=== PATIENT | male | born 1950 | race Caucasian/White ===

== ENCOUNTER 2017-09-12 10:52 | Day surgery (SDC) | payer MEDICARE, OTHER, SELFPAY ==
[2017-09-12 11:10] VITALS: BP 130/78; PULSE 71; RESP 16; TEMP 36.5; O2SAT 100; BMI 27.4
--- NOTE | 2017-09-12 12:23 | OP.PCM_ITS ---
Report of Operation Date of Procedure: 09/12/17 Pre-Operative Diagnosis: history of colon polyps, colonoscopy 2014 Post-Operative Diagnosis: same Surgery/Procedure Performed:: colonoscopy Description of Surgical Findings:: no polyps noted Type of Anesthesia:: MAC Anesthesiologist: Dat Rey Specimen's removed: none Estimated Blood Loss (mL): none Fluids Replaced: 400 cc RL Description of Procedure: After informed consent was given, the patient was brought to the endoscopy suite and placed in the supine position. Appropriate time out protocol was followed. Appropriate cardiac, blood pressure, and pulse oximetry monitoring was placed. After stable vital signs were noted, the patient was given intravenous conscious sedation by the anesthesia provider. The patient was then placed in the left lateral decubitis position. The colonoscope was lubricated and carefully inserted into the patient?s anus. It was then advanced into the rectum, then into the sigmoid colon, then into the left descending colon, past the splenic flexure, into the transverse colon, past the hepatic flexure, then down into the right descending colon and into the cecum. The cecum was identified by: transillumination, confluence of the tenae coli, identification of the ileocecal valve and appendiceal orifice, and external pressure with indentation. At this point, the colonoscope was slowly retracted back and the entire colonic mucosa was examined. There was no evidence of extrinsic compression and no inflammatory changes were noted. The colon cleansing preparation was adequate. No intraluminal obstructing lesions, no strictures, and no ulcers were noted. No polyps were noted throughout the colon with careful examination from pullout. Retroflex view in the rectum revealed no lesions in the rectal vault except for minimal hemorrhoidal changes. The colonoscope was removed intact. Patient tolerated procedure well. RECOMMENDATIONS: surveillance colonoscopy in 5 years for history of colon polyps - Complications none noted
[2017-09-12 12:24] VITALS: BP 130/78; BP 85/57; PULSE 64; RESP 16; TEMP 36.3; O2SAT 96
[2017-09-12 12:30] VITALS: BP 105/51; BP 130/78; PULSE 72; RESP 16; O2SAT 95
[2017-09-12 12:35] VITALS: BP 130/78; BP 99/56; PULSE 67; RESP 16; O2SAT 96
[2017-09-12 12:38] VITALS: BP 110/68; BP 130/78; PULSE 64; RESP 16; TEMP 36.1; O2SAT 98
[2017-09-12 13:02] VITALS: BP 130/78
== END 2017-09-12 13:04 | disposition home or self-care (01) ==
LOC: EN 10:53 → AC 10:55
PROVIDERS: Family Provider Family Medicine; PCP Family Medicine; Visit Provider Surgery
PROC: 0DJD8ZZ Inspection of Lower Intestinal Tract, Via Natural or Artificial Opening Endoscopic (ICD-10-PCS; CPT 45378; principal; 2017-09-12 11:55)
DX: Z12.11 Encounter for screening for malignant neoplasm of colon (principal); Z86.010 Personal history of colon polyps; E78.5 Hyperlipidemia, unspecified; Z95.0 Presence of cardiac pacemaker; J45.909 Unspecified asthma, uncomplicated
CPT/HCPCS: G0121; J7120

== ENCOUNTER → 2018-09-16 12:08 | Outpatient (CLI) | payer MEDICARE, OTHER, SELFPAY ==
[2018-03-28 11:17] VITALS: BMI 28.7
--- NOTE | 2018-09-16 12:10 | ECHOCS_ITS ---
Reason For Study: ARRHYTHMIA Procedure This was a 2D Doppler, Color Flow transthoracic echocardiogram. The study was technically difficult. Contrast injection was performed. Exam performed in department. Left Ventricle Normal LV size. Left ventricular systolic function is normal. The estimated ejection fraction is 60 %. Stage 1 diastolic dysfunction. No regional wall motion abnormalities noted. Right Ventricle Normal RV size. Normal systolic function. Atria Normal left atrium. Normal right atrium. Mitral Valve Normal mitral valve. Tricuspid Valve Normal tricuspid valve. Mild tricuspid valve insufficiency. Aortic Valve The aortic valve is not well visualized. Pulmonic Valve The pulmonic valve is not well visualized. Great Vessels Normal aortic root. The pulmonary artery is normal size. Normal inferior vena cava. Pericardium/Pleural No pericardial effusion. Medication 22 gauge I.V. with prn adaptor inserted into left arm. Diluted definity 4ml given slow IV push to enhance endocardial definition. MMode/2D Measurements & Calculations LVIDd: 4.7 cm IVSd: 0.94 cm Ao root diam: 3.8 cm LVIDs: 3.1 cm LVPWd: 1.1 cm RVDd: 2.6 cm FS: 33.4 % LAV(MOD-bp): 41.7 ml LVAd ap4: 33.0 cm2 SV(MOD-sp4): 70.8 ml LAV(MOD-bp) Indexed: 20.0 ml/m2 EDV(MOD-sp4): 111.3 ml LAV(MOD-sp2): 40.2 ml EDV(sp4-el): 118.0 ml LAV(MOD-sp4): 39.0 ml LVAs ap4: 17.7 cm2 ESV(MOD-sp4): 40.6 ml ESV(sp4-el): 41.9 ml EF(MOD-sp4): 63.6 % EF(sp4-el): 64.5 % SV(sp4-el): 76.0 ml LA A4 area: 16.0 cm2 LA dimension(2D): 3.6 cm RA A4 area: 14.1 cm2 Time Measurements MV dec time: 0.22 sec Doppler Measurements & Calculations MV E max johnathan: 38.6 cm/sec Lat Peak E' Johnathan: 6.0 cm/sec Med Peak E' Johnathan: 4.7 cm/sec MV A max johnathan: 70.3 cm/sec E/E' lat: 6.4 E/E' med: 8.1 MV E/A: 0.55 Ao V2 max: 119.6 cm/sec LV V1 max: 82.7 cm/sec PA V2 max: 113.5 cm/sec Ao max P.7 mmHg LV V1 max P.7 mmHg PI end-d johnathan: 95.5 cm/sec TR max johnathan: 188.8 cm/sec TR max P.3 mmHg Interpretation Summary Normal LV size. Left ventricular systolic function is normal. The estimated ejection fraction is 60 %. Stage 1 diastolic dysfunction. Mild tricuspid valve insufficiency. Contrast injection was performed. Ordering Physician: Vimal Gomez Referring Physician: MERLIN CARABALLO Performed By: Kimberly Ureña, MILA, RVT
== END ==
PROVIDERS: Family Provider Family Medicine; PCP Family Medicine; Referring Provider Internal Medicine Cardiovascular Disease; Visit Provider Internal Medicine Cardiovascular Disease
DX: I07.1 Rheumatic tricuspid insufficiency (principal)
CPT/HCPCS: 93306; Q9957; A4216; C8929

== ENCOUNTER → 2020-06-04 20:01 | Outpatient (CLI) | payer MEDICARE, OTHER, SELFPAY ==
[2020-04-15 13:20] VITALS: BMI 27.8
== END ==
PROVIDERS: PCP Family Medicine; Visit Provider Nurse Practitioner Family
DX: G47.10 Hypersomnia, unspecified (principal); R06.83 Snoring
CPT/HCPCS: 95810

== ENCOUNTER → 2020-06-17 13:19 | Outpatient (CLI) | payer MEDICARE, OTHER, SELFPAY ==
[2020-04-15 13:20] VITALS: BMI 27.8
--- NOTE | 2020-06-17 13:30 | RAD_ITS ---
STUDY: X-RAY CHEST REASON FOR EXAM: Male, 70 years old. PPM GENERATOR CHANGE TECHNIQUE: Frontal and lateral views COMPARISON: None. FINDINGS: The left-sided pacemaker. The lungs are clear and expanded. There is no demonstrated pleural abnormality. Normal size heart. Normal mediastinum and amilcar. Normal visualized pulmonary arteries. Normal visualized aortic arch and descending thoracic aorta. Mild degenerative changes and scoliosis of the thoracic spine. Normal visualized ribs, clavicles, and shoulders. There is no demonstrated abnormality of the visualized soft tissue structures of the upper abdomen. RAD/Chest PA and Lateral IMPRESSION: Normal x-ray examination of the chest. Electronically Signed: Jairon Prather DO at 19:56 EST Tel [phone], Service support ,
[2020-06-17 13:53] LABS: Bacteria 0 SEEN /hpf (None Seen); Mucous, Urine 0 SEEN /hpf (<or=2+); Red Blood Cells-Urine 0 SEEN /hpf (0-5); Squamous Epithelial Cells - UA 0 SEEN /hpf (0-5); White Blood Cells 0 SEEN /hpf (0-5)
[2020-06-17 15:35] LABS: Hematocrit 46.8 % (40-54); Hemoglobin 15.2 g/dL (13.0-16.5); Mean Corp Hgb Conc 32.5 g/dL (32-36); Mean Corpuscular Hgb 30.3 pg (27.0-32.0); Mean Corpuscular Volume 93.4 fL (80-94); Platelet Count 229 K/mm3 (150-450); RBC Distribution Width CV 11.9 % (11.6-14.6); Red Blood Count 5.01 M/mm3 (4.6-6.2); White Blood Count 7.8 K/mm3 (4.4-11.0)
[2020-06-17 15:40] LABS: Color, Urine Yellow (Yellow); Glucose, Dipstick Normal (Normal); Ketone-Dipstick Negative (Negative); Leukocyte Esterase-Dipstick Negative /ul (Negative); Nitrite-Dipstick Negative (Negative); Occult Blood-Urine Negative /ul (Negative); Protein-Dipstick Negative (Negative); Urine Bilirubin Dipstick Negative (Negative); Urine Clarity Clear (Clear); Urine Urobilinogen Normal (Normal)
[2020-06-17 15:51] LABS: Prothrombin Time (Protime)PT. 12.2 SECONDS (11.7-14.9)
[2020-06-17 16:13] LABS: Anion Gap 5 (5-15); BUN 23 mg/dL (7-18); BUN/Creat Ratio 32.8 RATIO (10-20); Calcium,Total 8.9 mg/dL (8.5-10.1); Chloride 106 mmol/L (98-107); EST Glomerular Filtration Rate 118 mL/min (>60); Est Glom Filt Rate - Afr Amer 143 mL/min (>60); Glucose 82 mg/dL (74-106); Potassium 4.3 mmol/L (3.5-5.1); Sodium Level 139 mmol/L (136-145)
== END ==
PROVIDERS: PCP Family Medicine; Referring Provider Internal Medicine Cardiovascular Disease; Visit Provider Internal Medicine Cardiovascular Disease
DX: I48.0 Paroxysmal atrial fibrillation (principal); Z95.0 Presence of cardiac pacemaker; I49.5 Sick sinus syndrome
CPT/HCPCS: 36415; 71046; 80048; 81001; 85027; 85610

== ENCOUNTER → 2020-06-22 20:20 | Outpatient (CLI) | payer MEDICARE, OTHER, SELFPAY ==
[2020-06-18 13:02] VITALS: BMI 28.0
== END ==
PROVIDERS: PCP Family Medicine; Visit Provider Nurse Practitioner Acute Care
DX: G47.30 Sleep apnea, unspecified (principal)
CPT/HCPCS: 95811

== ENCOUNTER 2020-06-28 11:06 | Day surgery (SDC) | payer MEDICARE, OTHER, SELFPAY ==
[2020-04-15 13:20] VITALS: BMI 27.8
[2020-06-18 13:02] VITALS: BMI 28.0
[2020-06-25 08:29] VITALS: BMI 27.8
--- NOTE | 2020-06-28 07:10 | HP_ITS ---
HPI HPI History of Present Illness Details: DELFINO ROSALES, is a 70 M who presents to the office today for a follow-up evaluation. As you know he is a gentleman with a history of sick sinus syndrome status post pacemaker placement and hyperlipidemia who returns for routine follow-up visit. He denies chest, arm, jaw, or neck discomfort. His exercise tolerance is stable. He denies symptoms of CHF, palpitations, lightheadedness, dizziness, near syncope, or syncopal episodes. He denies edema or claudication issues. He denies orthopnea, PND, fever, chills, cough, blood in urine, epistaxis, blood in stool, myalgia, or unexplainable fatigue. He denies headaches or vision changes. He states taking it at home his blood pressure is 120s-130s, typically in the afternoon. Intake Vital Signs 04/15/20 BP 160/92 H 04/15/20 Blood Pressure Location Lt brachial 04/15/20 Position Sitting 04/15/20 Comment Manual 04/15/20 Height 5 ft 11 in 04/15/20 Weight: 200 lb 04/15/20 BMI 27.8 04/15/20 BP 163/97 H 04/15/20 Blood Pressure Location Rt brachial 04/15/20 Position Sitting 04/15/20 Respiration 18 04/15/20 Pulse 75 04/15/20 Pulse Source Monitor 04/15/20 Pulse Oximetry (%) 99 Intake Visit Reasons: 1 Y FU, pacer 1pm Store Promoter Required: No Accompanied by: None Is patient in pain?: No Allergies aspirin Allergy (Verified 04/08/19 13:01) asthma attack Medications albuterol sulfate 90 mcg/actuation aerosol inhaler 1 inh INHALATION ONCE 04/15/20 [History Confirmed 04/15/20] losartan 25 mg tablet 25 mg PO DAILY 04/15/20 [History Confirmed 04/15/20] [facility] Medical History Paroxysmal atrial fibrillation (Chronic) Sick sinus syndrome (Chronic) HLD (hyperlipidemia) (Chronic) Spinal muscle atrophy (Chronic) Surgical History History of permanent cardiac pacemaker placement (Chronic 05/2008) Family History Mother Diabetes Social History (Updated 04/15/20 @ 14:42 by Gerson Mcdonough NP, KETTLE COOK-C) Smoking Status: Never smoker alcohol intake: never ROS Const Const: Negative for fatigue, weakness, body ache, fever(s) or chills ENT ENT: Negative for dizziness Cardio Chest Pain: No Palpitations: No Edema: None Muscle aches with walking: None Resp Respiratory: Negative for SOB with activity, SOB at rest, SOB orthopnea\SOB lying down or paroxysmal nocturnal dyspnea GI GI: Negative nausea, vomiting blood/hematemesis, bright, red blood in stools or black,tarry stools : Negative for hematuria or frequent nighttime urination/ nocturia Musc Musc: Negative for muscle aches/ myalgia Skin Skin: Negative non-healing lesions or rash Neuro Neuro: Negative for dizziness, lightheadedness, near syncope, syncope, orthostatic symptoms or weakness Endo Endo: Negative for fatigue Allergy Allergy/Immunology: Negative for rash Cardiology Exam Const Appearance: cooperative, healthy appearing, comfortable and no acute distress Nutritional Appearance: well nourished and overweight Orientation: alert, awake and oriented x3 Head Head: normal to inspection Ears: hearing grossly normal bilaterally Nose: external nose normal Face and Sinus: face symmetric Mouth: oral mucosae normal Eyes General: appearance normal, both eyes and all related structures Eyelids: eyelids normal EOM: EOM intact bilaterally Neck Neck: normal visual inspection and no JVD Carotids: normal carotid upstroke Chest Chest inspection: normal inspection of the chest, symmetric chest movement and normal respiratory effort; negative cough Auscultation: Bilateral: Clear to Auscultation Cardio Rate: regular rate Rhythm: regular rhythm Heart sounds: S1 normal and S2 normal; negative rub, gallop or murmur GI GI: normal to inspection Neuro General: alert, awake, oriented x3 and CN's II-XI intact bilaterally Skin Skin: no rashes or lesions noted Extremities Pulses: Normal: Right Posterior Tibial Pulse, Left Posterior Tibial Pulse, Right Radial Pulse, Left Radial Pulse Lower Extremity Edema: Trace: Bilateral (Ankles) Psych Psychological: normal affect Assessment & Plan 1. Sick sinus syndrome I49.5 Plan He is status post permanent pacemaker for this. His blood pressure is elevated today in office. Is unclear if this is whitecoat hypertension or if it is truly elevated. He was asked to continue monitor his blood pressure at home and when he comes for next pacemaker check in approximately 3 months that we will do a blood pressure check/H&P with blood pressure cuff correlation. 2. History of permanent cardiac pacemaker placement Z95.0 1996, 2008 Plan Pacemaker evaluation prior to office visit showed AP percent 32%, ORNAMENTAL IRON ERECTOR percent 11%, battery longevity 0.5 years, no mode switch episode, and no VHR episodes. Patient's pacemaker/ICD appears to be functioning appropriately. We will continue to monitor this with routine/scheduled follow-ups. 3. Paroxysmal atrial fibrillation I48.0 Plan This appears stable. His most recent pacemaker evaluation prior to office visit showed no mode switch episodes and no VHR episodes. He will continue current medical therapy and we will continue to monitor. He is currently not on oral anticoagulation. This would be reconsidered based on rhythm. Plan Detail Additional Comments Thank you for allowing us to participate in the patients plan of care, if you have any questions please do not hesitate to call. This note was generated using a voice recognition system and there may be incorrect words, spelling or punctuation that were not noted when reviewing the office note prior to saving. Follow Up BP check 07/22 (KETTLE COOK) 6 Months (TILE AND MARBLE SETTER) Coding Level of Care Code Off vis,est,level 3 Diagnoses Sick sinus syndrome I49.5 History of permanent cardiac pacemaker placement Z95.0 Paroxysmal atrial fibrillation I48.0 Coding Level of Care Code Off vis,est,level 3 Diagnoses Sick sinus syndrome I49.5 History of permanent cardiac pacemaker placement Z95.0 Paroxysmal atrial fibrillation I48.0 Supplemental Info Supplemental Information Echocardiogram from 09/16/2018: Interpretation Summary Normal LV size. Left ventricular systolic function is normal. The estimated ejection fraction is 60 %. Stage 1 diastolic dysfunction. Mild tricuspid valve insufficiency. Contrast injection was performed. Stress test from 07/15/2014: CONCLUSION: 1. Normal pharmacologic myocardial perfusion stress test. 2. Preserved ejection fraction. Labs LDL Cholesterol 149 mg/dL (0-130) H 06/17/15 HDL Cholesterol 40 mg/dL (40-) 06/17/15 Triglycerides 86 mg/dL (-199) 06/17/15 VLDL Cholesterol 17 mg/dL (5-40) 06/17/15 Diagnostics Echocardiogram 09/16/18 Stress Test Nuclear Medicine 07/15/14 Pacemaker Check 04/15/20 Assessment & Plan 1. Sick sinus syndrome I49.5 Plan - Gerson Mcdonough KETTLE COOK, KETTLE COOK-C He is status post permanent pacemaker for this. His blood pressure is elevated today in office. Is unclear if this is whitecoat hypertension or if it is truly elevated. He was asked to continue monitor his blood pressure at home and when he comes for next pacemaker check in approximately 3 months that we will do a blood pressure check/H&P with blood pressure cuff correlation. 2. History of permanent cardiac pacemaker placement Z95.0 1996, 2008 Plan - Gerson Mcdonough NP, KETTLE COOK-C Pacemaker evaluation prior to office visit showed AP percent 32%, ORNAMENTAL IRON ERECTOR percent 11%, battery longevity 0.5 years, no mode switch episode, and no VHR episodes. Patient's pacemaker/ICD appears to be functioning appropriately. We will continue to monitor this with routine/scheduled follow-ups. 3. Paroxysmal atrial fibrillation I48.0 Plan - Gerson Mcdonough NP, KETTLE COOK-C This appears stable. His most recent pacemaker evaluation prior to office visit showed no mode switch episodes and no VHR episodes. He will continue current medical therapy and we will continue to monitor. He is currently not on oral anticoagulation. This would be reconsidered based on rhythm. 4. Hypersomnia G47.10 Plan - Gerson Mcdonough NP, KETTLE COOK-C STOP-BANG Assessment: 1. Do you snore? Yes 2. Are you frequently tired during the day? Yes 3. Have you been observed gasping or choking while asleep? No 4. Do you have high blood pressure? No 5. BMI - greater than 35kg/m2? No 6. Age - over 50 years old? Yes 7. Neck Circumference - greater than 37 cm for females or 40 cm for males? Unknown 8. Gender - male? Yes Total STOP-BANG score = 4 which indicates high risk for obstructive sleep apnea (yes to 3 or more questions = high risk of sleep apnea). Patient does acknowledge multiple symptoms concerning for obstructive sleep apnea. These symptoms include hypersomnolence as well as snoring. He was asked to undergo a polysomnogram due to such symptoms in conjunction to higher blood pressure readings at home and paroxysmal atrial fibrillation history. Plan Detail Other Medications Discontinued: losartan Discontinued Reason: Discontinued by PCP/other physicians 25 mg PO DAILY Additional Comments - Gerson Mcdonough NP, KETTLE COOK-C Thank you for allowing us to participate in the patients plan of care, if you have any questions please do not hesitate to call. This note was generated using a voice recognition system and there may be incorrect words, spelling or punctuation that were not noted when reviewing the office note prior to saving. Follow Up BP check 07/22 (KETTLE COOK) 6 Months (TILE AND MARBLE SETTER)
--- NOTE | 2020-06-28 14:17 | CL.IE_ITS ---
Patient: DELFINO ROSALES Study Date: 06/28/2020 Performing: Vimal Gomez MD : 1950 Age: 70 Gender: male PROCEDURES PERFORMED [id number] REMOVAL+REPLACEMENT PACER-DUAL LEAD INDICATIONS Sinoatrial node dysfunction/Sick sinus syndrome End-of-life replacement indicator PROCEDURE DETAILS The patient was brought to the Catheterization Lab in the postabsorptive nonsedated state. Infor med consent was obtained prior to the procedure. Local anesthetic was given subcutaneously to the le ft upper chest area with Lidocaine 2%. Incision was made to the left upper chest. Access was achieved and a guidewire was advanced into the left subclavian vein. PPM atrial lead testing performed. PPM v entricular lead testing performed. PPM ventricular lead testing performed. PPM generator was attached to the lead(s) and inserted into the pocket. Device pocket was irrigated with antibiotic. The PPM ge nerator was sutured in place with 2-0 Silk. Subcutaneous closure was completed with 4-0 Vicryl. Skin closure was completed with 3-0 Vicryl. Steri-strips applied to Lt chest area. The patient tolerated the procedure well. Estimated Blood Loss: < 10 mls IMPLANTED / EX-PLANTED DEVICES IMPLANTED DEVICE(S): PPM Generator - Intake Worker: [employer], Model # [id number] , Serial # [id number] DEVICE PARAMETERS DEVICE PARAMETERS: lower rate - 60 Mode - ddi rate response off upper rate - 160 CONCLUSIONS / RECOMMENDATIONS Device Conclusions: Successful implantation of a dual chamber pacemaker battery change and replacemen t Device Conclusions: Successful implantation of a dual chamber pacemaker battery change and replacemen t Device Recommendations: Follow up with Primary Care Physician PROCEDURE MEDICATIONS Versed 1 mg IV Fentanyl 50 mcg IV Versed 1 mg IV Oxygen: 2 L/min via nasal cannula Ancef 2 Gm IV @ 06/28/2020 13:28:11 Signed By Vimal Gomez MD On 06/28/2020 14:17:19 Vimal Gomez MD
== END 2020-06-28 15:23 | disposition home or self-care (01) ==
LOC: CLSP 11:08
PROVIDERS: PCP Family Medicine; Referring Provider Internal Medicine Cardiovascular Disease; Visit Provider Internal Medicine Cardiovascular Disease
DX: I49.5 Sick sinus syndrome (principal); E78.5 Hyperlipidemia, unspecified; I48.0 Paroxysmal atrial fibrillation; G12.9 Spinal muscular atrophy, unspecified; Z95.0 Presence of cardiac pacemaker; G47.10 Hypersomnia, unspecified
CPT/HCPCS: 33228; 99152; 99153; J7040; J7050

== ENCOUNTER → 2021-02-08 10:49 | Outpatient (CLI) | payer MEDICARE, OTHER, SELFPAY ==
[2021-02-08 11:20] LABS: Bacteria 0 SEEN /hpf (None Seen); Mucous, Urine 0 SEEN /hpf (<or=2+); Red Blood Cells-Urine 0 SEEN /hpf (0-5); Squamous Epithelial Cells - UA 0 SEEN /hpf (0-5); White Blood Cells 0 SEEN /hpf (0-5)
[2021-02-08 11:34] LABS: Color, Urine Yellow (Yellow); Glucose, Dipstick Normal (Normal); Ketone-Dipstick Negative (Negative); Leukocyte Esterase-Dipstick Negative /ul (Negative); Nitrite-Dipstick Negative (Negative); Occult Blood-Urine 50 /ul (Negative); Protein-Dipstick 30 mg/dl (Negative); Urine Bilirubin Dipstick Negative (Negative); Urine Clarity Clear (Clear); Urine Urobilinogen Normal (Normal); Urine pH 6.5 (5.0 - 8.0)
== END ==
PROVIDERS: PCP Family Medicine; Visit Provider Nurse Practitioner Adult Health
DX: R31.29 Other microscopic hematuria (principal)
CPT/HCPCS: 81001

== ENCOUNTER 2021-02-08 19:09 | Emergency (ER) | payer MEDICARE, OTHER, SELFPAY ==
[2021-02-08 19:12] VITALS: BP 152/92; PULSE 89; RESP 18; TEMP 37; O2SAT 93; BMI 27.8
--- NOTE | 2021-02-08 19:21 | EKG12_ITS ---
Test Reason : DYSRHYTHMIA Blood Pressure : / mmHG Vent. Rate : 092 BPM Atrial Rate : 092 BPM P-R Int : 124 ms QRS Dur : 146 ms QT Int : 460 ms P-R-T Axes : 025 -52 031 degrees QTc Int : 568 ms Normal sinus rhythm Left axis deviation Right bundle branch block Abnormal ECG Confirmed by LANCE STEVENS, RAFAELA ([id number]), marketing editor JENNIFER ALVAREZ ([id number]) on 02/10/2021 8:45:53 AM Referred By: MARLYN Confirmed By:RAFAELA LUCAS MD
--- NOTE | 2021-02-08 19:21 | RAD_ITS ---
EXAM: XR CHEST, 1 VIEW CLINICAL INDICATION: cough TECHNIQUE: Frontal view of the chest. This report was created using [employer] report generation technology. COMPARISON: 06/17/2020 FINDINGS: LUNGS AND PLEURAL SPACES: Unremarkable. No consolidation or edema. No pneumothorax. No effusion. HEART: Unremarkable. Cardiac silhouette not enlarged. MEDIASTINUM: Central airways and mediastinal contour are unremarkable. BONES/JOINTS: Degenerative findings in the thoracic spine. SOFT TISSUES: Unremarkable. TUBES, LINES AND DEVICES: There is a left sided pacemaker battery pack. UPPER ABDOMEN: There is an elevated right hemidiaphragm. RAD/Chest 1 View (Portable) IMPRESSION: No acute findings in the chest. Electronically Signed: Joel Killian MD at 19:57 EDT , Service support ,
--- NOTE | 2021-02-08 19:22 | EX.ED.DYSGE1 ---
HPI History of Present Illness Chief Complaint: Syncope Informant: patient, spouse/S.O. and EMS Onset/Context/Timing Onset: Today (JPTA) Context: Sudden Onset (while sitting on cough watching TV) Timing: Continuous Current Severity: Gone Maximum Severity: Severe Worsened by: n/a Relieved by: n/a, woke up after sev minutes Associated Symptoms Associated Symptoms: cold symptoms recently Associated Symptoms ED: cough Narrative Narrative: Patient presents after syncopal episode that is unexplained, he was sitting watching TV when it happened. States he remembers feeling lightheaded and then suddenly woke up with paramedics around. Denies any other prodromal symptoms except his states that he look like he was having some trouble breathing although the patient does not recall that. He states I was out in the rain and then got a summer cold which he has had for the past week. Cough, fevers, chills, myalgias, runny nose, congestion. He has been vaccinated against Covid, has been in contact with no one that he knows of with Covid, and has not had a Covid test in the past week despite the symptoms. He is not on an anticoagulant for any reason, he is allergic to aspirin. He has a pacemaker that was placed after a syncopal episode back in 1997, he states he does not know the details of what was diagnosed, but he was told that he flatlined for some period of time. He continues to follow with cardiology, he does not think he has any other heart problems although paroxysmal atrial fibrillation is in his records. According to further records, he has a history of sick sinus syndrome and has had no episodes of paroxysmal atrial fibrillation according to his last visit. [facility] Medical History HLD (hyperlipidemia) Hypersomnia Pacemaker Paroxysmal atrial fibrillation Sick sinus syndrome Snoring Spinal muscle atrophy Home Medications albuterol sulfate 90 mcg/actuation aerosol inhaler 1 inh INHALATION ONCE 04/15/20 [History Last Taken Unknown] hydrochlorothiazide 25 mg tablet 25 mg PO QAM #30 tab 01/11/21 [Rx Last Taken Unknown] dexamethasone 6 mg PO DAILY #6 tab 02/08/21 [Rx Last Taken Unknown] tamsulosin 0.4 mg PO DAILY 02/08/21 [History Last Taken Unknown] terbinafine HCl 250 mg PO DAILY 02/08/21 [History Last Taken Unknown] Allergy/AdvReac Type Severity Reaction Status Date / Time aspirin Allergy asthma Verified 02/08/21 19:11 attack amlodipine AdvReac Severe muscle Verified 02/08/21 19:11 weakness lisinopril AdvReac Severe muscle Verified 02/08/21 19:11 weakness losartan AdvReac Severe muscle Verified 02/08/21 19:11 weakness metoprolol AdvReac Severe muscle Verified 02/08/21 19:11 weakness Family History Mother Diabetes Surgical History History of permanent cardiac pacemaker placement (06/28/20) Social History Smoking Status: Never smoker alcohol intake: never ROS ROS ED Constitutional Constitutional ED: Reports body ache(s), chills, fatigue, fever(s) and malaise; Denies headache(s) Eyes Eyes: Denies change in vision or diplopia ENT ENT ED: Denies rhinorrhea or sore throat Cardiovascular Cardiovascular: Denies chest pain or palpitations Respiratory/Chest Respiratory/Chest: Reports cough; Denies dyspnea or dyspnea on exertion Gastrointestinal Gastrointestinal: Denies abdominal pain, diarrhea, nausea or vomiting Genitourinary Genitourinary ED: Denies dysuria or hematuria Musculoskeletal Musculoskeletal: Denies back pain or neck pain Integumentary Denies abscess or rash Neurologic Neurologic: Denies headache(s), paresthesias or weakness Psychiatric Psychiatric: Denies anxiety or suicidal thoughts EXAM Physical Exam Const Vital Signs: 02/08/21 19:12 02/08/21 19:15 02/08/21 21:35 Temperature 98.6 F Temperature Source Temporal Pulse Rate 89 77 Respiratory Rate 18 16 Respiratory Effort Normal Non-Labored Respiratory Pattern Normal Blood Pressure 152/92 H 129/69 H Blood Pressure Mean 112 89 Pulse Ox 93 96 Oxygen Delivery Method Room Air Room Air 02/08/21 22:18 Temperature Temperature Source Pulse Rate Respiratory Rate Respiratory Effort Respiratory Pattern Blood Pressure Blood Pressure Mean Pulse Ox 87 Oxygen Delivery Method Room Air Positive well nourished and well developed Constitutional Narrative: well-appearing, no distress. conversive in full sentences. General Appearance ED: well developed and NAD HEENT Reports moist mucous membranes normocephalic and atraumatic Eyes PERRL and EOMs intact bilaterally Neck full ROM and supple Resp normal respiratory effort and clear to auscultation bilaterally Cardio regular rate, regular rhythm and no murmurs Rate: Negative for tachycardic GI non-tender and non-distended Auscultation: normoactive bowel sounds Palpation: soft Back/Spine no CVA tenderness General Back: other FROM Extremity normal to inspection and no calf tenderness General Extremety ED: Negative for edema, pulses abnormal or tenderness General Extremity: Negative for edema or pulses abnormal Neuro oriented x3, CN's II-XII intact bilaterally and no sensory deficits noted Sensorium / Orientation: awake and alert Motor Exam: strength 5/5 throughout Skin no rashes or lesions noted and no wounds MDM MDM MDM Narrative Medical decision making narrative: Patient's rapid Covid test returned positive, suggesting active COVID-19 which I think is compatible with his symptoms. His D-dimer is abnormal, and his chest x-ray was normal. He is sent for CT angiography of the chest to evaluate for pulmonary embolus. It is negative, but does show some mild Covid pneumonitis bilaterally. Patient maintained good oxygen saturations, however he did drop down to 87 very briefly with a good waveform, and another time dropped down to 88 very briefly with a good waveform. We ambulated him, and we were not able to get him to go lower than 89%. I think it is reasonable to send him home on a 2 L nasal cannula to augment his oxygenation, he has no other reason to need admission to the hospital at this time. His cardiac work-up is negative. He has a [employer] pacemaker that was replaced earlier this year, and I am not able to evaluate that brand device in the emergency department. At this time given all that I know, I suspect this could have been related to his Covid pneumonia, hypoxemia, or something unrelated but I do not think this is a high risk syncope, I think he is stable enough to be discharged home and follow-up closely with cardiology where possibly they can evaluate his pacemaker in the office. At this time I will send him home with Decadron after giving him an initial dose here, and oxygen per agreement with the local supply company. I advised to get a home pulse oximeter to keep an eye on his oxygen levels if possible. At night he wears CPAP and I think he can take the oxygen off and choose a CPAP over the oxygen at night since this will be mildly augmented with the CPAP only. Lab Data Attestation: I reviewed the patient's lab results. Labs: Laboratory Results - last 24 hr 02/08/21 02/08/21 02/08/21 18:58 18:58 19:37 WBC 4.5 RBC 5.43 Hgb 16.4 Hct 48.6 MCV 89.5 MCH 30.2 MCHC 33.7 RDW Std Deviation 37.0 RDW Coeff of Carolann 11.5 L Plt Count 182 MPV 10.0 Immature Gran % (Auto) 1.100 H Neut % (Auto) 65.5 Lymph % (Auto) 20.9 [place] % (Auto) 11.4 H Eos % (Auto) 0.4 Baso % (Auto) 0.7 Absolute Neuts (auto) 2.9 Absolute Lymphs (auto) 0.93 Nucleated RBC % 0 D-Dimer Quant (PE/DVT) 1.33 H* Sodium 133 L Potassium 3.0 L Chloride 95 L Carbon Dioxide 27.0 Anion Gap 11 BUN 19 H Creatinine 1.00 Estim Creat Clear Calc 74.25 Est GFR (MDRD) Af Amer 95 Est GFR (MDRD) Non-Af 79 BUN/Creatinine Ratio 19.1 Glucose 160 H Calcium 8.6 Troponin I High Sens 15 Radiography Diagnostic Testing: Radiology Impression Chest X-Ray 02/08/21 19:21 IMPRESSION: No acute findings in the chest. Electronically Signed: Joel Killian MD at 19:57 EDT , Service support , Chest CTA 02/08/21 20:20 IMPRESSION: 1. There are gallstones. 2. No demonstrated pulmonary embolism or arterial dissection. 3. Minimal patchy bilateral ground glass infiltrates suggesting pneumonia. Electronically Signed: Joel Killian MD at 21:15 EDT , Service support , EKG Initial EKG: Attestation: I personally reviewed and interpreted this EKG as follows: Interpretation: Sinus Rhythm, No Acute Injury Pattern, RBBB and LAFB Prior: No Prior Discharge Plan Triage Chief Complaint: Syncope ED Provider: Loco Naranjo Dx/Rx/DC Orders Clinical Impression: Syncope, Pneumonia due to COVID-19 virus, Hypoxemia Instructions: Coronavirus Disease 2019 (COVID-19): Caring for Yourself or Others, COVID-19: Lying in a Prone Position (Proning), Using Oxygen at Home Prescriptions: New dexamethasone 6 MG tablet 6 mg PO DAILY Qty: 6 RF: 0 No Action albuterol sulfate 90 mcg/actuation HFA aerosol inhaler 1 inh INHALATION ONCE RF: 0 terbinafine HCl 250 mg tablet 250 mg PO DAILY RF: 0 tamsulosin 0.4 mg capsule 0.4 mg PO DAILY RF: 0 hydrochlorothiazide 25 mg tablet 25 mg PO QAM Qty: 30 RF: 11 Primary Care Provider: Tomasz Sinha Referrals: Vimal Gomez MD [STAFF PHYSICIAN] - (call for appt to be seen as soon as able) Tomasz Sinha MD [Primary Care Provider] - As Needed Activity Restrictions/Additional Instructions: Try to get a home portable pulse oximeter and closely watch your oxygen levels periodically. If you stay below 90% for more than a minute or so, and/or you are feeling like your breathing is getting worse, return to the emergency department for further evaluation. Before coming to the emergency department, you may turn your oxygen up a little, but if you are needing more than 4 L to keep your levels above 89%, return to the ER. Disposition Disposition: Home, Self Care
[2021-02-08 19:31] LABS: Absolute Lymphocyte Count 0.93 X10^3/uL (0.83-4.51); Absolute Neutrophil Count 2.9 X10^3/uL (2.0-7.7); Basophil# 0.03 X10^3/uL; Basophil% 0.7 % (0-1); Eosinophil# 0.02 X10^3/uL; Eosinophils% 0.4 % (0-5); Hematocrit 48.6 % (40-54); Hemoglobin 16.4 g/dL (13.0-16.5); Lymphocyte # 0.93 X10^3/ul (0.83-4.51); Lymphocyte % 20.9 % (19-41); Mean Corp Hgb Conc 33.7 g/dL (32-36); Mean Corpuscular Hgb 30.2 pg (27.0-32.0); Mean Corpuscular Volume 89.5 fL (80-94); Monocyte# 0.51 X10^3/uL; Monocyte% 11.4 % (0-10); NRBC Flagged by Analyzer 0 % (0-5); Neutrophil # 2.92 X10^3/uL (2.7-7.7); Neutrophil % 65.5 % (47-70); Platelet Count 182 K/mm3 (150-450); RBC Distribution Width CV 11.5 % (11.6-14.6); Red Blood Count 5.43 M/mm3 (4.6-6.2); White Blood Count 4.5 K/mm3 (4.4-11.0)
[2021-02-08] MEDS: 0.9% Normal Saline 1,000 ML 250 ML IV (19:38)
[2021-02-08 19:57] LABS: Anion Gap 11 (5-15); BUN 19 mg/dL (7-18); BUN/Creat Ratio 19.1 RATIO (10-20); Calcium,Total 8.6 mg/dL (8.5-10.1); Chloride 95 mmol/L (98-107); EST Glomerular Filtration Rate 79 mL/min (>60); Est Glom Filt Rate - Afr Amer 95 mL/min (>60); Estimated Creatinine Clearance 74.25 ml/min; Glucose 160 mg/dL (74-106); Sodium Level 133 mmol/L (136-145); Troponin-I HS 15 pg/mL (3.0-78.0)
[2021-02-08 20:14] LABS: D-Dimer Quantitative (DVT/PE) 1.33 FEU/ug/m (0.27-0.49)
--- NOTE | 2021-02-08 20:20 | CT_ITS ---
EXAM: CT ANGIOGRAPHY CHEST WITHOUT AND WITH INTRAVENOUS CONTRAST CLINICAL INDICATION: syncope, covid, elevated d-dimer TECHNIQUE: Helically acquired angiography images were obtained of the chest without and with intravenous contrast. This CT exam was performed using one or more of the following dose reduction techniques: automated exposure control, adjustment of the mA and/or kV according to patient size, and/or use of iterative reconstruction technique. This report was created using [employer] report generation technology. MIP reconstructed images were created and reviewed. CONTRAST: IV 100mL [id number]-370 COMPARISON: None. FINDINGS: PULMONARY ARTERIES: Unremarkable. Normal in caliber. No evidence of pulmonary embolism. AORTA: Unremarkable. Normal in caliber. No evidence of dissection. GREAT VESSELS OF AORTIC ARCH: Unremarkable. Normal in caliber. No evidence of dissection. LUNGS AND PLEURAL SPACES: Minimal patchy bilateral ground glass infiltrates suggesting pneumonia. No mass. No pleural effusion or thickening. HEART: There are coronary arterial calcifications. No pericardial effusion. No signs of right heart strain, ratio of right ventricle to left ventricle measures less than 1. MEDIASTINUM: Unremarkable. No mediastinal or hilar adenopathy. Esophagus is unremarkable. No hiatal hernia. THYROID: Unremarkable. No thyroid lesions. BONES/JOINTS: Unremarkable. No suspicious lytic or blastic abnormality. GALLBLADDER AND BILE DUCTS: There are gallstones. TUBES, LINES AND DEVICES: There is a left sided pacemaker battery pack. CT/CTA Chest W/WO Contrast IMPRESSION: 1. There are gallstones. 2. No demonstrated pulmonary embolism or arterial dissection. 3. Minimal patchy bilateral ground glass infiltrates suggesting pneumonia. Electronically Signed: Joel Killian MD at 21:15 EDT , Service support ,
[2021-02-08] MEDS: 0.9% Normal Saline 1,000 ML 999 ML IV (20:36)
[2021-02-08 21:35] VITALS: BP 129/69; PULSE 77; RESP 16; O2SAT 96
[2021-02-08 22:18] VITALS: O2SAT 87
[2021-02-08 22:19] VITALS: O2SAT 94
--- NOTE | 2021-02-08 22:44 | CM.ED ---
Addendum entered by Abigail Mendoza 02/08/21 22:51: ERNIE received consult from RN that patient needs home oxygen. ERNIE called [facility] [place] [facility] and made referral. SW faxed referral to [facility] [place]. ERNIE received call from vadim Slade. He will follow up with patient regarding home oxygen. ERNIE sent email to follow up on home oxygen. No further SW needs Plan: Home with oxygen Abigail AVALOS Original Note: ERNIE Note
[2021-02-08] MEDS: dexAMETHasone 10 MG/ML Vial 6 MG IV (22:56)
[2021-02-08 23:30] VITALS: BP 141/80; PULSE 68; RESP 20; O2SAT 96
--- NOTE | 2021-02-08 23:45 | ED.RN ---
pt and were given instruction on how to use oxygen tank and conveyed understanding prior to D/C
--- NOTE | 2021-02-09 17:15 | CASEMGMT ---
[facility] ED COVID Home O2 Follow-up: This [facility] contacted pt via phone for home O2 follow-up. Pt states he feels better today, denies any SOB. Pt states he is doing everything that the dr had told him to do including taking his medications, resting, and wearing his O2. Reports his PO to be 95% at rest and 96% with activity. States the O2 is at 2l/min. Pt states he has contacted Dr. Sinha and Dr. Gomez's office and was told to keep on doing what he was instructed and let them know if he has any problems. Pt states he is remaining isolated at home with his . Pt asked about length of time to wear the O2. Instructed pt to contact his physicians for guidance on removing and stressed the importance of ensuring his PO remains in the 90's if he attempts to wean himself off of the O2. Pt denies any futher questions or concerns at this time. Chaka Tai RN CM
--- NOTE | 2021-02-11 11:41 | CASEMGMT ---
[facility] ED COVID Home O2 Follow-up: This RN KANDI contacted pt via phone for follow-up. Pt states he is plugging along. Reports his PO to remain in the 90's, primarily 95-96% and that he continues to wear the O2 at 2l/min continuously. Pt reports his temperature to be up and down but controlled with Tylenol. States he has become weak and is using a walker when ambulating. Reports his appetite to be decreased but he is continuing to eat and drink and is using protein supplement drinks between meals. Pt denies any further questions or concerns at this time. Chaka Tai RN CM
--- NOTE | 2021-02-14 10:15 | CASEMGMT ---
[facility] ED COVID Home O2 Follow-up: This RN CM contacted pt via phone regarding home O2 follow-up. Pt states he is not necessarily feeling better. Pt states his main complaint is feeling weak, but also continues to have a fever which is resolved w/Tylenol. States he contacted his PCP Dr. Sinha's nurse this AM regarding his c/o of continued weakness and they are scheduling him for virtual visit for in a couple of days to determine continued plan of care. Pt reports his PO to remain 90-95% on 2l/min O2. Pt states his PO remains in the 90's with activity also. Pt states he is drinking and eating well. Pt reports to be continuing to change his positioning from prone to side to upright to side to prone. Pt denies any further questions or concerns at this time and expressed appreciation for the follow-up calls. Chaka Tai RN CM
== END 2021-02-08 23:30 | disposition home or self-care (01) ==
PROVIDERS: Emergency Provider Emergency Medicine; PCP Family Medicine
DX: U07.1 COVID-19 (principal); J12.82 Pneumonia due to coronavirus disease 2019; R55 Syncope and collapse; R09.02 Hypoxemia; E78.5 Hyperlipidemia, unspecified; G47.10 Hypersomnia, unspecified; I48.0 Paroxysmal atrial fibrillation; I45.10 Unspecified right bundle-branch block; K80.20 Calculus of gallbladder without cholecystitis without obstruction; Z79.52 Long term (current) use of systemic steroids
CPT/HCPCS: 71045; 71275; 80048; 81001; 84484; 85025; 85379; 87426; 93005; 96361; 96374; 99285; J7030; Q9967; A4216

== ENCOUNTER 2021-05-19 14:25 | Outpatient (CLI) | payer MEDICARE, OTHER, SELFPAY ==
[2021-05-19 16:09] LABS: Anion Gap 9 (5-15); BUN 16 mg/dL (7-18); BUN/Creat Ratio 23.1 RATIO (10-20); Calcium,Total 9.4 mg/dL (8.5-10.1); Chloride 98 mmol/L (98-107); Creatinine, Serum 0.69 mg/dL (0.70-1.30); EST Glomerular Filtration Rate 120 mL/min (>60); Est Glom Filt Rate - Afr Amer 145 mL/min (>60); Glucose 89 mg/dL (74-106); Potassium 3.5 mmol/L (3.5-5.1); Sodium Level 138 mmol/L (136-145)
== END 2021-05-19 23:59 | disposition short-term general hospital (02) ==
PROVIDERS: PCP Family Medicine; Visit Provider Nurse Practitioner Family
DX: Z79.899 Other long term (current) drug therapy (principal)
CPT/HCPCS: 36415; 80048

== ENCOUNTER 2022-04-11 13:44 | Emergency (ER) | payer MEDICARE, OTHER, SELFPAY ==
[2022-04-11 13:45] VITALS: BP 173/90; PULSE 73; RESP 16; TEMP 36.6; O2SAT 96; BMI 27.1
--- NOTE | 2022-04-11 14:16 | RAD_ITS ---
STUDY: X-RAY CHEST REASON FOR EXAM: Male, 72 years old. Weakness TECHNIQUE: Single AP portable view of the chest. COMPARISON: Comparison is made with prior study dated 02/08/2021. FINDINGS: EKG electrodes are seen. There is elevation of the right hemidiaphragm. There is no demonstrated pleural abnormality. Normal size heart. A left-sided dual-chamber pacemaker is seen. Normal mediastinum and amilcar. Normal visualized pulmonary arteries. Normal visualized aortic arch and descending thoracic aorta. Normal visualized thoracic spine. Normal visualized ribs, clavicles, and shoulders. There is no demonstrated abnormality of the visualized soft tissue structures of the upper abdomen. RAD/Chest 1 View (Portable) IMPRESSION: No acute abnormality is present. Electronically Signed: Goyo Andre MD at 15:03 [facility] ,
--- NOTE | 2022-04-11 14:17 | EX.ED.DYSGE1 ---
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 Patient notes that he did his normal workout yesterday and in the evening he could hardly walk because his legs were so weak. He also had chills and what sounds like rigors last night but no reported fever. Patient notes over the past week he has had increased urinary frequency. He has BPH and had a cystoscopy [address] Becerril. He was told that he needs a TURP. Patient has a mild diffuse headache. Denies any vision changes. Denies any nausea, vomiting or change in his bowels. States last time he felt like this was when he had COVID. Denies any history of UTIs. No other complaints at this time. [facility] Medical History HLD (hyperlipidemia) Hypersomnia Pacemaker Paroxysmal atrial fibrillation Sick sinus syndrome Snoring Spinal muscle atrophy Home Medications albuterol sulfate 90 mcg/actuation aerosol inhaler 1 inh inhalation ONCE 04/15/20 [History Last Taken Unknown] clonidine HCl 0.1 mg tablet 0.2 mg PO BID 10/27/21 [History Last Taken Unknown] cephalexin 500 mg capsule 500 mg PO BID #14 caps 04/11/22 [Rx Last Taken Unknown] cholecalciferol (vitamin D3) 25 mcg (1,000 unit) capsule (Vitamin D3) 25 mcg PO DAILY 04/11/22 [History Last Taken Unknown] doxazosin 8 mg tablet (Cardura) 4 mg PO DAILY 04/11/22 [History Last Taken Unknown] spironolactone 100 mg tablet 100 mg PO DAILY 04/11/22 [History Last Taken Unknown] Allergy/AdvReac Type Severity Reaction Status Date / Time aspirin Allergy asthma Verified 04/11/22 13:48 attack amlodipine AdvReac Severe muscle Verified 04/11/22 13:48 weakness lisinopril AdvReac Severe muscle Verified 04/11/22 13:48 weakness losartan AdvReac Severe muscle Verified 04/11/22 13:48 weakness metoprolol AdvReac Severe muscle Verified 04/11/22 13:48 weakness Family History Mother Diabetes Surgical History History of permanent cardiac pacemaker placement (06/28/20) Social History Smoking Status: Never smoker alcohol intake: never ROS ROS ED Constitutional Constitutional ED: Reports chills; Denies fever(s) Eyes Eyes: Denies blurry vision or change in vision ENT ENT ED: Reports other Details: sniffles ; Denies rhinorrhea or sore throat Cardiovascular Cardiovascular: Denies chest pain or palpitations Respiratory/Chest Respiratory/Chest: Reports cough; Denies dyspnea Gastrointestinal Gastrointestinal: Denies abdominal pain, constipation, diarrhea, nausea or vomiting Genitourinary Genitourinary ED: Reports urinary frequency; Denies dysuria or hematuria Musculoskeletal Musculoskeletal: Denies arthralgias or myalgias Integumentary Denies rash Neurologic Neurologic: Reports headache(s) and weakness; Denies paresthesias Psychiatric Psychiatric: Denies anxiety or depression Hematologic/Lymphatic Hematologic/Lymphatic: Denies easy bleeding or easy bruising EXAM Physical Exam Const Vital Signs: 04/11/22 13:45 04/11/22 13:56 04/11/22 15:32 Temperature 97.8 F Temperature Source Temporal Pulse Rate 73 76 Respiratory Rate 16 16 Respiratory Effort Normal Respiratory Pattern Normal Blood Pressure 173/90 H 158/77 H Blood Pressure Mean 117 104 Pulse Ox 96 75 Oxygen Delivery Method Room Air Room Air 04/11/22 16:31 Temperature Temperature Source Pulse Rate 77 Respiratory Rate 18 Respiratory Effort Respiratory Pattern Blood Pressure 146/78 H Blood Pressure Mean 100 Pulse Ox 95 Oxygen Delivery Method Room Air Positive well nourished and well developed General Appearance ED: well developed and NAD HEENT Reports TM's clear and moist mucous membranes HEENT Narrative: Left tympanic membrane occluded with cerumen impaction Tympanic Membrane ED: Yes TM's clear right Neck supple Neck Narrative: No meningeal signs Chest Wall inspection of chest normal Resp normal respiratory effort and clear to auscultation bilaterally Cardio regular rate, regular rhythm and no murmurs GI normal to inspection, nondistended, normoactive bowel sounds and non-tender Extremity Extremity Narrative: 2+ pedal edema of the left lower extremity which is greater than the right. This is chronic per patient. 2+ bilateral DP pulses Neuro oriented x3, CN's II-XII intact bilaterally and no sensory deficits noted Neuro Narrative: 3 out of 5 strength of the right lower extremity with raising his leg off the bed. 2/5 strength of left lower extremities raising leg off the bed. 5/5 strength bilaterally of plantar and dorsiflexion of the feet. Psych mental status grossly normal Skin no rashes or lesions noted and no wounds MDM MDM MDM Narrative Medical decision making narrative: Patient is evaluated for generalized weakness as well as urinary frequency. Patient's vital signs are sniffing only for mild hypertension which he does have a history of. Appears nontoxic. He does have weakness of his legs however this is chronic associated with his spinal muscle atrophy. No acute neurologic symptoms. Infectious work-up is obtained. Patient is not had any falls and does not have any new or focal neurologic deficits I do not think head imaging is indicated. He is not on any anticoagulation. Patient does have a mild leukocytosis of 14.8. Lab work otherwise largely unremarkable. Urinalysis shows 10-25 white blood cells with 25-50 red blood cells and rare bacteria. There is no epithelial cells. Given his recent instrumentation and leukocytosis will cover for urinary tract infection with Keflex. Culture sent. Patient does have urinary retention. Post void bladder scan shows 500 cc of urine. Liu catheter is placed. Spoke with Dr. Becerril, patient's urologist, who states that patient is scheduled for TURP on 04/21. Encouraged the patient to keep this appointment and is agreeable with treatment plan at this time. Patient would like to try going home. He is offered admission but feels that he is strong enough/stable to go home. Given his stable vital signs and baseline ambulation I think this is reasonable. Patient is encouraged to return the emergency room should he have any worsening symptoms or further concerns. Is given first dose of Keflex in the emergency room. Is given counseling/education on Liu catheter care. Lab Data Labs: Laboratory Results - last 24 hr 04/11/22 04/11/22 04/11/22 14:00 14:00 15:25 WBC 12.8 H RBC 5.08 Hgb 15.7 Hct 46.3 MCV 91.1 MCH 30.9 MCHC 33.9 RDW Std Deviation 41.7 RDW Coeff of Carolann 12.5 Plt Count 192 MPV 9.7 Immature Gran % (Auto) 0.800 Neut % (Auto) 81.8 H Lymph % (Auto) 5.9 L Braxton % (Auto) 10.6 H Eos % (Auto) 0.5 Baso % (Auto) 0.4 Absolute Neuts (auto) 10.4 H Absolute Lymphs (auto) 0.75 L Nucleated RBC % 0 Sodium 134 L Potassium 4.0 Chloride 101 Carbon Dioxide 27.0 Anion Gap 6 BUN 19 H Creatinine 0.88 Estim Creat Clear Calc 82.00 Est GFR (MDRD) Af Amer 110 Est GFR (MDRD) Non-Af 91 BUN/Creatinine Ratio 21.7 H Glucose 111 H Calcium 9.2 Total Bilirubin 0.80 AST 40 H ALT 53 Alkaline Phosphatase 62 Total Protein 7.9 Albumin 3.5 Globulin 4.4 H Albumin/Globulin Ratio 0.8 L Urine Color Yellow Urine Clarity Clear Urine pH 7.0 Ur Specific [place] 1.010 Urine Protein 30 H Urine Glucose (UA) Normal Urine Ketones 5 H Urine Occult Blood 250 H Urine Nitrite Negative Urine Bilirubin Negative Urine Urobilinogen Normal Ur Leukocyte Esterase 100 H Urine RBC 25-50 SEEN Urine WBC 10-25 SEEN Ur Squamous Epith Cells 0 SEEN Urine Bacteria RARE Urine Mucus 0 SEEN Radiography Diagnostic Testing: Clinical Impression(s) from Imaging Studies Chest X-Ray 04/11/22 14:16 IMPRESSION: No acute abnormality is present. Electronically Signed: Goyo Andre MD at 15:03 EST , Discharge Plan Triage Chief Complaint: Weakness ED Provider: Olinda Harrison Dx/Rx/DC Orders Clinical Impression: Acute UTI, Acute on chronic urinary retention, Generalized muscle weakness Instructions: ED Urinary Retention, Male, ED Bladder Infection, Male (Adult) Prescriptions: New cephalexin 500 mg capsule 500 mg PO BID Qty: 14 0RF No Action albuterol sulfate 90 mcg/actuation HFA aerosol inhaler 1 inh INHALATION ONCE spironolactone 100 mg tablet 100 mg PO DAILY Label Comments: TAKE 1 TABLET BY MOUTH ONCE DAILY cholecalciferol (vitamin D3) [Vitamin D3] 25 mcg (1,000 unit) Capsule 25 mcg PO DAILY doxazosin [Cardura] 8 mg tablet 4 mg PO DAILY Rx Instructions: 8 mg PO; take 4 mg (1/2 tablet) in am and 8 mg at bedtime clonidine HCl 0.1 mg tablet 0.2 mg PO BID Primary Care Provider: Tomasz Sinha Referrals: Tomasz Sinha MD [Primary Care Provider] - Kareem Becerril MD [Med Staff - Active Staff] - Disposition Disposition: Home, Self Care
[2022-04-11 14:31] LABS: Absolute Lymphocyte Count 0.75 X10^3/uL (0.83-4.51); Absolute Neutrophil Count 10.4 X10^3/uL (2.0-7.7); Basophil# 0.05 X10^3/uL; Basophil% 0.4 % (0-1); Eosinophil# 0.06 X10^3/uL; Eosinophils% 0.5 % (0-5); Hematocrit 46.3 % (40-54); Hemoglobin 15.7 g/dL (13.0-16.5); Lymphocyte # 0.75 X10^3/ul (0.83-4.51); Lymphocyte % 5.9 % (19-41); Mean Corp Hgb Conc 33.9 g/dL (32-36); Mean Corpuscular Hgb 30.9 pg (27.0-32.0); Mean Corpuscular Volume 91.1 fL (80-94); Mean Platelet Vol. 9.7 fl (6.2-12.0); Monocyte# 1.35 X10^3/uL; Monocyte% 10.6 % (0-10); NRBC Flagged by Analyzer 0 % (0-5); Neutrophil # 10.44 X10^3/uL (2.7-7.7); Neutrophil % 81.8 % (47-70); Platelet Count 192 K/mm3 (150-450); RBC Distribution Width CV 12.5 % (11.6-14.6); RBC Distribution Width SD 41.7 fl (35.1-43.9); Red Blood Count 5.08 M/mm3 (4.6-6.2); White Blood Count 12.8 K/mm3 (4.4-11.0)
[2022-04-11] MEDS: 0.9% Normal Saline 1,000 ML 150 ML IV (14:32)
[2022-04-11 14:49] LABS: ALB/GLOB Ratio 0.8 RATIO (0.9-2.4); AST(SGOT) 40 U/L (15-37); Alanine Aminotransfer ALT/SGPT 53 U/L (16-61); Albumin, Serum 3.5 g/dL (3.2-5.0); Alkaline Phosphatase 62 U/L (45-117); Anion Gap 6 (5-15); BUN 19 mg/dL (7-18); BUN/Creat Ratio 21.7 RATIO (10-20); Calcium,Total 9.2 mg/dL (8.5-10.1); Chloride 101 mmol/L (98-107); Creatinine, Serum 0.88 mg/dL (0.70-1.30); EST Glomerular Filtration Rate 91 mL/min (>60); Est Glom Filt Rate - Afr Amer 110 mL/min (>60); Globulin 4.4 g/dL (2.2-4.2); Glucose 111 mg/dL (74-106); Protein, Total 7.9 g/dL (6.4-8.2); Sodium Level 134 mmol/L (136-145)
[2022-04-11 15:32] VITALS: BP 158/77; PULSE 76; RESP 16; O2SAT 75
[2022-04-11 15:41] LABS: Mucous, Urine 0 SEEN /hpf (<or=2+); Squamous Epithelial Cells - UA 0 SEEN /hpf (0-5)
[2022-04-11 16:04] LABS: Color, Urine Yellow (Yellow); Glucose, Dipstick Normal (Normal); Ketone-Dipstick 5 mg/dl (Negative); Leukocyte Esterase-Dipstick 100 /ul (Negative); Nitrite-Dipstick Negative (Negative); Occult Blood-Urine 250 /ul (Negative); Protein-Dipstick 30 mg/dl (Negative); Urine Bilirubin Dipstick Negative (Negative); Urine Clarity Clear (Clear); Urine Urobilinogen Normal (Normal)
[2022-04-11 16:19] LABS: Red Blood Cells-Urine 25-50 SEEN /hpf (0-5)
[2022-04-11 16:20] LABS: Bacteria RARE /hpf (None Seen); White Blood Cells 10-25 SEEN /hpf (0-5)
[2022-04-11 16:31] VITALS: BP 146/78; PULSE 77; RESP 18; O2SAT 95
[2022-04-11] MEDS: Cephalexin 250 MG Capsule 500 MG PO (17:33)
== END 2022-04-11 18:31 | disposition home or self-care (01) ==
PROVIDERS: Emergency Provider Emergency Medicine; PCP Family Medicine; Visit Provider Emergency Medicine
DX: N39.0 Urinary tract infection, site not specified (principal); R33.9 Retention of urine, unspecified; M62.81 Muscle weakness (generalized); G47.30 Sleep apnea, unspecified; Z95.0 Presence of cardiac pacemaker
CPT/HCPCS: 51702; 71045; 80053; 81001; 85025; 87077; 87086; 87088; 87186; 87428; 93005; 96360; 96361; 99285; J7030; A4216

== ENCOUNTER 2022-05-03 08:26 | Observation (INO) | payer MEDICARE, OTHER, SELFPAY ==
[2022-05-03] VITALS (16 sets, daily range): BP systolic 104–181; BP diastolic 60–88; PULSE 55–76; RESP 15–18; TEMP 36.1–36.6; O2SAT 95–100; BMI 28.0
[2022-05-03] MEDS: Lactated Ringers 1,000 ML 15 ML IV (07:02)
[2022-05-03] MEDS: Cefazolin 2 GM in 0.9% Normal Saline 100 ML IV (08:19)
--- NOTE | 2022-05-03 08:25 | PROS_PTH ---
PATIENT: DELFINO ROSALES LOC: MS3 U#:[id number] AGE/SX: 72/M ROOM: [facility] [place]03/[address]: Dr. Kareem Becerril MD : 1950 BED: 1 DIS: 05/04/2022 SPEC #: [id number] RECD: 05/03/22 10:18 STATUS: WENDY COSTELLO #: [id number] CAITY: 05/03/22 08:[address]: Kareem Becerril DEPT: SURGICAL PATHOLOGY RECD BY: Luisa Walker ENTERED: 05/03/22 11:05 SP TYPE: TURP OTHR DR: Dr. Tomasz Sinha MD Tissues: Prostate, NOS Procedures: Special Stain Group I Surgery Specimen Level IV AFB Stain (control) GMS Stain (control) HEADER OPERATION: Cysto, TUR prostate, Olymp[employer] PRE-OP DIAGNOSIS: BPH with obstruction TISSUE SUBMITTED: Prostate tissue MICROSCOPIC DIAGNOSIS Prostate tissue, transurethral resection: Benign prostatic hyperplasia, glandular and stromal type. Chronic inflammation and focal area of granulomatous inflammation. See comment. SJ:lesia 05/04/2022 COMMENT Special stains for acid fast bacilli and fungi are negative for organisms; matched controls are appropriate. MICROSCOPIC DESCRIPTION Slides are reviewed. GROSS DESCRIPTION Received is one container labeled with the patient's name and designated prostate tissue. The specimen consists of multiple irregular fragments of pink-boudreaux, rubbery, soft tissue that in aggregate weigh 27.1 gm and measure in aggregate 6.5 x 6.5 x 2.5 cm. Asphalt Heater Tender portions are submitted in ten cassettes. / AM:lesia 05/03/2022 TC:5 CPT: 55062, 14360 x2
--- NOTE | 2022-05-03 08:31 | HP.PCM_ITS ---
HPI - General HPI Narrative DELFINO ROSALES, is a 72 M who presents for transurethral resection of prostate [facility] Medical History (Updated 04/19/22 @ 00:04 by Sissy Richardson) Asthma Cardiology follow-up encounter CPAP (continuous positive airway pressure) dependence High cholesterol History of echocardiogram History of edema History of stress test HLD (hyperlipidemia) Hypersomnia Non-smoker Pacemaker Paroxysmal atrial fibrillation Prostate disease Sick sinus syndrome Sleep apnea Snoring Spinal muscle atrophy Wears glasses Home Medications albuterol sulfate 90 mcg/actuation aerosol inhaler 1 inh inhalation ONCE 04/15/20 [History Last Taken Unknown] clonidine HCl 0.1 mg tablet 0.2 mg PO BID 10/27/21 [History Last Taken 05/03/22] cephalexin 500 mg capsule 500 mg PO BID #14 caps 04/11/22 [Rx Last Taken Unknown] cholecalciferol (vitamin D3) 25 mcg (1,000 unit) capsule (Vitamin D3) 25 mcg PO DAILY 04/11/22 [History Last Taken Unknown] doxazosin 8 mg tablet (Cardura) 4 mg PO DAILY 04/11/22 [History Last Taken Unknown] spironolactone 100 mg tablet 100 mg PO DAILY 04/11/22 [History Last Taken Unknown] ciprofloxacin HCl 500 mg tablet (Cipro) 500 mg PO BID #14 tabs 04/21/22 [Rx Last Taken Unknown] cephalexin 500 mg capsule 500 mg PO TID #15 caps 05/03/22 [Rx Last Taken Unknown] Allergy/AdvReac Type Severity Reaction Status Date / Time aspirin Allergy asthma Verified 05/03/22 07:00 attack amlodipine AdvReac Severe muscle Verified 05/03/22 07:00 weakness lisinopril AdvReac Severe muscle Verified 05/03/22 07:00 weakness losartan AdvReac Severe muscle Verified 05/03/22 07:00 weakness metoprolol AdvReac Severe muscle Verified 05/03/22 07:00 weakness Family History Mother Diabetes Surgical History (Updated 04/14/22 @ 14:51 by Karen Francis) History of permanent cardiac pacemaker placement (06/28/20) History of surgery on arm Social History Smoking Status: Never smoker alcohol intake: never Vital Signs Vital Signs Vital Signs: 05/03/22 07:04 05/03/22 07:04 Temperature 97.4 F L Temperature Source Temporal Pulse Rate 64 Respiratory Rate 18 Respiratory Pattern Normal Blood Pressure 158/77 H Blood Pressure Mean 104 Blood Pressure Source Monitor Blood Pressure Position Semi-Fowlers Blood Pressure Location Left Arm Pulse Ox 100 Oxygen Delivery Method Room Air Weight Weight: 91.172 kg Body Mass Index (BMI) 28.0
--- NOTE | 2022-05-03 08:31 | PCM.DC ---
Discharge Instructions Diet Discharge Diet: No restrictions, Light diet - advance as tolerated and Soft diet Activity Lifting Restrictions: No heavy lifting for 6 weeks Follow Up Care Please Follow Up With: Kareem Becerril MD When: Call for appointment Test Results: Test results from this visit will be discussed in further detail at your follow-up appointment, if applicable. Discharge Plan Admission Primary Reason for Your Visit: TUR Attending Provider: Kareem Becerril Primary Care Provider: Tomasz Sinha Instructions Patient Instructions: [facility] Home Recovery Discharge Orders/Prescriptions Prescriptions: New ciprofloxacin HCl [Cipro] 500 mg tablet 500 mg PO BID Qty: 14 0RF cephalexin 500 mg capsule 500 mg PO TID Qty: 15 0RF Continued albuterol sulfate 90 mcg/actuation HFA aerosol inhaler 1 inh INHALATION ONCE spironolactone 100 mg tablet 100 mg PO DAILY Label Comments: TAKE 1 TABLET BY MOUTH ONCE DAILY cholecalciferol (vitamin D3) [Vitamin D3] 25 mcg (1,000 unit) Capsule 25 mcg PO DAILY doxazosin [Cardura] 8 mg tablet 4 mg PO DAILY Rx Instructions: 8 mg PO; take 4 mg (1/2 tablet) in am and 8 mg at bedtime cephalexin 500 mg capsule 500 mg PO BID Qty: 14 0RF clonidine HCl 0.1 mg tablet 0.2 mg PO BID Referrals / Follow Up: Tomasz Sinha MD [Primary Care Provider] - Kareem Becerril MD [Med Staff - Active Staff] - Disposition Disposition (needs filled in before D/C Order can be placed): Home, Self Care
--- NOTE | 2022-05-03 08:32 | PCM.OPRPT ---
Report of Operation Date of Procedure: 05/03/22 Pre-Operative Diagnosis: BPH with obstruction Post-Operative Diagnosis: The same Surgery/Procedure Performed:: Transurethral section prostate Description of Surgical Findings:: In the preoperative setting I discussed with the patient how the surgery would be done with expect afterwards. We discussed how a prostate resection is done and we discussed the risk of the surgery including, bleeding, infection, retrograde ejaculation, changes with ejaculation or intercourse,. We discussed the possibility that the resection of the prostate may not alleviate his urinary symptoms. We discussed the small risk of developing scar tissue along the urethral channel and strictures. We also discussed the chance of the prostate could grow back and he may need further surgery or treatment in the future for prostate problems. Patient was taken back to the operating room, timeout procedure was performed, he was identified and marked and placed on the operating room table. He underwent general anesthesia. He was placed in dorsolithotomy position. Penis and testicles were prepped and draped in usual sterile fashion. Went into the bladder using the visual obturator with a resectoscope. Once inside the bladder identified the right and left ureteral orifice. I then identified the prostate and the anatomy of the prostate. I marked out the area of the sphincter and the verumontanum was identified. I then proceeded with the prostate resection first resected the median lobe. And then resected the right lobe of the prostate. Then to resect the left lobe of the prostate. I then resected the apical tissue of the prostate. This was a complete resection of all obstructive tissue to improve voiding and relieve obstruction. I then made sure that there was no injury to the sphincter or the verumontanum was still intact. At the end of the resection all the chips were Ellik out of the bladder. I then identified the left and right ureteral orifice and these were confirmed to be in good position and effluxing and not injured. The resectoscope was removed, a 22 [place] catheter was placed into the bladder on continuous irrigation. And the urine was fairly light pink color and draining normally. He was taken back to the PACU in good condition. Surgeon: Kareem Becerril Type of Anesthesia: General Drains: 22fr [address] way Admit VTE Documentation VTE Present on Admission: No VTE Mechan Device Prophylaxis: SCD's VTE Pharm Prophylaxis ordered?: No
--- NOTE | 2022-05-03 10:56 | SUR.PHASEI ---
FROM THE TIME PATIENT GOT TO PACU TILL 1035 THIS NURSE WAS ATTEMPTING TO GET A BP. PATIENT WAS VISIBLY SHAKING SO I GAVE HIM DEMEROL 12.5 MG. HE CONTINUED TO SHAKE AND C/O ANXIETY AND WAS STARTING TO CRY. NAVID VAUGHN GOT AN ORDER FOR ATIVAN FOR ME PATIENT WOULD NOT LET GO OF MY HAND AND KEPT SAYING DONT LEAVE ME. A TOTAL OF 2MG OF ATIVAN GIVEN IN 5 MINUTE INTERVALS UNTIL I GOT HIM TO QUIT SHAKING AND TELL ME HE WASN'T FEELING ANXIOUS. HE DOES NOT HAVE ANY PAIN . FIRST ACTUAL BP WAS OBTAINED AT 1035 OF 185/77 WHICH IS STILL IN HIS 20 PERCENT.
[2022-05-03] MEDS: Ciprofloxacin 400 MG/200 ML BAG 200 MG IV (16:06)
[2022-05-03] MEDS: 0.9% Normal Saline 1,000 ML 125 ML IV (16:06)
[2022-05-03] MEDS: Cephalexin 500 MG Capsule PO (19:58)
[2022-05-03] MEDS: cloNIDine HCl 0.2 MG Tablet PO (19:58)
[2022-05-03] MEDS: Docusate Sodium 100 MG Capsule 200 MG PO (19:58)
[2022-05-03] MEDS: Doxazosin 4 MG Tablet 8 MG PO (20:01)
[2022-05-04] MEDS: 0.9% Normal Saline 1,000 ML 125 ML IV (00:52)
[2022-05-04 02:20] VITALS: O2SAT 73
[2022-05-04 02:23] VITALS: O2SAT 97
[2022-05-04 02:27] VITALS: BP 119/65; PULSE 61; RESP 18; TEMP 36.5; O2SAT 97
[2022-05-04] MEDS: Ciprofloxacin 400 MG/200 ML BAG 200 MG IV (02:37)
[2022-05-04 07:44] VITALS: O2SAT 98
[2022-05-04] MEDS: Cephalexin 500 MG Capsule PO (09:22)
[2022-05-04] MEDS: Docusate Sodium 100 MG Capsule 200 MG PO (09:23)
[2022-05-04] MEDS: cloNIDine HCl 0.2 MG Tablet PO (09:23)
[2022-05-04] MEDS: Spironolactone 50 MG Tablet 100 MG PO (09:24)
[2022-05-04 09:26] VITALS: BP 126/75; PULSE 79; RESP 18; TEMP 36.7; O2SAT 94
--- NOTE | 2022-05-04 14:22 | CASEMGMT ---
JOHANA CM in to discuss POOLE form with patient. RN CM explained POOLE form, patient voiced understanding. Pt signed form and filed in chart. Pt provided with a copy of signed POOLE form. Patient had no further questions or concerns at this time.
--- NOTE | 2022-05-04 15:36 | PCM.PN.BLA ---
Progress Note urien clear d/c turk home after is able to void.
== END 2022-05-04 16:30 | disposition home or self-care (01) ==
LOC: ACINP 09:05 → MS3 22:00
PROVIDERS: Admitting Provider Urology; PCP Family Medicine; Referring Provider Urology; Visit Provider Urology
PROC: (CPT 52601; principal; 2022-05-03 08:15)
DX: N40.1 Benign prostatic hyperplasia with lower urinary tract symptoms (principal); I48.0 Paroxysmal atrial fibrillation; E78.00 Pure hypercholesterolemia, unspecified; N13.8 Other obstructive and reflux uropathy; G47.30 Sleep apnea, unspecified; Z95.810 Presence of automatic (implantable) cardiac defibrillator; J45.20 Mild intermittent asthma, uncomplicated; I10 Essential (primary) hypertension; Z79.899 Other long term (current) drug therapy; R35.0 Frequency of micturition
CPT/HCPCS: 52601; 00914; 88305; 88312; 96361; 96365; 96366; 99218; 99251; 99252; J7030; J7120; G0378; G0463; J0744

== ENCOUNTER → 2022-09-18 | Outpatient (CLI) | payer MEDICARE, OTHER, SELFPAY ==
[2022-09-18 15:44] LABS: PSA,Total- Diagnostic 1.35 ng/mL (0.0-4.0)
== END | disposition home or self-care (01) ==
LOC: LAB 14:10
PROVIDERS: PCP Family Medicine; Referring Provider Registered Nurse; Visit Provider Registered Nurse
DX: R97.20 Elevated prostate specific antigen [PSA] (principal)
CPT/HCPCS: 36415; 84153

== ENCOUNTER → 2023-09-20 | Outpatient (CLI) | payer MEDICARE, OTHER, SELFPAY ==
[2023-09-20 16:03] LABS: PSA,Total - Annual Screen 1.24 ng/mL (0.00-4.00)
== END | disposition home or self-care (01) ==
LOC: LAB 14:14
PROVIDERS: PCP Family Medicine; Referring Provider Nurse Practitioner; Visit Provider Nurse Practitioner
DX: Z12.5 Encounter for screening for malignant neoplasm of prostate (principal)
CPT/HCPCS: 36415; 84153; G0103

== ENCOUNTER → 2024-09-23 | Outpatient (CLI) | payer MEDICARE, OTHER, SELFPAY ==
[2024-09-23 15:50] LABS: PSA,Total - Annual Screen 1.11 ng/mL (0.02-4.00)
== END | disposition home or self-care (01) ==
LOC: LAB 14:40
PROVIDERS: PCP Family Medicine; Referring Provider Nurse Practitioner; Visit Provider Nurse Practitioner
DX: Z12.5 Encounter for screening for malignant neoplasm of prostate (principal)
CPT/HCPCS: 36415; 84153; G0103

== ENCOUNTER 2025-04-01 16:04 | Inpatient (IN) | payer MEDICARE, OTHER, SELFPAY ==
[2025-04-01] VITALS (8 sets, daily range): BP systolic 119–185; BP diastolic 60–78; PULSE 55–77; RESP 14–24; TEMP 35.8–36.2; O2SAT 96–100; BMI 28.1
--- NOTE | 2025-04-01 16:15 | ED.VIS.CHEST ---
HPI History of Present Illness Chief Complaint: Chest Other Narrative Narrative: Patient is a 75-year-old male presenting to the emergency department for reported pacemaker lead malfunction at his cardiology visit today. Patient has a past medical history of hyperlipidemia, paroxysmal A-fib, sick sinus syndrome and cardiac pacemaker placement in 2020. 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 Per the pacemaker report there is a RV lead malfunction. He initially had his pacemaker placed in 2008 at [facility]. There is concern about transportation issues which is why he was sent here before transfer to [facility] for cardiology evaluation. He denies any chest pain, shortness of breath, leg numbness, dizziness, nausea or lower extremity edema worse than baseline. [facility] Medical History Pacemaker lead malfunction Wears glasses Prostate disease High cholesterol Non-smoker CPAP (continuous positive airway pressure) dependence Sleep apnea Asthma History of edema History of echocardiogram History of stress test Cardiology follow-up encounter Pacemaker Snoring Hypersomnia Spinal muscle atrophy Paroxysmal atrial fibrillation HLD (hyperlipidemia) Sick sinus syndrome Home Medications ?Medication ?Instructions ?Recorded ?Last Taken ?Type albuterol sulfate 90 mcg/actuation 1 inh inhalation ONCE 04/15/20 Unknown History aerosol inhaler spironolactone 100 mg tablet 100 mg PO DAILY 04/11/22 Unknown History nvnquovpkqxs-eayijvlo-mezgkt tablet 1 tab PO DAILY 12/07/22 Unknown History clonidine HCl 0.3 mg tablet 0.3 mg PO BID 04/01/25 Unknown History doxazosin 2 mg tablet 2 mg PO DAILY 04/01/25 Unknown History doxazosin 4 mg tablet 4 mg PO DAILY 04/01/25 Unknown History Allergy/AdvReac Type Severity Reaction Status Date / Time aspirin Allergy asthma Verified 04/01/25 16:06 attack amlodipine AdvReac Severe muscle Verified 04/01/25 16:06 weakness lisinopril AdvReac Severe muscle Verified 04/01/25 16:06 weakness losartan AdvReac Severe muscle Verified 04/01/25 16:06 weakness metoprolol AdvReac Severe muscle Verified 04/01/25 16:06 weakness Family History Mother Diabetes Surgical History H/O transurethral resection of prostate History of surgery on arm History of permanent cardiac pacemaker placement (06/28/20) Social History Smoking Status: Never smoker alcohol intake: never substance use type: does not use caffeine: Yes Type: carbonated beverages and tea ROS ROS ED ROS Narrative see HPI EXAM Physical Exam Narrative Exam Narrative: Vital signs: Reviewed General: Alert and orientedx3. No acute distress HEENT: Head is normocephalic and atraumatic, sinuses nontender, pupils equal round and reactive. Nares are patent. Oropharynx and throat exams normal. Neck: Supple without lymphadenopathy nontender Cardiovascular: Regular rate and rhythm, no murmurs. No rubs or gallops. Normal S1 and S2 Respiratory: Clear to auscultation bilaterally. No wheezes, rales, rhonchi Abdominal: Soft and nontender. Normal bowel sounds. No guarding or rebound. Nonsurgical abdomen Extremities: Bilateral symmetric pitting lower extremity edema. No erythema or warmth. No tenderness. No bruising. Normal range of motion. Normal sensation. Skin: No rash or redness. Neurological: Cranial nerves II through XII are grossly intact. Normal strength and sensation. Normal cerebellar function The rest of the physical exam is unremarkable Const Vital Signs: 04/01/25 16:07 04/01/25 17:21 04/01/25 18:00 Temperature 96.5 F L Temperature Source Temporal Pulse Rate 66 58 L 60 Respiratory Rate 24 H 18 Blood Pressure 185/73 H 155/78 H Blood Pressure Mean 110 103 Pulse Ox 100 97 Oxygen Delivery Method Room Air Room Air 04/01/25 18:45 04/01/25 20:00 04/01/25 21:00 Temperature Temperature Source Pulse Rate 62 62 60 Respiratory Rate 18 20 H Blood Pressure 167/74 H 126/60 H 119/68 Blood Pressure Mean 105 82 85 Pulse Ox 97 96 96 Oxygen Delivery Method Room Air Room Air Room Air 04/01/25 22:35 Temperature Temperature Source Pulse Rate 77 Respiratory Rate 14 Blood Pressure 133/65 H Blood Pressure Mean 87 Pulse Ox 96 Oxygen Delivery Method Room Air MDM MDM MDM Narrative Medical decision making narrative: Patient is a 75-year-old male presenting to the emergency department for a pacemaker lead malfunction. Patient was seen and examined. Vitals are stable. Patient resting in bed comfortably no acute distress. Patient is asymptomatic. His pacemaker report shows evidence of RV lead failure. Reportedly our cardiology group does not replace broken leads. Cardiology nursing staff did speak with the EP physician from [facility] who is aware of the patient. I did speak with the transfer center and they reported that there would probably not be a bed available tonight. Will obtain basic blood work of cbc, bmp, ekg and cxr for pre op planning. Again he is stable and asymptomatic with no complaints. CBC with no leukocytosis and hemoglobin is 16.7. BMP with BUN very mildly elevated at 20 otherwise no significant abnormalities. PTT and PT within normal limits. Chest x-ray reviewed by myself and shows no acute findings. Radiology read in agreement. EKG shows AV dual paced rhythm with prolonged conduction. [facility] reported that they would likely not have a bed tonight. I spoke with Dr. Gomez, on-call cardiology to notify him of the possible admission here and he reported that there was no reason to consult cardiology while he is admitted here. Attempted admission to hospitalist at [address] Gaxiola accepted the patient for monitoring until he has a bed at [facility]. Clinical impression: pacemaker lead malfunction History & Record Review Discussion w/independent historian: Patient Additional record(s) reviewed:: Prior outpatient record Lab Data Attestation: I reviewed the patient's lab results. Labs: Laboratory Results - last 24 hr 04/01/25 16:20 WBC 8.9 RBC 5.25 Hgb 16.7 H Hct 47.9 MCV 91.2 MCH 31.8 MCHC 34.9 RDW Std Deviation 39.5 RDW Coeff of Carolann 11.9 Plt Count 220 MPV 10.6 Immature Gran % (Auto) 0.900 Neut % (Auto) 63.3 Lymph % (Auto) 22.1 [place] % (Auto) 9.4 Eos % (Auto) 3.5 Baso % (Auto) 0.8 Absolute Neuts (auto) 5.7 Absolute Lymphs (auto) 1.98 Nucleated RBC % 0 PT 13.8 INR 1.0 APTT 29.7 Sodium 134 Potassium 4.5 Chloride 99 Carbon Dioxide 22.7 Anion Gap 13 BUN 20 H Creatinine 0.58 L Est GFR (MDRD) Non-Af 102 BUN/Creatinine Ratio 33.4 H Glucose 98 Calcium 9.6 Radiography Diagnostic Testing: Clinical Impression(s) from Imaging Studies Chest X-Ray 04/01/25 16:50 IMPRESSION: NO ACUTE FINDINGS. Reading Location: [address] Discharge Plan Triage Chief Complaint: Chest Other ED Provider: Dianna Pang Dx/Rx/DC Orders Prescriptions: No Action albuterol sulfate 90 mcg/actuation HFA aerosol inhaler 1 inh INHALATION ONCE epibhqhuetsl-upykwpvv-yolgfq Tablet 1 tab PO DAILY spironolactone 100 mg tablet 100 mg PO DAILY Patient Comments: TAKE 1 TABLET BY MOUTH ONCE DAILY clonidine HCl 0.3 mg tablet 0.3 mg PO BID doxazosin 4 mg tablet 4 mg PO DAILY doxazosin 2 mg tablet 2 mg PO DAILY Primary Care Provider: Tomasz Sinha Referrals: Tomasz Sinha MD [Primary Care Provider, Family Practice] Print Language: Lebanese
--- NOTE | 2025-04-01 16:50 | RAD_ITS ---
PROCEDURE: CHEST PA AND LATERAL 04/01/2025 REASON FOR EXAM: PACEMAKER LEAD FRACTURE? TECHNIQUE: Procedure Code: RADCXR Modality: DX Procedure: CHEST PA AND LATERAL COMPARISON: 04/11/2022. FINDINGS: Left chest pacemaker. The leads appear intact. The heart is enlarged. The lungs are clear. No pneumothorax. No acute osseous abnormalities. RAD/Chest PA and Lateral IMPRESSION: NO ACUTE FINDINGS. Reading Location: [id number]
[2025-04-01 16:59] LABS: Anion Gap 13 (5-15); BUN 20 mg/dL (4-19); BUN/Creat Ratio 33.4 RATIO (10-20); Calcium,Total 9.6 mg/dL (7.6-11.0); Carbon Dioxide 22.7 mmol/L (21.0-32.0); Chloride 99 mmol/L (98-108); Glucose 98 mg/dL (70-99); Potassium 4.5 mmol/L (3.3-5.1)
--- NOTE | 2025-04-01 17:15 | CM.ED ---
Social work Reason for referral: insurance questions Referral source: Estela, [facility] Registration SW was informed that patient and patient's had some questions about insurance coverage, EMS transports, etc. due to patient being transferred to [facility]. SW entered patient's room, introducing self and role at [facility]. Patient was observed laying in bed with patient's , Hortencia, standing bedside and holding patient's hand. SW stated reason for SW visit and patient stated being grateful for SW answering their questions. SW explained that patient's Medicare Part B covers ambulance rides that are due to medical necessity. SW further explained that patient's copay would be sent to insurance to decide on coverage, so [facility] could not guarantee payment. Patient expressed understanding and further asked how patient would get home from [place]. SW encouraged patient to ask to speak with a SW at [facility] to determine what possibilities exist for getting patient back to [place]. Patient's tearfully expressed feeling apprehensive about going alone to [place]. Patient stated patient's was having issues with cataracts that prevented patient's from joining patient. Patient stated having nobody who could drive patient's down. Patient's stated having one individual (a brother in law) who could in an emergent situation, but this brother in law was needing to take care of sick family members here and patient's did not want to ask in this situation. Patient asked for a medical update and SW informed motion picture equipment machinist Pepper of request. Nasreen Jefferson, MANAGER AREA, REGULATORY CONSULTANT
[2025-04-01 17:36] LABS: Hematocrit 47.9 % (40-54); Hemoglobin 16.7 g/dL (13.0-16.5); Immature Granulocytes Count 0.080 X10^3/uL (0.0-0.0); Mean Corp Hgb Conc 34.9 g/dL (32-36); Mean Corpuscular Volume 91.2 fL (80-94); Mean Platelet Vol. 10.6 fl (6.2-12.0); NRBC Flagged by Analyzer 0 % (0-5); Platelet Count 220 K/mm3 (150-450); RBC Distribution Width CV 11.9 % (11.6-14.6); RBC Distribution Width SD 39.5 fl (35.1-43.9); Red Blood Count 5.25 M/mm3 (4.6-6.2); White Blood Count 8.9 K/mm3 (4.4-11.0)
[2025-04-01 20:43] LABS: Prothrombin Time (Protime)PT. 13.8 SECONDS (11.7-14.9)
[2025-04-01 20:44] LABS: Partial Thromboplast Time 29.7 Seconds (24.1-36.2)
--- NOTE | 2025-04-01 21:19 | PCA ---
Called [facility] to get an update on pt's transfer, spoke to transfer center nurse Geraldine. She stated pt is wait-listed at this time. There's not an official accepting physician yet as there are no spots open, and when one becomes available we would receive all of the accepting information at once. A physician did review his case and approve it as appropriate for transfer however. They are still full at this time so it is unknown when bed may become available.
--- NOTE | 2025-04-01 22:16 | PCA ---
Sole Stitcher Hand notified ED physician of current status regarding transfer to [facility] and inquired if physician would like this front office secretary to attempt transfer to any other facility, physician advised not at this time.
--- NOTE | 2025-04-01 22:49 | HP.PCM.HOS_ITS ---
HPI - General General Date of Admission: 04/01/25 Date of Service: 04/01/25 Chief Complaint: Fractured RV pacemaker lead HPI Narrative DELFINO ROSALES, is a 75 M who presented to the emergency department [facility] on 04/01/2025 at the request of the lead infrastructure architect office today for reported pacemaker lead malfunction. Patient has a history of sick sinus syndrome with proximals atrial fibrillation and cardiac pacemaker placed in 2020. He was at his lead infrastructure architect office today and was sent for evaluation. The pacemaker was interrogated and there is apparent RV lead malfunction. He is unable to have the lead exchanged here but there are transportation issues and he was directed to our emergency department for transfer. Patient is asymptomatic. Vital signs on presentation showed temperature of 96.5, heart rate 66 and paced, respiratory 24, initial blood pressure was 185/73 with a repeat of 155/78, pulse ox was 100% on room air. CBC was unremarkable other than elevated hemoglobin 16.7. Coags are normal. Chemistry panel is unremarkable. Chest x-ray has no acute findings. Patient was transferred to the [facility] and accepted however bed is not available at this time. [facility] Medical History Pacemaker lead malfunction Wears glasses Prostate disease High cholesterol Non-smoker CPAP (continuous positive airway pressure) dependence Sleep apnea Asthma History of edema History of echocardiogram History of stress test Cardiology follow-up encounter Pacemaker Snoring Hypersomnia Spinal muscle atrophy Paroxysmal atrial fibrillation HLD (hyperlipidemia) Sick sinus syndrome Home Medications ?Medication ?Instructions ?Recorded ?Last Taken ?Type albuterol sulfate 90 mcg/actuation 1 inh inhalation ON CE 04/15/20 Unknown History aerosol inhaler spironolactone 100 mg tablet 100 mg PO DAILY 04/11/22 Unknown History jmslpuiisnts-djaheveh-thamhe tablet 1 tab PO DAILY Unknown History clonidine HCl 0.3 mg tablet 0.3 mg PO BID 04/01/25 Unk nown History doxazosin 2 mg tablet 2 mg PO DAILY 04/01/25 Unkno wn History doxazosin 4 mg tablet 4 mg PO DAILY 04/01/25 Unkno wn History Allergy/AdvReac Type Severity Reaction Status Date / Time aspirin Allergy asthma Verified 04/01/25 16:06 attack amlodipine AdvReac Severe muscle Verified 04/01/25 16:06 weakness lisinopril AdvReac Severe muscle Verified 04/01/25 16:06 weakness losartan AdvReac Severe muscle Verified 04/01/25 16:06 weakness metoprolol AdvReac Severe muscle Verified 04/01/25 16:06 weakness Family History Mother Diabetes Surgical History H/O transurethral resection of prostate History of surgery on arm History of permanent cardiac pacemaker placement (06/28/20) Social History Smoking Status: Never smoker alcohol intake: never substance use type: does not use caffeine: Yes Type: carbonated beverages and tea ROS Constitutional Constitutional: Denies anorexia, change in weight, chills, fatigue, fever(s), malaise, night sweats, weakness or other Eyes Eyes: Denies blurry vision, change in eye color, change in vision, discharge from eye(s), double vision, erythema, eye pain, loss of vision or other ENT HEENT: Denies abnormal hearing, dysphagia, ear pain, epistaxis, headache(s), hearing loss, nasal congestion, nasal discharge, post nasal drip, sinus pressure, sore throat or other Cardiovascular Cardiovascular: Denies chest pain, claudication, dyspnea on exertion, edema, lightheadedness, orthopnea, palpitations, paroxysmal nocturnal dyspnea, rapid heart rate, syncope or other Respiratory/Chest Respiratory/Chest: Denies cough, dyspnea, excessive phlegm production, hemoptysis, productive cough, shortness of breath at rest, shortness of breath with exertion, wheezing or other Gastrointestinal Gastrointestinal: Denies abdominal pain, coffee ground emesis, constipation, diarrhea, dyspepsia, hematemesis, hematochezia, loose stools, melena, nausea, vomiting or other Genitourinary Genitourinary: Denies burning urination, difficulty urinating, dysuria, hematuria, nocturia, urinary frequency, urinary hesitancy, urinary incontinence, urinary urgency or other Musculoskeletal Musculoskeletal: Denies arthralgias, back pain, joint pain, joint stiffness, joint swelling, myalgias, neck pain or other Neurologic Neurologic: Denies abnormal gait, abnormal speech, confusion, disequilibrium, dizziness, focal weakness, headache(s), numbness, paresthesias, seizure-like activity, seizures, syncope, tingling, tremor(s) or other Psychiatric Psychiatric: Denies anxiety, depression, homicidal ideation, suicidal ideation or other Endocrine Endocrinology: Denies change in body appearance, cold intolerance, excessive sweating, heat intolerance, polydipsia, polyuria or other Hematologic/Lymphatic Hematologic/Lymphatic: Denies anemia, easy bleeding, easy bruising, lymphadenopathy or other Allergic/Immunologic Allergic/Immunologic: Denies rhinitis, hives, eczemia, asthma or other Vital Signs Vital Signs Vital Signs: 04/01/25 16:07 04/01/25 17:21 04/01/25 18:00 Temperature 96.5 F L Temperature Source Temporal Pulse Rate 66 58 L 60 Respiratory Rate 24 H 18 Blood Pressure 185/73 H 155/78 H Blood Pressure Mean 110 103 Pulse Ox 100 97 Oxygen Delivery Method Room Air Room Air 04/01/25 18:45 04/01/25 20:00 04/01/25 21:00 Temperature Temperature Source Pulse Rate 62 62 60 Respiratory Rate 18 20 H Blood Pressure 167/74 H 126/60 H 119/68 Blood Pressure Mean 105 82 85 Pulse Ox 97 96 96 Oxygen Delivery Method Room Air Room Air Room Air 04/01/25 22:35 Temperature Temperature Source Pulse Rate 77 Respiratory Rate 14 Blood Pressure 133/65 H Blood Pressure Mean 87 Pulse Ox 96 Oxygen Delivery Method Room Air Weight Weight: 91.535 kg Body Mass Index (BMI) 28.1 Physical Exam Const alert, oriented x3, no apparent distress and well nourished Constitutional Narrative: Older, white male, lying in bed, appears comfortable, at bedside, nontoxic General Appearance: cooperative HEENT normocephalic and head/scalp atraumatic HEENT Narrative: Mallampati 3, no thrush Resp normal respiratory effort, no retractions, no use of accessory muscles and clear to auscultation bilaterally Auscultation: Negative for rales, rhonchi or wheezes Cardio regular rate, regular rhythm, S1 normal heart sound, S2 normal heart sound, no murmurs, no rub, no gallops and no clicks Cardio Narrative: Rhythm is paced GI normal to inspection, nondistended, normoactive bowel sounds, soft to palpation and non-tender Extremity Extremity Narrative: Chronic bilateral lower extremity edema left greater than right, pedal pulses 1+ bilateral lower extremity, no cyanosis or clubbing noted Neuro Neuro Narrative: Pain-patient with history of spinal muscle atrophy and baseline weakness is present Speech: speech normal Psych affect normal Psych Narrative: Very pleasant, interacts appropriately Results Lab / Micro Data 04/01/25 16:20 04/01/25 16:20 Labs: Laboratory Results - last 24 hr 04/01/25 16:20: WBC 8.9, RBC 5.25, Hgb 16.7 H, Hct 47.9, MCV 91.2, MCH 31.8, MCHC 34.9, RDW Std Deviation 39.5, RDW Coeff of Carolann 11.9, Plt Count 220, MPV 10.6, Immature Gran % (Auto) 0.900, Neut % (Auto) 63.3, Lymph % (Auto) 22.1, [place] % (Auto) 9.4, Eos % (Auto) 3.5, Baso % (Auto) 0.8, Absolute Neuts (auto) 5.7, Absolute Lymphs (auto) 1.98, Nucleated RBC % 0, PT 13.8, INR 1.0, APTT 29.7, Sodium 134, Potassium 4.5, Chloride 99, Carbon Dioxide 22.7, Anion Gap 13, BUN 20 H, Creatinine 0.58 L, Est GFR (MDRD) Non-Af 102, BUN/Creatinine Ratio 33.4 H, Glucose 98, Calcium 9.6 Imaging Radiology Impression Chest X-Ray 04/01/25 16:50 IMPRESSION: NO ACUTE FINDINGS. Reading Location: [id number] Assessment & Plan Assessment/Plan (1) Pacemaker lead malfunction: PLAN: Plan RV pacemaker lead malfunction - Patient has been accepted at [facility] but currently awaiting bed - Cardiology was notified and they indicate no consultation needed here by them but transfer QASIM - Patient is asymptomatic - Monitor on telemetry History of sick sinus syndrome/paroxysmal atrial fibrillation - Has pacemaker placement for this - Currently paced - Interrogation showed RV lead malfunction - Continue home medications - Patient has had no recurrent atrial fibrillation noted since September 2023 on interrogation BPH with obstruction - Continue home doxazosin - Previous TURP in 2021 Essential hypertension - Continue home clonidine - Continue home doxazosin - Continue home Aldactone TEMO - CPAP - Family to bring in home unit and initiate tomorrow - Use as needed supplemental oxygen this evening for any hypoxia Spinal muscle atrophy - Continue ongoing outpatient follow-up DVT prophylaxis - Subcu enoxaparin CODE STATUS - Full code Mr. Rosales was evaluated in the Emergency Department at [facility] on 04/01/2025. At the time of evaluation, transfer to a tertiary hospital was felt to be in the patient's best interest due to RV lead malfunction for pacemaker with need for extraction and replacement. Attempts were made by the Emergency Department and/or the Hospitalist team to get Mr. Rosales to the appropriate level of care. Although the pt is accepted for transfer to the [facility], there are no staffed beds currently available. Given the need for ongoing medical care, Mr. Rosales will be admitted to [facility] on 04/01/2025, and care will be provided here until the [facility] has an available staffed bed. Pt and/or family are aware of the transfer, the reasoning behind the need for transfer, and that until a staffed bed becomes available, we will provide evidence-based care to the best of our abilities, with the limitations of care here being fully addressed. Charges/Coding Visit Charges Inpatient E&M: 55711 Init Hosp L1
--- OUTSIDE RECORDS SUMMARY | 2025-04-01 23:14 | XMS RPT_ITS | CCD ---
Author Organization [facility] Care Team Providers Care Chisel Trimmer Name Role Phone Alfonso Armas Unavailable Unavailable Alfonso Armas Unavailable Unavailable Rubens, JOHANA, Lissette Marinelli Unavailable Unavailable Tomasz Fabian MD Primary Care Provider Tomasz Fabian MD Primary Care Provider Tomasz Fabian MD Primary Care Provider Tomasz Fabian MD Primary Care Provider [phone] Dr. Tomasz Fabian Primary Care Provider Dr. Vimal Whitaker Attending Provider Dr. Vimal Whitaker Referring Provider [phone] Tomasz Fabian MD Primary Care Provider Tomasz Fabian MD Primary Care Provider TOMASZ FABIAN Primary Care Unavailable RALEIGH APPIAH JR Referring Unavailable RALEIGH APPIAH JR Attending Unavailable Ha MADRIGAL.Dar MEAD Unavailable Mary Anne Naik PA-C Unavailable Dr. Tomasz Fabian MD Primary Care Provider Dr. Vimal Whitaker MD Attending Provider [phone] Vimal Whitaker MD Referring Provider Mckayla Terry Attending Provider Mckayla Terry Referring Provider Ha MADRIGAL.Dar MEAD Unavailable Mary Anne Naik PA-C Unavailable Dr. Tomasz Fabian MD Primary Care Provider Dr. Vimal Whitaker MD Attending Provider Patricia, Abernathy Attending Unavailable Rui, Tomasz Primary Care Unavailable Patricia, Vimal Referring Unavailable Richmond, Mckayla Referring Unavailable Rui, Tomasz Primary Care Unavailable Richmond, Mckayla Attending Unavailable Patricia, Abernathy Attending Unavailable Rui, Tomasz Primary Care Unavailable Patricia, Vimal Referring Unavailable Patricia, Abernathy Attending Unavailable Rui, Tomasz Primary Care Unavailable Patricia, Abernathy Referring Unavailable Rui, Tomasz Primary Care Unavailable Patricia, Vimal Attending Unavailable [facility] HAMLET, Gerson Pemberton Attending Unavailable Rui, Tomasz Primary Care Unavailable Rui, Tomasz Referring Unavailable Rui, Tomasz Primary Care Unavailable Patricia, Abernathy Attending Unavailable Rui, Tomasz Primary Care Unavailable Patricia, Vimal Attending Unavailable Patricia, Abernathy Referring Unavailable RUI, TOMASZ A Referring Unavailable RUI, TOMASZ A Primary Care Unavailable TOMASZ FABIAN A Attending Unavailable RUI, TOMASZ A Primary Care Unavailable RUI, TOMASZ A Primary Care Unavailable SELF Referring Unavailable WILMER TAPIA Attending Unavailable TOMASZ FABIAN A Attending Unavailable LOVELY FABIANREY A Primary Care Unavailable RUI, TOMASZ A Primary Care Unavailable LOVELY FABIANREY A Referring Unavailable Allergies Allergy Classification Reported Allergen(s) Allergy Type Date of Onset Reaction(s) Facility (13 sources) aspirin; Translations: [aspirin] Drug Allergy 11-04-19 11 asthma attack, Breathing difficulties [facility] Work Phone: (3 sources) Environmental allergy drug allergy 11-04-19 11 [facility] Work Phone: (20 sources) amLODIPine; Translations: [AMLODIPINE] Drug Allergy 05-06-20 20 Other: See Comments [facility] Work Phone: (20 sources) ezetimibe; Translations: [EZETIMIBE] Drug Allergy 07-25-19 07 Other: See Comments [facility] Work Phone: (20 sources) Ibuprofen; Translations: [IBUPROFEN] Drug Allergy 07-25-19 07 Unknown [facility] Work Phone: (20 sources) Lisinopril; Translations: [LISINOPRIL] Drug Allergy 03-01-20 20 Cough [facility] Work Phone: (20 sources) Losartan; Translations: [LOSARTAN] Drug Allergy 05-02-20 21 Myalgia [facility] Work Phone: (10 sources) Salicylic Acid; Translations: [SALICYLATES] Drug Allergy 03-31-20 05 Unknown [facility] Work Phone: (20 sources) Salicylate product Propensity to adverse reactions to drug 03-31-20 05 Unknown [facility] Work Phone: (6 sources) Metoprolol Drug Allergy 04-11-20 22 muscle weakness [facility] (1 source) amLODIPine Drug Allergy 02-12-20 24 [facility] (1 source) Lisinopril Drug Allergy 02-12-20 24 [facility] (1 source) Losartan Drug Allergy 02-12-20 24 [facility] (1 source) Metoprolol Drug Allergy 02-12-20 [facility] Medications Current Medications Medication Drug Class(es) Dates Sig (Normalized) Sig (Original) [id number] 200 actuat albuterol 0.09 mg/actuat metered dose inhaler (20 sources) beta2-Adrenergic Agonist Start: 04-15-2020 Albuterol Sulfate 90 mcg/actuation HFA aerosol inhaler Active 1 NMA INHALATION ONCE April 15, 2020 1:00am Start: 04-15-2020 Albuterol Sulf ate Active 1 INH INHALATION ONCE April 15, 2020 12:00am Start: 09-05-2017 End: 03-28-2018 Albuterol Sulfate 1 INHALER inhaler Discontinued 1 - 2 NMA INHALATION EVERY 4 HOURS NEEDED as needed for Sob &/Or Wheezing September 05, 2017 12:00am March 28, 2018 12:19pm Start: 09-05-2017 End: 03-28-2018 take 1 puff(s) by inhalation every four hours as needed Albuterol Sulfate Discontinued 1 - 2 PUFF INHALATION EVERY 4 HOURS NEEDED September 04, 2017 11:00pm March 28, 2018 11:19am Start: 03-29-2012 PROAIR HFA 108 (90 Base) MCG/ACT AERS as needed ALBUTEROL SULFATE [id number] Vimal Whitaker MD Start: 01-27-2011 End: 03-24-2014 ALBUTEROL SULFATE NEBU 90 Mc g/inh as needed ALBUTEROL SULFATE NEBU [id number] Hailee Goodman albuterol HFA (P ROVENTIL HFA, VENTOLIN HFA) 90 mcg/actuation inhaler Indications: Special screening for malignant neoplasms, colon , Atrial fibrillation (HCC) , Sinoatrial node dysfunction (HCC) Inhale 2 Puffs as instructed as needed. Active Comment on above: Inhale 2 Puffs as in structed as needed. cloNIDine hydrochloride 0.3 mg oral tablet (20 sources) Central alpha-2 Adrenergic Agonist Start: take 1 tablet by mouth twice daily cloNIDine HCl (CATAPRES) 0.3 mg tablet Indications: Hypertension, essential Take 1 tablet by mouth two times a day. 180 tablet 1 12/11/2024 Active Start: 11-29-2021 End: 12-11-2024 take 1 tablet by mouth twice daily cloNIDine HCl (CATAPRES) 0.2 mg tablet Indications: Hypertension, essential Take 1 tablet by mouth two times a day. 180 tablet 1 12/08/2024 12/11/2024 Discontinued Start: 10-27-2021 End: 11-29-2021 take 1 tablet by mouth twice daily cloNIDine HCl (CATAPRES) 0.1 mg tablet Take 1 tablet by mouth twice daily. 60 tablet 5 10/27/2021 11/29/2021 Discontinued Start: 10-27-2021 take 2 tablets by mo [facility] twice daily Clonidine Hcl 0.1 mg tablet Active 0.2 mg PO TWICE A DAY October 27, 2021 12:00am Start: 10-27-2021 take 0.2 mg by mouth twice daily Clonidine Hcl Active 0.2 MG PO TWICE A DAY October 26, 2021 11:00pm Comment on above: Take 1 tablet by edgar th twice daily. Take 1 tablet by edgar th two times a day. CPAP (20 sources) Start: 07-12-2020 CPAP Indications: Obstructive sleep apnea (adult) (pediatric) Please change AutoPAP setting range to 10-18 cmH2O. Please provide download in 30 days. 1 Device 07/12/2020 Active Comment on above: Please change AutoPA P setting range to 10-18 cmH2O. Please provide download in 30 days. doxazosin 4 mg oral tablet (20 sources) alpha-Adrenergic Tsering Start: 03-31-2024 End: 03-23-2025 take 1 tablet by mouth once daily doxazosin (CARDURA) 2 mg tablet Take 1 tablet by mouth once daily. Along with 4 mg dose for a total of 6 mg a day 90 tablet 1 09/24/2024 03/23/2025 Active Start: 04-17-2023 End: 03-29-2024 take 1 tablet by mouth once daily doxazosin (CARDURA) 2 mg tablet Take 1 tablet by mouth once daily. Along with 4 mg dose for a total of 6 mg a day 90 tablet 1 10/01/2023 03/29/2024 Discontinued Start: 09-29-2022 End: 12-08-2024 take 1 tablet by mouth once daily doxazosin (CARDURA) 4 mg tablet Indications: Hypertension, essential Take 1 tablet by mouth once daily. 90 tablet 1 12/08/2024 Active Start: 03-15-2022 take 1 tablet by edgar th once daily doxazosin (CARDURA) 4 mg tablet Take 1 tablet by mouth once daily. 30 tablet 5 03/15/2022 Active Start: 06-10-2021 End: 02-12-2024 take 4 mg by mouth in the morning, then take 1 tablet by mouth at bedtime Doxazosin (Cardura) 8 mg tablet Discontinued 8 mg PO .COMPLEX 45 June 20, 2021 5:20pm April 11, 2022 3:02pm 8 mg PO; take 4 mg (1/2 tablet) in am and 8 mg at bedtime Start: 05-26-2021 End: 06-20-2021 take 1 tablet by mouth at bedtime Doxazosin (Cardura) 8 mg tablet Discontinued 8 mg PO AT BEDTIME 30 May 26, 2021 1:00am June 10, 2021 5:57pm this is a dose increase Start: 03-29-2021 End: 10-31-2022 take 2 tablets by mouth at bedtime Doxazosin (Cardura) 2 mg tablet Discontinued 4 mg PO AT BEDTIME May 20, 2021 4:22pm May 26, 2021 2:59pm Comment on above: Take 1 tablet by edgar once daily. Take 1 tablet by edgar th once daily. Along with 4 mg dose for a total of 6 mg a day multivit-min/FA/lycop en/lutein (CENTRUM SILVER MEN ORAL) (20 sources) take 1 capsule by mouth once daily multivit-min/FA/lycop en/lutein (CENTRUM SILVER MEN ORAL) Take 1 capsule by mouth once daily. Active take 1 capsule by mo [facility] once daily multivit-min/FA/lycopen/lutein (CENTRUM SILVER MEN ORAL) Take 1 capsule by mouth once daily. 0 Active Comment on above: Take 1 capsule by mo [facility] once daily. Multivitamin-Minerals- Lutein tablet (4 sources) Start: 12-08-19 23 Multivitamin-Minerals- Lutein tablet Active 1 {tbl} PO DAILY December 07, 2022 12:00am spironolactone 100 mg oral tablet (20 sources) Aldosterone Antagonist Start: 02-15-20 End: 12-09-19 25 take 1 tablet by mouth once daily Spironolactone 100 mg tablet Active 100 mg PO DAILY April 11, 2022 1:00am Start: 01-18-2022 End: 02-14-2022 take 1 tablet by mouth once daily spironolactone (ALDACTONE) 50 mg tablet Take 1 tablet by mouth once daily. 30 tablet 5 01/18/2022 02/14/2022 Discontinued Comment on above: Take 1 tablet by edgar once daily. Completed/Discontinued Medications Medication Drug Class(es) Dates Sig (Normalized) Sig (Original) cephalexin 500 mg oral capsule (11 sources) Cephalosporin Antibacterial Start: 05-03-2022 End: 06-08-2022 take 1 capsule by mouth three times daily Cephalexin 500 mg capsule Discontinued 500 mg PO THREE TIMES A DAY 15 0 May 03, 2022 1:00am June 08, 2022 3:32pm Start: 04-11-2022 End: 06-08-2022 take 1 capsule by mouth twice daily Cephalexin 500 mg capsule Discontinued 500 mg PO TWICE A DAY 14 0 April 11, 2022 1:00am June 08, 2022 3:32pm chlorthalidone 50 mg oral tablet (8 sources) Thiazide-like Diuretic Start: 01-13-2022 End: 01-18-2022 take 1 tablet by mouth once daily chlorthalidone (HYGROTON) 50 mg tablet Take 1 tablet by mouth once daily. 30 tablet 5 01/13/2022 01/18/2022 Discontinued (Adverse Reaction) Start: 12-16-2021 End: 01-13-2022 take 1 tablet by mouth once daily chlorthalidone (HYGROTON) 25 mg tablet Take 1 tablet by mouth once daily. 30 tablet 5 12/16/2021 01/13/2022 Discontinued Comment on above: Take 1 tablet by edgar th once daily. cholecalciferol 0.025 mg oral capsule (6 sources) Vitamin D Start: 04-11-20 End: 12-08-19 take 1 capsule by mouth once daily Cholecalciferol (Vitamin D3) (Vitamin D3) 25 mcg (1,000 unit) Capsule Discontinued 25 ug PO DAILY April 11, 2022 1:00am December 07, 2022 2:00pm cholecalciferol, vitamin D3, (VITAMIN D3 ORAL) (20 sources) End: 11-01-19 cholecalciferol, vitamin D3, (VITAMIN D3 ORAL) Take by mouth. 0 10/31/2022 Discontinued cholecalciferol, vitamin D3, (VITAMIN D3 ORAL) Take by mouth. 0 Active Comment on above: Take by mouth. ciprofloxacin 500 mg oral tablet (5 sources) Quinolone Antimicrobial Start : 04-21 End: 06-08 take 1 tablet by mouth twice daily Ciprofloxacin Hcl (Cipro) 500 mg tablet Discontinued 500 mg PO TWICE A DAY 14 0 April 21, 2022 1:00am June 08, 2022 3:33pm clopidogrel 75 mg oral tablet (6 sources) P2Y12 Platelet Inhibitor Start : 05-13 End: 03-23 take 1 tablet by mouth once daily PLAVIX 75 MG TABS One tablet by mouth daily CLOPIDOGREL BISULFATE [id number] Vimal Whitaker MD CPAP/BIPAP/OTHER (1 source) Start : 10-27 End: 10-27 CPAP/BIPAP/OTHER Indications: TEMO on CPAP , Hypertension, essential Type .CPAPSettings into a note to see current settings/supplies/DME information. 1 each 10/27/2024 10/27/2024 Discontinued dexamethasone 6 mg oral tablet (6 sources) Corticosteroid Start : 02-08 End: 05-19 take 1 tablet by mouth once daily Dexamethasone 6 MG tablet Discontinued 6 mg PO DAILY 6 0 February 08, 2021 12:00am May 19, 2021 2:46pm fexofenadine hydrochloride 180 mg oral tablet (6 sources) Histamine-1 Receptor Antagonist Start : 11-03 End: 03-23 take 1 tablet by mouth once daily as needed CARY 180 MG TABS One tablet by mouth daily as needed FEXOFENADINE HCL [id number] Hailee Goodman hydroCHLOROthiazide 25 mg oral tablet (20 sources) Thiazide Diuretic Start : 01-11 End: 12-16 take 1 tablet by mouth once daily in the morning Hydrochlorothiazide 25 mg tablet Discontinued 25 mg PO EVERY MORNING January 11, 2021 12:00am January 11, 2021 3:57pm Comment on above: TAKE 1 TABLET BY EDGAR ONCE DAILY IN THE MORNING losartan potassium 25 mg oral tablet (6 sources) Angiotensin 2 Receptor Tsering Start : 04-15 End: 05-10 take 1 tablet by mouth once daily Losartan 25 mg tablet Discontinued 25 mg PO DAILY April 15, 2020 1:00am May 10, 2020 12:50pm MEDICAL SUPPLY (20 sources) Start : 07-13 End: 11-08 MEDICAL SUPPLY Indications: Spinal muscle atrophy (HCC) , Debility Lift chair, #1 device Dx: G12 and R53.81 1 Each 0 07/13/2021 11/08/2022 Discontinued Start: 07-13-2021 End: 11-08-2022 MEDICAL SUPPLY Transport cindy ir, #1 device Dx: G12 and R53.81 1 Each 0 07/13/2021 11/08/2022 Discontinued Start: 07-13-2021 End: 11-08-2022 MEDICAL SUPPLY Indications: Bilateral leg edema Extremity: Pair, Compression: 15-20 mmHg, Style: Closed Toe, Length: Knee-high, #2 pair with 1 refill, Dx: R60.0 2 Each 1 07/13/2021 11/08/2022 Discontinued Start: 07-13-2021 MEDICAL SUPPLY Indications: Spinal muscle atrophy (HCC) , Debility Lift chair, #1 device Dx: G12 and R53.81 1 Each 0 07/13/2021 Active Start: 07-13-2021 MEDICAL SUPPLY Transport chair, #1 device Dx: G12 and R53.81 1 Each 0 07/13/2021 Active Start: 07-13-2021 MEDICAL SUPPLY Indications: Bilateral leg edema Extremity: Pair, Compression: 15-20 mmHg, Style: Closed Toe, Length: Knee-high, #2 pair with 1 refill, Dx: R60.0 2 Each 1 07/13/2021 Active Start: 03-09-2021 End: 10-27-2021 MEDICAL SUPPLY Please discon tinue patient's home O2. Testing shows he is no longer hypoxic and therefore no longer requires it. 1 Each 0 03/09/2021 10/27/2021 Discontinued Start: 03-09-2021 MEDICAL SUPPLY Please discontinue patient's home O2. Testing shows he is no longer hypoxic and therefore no longer requires it. 1 Each 0 03/09/2021 Active Comment on above: Please discontinue p atient's home O2. Testing shows he is no longer hypoxic and therefore no longer requires it. Lift chair, #1 devic e Dx: G12 and R53.81 Transport chair, #1 device Dx: G12 and R53.81 Extremity: Pair, Com pression: 15-20 mmHg, Style: Closed Toe, Length: Knee-high, #2 pair with 1 refill, Dx: R60.0 metoprolol tartrate 25 mg oral tablet (20 sources) beta-Adrenergic Tseirng Start: 05-10-2020 End: 01-11-2021 Metoprolol Tartrate 25 mg tablet Discontinued 12.5 mg PO TWICE A DAY October 27, 2020 8:35am January 11, 2021 3:52pm disreguard if RX already filled on 10/25/20 Start: 05-10-2020 End: 01-11-2021 take 12.5 mg by mouth twice daily Metoprolol Tartrate Discontinued 12.5 MG PO TWICE A DAY October 27, 2020 7:35am January 11, 2021 2:52pm Start: 05-10-2020 End: 05-10-2020 take 1 tablet by mouth twice daily Metoprolol Tartrate 25 mg tablet Discontinued 25 mg PO TWICE A DAY May 10, 2020 1:00am May 10, 2020 4:44pm ordered by Dr. Hutson for HTN montelukast 10 mg oral tablet (6 sources) Leukotriene Receptor Antagonist Start: 01-27-2011 End: 03-24-2014 SINGULAIR 10 MG TABS As needed MONTELUKAST SODIUM [id number] Hailee Goodman PIRBUTEROL ACETATE (3 sources) beta2-Adrenergic Agonist Start: 11-03-2010 MAXAIR AUTOHALER 200 MCG/INH AERB Take as directed PIRBUTEROL ACETATE [id number] Hailee Goodman polyethylene glycol 3350 578378 mg / potassium chloride 2970 mg / sodium bicarbonate 6740 mg / sodium chloride 5860 mg / sodium sulfate 51123 mg powder for oral solution (1 source) Osmotic Laxative Start: 09-20-2022 End: 09-20-2022 peg 3350-Electrolytes (GOLYTELY) 236-22.74-6.74 -5.86 gram suspension Indications: History of colonic polyps Take 4,000 mL by mouth one time only for 1 dose. Refer to printed prep instructions from your provider. 4000 mL 0 09/20/2022 09/20/2022 Comment on above: Take 4,000 mL by edgar one time only for 1 dose. Refer to printed prep instructions from your provider. potassium chloride 20 meq extended release oral tablet (18 sources) Start: 01-01-2022 End: 01-18-2022 take 2 tablets by mouth twice daily potassium chloride 20 mEq TbER Take 2 tablets by mouth twice daily. 360 tablet 3 01/01/2022 01/18/2022 Discontinued (Clinical Decision) Start: 12-16-2021 End: 01-01-2022 take 1 tablet by mouth twice daily potassium chloride 20 mEq TbER Take 1 tablet by mouth twice daily. 180 tablet 3 12/16/2021 01/01/2022 Discontinued Start: 10-28-2021 End: 12-16-2021 take 1 tablet by mouth once daily potassium chloride 20 mEq TbER Take 1 tablet by mouth once daily. 90 tablet 3 10/28/2021 12/16/2021 Discontinued Comment on above: Take 1 tablet by edgar th once daily. Take 1 tablet by edgar th twice daily. Take 2 tablets by mo [facility] twice daily. tamsulosin hydrochloride 0.4 mg oral capsule (6 sources) alpha-Adrenergic Tsering Start: 1 End: 2 take 1 capsule by mouth once daily Tamsulosin 0.4 mg capsule Discontinued 0.4 mg PO DAILY February 08, 2021 12:00am May 19, 2021 2:47pm terbinafine 250 mg oral tablet (6 sources) Allylamine Antifungal Start: 1 End: 2 take 1 tablet by mouth once daily Terbinafine Hcl 250 mg tablet Discontinued 250 mg PO DAILY February 08, 2021 12:00am May 19, 2021 2:47pm Problems Active Problems Problem Classification Problem Date Documented Date Episodic/Chronic Asthma (20 sources) Allergic asthma; Translations: [Unspecified asthma, uncomplicated] Onset: 07-24-2006 02-16-2021 Chronic Cardiac dysrhythmias (20 sources) Paroxysmal atrial fibrillation; Translations: [Atrial fibrillation] Onset: 07-24-2006 03-23-2016 Chronic Conduction disorders (20 sources) Cardiac pacemaker in situ; Translations: [Presence of cardiac pacemaker] Onset: 11-03-2010 11-03-2010 Chronic Comment on above: 1996,Gen changed 200 Disorders of lipid metabolism (20 sources) Hyperlipidemia; Translations: [Mixed hyperlipidemia] Onset: 07-24-2006 11-03-2010 Chronic Essential hypertension (20 sources) Essential hypertension; Translations: [Essential (primary) hypertension] Onset: 05-02-2021 05-02-2021 Chronic Genitourinary symptoms and ill-defined conditions (6 sources) Dmykl-gw-ophakue retention of urine; Translations: [Retention of urine, unspecified] 04-19-2022 Episodic Hyperplasia of prostate (20 sources) Benign prostatic hyperplasia; Translations: [Benign prostatic hyperplasia with lower urinary tract symptoms] Onset: 07-20-2015 02-16-2021 Chronic Nonmalignant breast conditions (6 sources) Breast tenderness; Translations: [Mastodynia] Episodic Other aftercare (6 sources) Drug therapy finding; Translations: [Other fpc (current) drug therapy] 05-19-2021 Episodic Other and unspecified benign neoplasm (1 source) Tubular adenoma ; Translations: [Benign neoplasm, unspecified site] Episodic Other connective tissue disease (6 sources) Muscle weakness; Translations: [Muscle weakness (generalized)] 04-19-2022 Episodic Other ear and sense organ disorders (1 source) Excessive cerumen in ear canal ; Translations: [Impacted cerumen, left ear] Episodic Other ear and sense organ disorders (1 source) Impacted cerumen in left ear; Translations: [Impacted cerumen, left ear] Episodic Other hereditary and degenerative nervous system conditions (20 sources) Spinal muscular atrophy; Translations: [Spinal muscular atrophy, unspecified] Onset: 07-16-2014 02-16-2021 Chronic Other hereditary and degenerative nervous system conditions (1 source) Spinal muscular atrophy, unspecified; Translations: [Spinal muscle atrophy (HCC)] Onset: 02-16-2021 Chronic Other inflammatory condition of skin (20 sources) Psoriasis; Translations: [Psoriasis, unspecified] Onset: 08-03-2016 02-16-2021 Chronic Other lower respiratory disease (6 sources) Hypoxemia; Translations: [Hypoxemia] 02-16-2021 Episodic Other lower respiratory disease (6 sources) Snoring; Translations: [Snoring] 05-19-2020 Episodic Residual codes; unclassified (20 sources) Obstructive sleep apnea syndrome; Translations: [Obstructive sleep apnea (adult) (pediatric)] Onset: 11-01-2020 02-16-2021 Chronic Residual codes; unclassified (20 sources) Hypoxia; Translations: [Idiopathic sleep related nonobstructive alveolar hypoventilation] Onset: 02-28-2021 02-28-2021 Chronic Residual codes; unclassified (6 sources) Hypersomnia; Translations: [Hypersomnia, unspecified] 05-20-2020 Chronic Residual codes; unclassified (2 sources) Obstructive sleep apnea (adult) (pediatric); Translations: [TEMO (obstructive sleep apnea)] Onset: 10-02-2022 Chronic Residual codes; unclassified (1 source) Idiopathic sleep related nonobstructive alveolar hypoventilation; Translations: [Nocturnal hypoxia] Onset: 10-26-2021 Chronic Syncope (6 sources) Syncope; Translations: [Syncope and collapse] 02-16-2021 Episodic Urinary tract infections (6 sources) Acute urinary tract infection; Translations: [Urinary tract infection, site not specified] 04-19-2022 Episodic Viral infection (20 sources) Disease caused by 2019-nCoV; Translations: [COVID-19] Onset: 02-09-2021 02-09-2021 Episodic Past or Other Problems Problem Classification Problem Date Documented Da te Episodic/Chronic Administrative/social admission (20 sources) Advance directive discussed with patient; Translations: [Other specified counseling] Onset: 10-26-2021 Episodic Biliary tract disease (20 sources) Gallstone; Translations: [Calculus of gallbladder without cholecystitis without obstruction] Onset: 10-26-2021 Episodic Fluid and electrolyte disorders (7 sources) Hypokalemia; Translations: [Hypokalemia] Onset: 12-10-2024 Episodic Heart valve disorders (3 sources) Heart sounds abnormal; Translations: [Other cardiac sounds] Onset: 11-03-2010 11-03-2010 Episodic Immunizations and screening for infectious disease (20 sources) Patient encounter status; Translations: [Encounter for immunization] Onset: 04-28-2022 Episodic Malaise and fatigue (20 sources) Asthenia; Translations: [Other malaise] Onset: 03-09-2021 03-09-2021 Episodic Other aftercare (1 source) Other long term acute care registered nurse (current) drug therapy; Translations: [Medication management] Onset: 04-28-2022 Episodic Other and unspecified benign neoplasm (20 sources) Adenomatous polyp of colon ; Translations: [Benign neoplasm of colon, unspecified] Onset: 08-03-2016 02-16-2021 Episodic Other and unspecified benign neoplasm (20 sources) Adenomatous polyp of rectum; Translations: [Benign neoplasm of rectum] Onset: 08-03-2016 02-16-2021 Episodic Other and unspecified benign neoplasm (20 sources) History of polyp of colon; Translations: [Personal history of colonic polyps] Onset: 10-23-2022 Episodic Other gastrointestinal disorders (20 sources) Oropharyngeal dysphagia; Translations: [Dysphagia, oropharyngeal phase] Onset: 08-20-2018 02-16-2021 Episodic Other infections; including parasitic (20 sources) Personal history of other infectious and parasitic diseases; Translations: [History of COVID-19] Onset: 02-09-2021 10-26-2021 Episodic Other screening for suspected conditions (not mental disorders or infectious disease) (20 sources) Raised prostate specific antigen; Translations: [Elevated prostate specific antigen [PSA]] Onset: 12-02-2019 02-16-2021 Episodic Other skin disorders (20 sources) Vitiligo; Translations: [Vitiligo] Onset: 07-24-2006 02-16-2021 Episodic Residual codes; unclassified (20 sources) Active living will ; Translations: [Other specified health status] Onset: 10-26-2021 Episodic Screening and history of mental health and substance abuse codes (2 sources) Encounter for screening examination for other mental health and behavioral disorders; Translations: [Encounter for screening for depression] Onset: 12-08-2024 Episodic Unclassified (6 sources) Body mass index (BMI) 29.0-29.9, adult; Translations: [Body mass index (BMI) 28.0-28.9, adult] Onset: 03-21-2013 03-24-2014 Episodic Results Test Name Value Interpretation Reference Range Facility [facility]17[facility] DELFINO ROSALES ([id number]) 1950 M NFR Date Time Provider Department 03/17/25 [facility] FBAIAN [facility] During your visit today, we recorded the following information about you: Abigail Reardon LPN 03/17/2025 1:45 PM Signed Patient calling asking for a rx for a light weight wheel chair with wheels so he can roll himself around, with foot rests. Patient wants to warehouse picker the rx when it is ready. Pending order, needs diagnosis. Please advise Tomasz Fabian MD 03/17/2025 8:12 PM Signed Patient has spinal muscle atrophy that affects his upper extremity strength. He is able to self propel a light weight wheel chair but also has assistance from his . Tomasz Fabian MD 03/19/2025 2:25 PM Signed Let patient know script ready for warehouse picker. Sierra Luo MA 03/19/2025 3:08 PM Signed Patient sent [employer] message. Will close this encounter and watch for pt to view message being read. Sierra Luo MA Allergies As of Date: 03/17/2025 Noted Allergy Reaction ADVIL (IBUPROFEN) 07/24/2006 16 - Unknown AMLODIPINE 05/06/2020 14 - Other: See Comments Comments: Lower extremity swelling ASA (SALICYLATES) 03/31/2005 16 - Unknown LISINOPRIL 03/01/2020 3 - Cough LOSARTAN 05/02/2021 17 - Myalgia ZETIA (EZETIMIBE) 07/24/2006 14 - Other: See Comments Comments: weakness Date Reviewed: 01/05/2025 Reviewed by: Tomasz Fabian MD - Fully Assessed Reason for Visit: Orders [681] Primary Visit Diagnosis:Weakness of both upper extremities [R29.898] Other Visit Diagnosis:Spinal muscle atrophy (HCC) [G12.9] Order(s):LIGHTWEIGHT WHEELCHAIR [[id number]] Order #: [id number] Prescriptions as of 03/19/2025 - cloNIDine HCl (CATAPRES) 0.3 mg tablet Take 1 tablet by mouth two times a day. - spironolactone (ALDACTONE) 100 mg tablet Take 1 tablet by mouth once daily. - doxazosin (CARDURA) 4 mg tablet Take 1 tablet by mouth once daily. - doxazosin (CARDURA) 2 mg tablet Take 1 tablet by mouth once daily. Along with 4 mg dose for a total of 6 mg a day - multivit-min/FA/lyco pen/lutein (CENTRUM SILVER MEN ORAL) Take 1 capsule by mouth once daily. - CPAP Please change AutoPAP setting range to 10-18 cmH2O. Please provide download in 30 days. - albuterol HFA (PROVENTIL HFA, VENTOLIN HFA) 90 mcg/actuation inhaler Inhale 2 Puffs as instructed as needed. 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] 08/03/2016 Tubular adenoma of rectum [D12.8] 08/03/2016 Oropharyngeal dysphagia [R13.12] 08/20/2018 Elevated PSA [R97.20] 12/02/2019 Medicare annual wellness visit, subsequent [Z00*11/01/2020 TEMO (obstructive sleep apnea) [G47.33] 11/01/2020 Pacemaker [Z95.0] 11/01/2020 Paroxysmal atrial fibrillation (HCC) [I48.0] 11/01/2020 History of COVID-19 [Z86.16] 02/09/2021 Nocturnal hypoxia [G47.34] 02/28/2021 Debility [R53.81] 03/09/2021 Hypertension, essential [I10] 05/02/[address] [Z78.9] 10/26/2021 Advance directive discussed with patient [Z71.8*10/26/2021 Gall bladder stones [K80.20] 10/26/2021 Medication management [Z79.899] 04/28/2022 Screening for colon cancer [Z12.11] 06/30/2022 History of colonic polyps [Z86.0100] 10/23/2022 Skin cancer screening [Z12.83] 12/08/2024 Weakness of both upper extremities [R29.898] 03/17/2025 Encounter Status:Closed by SIERRA LUO on 03/19/25 [facility] 01-05-2025 CNOV Office Visit (FAMPWS) DELFINO ROSALES ([id number]) 1950 M NFR Date Time Provider Department 01/05/25 2:20 PM TOMASZ FABIAN During your visit today, we recorded the following information about you: Pulse Respiration Blood pressure Weight 60/minute 16/minute 131/64 93 kg Tomasz Fabian MD 01/05/2025 3:01 PM Signed Chief Complaint Patient presents with: F/U 1 month: BP HPI Delfino Rosales is a 74 year old male who presents here today for a 1 month follow up. Patient here today for a BP follow up. At previous visit, pt was advised to check bp's from home and bring log in with home readings as well as BP cuff. Patient sent a [employer] message on 12/10/24 with at home BP readings, at that time his Clonidine was increased to 0.3 mg twice daily. Pt brought home BP cuff today. BP readings at home have varied through out the day with readings ranging from 120-150's/60's. Generally readings are in the 130/60's, feel medication increase has helped. Pt's home BP cuff readin/89, Pulse 61 Delfino Rosales is a 74-year-old male presenting for follow-up on blood pressure management. Delfino reports that his blood pressure readings have improved since his last message to the clinician on 11/13, when his readings were consistently in the 140s-150s/70s throughout the day. Currently, his blood pressure readings are more in the 130s/60s-70s, although he notes that they can be higher in the afternoon. He believes that his blood pressure readings are influenced by his dietary intake. He is currently taking 0.3 mg of an catapress BID as prescribed and has not required a refill yet. He denies experiencing any side effects from the medication, including lightheadedness, dizziness, presyncope, chest pain, palpitations, or leg edema. He inquires whether his morning coffee consumption could affect his blood pressure. Past medical history, appointments, medications, allergies reviewed. Previous Medical History PAST MEDICAL HISTORY Diagnosis Date Advance directive discussed with patient 10/26/2021 Discussed 10/2021 Asthma (HCC) Benign non-nodular prostatic hyperplasia with lower urinary tract symptoms 07/20/2015 Elevated PSA 12/02/2019 Dr. Becerril- Feels that the elevation is from BPH and will treat and monitor his level. Considering surgery/bx later Extrinsic asthma (HCC) 07/24/2006 Dr. Borges History of COVID-19 02/09/2021 02/09/2021 Hyperlipidemia, mixed 07/24/2006 Hypertension, essential 05/02/[address] 10/26/2021 DPA: Hortencia () Medicare annual wellness visit, subsequent 11/01/2020 Medical B eligibility date 03/14/16 Date of last exam 11/01/20 Nocturnal hypoxia 02/28/2021 Night pulse Ox test dropped below 89% and as low as 80%. TEMO (obstructive sleep apnea) 11/01/2020 Dr. Appiah. On CPAP Pacemaker 11/01/2020 Dr. whitaker Paroxysmal atrial fibrillation (HCC) 11/01/2020 Pacemaker Pneumonia due to COVID-19 virus 03/09/2021 Psoriasis 08/03/2016 since at least 2008 SINOATRIAL NODE DYSFUNCT 1996 pacemaker Skin cancer screening 12/08/2024 Sees [facility] Spinal muscle atrophy (HCC) 1998 Tubular adenoma of rectum 08/03/20162014--polypectomy 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, 2014--polypectomy Vitiligo 1970 Previous Surgical History PAST SURGICAL HISTORY Procedure Laterality Date COLONOSCOPY 10/23/2022 COLONOSCOPY FLX DX W/COLLJ SPEC WHEN PFRMD 01/05/2004 Per mod repeat in -2013 COLONOSCOPY FLX DX W/COLLJ SPEC WHEN PFRMD 09/03/2014 Colonoscopy COLONOSCOPY FLX DX W/COLLJ SPEC WHEN PFRMD 09/12/2017 Fabiola--Repeat 5 years (09/2022) PACEMAKER 06/28/2020 redone PACEMAKER (PM) 1996 redone - 2008 TRANSURETHRAL ELEC-SURG PROSTATECTOM 05/04/2022 Family History FAMILY HISTORY Problem Relation Age of Onset Diabetes Mother from diabetes Patient Allergies ALLERGIES Allergen Reactions Advil [Ibuprofen] Unknown Amlodipine Other: See Comments Lower extremity swelling Asa [Salicylates] Unknown Lisinopril Cough Losartan Myalgia Zetia [Ezetimibe] Other: See Comments weakness Current Medications Current Outpatient Medications on File Prior to Visit Medication Sig cloNIDine HCl (CATAPRES) 0.3 mg tablet Take 1 tablet by mouth two times a day. spironolactone (ALDACTONE) 100 mg tablet Take 1 tablet by mouth once daily. doxazosin (CARDURA) 4 mg tablet Take 1 tablet by mouth once daily. doxazosin (CARDURA) 2 mg tablet Take 1 tablet by mouth once daily. Along with 4 mg dose for a total of 6 mg a day multivit-min/FA/lyco pen/lutein (CENTRUM SILVER MEN ORAL) Take 1 capsule by mouth once daily. CPAP Please change AutoPAP setting range to 10-18 cmH2O. Please provide download in 30 days. albuterol HFA (PROVENTIL HFA, VENTOLIN HFA) 90 mcg/actuation inhaler Inhale 2 Puffs as (more content not included)... Normal [facility] Sodium SerPl-sCncon 12-11-19 25 Sodium [Moles/Vol] 134 mmol/L Low 136-144 [facility] Comment on above: Order Comment: Speci men Type: BLOOD SPECIMEN Ordering Facility: [facility] Address: [address] [place] [address] Performed By: #### 2 951-2 #### [facility] CLIA [id number] [address] [place] [address] [place] CBC W Auto Differential pane l (Bld)on 12-08-2024 Basophils (Bld) [#/Vol] 0.07 10*3/uL [facility] Basophils/100 WBC (Bld) 0.8 % [facility] Differential cell count method Nom (Bld) Auto [facility] Eosinophils (Bld) [#/Vol] 0.3 10*3/uL [facility] Eosinophils/100 WBC (Bld) 3.5 % [facility] Erythrocyte distribution width (RBC) [Ratio] 12.1 % 11.5 - 15.0 % [facility] Hematocrit (Bld) [Volume fraction] 46 % 39.0 - 51.0 % [facility] Hemoglobin (Bld) [Mass/Vol] 15.9 g/dL 13.0 - 17.0 g/dL [facility] Immature granulocytes (Bld) [#/Vol] 0.08 10*3/uL [facility] Immature granulocytes/100 WBC (Bld) 0.9 % [facility] Lymphocytes (Bld) [#/Vol] 1.75 10*3/uL [facility] Lymphocytes/100 WBC (Bld) 20.5 % [facility] MCH (RBC) [Entitic mass] 31.6 pg 26.0 - 34.0 pg [facility] MCHC (RBC) [Mass/Vol] 34.6 g/dL 30.5 - 36.0 g/dL [facility] MCV (RBC) [Entitic vol] 91.5 fL 80.0 - 100.0 fL [facility] Monocytes (Bld) [#/Vol] 0.81 10*3/uL [facility] Monocytes/100 WBC (Bld) 9.5 % [facility] Neutrophils (Bld) [#/Vol] 5.51 10*3/uL [facility] Neutrophils/100 WBC (Bld) 64.8 % [facility] Nucleated RBC (Bld) [#/Vol] NINF [facility] Nucleated RBC/100 WBC (Bld) [Ratio] 0 % /100 WBC [facility] Platelet mean volume (Bld) [Entitic vol] 10.8 fL 9.0 - 12.7 fL [facility] Platelets (Bld) [#/Vol] 212 10*3/uL [facility] RBC (Bld) [#/Vol] 5.03 10*6/uL 4.20 - 6.0 0 m/uL [facility] WBC (Bld) [#/Vol] 8.52 10*3/uL [facility] Basophils (Bld) [#/Vol] 0.07 10*3/uL Normal <0.11 [facility] Comment on above: Order Comment: Speci men Type: BLOOD SPECIMEN Ordering Facility: [facility] Address: [address] [place] [address] Performed By: #### 2 4323-8, LIPNF #### [facility] CLIA [id number] [address] [place] [address] [facility] Basophils/100 WBC (Bld) 0.8 % Normal [facility] Comment on above: Order Comment: Speci men Type: BLOOD SPECIMEN Ordering Facility: [facility] Address: [address] [place] [address] Performed By: #### 2 4323-8, LIPNF #### [facility] CLIA [id number] [address] [place] [address] [place] Differential cell count method Nom (Bld) Auto Normal [facility] Comment on above: Order Comment: Speci men Type: BLOOD SPECIMEN Ordering Facility: [facility] Address: [address] [place] [address] Performed By: #### 2 4323-8, LIPNF #### [facility] CLIA [id number] [address] [place] [address] [place] Eosinophils (Bld) [#/Vol] 0.30 10*3/uL Normal <0.46 [facility] Comment on above: Order Comment: Speci men Type: BLOOD SPECIMEN Ordering Facility: [facility] Address: [address] [place] [address] Performed By: #### 2 4323-8, LIPNF #### [facility] CLIA [id number] [address] [place] [address] [place] Eosinophils/100 WBC (Bld) 3.5 % Normal [facility] Comment on above: Order Comment: Speci men Type: BLOOD SPECIMEN Ordering Facility: [facility] Address: [address] [place] [address] Performed By: #### 2 4323-8, LIPNF #### [facility] CLIA [id number] [address] [place] [address] [place] Erythrocyte distribution width (RBC) [Ratio] 12.1 % Normal 11.5-15.0 [facility] Comment on above: Order Comment: Speci men Type: BLOOD SPECIMEN Ordering Facility: [facility] Address: [address] [place] [address] Performed By: #### 2 4323-8, LIPNF #### [facility] CLIA [id number] [address] [place] [address] [place] Hematocrit (Bld) [Volume fraction] 46.0 % Normal 39.0-51.0 [facility] Comment on above: Order Comment: Speci men Type: BLOOD SPECIMEN Ordering Facility: [facility] Address: [address] [place] [address] Performed By: #### 2 4323-8, LIPNF #### [facility] CLIA [id number] [address] [place] [address] [place] Hemoglobin (Bld) [Mass/Vol] 15.9 g/dL Normal 13.0-17.0 [facility] Comment on above: Order Comment: Speci men Type: BLOOD SPECIMEN Ordering Facility: [facility] Address: [address] [place] [address] Performed By: #### 2 4323-8, LIPNF #### [facility] CLIA [id number] [address] [place] [address] [place] Immature granulocytes (Bld) [#/Vol] 0.08 10*3/uL Normal <0.10 [facility] Comment on above: Order Comment: Speci men Type: BLOOD SPECIMEN Ordering Facility: [facility] Address: [address] [place] [address] Performed By: #### 2 4323-8, LIPNF #### [facility] CLIA [id number] [address] [place] [address] [place] Immature granulocytes/100 WBC (Bld) 0.9 % Normal [facility] Comment on above: Order Comment: Speci men Type: BLOOD SPECIMEN Ordering Facility: [facility] Address: [address] [place] [address] Performed By: #### 2 4323-8, LIPNF #### [facility] CLIA [id number] [address] [place] [address] [place] Lymphocytes (Bld) [#/Vol] 1.75 10*3/uL Normal 1.00-4.00 [facility] Comment on above: Order Comment: Speci men Type: BLOOD SPECIMEN Ordering Facility: [facility] Address: [address] [place] [address] Performed By: #### 2 4323-8, LIPNF #### [facility] CLIA [id number] [address] [place] [address] [place] Lymphocytes/100 WBC (Bld) 20.5 % Normal [facility] Comment on above: Order Comment: Speci men Type: BLOOD SPECIMEN Ordering Facility: [facility] Address: [address] [place] [address] Performed By: #### 2 4323-8, LIPNF #### [facility] CLIA [id number] [address] [place] [address] [place] MCH (RBC) [Entitic mass] 31.6 pg Normal 26.0-34.0 [facility] Comment on above: Order Comment: Speci men Type: BLOOD SPECIMEN Ordering Facility: [facility] Address: [address] [place] [address] Performed By: #### 2 4323-8, LIPNF #### [facility] CLIA [id number] [address] [place] [address] [place] MCHC (RBC) [Mass/Vol] 34.6 g/dL Normal 30.5-36.0 [facility] Comment on above: Order Comment: Speci men Type: BLOOD SPECIMEN Ordering Facility: [facility] Address: [address] [place] [address] Performed By: #### 2 4323-8, LIPNF #### [facility] CLIA [id number] [address] [place] [address] [place] MCV (RBC) [Entitic vol] 91.5 fL Normal 80.0-100.0 [facility] Comment on above: Order Comment: Speci men Type: BLOOD SPECIMEN Ordering Facility: [facility] Address: [address] [place] [address] Performed By: #### 2 4323-8, LIPNF #### [facility] CLIA [id number] [address] [place] [address] [place] Monocytes (Bld) [#/Vol] 0.81 10*3/uL Normal <0.87 [facility] Comment on above: Order Comment: Speci men Type: BLOOD SPECIMEN Ordering Facility: [facility] Address: [address] [place] [address] Performed By: #### 2 4323-8, LIPNF #### [facility] CLIA [id number] [address] [place] [address] [place] Monocytes/100 WBC (Bld) 9.5 % Normal [facility] Comment on above: Order Comment: Speci men Type: BLOOD SPECIMEN Ordering Facility: [facility] Address: [address] [place] [address] Performed By: #### 2 4323-8, LIPNF #### [facility] CLIA [id number] [address] [place] [address] [place] Neutrophils (Bld) [#/Vol] 5.51 10*3/uL Normal 1.45-7.50 [facility] Comment on above: Order Comment: Speci men Type: BLOOD SPECIMEN Ordering Facility: [facility] Address: [address] [place] [address] Performed By: #### 2 4323-8, LIPNF #### [facility] CLIA [id number] [address] [place] [address] [place] Neutrophils/100 WBC (Bld) 64.8 % Normal [facility] Comment on above: Order Comment: Speci men Type: BLOOD SPECIMEN Ordering Facility: [facility] Address: [address] [place] [address] Performed By: #### 2 4323-8, LIPNF #### [facility] CLIA [id number] [address] [place] [address] [place] Nucleated RBC (Bld) [#/Vol] 10*3/uL Normal <0.01 [facility] Comment on above: Order Comment: Speci men Type: BLOOD SPECIMEN Ordering Facility: [facility] Address: [address] [place] [address] Performed By: #### 2 4323-8, LIPNF #### [facility] CLIA [id number] [address] [place] [address] [place] Nucleated RBC/100 WBC (Bld) [Ratio] 0.0 /100 WBC Normal [facility] Comment on above: Order Comment: Speci men Type: BLOOD SPECIMEN Ordering Facility: [facility] Address: [address] [place] [address] Performed By: #### 2 4323-8, LIPNF #### [facility] CLIA [id number] [address] [place] [address] [place] Platelet mean volume (Bld) [Entitic vol] 10.8 fL Normal 9.0-12.7 [facility] Comment on above: Order Comment: Speci men Type: BLOOD SPECIMEN Ordering Facility: [facility] Address: [address] [place] [address] Performed By: #### 2 4323-8, LIPNF #### [facility] CLIA [id number] [address] [place] [address] [place] Platelets (Bld) [#/Vol] 212 10*3/uL Normal 150-400 [facility] Comment on above: Order Comment: Speci men Type: BLOOD SPECIMEN Ordering Facility: [facility] Address: [address] [place] [address] Performed By: #### 2 4323-8, LIPNF #### [facility] CLIA [id number] [address] [place] [address] [place] RBC (Bld) [#/Vol] 5.03 10*6/uL Normal 4.20-6.00 [facility] Comment on above: Order Comment: Speci men Type: BLOOD SPECIMEN Ordering Facility: [facility] Address: [address] [place] [address] Performed By: #### 2 4323-8, LIPNF #### [facility] CLIA [id number] [address] [place] [address] [place] WBC (Bld) [#/Vol] 8.52 10*3/uL Normal 3.70-11.00 [facility] Comment on above: Order Comment: Speci men Type: BLOOD SPECIMEN Ordering Facility: [facility] Address: [address] [place] [address] Performed By: #### 2 4323-8, LIPNF #### [facility] CLIA [id number] [address] [place] [address] [place] CNOVon 12-08-2024 CNOV Office Visit (FAMPWS) DELFINO ROSALES ([id number]) 1950 M NFR Date Time Provider Department 12/08/24 2:00 PM TOMASZ FABIANTARAN During your visit today, we recorded the following information about you: Pulse Respiration Blood pressure 68/minute 18/minute 135/68 Tomasz Fabian MD 12/08/2024 11:36 PM Signed Delfino Rosales is a 74 year old male here for a Medicare wellness visit. Medicare Health Risk Assessment General Health Very good Exercise: Minutes/Day 50 min Exercise: Days/Week 6 days Alcohol: Daily Use Never Alcohol: Drinks/Day Patient does not drink Alcohol: 6 or more drinks Never Feel off balance Yes Concerns: Teeth/Dentures No Concerns: Sexual function No Troubled by feelings None of the above Frequency: Eating healthy diet Nearly every day ADLs requiring help None of the above Safety precautions in home/vehicle Yes Smoke, vape, chews tobacco No Difficulty hearing No Difficulty seeing No Current Providers Specialists: I have reviewed specialist-related care of the patient in the medical record. Medical/Family history review Reviewed and updated problem list, medical/surgical/fam desire/social history, medications, and allergies. Opioid use review Opioid Medications (last 90 days) No data to display Anxiety/Depression screening PHQ-2 Score: 0 (Lower risk for depression) MICA-7 Score: 0. Recommendation: no further intervention at this time Cognitive screening Mini Cog Score: 5 Cognitive screening reviewed and No further action needed (score 3-5). Mini-Cog Patient asked to remember the following three words: Banana, [place] and Chair Visuospatial/Executi ve Functioning: Clock drawin/2 (Normal clock with all number in correct sequence and position, hands are correct = 2 points, inability or refusal to draw a clock = 0) Three word recall: 3/3 Total score: 5/5 (Total score = word recall score + clock draw score) Functional Observation Was the patient's Timed Up AND Go test unsteady or >= 12 seconds? Yes, couple falls in the past year due to trips. Used walker into exam today. Advance Care Planning Surrogate decision maker and/or advance care plan documented Measurements BP 135/68 Pulse 68 Resp 18 Vision Screening: Follows with optometry/ophthalmol ogy Assessment/Plan Medicare annual wellness visit, subsequent (Z00.00) - Counseled on healthy diet and regular exercise - Fall avoidance information provided - Personalized prevention plan provided See below Chief Complaint Patient presents with: Medicare Wellness Exam HPI Delfino Rosales is a 74 year old male who presents here today for Chronic Medical Conditions. and Medicare Annual Visit. Patient with hx of HLP, a. Fib, elevated blood pressures, TEMO, BPH, psoriasis, and those as below. Patient has been doing well no new issues or concerns. Delfino reports feeling well overall and continues to see multiple specialists, including Dr. Escalona, Dr. Whitaker, Dr. Appiah, Dr. Kaplan, and Dr. Tomas. He also sees Dr. Freitas at [facility] for dermatological care and Dr. Gregg for colonoscopy. He denies any surgeries in the past year. He denies recent fevers, frequent cephalalgia, sudden changes in hearing or vision, or issues with his nose or throat. He has not noticed any lumps or swelling in his neck. He denies wheezing, dyspnea, hemoptysis, or excessive sputum production. He also denies chest pain or palpitations. He reports chronic stable ankle edema, worse on the left, which he attributes to spinal muscular atrophy. He performs a legs up stretch to reduce the edema, but it returns upon standing. He denies frequent nausea, emesis, diarrhea, or heartburn. He has not seen blood in his stool or urine and denies dysuria or increased urinary frequency. He reports no new or different aches and pains, skin lesions, rashes, or sores. He denies easy bruising or bleeding, changes in heat or cold tolerance, increased thirst, syncope, seizures, or tremors. Delfino uses a walker for ambulation and reports a recent episode where he felt he might pass out due to heat and exertion. He monitors his blood pressure at home, with the last reading taken 2 weeks ago, showing systolic readings around 135 mmHg and diastolic readings in the 60s. He notes that his blood pressure can vary depending on his activities and diet but is usually around 130 mmHg. He believes his current medication, exercise, and high water intake help keep his blood pressure under control. He uses a CPAP machine for sleep apnea. Past medical history, appointments, medications, allergies reviewed. Previous Medical History PAST MEDICAL HISTORY Diagnosis Date Advance directive discussed with patient 10/26/2021 Discussed 10/2021 Asthma (HCC) Benign non-nodular prostatic hyperplasia with lower urinary tract sympt (more content not included)... Normal [facility] Comprehensive metabolic 2000 panelon 12-08-2024 Albumin [Mass/Vol] 4.2 g/dL 3.9 - 4.9 g/dL [facility] ALP [Catalytic activity/Vol] 61 U/L 38 - 113 U/L [facility] ALT [Catalytic activity/Vol] 39 U/L 10 - 54 U/L [facility] Anion gap [Moles/Vol] 14 mmol/L 8 - 15 mmol/L [facility] AST [Catalytic activity/Vol] 36 U/L 14 - 40 U/L [facility] Bilirubin [Mass/Vol] 0.3 mg/dL 0.2 - 1 .3 mg/dL [facility] Calcium [Mass/Vol] 9.5 mg/dL 8.5 - 10. 2 mg/dL [facility] Chloride [Moles/Vol] 99 mmol/L 98 - 10 7 mmol/L [facility] CO2 [Moles/Vol] 20 mmol/L Low 22 - 30 mmol/L [facility] Creatinine [Mass/Vol] 0.57 mg/dL Low 0.73 - 1.22 mg/dL [facility] GFR/1.73 sq M.predicted among non-blacks MDRD (S/P/Bld) [Vol rate/Area] 104 mL/min/{1.73_m2} - PINF [facility] Comment on above: Estimated Glomerular Filtration Rate (eGFR) is calculated using the 2020 CKD-EPI creatinine equation. This equation utilizes serum creatinine, sex, and age as parameters. The creatinine assay has traceable calibration to isotope dilution-mass spectrometry. Refer to KDIGO guidelines for clinical interpretation. In patients with unstable renal function, e.g. those with acute kidney injury, the eGFR may not accurately reflect actual GFR. Glucose [Mass/Vol] 82 mg/dL 74 - 99 mg/dL [facility] Comment on above: The [place] Diabete s Association (ADA) provides guidance for cutoff values for fasting glucose and random glucose. The ADA defines fasting as no caloric intake for at least 8 hours. Fasting plasma glucose results between 100 to 125 mg/dL indicate increased risk for diabetes (prediabetes). Fasting plasma glucose results greater than or equal to 126 mg/dL meet the criteria for diagnosis of diabetes. In the absence of unequivocal hyperglycemia, results should be confirmed by repeat testing. In a patient with classic symptoms of hyperglycemia or hyperglycemic crisis, random plasma glucose results greater than or equal to 200 mg/dL meet the criteria for diagnosis of diabetes. Reference: Standards of Medical Care in Diabetes 2016, [place] Diabetes Association. Diabetes Care. 2016.39(Suppl 1). Potassium [Moles/Vol] 4.4 mmol/L 3.7 - 5.1 mmol/L [facility] Protein [Mass/Vol] 7.5 g/dL 6.3 - 8.0 g/dL [facility] Sodium [Moles/Vol] 133 mmol/L Low 136 - 144 mmol/L [facility] Urea nitrogen [Mass/Vol] 18 mg/dL 9 - 24 mg/dL [facility] Albumin [Mass/Vol] 4.2 g/dL Normal 3.9-4.9 [facility] Comment on above: Order Comment: Speci men Type: BLOOD SPECIMEN Ordering Facility: [facility] Address: [address] [id number] Performed By: #### 2 4323-8, LIPNF #### [facility] CLIA [id number] [address] [place] [address] [place] ALP [Catalytic activity/Vol] 61 U/L Normal 38-113 [facility] Comment on above: Order Comment: Speci men Type: BLOOD SPECIMEN Ordering Facility: [facility] Address: [address] [place] [address] Performed By: #### 2 4323-8, LIPNF #### [facility] CLIA [id number] [address] [place] [address] [place] ALT [Catalytic activity/Vol] 39 U/L Normal 10-54 [facility] Comment on above: Order Comment: Speci men Type: BLOOD SPECIMEN Ordering Facility: [facility] Address: [address] [place] [address] Performed By: #### 2 4323-8, LIPNF #### [facility] CLIA [id number] [address] [place] [address] [place] Anion gap [Moles/Vol] 14 mmol/L Normal 8-15 [facility] Comment on above: Order Comment: Speci men Type: BLOOD SPECIMEN Ordering Facility: [facility] Address: [address] [place] [address] Performed By: #### 2 4323-8, LIPNF #### [facility] CLIA [id number] [address] [id number] [place] AST [Catalytic activity/Vol] 36 U/L Normal 14-40 [facility] Comment on above: Order Comment: Speci men Type: BLOOD SPECIMEN Ordering Facility: [facility] Address: [address] [id number] Performed By: #### 2 4323-8, LIPNF #### [facility] CLIA [id number] [address] [place] [address] [place] Bilirubin [Mass/Vol] 0.3 mg/dL Normal 0.2-1.3 [facility] Comment on above: Order Comment: Speci men Type: BLOOD SPECIMEN Ordering Facility: [facility] Address: [address] [place] [address] Performed By: #### 2 4323-8, LIPNF #### [facility] CLIA [id number] [address] [place] [address] [place] Calcium [Mass/Vol] 9.5 mg/dL Normal 8.5-10.2 [facility] Comment on above: Order Comment: Speci men Type: BLOOD SPECIMEN Ordering Facility: [facility] Address: [address] [place] [address] Performed By: #### 2 4323-8, LIPNF #### [facility] CLIA [id number] [address] [place] [address] [place] Chloride [Moles/Vol] 99 mmol/L Normal 98-107 [facility] Comment on above: Order Comment: Speci men Type: BLOOD SPECIMEN Ordering Facility: [facility] Address: [address] [place] [address] Performed By: #### 2 4323-8, LIPNF #### [facility] CLIA [id number] [address] [place] [address] [place] CO2 [Moles/Vol] 20 mmol/L Low 22-30 [facility] Comment on above: Order Comment: Speci men Type: BLOOD SPECIMEN Ordering Facility: [facility] Address: [address] [place] [address] Performed By: #### 2 4323-8, LIPNF #### [facility] CLIA [id number] [address] [place] [address] [place] Creatinine [Mass/Vol] 0.57 mg/dL Low 0.73-1.22 [facility] Comment on above: Order Comment: Speci men Type: BLOOD SPECIMEN Ordering Facility: [facility] Address: [address] [place] [address] Performed By: #### 2 4323-8, LIPNF #### [facility] CLIA [id number] [address] [place] [address] [place] eGFRcr SerPlBld CKD-EPI 2020 104 mL/min/1.73m??? Normal >=60 [facility] Comment on above: Order Comment: Tila boyle Type: BLOOD SPECIMEN Ordering Facility: [facility] Address: [address] [place] [address] Result Comment: Bibi mated Glomerular Filtration Rate (eGFR) is calculated using the 2020 CKD-EPI creatinine equation. This equation utilizes serum creatinine, sex, and age as parameters. The creatinine assay has traceable calibration to isotope dilution-mass spectrometry. Refer to KDIGO guidelines for clinical interpretation. In patients with unstable renal function, e.g. those with acute kidney injury, the eGFR may not accurately reflect actual GFR. Performed By: #### 2 4323-8, LIPNF #### [facility] CLIA [id number] [address] [place] [address] [place] Glucose [Mass/Vol] 82 mg/dL Normal 74-99 [facility] Comment on above: Order Comment: Tila boyle Type: BLOOD SPECIMEN Ordering Facility: [facility] Address: [address] [place] [address] Result Comment: The [place] Diabetes Association (ADA) provides guidance for cutoff values for fasting glucose and random glucose. The ADA defines fasting as no caloric intake for at least 8 hours. Fasting plasma glucose results between 100 to 125 mg/dL indicate increased risk for diabetes (prediabetes). Fasting plasma glucose results greater than or equal to 126 mg/dL meet the criteria for diagnosis of diabetes. In the absence of unequivocal hyperglycemia, results should be confirmed by repeat testing. In a patient with classic symptoms of hyperglycemia or hyperglycemic crisis, random plasma glucose results greater than or equal to 200 mg/dL meet the criteria for diagnosis of diabetes. Reference: Standards of Medical Care in Diabetes 2016, [place] Diabetes Association. Diabetes Care. 2016.39(Suppl 1). Performed By: #### 2 4323-8, LIPNF #### [facility] CLIA [id number] [address] [place] [address] [place] Potassium [Moles/Vol] 4.4 mmol/L Normal 3.7-5.1 [facility] Comment on above: Order Comment: Speci men Type: BLOOD SPECIMEN Ordering Facility: [facility] Address: [address] [place] [address] Performed By: #### 2 4323-8, LIPNF #### [facility] CLIA [id number] [address] [place] [address] [place] Protein [Mass/Vol] 7.5 g/dL Normal 6.3-8.0 [facility] Comment on above: Order Comment: Speci men Type: BLOOD SPECIMEN Ordering Facility: [facility] Address: [address] [place] [address] Performed By: #### 2 4323-8, LIPNF #### [facility] CLIA [id number] [address] [place] [address] [place] Sodium [Moles/Vol] 133 mmol/L Low 136-144 [facility] Comment on above: Order Comment: Speci men Type: BLOOD SPECIMEN Ordering Facility: [facility] Address: [address] [place] [address] Performed By: #### 2 4323-8, LIPNF #### [facility] CLIA [id number] [address] [place], [place] [id number] [place] Urea nitrogen [Mass/Vol] 18 mg/dL Normal 9-24 [facility] Comment on above: Order Comment: Speci men Type: BLOOD SPECIMEN Ordering Facility: [facility] Address: [address] [place], [place] [id number] Performed By: #### 2 4323-8, LIPNF #### [facility] CLIA [id number] [address] [place], [place] [id number] [place] LIPID PANEL, NONFASTINGon Cholesterol [Mass/Vol] 185 mg/dL NINF - 200 mg/dL [facility] Comment on above: <200 mg/dL, Desirabl e 200-239 mg/dL, Borderline high >239 mg/dL, High HDL Cholesterol, Nonfasting 37 mg/dL Low 39 - PINF mg/dL [facility] Comment on above: 40-59 mg/dL, Accepta ble >59 mg/dL, High: Negative risk factor for coronary heart disease <40 mg/dL, Low: Positive risk factor for coronary heart disease LDL Cholesterol Calculated, Nonfasting 122 mg/dL High NINF - 100 mg/dL [facility] Comment on above: <100 mg/dL, Optimal 100-129 mg/dL, Near optimal/above optimal 130-159 mg/dL, Borderline high 160-189 mg/dL, High >189 mg/dL, Very high Secondary prevention optimal LDL Cholesterol levels are recommended to be <70 mg/dL LDL cholesterol is calculated using the Goodman-NIH equation. LDL/HDL Ratio, Nonfasting 3.3 mg/dL High NINF - 2.54 mg/dL [facility] Comment on above: Reference: 1. National Cholesterol Education Program ATP III Guideline At-A-Glance Quick Desk Reference: National Heart, Lung, and Blood [place]. National Institutes of Health. 2001: NIH Publication No. 01-3305. 2. An International Atherosclerosis Society position paper: global recommendations for the management of dyslipidemia: executive summary, Atherosclerosis. 2014: 232(2):410-413. Non HDL Cholesterol, Nonfasting 148 mg/dL High NINF - 130 mg/dL [facility] Comment on above: <130 mg/dL, Optimal 130-159 mg/dL, Near optimal/above optimal 160-189 mg/dL, Borderline high 190-219 mg/dL, High >219 mg/dL, Very high Secondary prevention optimal non HDL Cholesterol levels are recommended to be <100 mg/dL Total Chol/HDL Ratio, Nonfasting 5 mg/dL NINF - 5.10 mg/dL [facility] Triglycerides, Nonfasting 147 mg/dL NINF - 150 mg/dL [facility] Comment on above: <150 mg/dL, Normal 150-199 mg/dL, Borderline high 200-499 mg/dL, High >499 mg/dL, Very high VLDL Cholesterol, Nonfasting 25 mg/dL NINF - 30 mg/dL [facility] Cholesterol [Mass/Vol] 185 mg/dL Normal <200 [facility] Comment on above: Order Comment: Tila boyle Type: BLOOD SPECIMEN Ordering Facility: [facility] Address: [address] [place] [address] Result Comment: <200 mg/dL, Desirable 200-239 mg/dL, Borderline high >239 mg/dL, High Performed By: #### 2 4323-8, LIPNF #### [facility] CLIA [id number] [address] [place] [address] [place] HDL CHOLESTEROL, NF 37 mg/dL Low >39 [facility] Comment on above: Order Comment: Tila boyle Type: BLOOD SPECIMEN Ordering Facility: [facility] Address: [address] [place] [address] Result Comment: 40-5 9 mg/dL, Acceptable >59 mg/dL, High: Negative risk factor for coronary heart disease <40 mg/dL, Low: Positive risk factor for coronary heart disease Performed By: #### 2 4323-8, LIPNF #### [facility] CLIA [id number] [address] [place] [address] [place] LDL CHOLESTEROL CALCULATED, NF 122 mg/dL High <100 [facility] Comment on above: Order Comment: Tila montana Type: BLOOD SPECIMEN Ordering Facility: [facility] Address: [address] [place] [address] Result Comment: <100 mg/dL, Optimal 100-129 mg/dL, Near optimal/above optimal 130-159 mg/dL, Borderline high 160-189 mg/dL, High >189 mg/dL, Very high Secondary prevention optimal LDL Cholesterol levels are recommended to be <70 mg/dL LDL cholesterol is calculated using the Goodman-NIH equation. Performed By: #### 2 4323-8, LIPNF #### [facility] CLIA [id number] [address] [place] [address] [place] LDL/HDL RATIO, NF 3.30 mg/dL High <2.54 [facility] Comment on above: Order Comment: Speci men Type: BLOOD SPECIMEN Ordering Facility: [facility] Address: [address] [place] [address] Result Comment: Luis arreguin: 1. National Cholesterol Education Program ATP III Guideline At-A-Glance Quick Desk Reference: National Heart, Lung, and Blood [place]. National Institutes of Health. 2001: NIH Publication No. 01-3305. 2. An International Atherosclerosis Society position paper: global recommendations for the management of dyslipidemia: executive summary, Atherosclerosis. 2014: 232(2):410-413. Performed By: #### 2 4323-8, LIPNF #### [facility] CLIA [id number] [address] [place] [address] [place] NON HDL CHOL, NF 148 mg/dL High <130 [facility] Comment on above: Order Comment: Tila boyle Type: BLOOD SPECIMEN Ordering Facility: [facility] Address: [address] [place] [address] Result Comment: <130 mg/dL, Optimal 130-159 mg/dL, Near optimal/above optimal 160-189 mg/dL, Borderline high 190-219 mg/dL, High >219 mg/dL, Very high Secondary prevention optimal non HDL Cholesterol levels are recommended to be <100 mg/dL Performed By: #### 2 4323-8, LIPNF #### [facility] CLIA [id number] [address] [place] [address] [place] T CHOL/HDL RATIO NF 5.00 mg/dL Normal <5.10 [facility] Comment on above: Order Comment: Yarelisi men Type: BLOOD SPECIMEN Ordering Facility: [facility] Address: [address] [place] [address] Performed By: #### 2 4323-8, LIPNF #### [facility] CLIA [id number] [address] [place] [address] [place] TRIGLYCERIDES, NF 147 mg/dL Normal <150 [facility] Comment on above: Order Comment: Speci men Type: BLOOD SPECIMEN Ordering Facility: [facility] Address: [address] [place] [address] Result Comment: <150 mg/dL, Normal 150-199 mg/dL, Borderline high 200-499 mg/dL, High >499 mg/dL, Very high Performed By: #### 2 4323-8, LIPNF #### [facility] CLIA [id number] [address] [place] [address] [place] VLDL CHOLESTEROL, NF 25 mg/dL Normal <30 [facility] Comment on above: Order Comment: Speci men Type: BLOOD SPECIMEN Ordering Facility: [facility] Address: [address] [place] [address] Performed By: #### 2 4323-8, LIPNF #### [facility] CLIA [id number] [address] [place] [address] [place] No Panel Informationon 12-08 Interpretation and review of laboratory results Abnormal [facility] Urinalysis complete panel (U )on 12-08-2024 Bacteria LM.HPF (Urine sed) [#/Area] Negative Negative /HPF [facility] Bilirubin Ql (U) Negative Negative [facility] Clarity (Unsp spec) Clear Clear [facility] Color (U) Yellow Yellow [facility] Epithelial cells LM.HPF (Urine sed) [#/Area] None Seen /HPF [facility] Glucose Test strip (U) [Mass/Vol] Negative Negative [facility] Hemoglobin Ql (U) Negative Negative [facility] Hyaline casts (Urine sed) [#/Area] 0 /[LPF] 0 /LPF [facility] Interpretation and review of laboratory results Abnormal [facility] Ketones Ql (U) Negative Negative [facility] Leukocyte esterase Test strip Ql (U) Trace Abnormal Negative [facility] Nitrite Ql (U) Negative Negative [facility] pH (U) 6.5 [pH] 5.0 - 8.0 [facility] Protein (U) [Mass/Vol] Negative Negative [facility] RBC LM.HPF (Urine sed) [#/Area] 0-2 /HPF 0-2 /HPF [facility] Specific gravity (U) [Rel density] 1.009 1.005 - 1.030 [facility] Urobilinogen Ql (U) 0.2 EU/dL 0.2-1.0 EU/dL [facility] WBC LM.HPF (Urine sed) [#/Area] 0-5 /HPF 0-5 /HPF [facility] This test was developed and its performance characteristics determined by [facility] [place] ([facility]). It has not been cleared or approved by the FDA. [facility] is regulated under CLIA as qualified to perform high-complexity testing. This test is used for clinical purposes. It should not be regarded as investigational or for research. [facility] Bacteria LM.HPF (Urine sed) [#/Area] Negative Normal Negative [facility] Comment on above: Order Comment: Speci men Type: BLOOD SPECIMEN Ordering Facility: [facility] Address: [address] [place] [address] Performed By: #### 2 4323-8, LIPNF #### [facility] CLIA [id number] [address] [place] [address] [place] Bilirubin Ql (U) Negative Normal Negative [facility] Comment on above: Order Comment: Speci men Type: BLOOD SPECIMEN Ordering Facility: [facility] Address: [address] [place] [address] Performed By: #### 2 4323-8, LIPNF #### [facility] CLIA [id number] [address] [place] [address] [place] Clarity (Unsp spec) Clear Normal Clear [facility] Comment on above: Order Comment: Speci men Type: BLOOD SPECIMEN Ordering Facility: [facility] Address: [address] [place] [address] Performed By: #### 2 4323-8, LIPNF #### [facility] CLIA [id number] [address] [place] [address] [place] Color (U) Yellow Normal Yellow [facility] Comment on above: Order Comment: Speci men Type: BLOOD SPECIMEN Ordering Facility: [facility] Address: [address] [place] [address] Performed By: #### 2 4323-8, LIPNF #### [facility] CLIA [id number] [address] [place] [address] [place] [facility] Epithelial cells LM.HPF (Urine sed) [#/Area] None Seen Normal [facility] Comment on above: Order Comment: Speci men Type: BLOOD SPECIMEN Ordering Facility: [facility] Address: [address] [place] [address] Performed By: #### 2 4323-8, LIPNF #### [facility] CLIA [id number] [address] [place] [address] [place] Glucose Test strip (U) [Mass/Vol] Negative Normal Negative [facility] Comment on above: Order Comment: Speci men Type: BLOOD SPECIMEN Ordering Facility: [facility] Address: [address] [place] [address] Performed By: #### 2 4323-8, LIPNF #### [facility] CLIA [id number] [address] [place] [address] [place] Hemoglobin Ql (U) Negative Normal Negative [facility] Comment on above: Order Comment: Speci men Type: BLOOD SPECIMEN Ordering Facility: [facility] Address: [address] [place] [address] Performed By: #### 2 4323-8, LIPNF #### [facility] CLIA [id number] [address] [place] [address] [place] Hyaline casts (Urine sed) [#/Area] 0 /[LPF] Normal 0 /LPF [facility] Comment on above: Order Comment: Speci men Type: BLOOD SPECIMEN Ordering Facility: [facility] Address: [address] [place] [address] Performed By: #### 2 4323-8, LIPNF #### [facility] CLIA [id number] [address] [place] [address] [place] Ketones Ql (U) Negative Normal Negative [facility] Comment on above: Order Comment: Speci men Type: BLOOD SPECIMEN Ordering Facility: [facility] Address: [address] [place] [address] Performed By: #### 2 4323-8, LIPNF #### [facility] CLIA [id number] [address] [place] [address] [place] Leukocyte esterase Test strip Ql (U) Trace Abnormal Negative [facility] Comment on above: Order Comment: Speci men Type: BLOOD SPECIMEN Ordering Facility: [facility] Address: [address] [place] [address] Performed By: #### 2 4323-8, LIPNF #### [facility] CLIA [id number] [address] [place] [address] [place] Nitrite Ql (U) Negative Normal Negative [facility] Comment on above: Order Comment: Speci men Type: BLOOD SPECIMEN Ordering Facility: [facility] Address: [address] [place] [address] Performed By: #### 2 4323-8, LIPNF #### [facility] CLIA [id number] [address] [place] [address] [place] pH (U) 6.5 [pH] Normal 5.0-8.0 [facility] Comment on above: Order Comment: Speci men Type: BLOOD SPECIMEN Ordering Facility: [facility] Address: [address] [place] [address] Performed By: #### 2 4323-8, LIPNF #### [facility] CLIA [id number] [address] [place] [address] [place] Protein (U) [Mass/Vol] Negative Normal Negative [facility] Comment on above: Order Comment: Speci men Type: BLOOD SPECIMEN Ordering Facility: [facility] Address: [address] [place] [address] Performed By: #### 2 4323-8, LIPNF #### [facility] CLIA [id number] [address] [place] [address] [place] RBC LM.HPF (Urine sed) [#/Area] 0-2 /HPF Normal 0-2 /HPF [facility] Comment on above: Order Comment: Speci men Type: BLOOD SPECIMEN Ordering Facility: [facility] Address: [address] [place] [address] Performed By: #### 2 4323-8, LIPNF #### [facility] CLIA [id number] [address] [place] [address] [place] Specific gravity (U) [Rel density] 1.009 Normal 1.005-1.030 [facility] Comment on above: Order Comment: Speci men Type: BLOOD SPECIMEN Ordering Facility: [facility] Address: [address] [place] [address] Performed By: #### 2 4323-8, LIPNF #### [facility] CLIA [id number] [address] [place] [address] [place] Urobilinogen Ql (U) 0.2 EU/dL Normal 0.2-1.0 EU/dL [facility] Comment on above: Order Comment: Speci men Type: BLOOD SPECIMEN Ordering Facility: [facility] Address: [address] [place] [address] Performed By: #### 2 4323-8, LIPNF #### [facility] CLIA [id number] [address] [place] [address] [place] WBC LM.HPF (Urine sed) [#/Area] 0-5 /HPF Normal 0-5 /HPF [facility] Comment on above: Order Comment: Speci men Type: BLOOD SPECIMEN Ordering Facility: [facility] Address: [address] [place] [address] Performed By: #### 2 4323-8, LIPNF #### [facility] CLIA [id number] [address] [facility] [place] [address] [place] PSA (OUTSIDE)on 09-23-2024 [facility] PSA,Total - Annual Screenon 09-23-2024 PSA,TOT SCREEN 1.11 ng/mL Normal 0.02-4.00 [facility] Comment on above: Result Comment: This test was performed using the [employer] tPSA method. Measured values of a patient??sample can vary depending on the testing procedure used. PSA values determined on patient samples by different testing procedures cannot be used interchangeably. If there is a change in PSA assays while monitoring therapy, sequential testing should be performed to confirm baseline values. Performed By: #### L [id number] #### [facility] [address] [facility] [address] [place], [address] Cardiology Visit Reporton Cardiology Visit Report [facility] [address] [place] [address] OFFICE VISIT Date of Service: 02/12/24 MR#: [id number] Acct: [id number] Name: DELFINO ROSALES Rep #: [id number] : 1950 Provider: HEBER palmer Age/Sex: 73/M Location: [facility] Status: Signed HPI HPI History of Present Illness Details: DELFINO ROSALES, is a 73 M who presents to the office today for a follow-up evaluation. As you know he is a gentleman with a history of sick sinus syndrome status post pacemaker placement and hyperlipidemia who returns for routine follow-up visit. He denies chest, arm, jaw, or neck discomfort. He denies palpitations. He continues with bilateral lower extremity edema that is not worsening. He denies claudication. He denies shortness of breath with activity, shortness of breath at rest, orthopnea, or PND. He denies chronic cough. He denies significant, sudden weight gain. He denies lightheadedness, dizziness, near-syncope, or syncope. He denies blood in urine, blood in stool, or epistaxis. He denies fever with chills. He denies myalgia. He denies fatigue. His exercise level has remained stable. Intake Vital Signs 12/07/22 13:55 02/12/24 14:53 Height 5 ft 11 in 5 ft 11 in Weight: 207 lb BMI 28.8 BP 181/91 H Blood Pressure Location Lt brachial Position Sitting Respiration 18 Pulse 59 L Pulse Source Monitor Pulse Oximetry (%) 98 Oxygen Delivery Method room air Intake Visit Reasons: 1 y fu (MOVED FROM [facility]) LISSETTE @ 2:30 Special Needs Child Caregiver Required: No Accompanied by: Self Is patient in pain?: No Allergies aspirin Allergy (Verified 02/12/24 14:53) asthma attack amlodipine Adverse Reaction (Severe, Verified 02/12/24 14:53) muscle weakness lisinopril Adverse Reaction (Severe, Verified 02/12/24 14:53) muscle weakness losartan Adverse Reaction (Severe, Verified 02/12/24 14:53) muscle weakness metoprolol Adverse Reaction (Severe, Verified 02/12/24 14:53) muscle weakness Medications ???Medication ???Instructions ???Recorded ???Confirmed ???Type albuterol sulfate 90 mcg/actuation 1 inh inhalation ONCE 04/15/20 02/12/24 History aerosol inhaler clonidine HCl 0.1 mg tablet 0.2 mg PO BID 10/27/21 02/12/24 History spironolactone 100 mg tablet 100 mg PO DAILY 04/11/22 02/12/24 History multivitamin-mineral s-lutein tablet 1 tab PO DAILY 12/07/22 02/12/24 History doxazosin 8 mg tablet (Cardura) 6 mg PO DAILY 02/12/24 02/12/24 History Have you fallen in the past year?: No PFSH Medical History Wears glasses Prostate disease High cholesterol Non-smoker CPAP (continuous positive airway pressure) dependence Sleep apnea Asthma History of edema History of echocardiogram History of stress test Cardiology follow-up encounter Pacemaker Snoring Hypersomnia Spinal muscle atrophy Paroxysmal atrial fibrillation HLD (hyperlipidemia) Sick sinus syndrome Surgical History H/O transurethral resection of prostate History of surgery on arm History of permanent cardiac pacemaker placement (06/28/20) Family History Mother Diabetes Social History Smoking Status: Never smoker alcohol intake: never substance use type: does not use caffeine: Yes Type: carbonated beverages and tea ROS Const Const: Positive for weakness; Negative for fatigue ENT ENT: Negative for dizziness or balance problems Cardio Chest Pain: No Palpitations: No Edema: Left (attributes to spinal muscle atrophy) Muscle aches with walking: None Resp Respiratory: Negative for SOB with activity, SOB at rest or SOB orthopnea SOB lying down GI GI: Negative nausea, vomiting or heartburn : Negative for hematuria or frequent nighttime urination/ nocturia Musc Musc: Negative for muscle weakness or balance problems Skin Skin: Negative non-healing lesions or rash Neuro Neuro: Positive for weakness; Negative for dizziness, lightheadedness, near syncope or syncope Endo Endo: Negative for fatigue Allergy Allergy/Immunology: Negative for rash Cardiology Exam Const Appearance: cooperative, healthy appearing, comfortable and no acute distress Nutritional Appearance: well nourished and overweight Orientation: alert, awake and oriented x3 Head Head: normal to inspection Ears: hearing grossly normal bilaterally Nose: external nose normal Face and Sinus: face symmetric Mouth: moist mucous membranes Eyes General: appearance normal, both eyes and all related structures Eyelids: eyelids normal EOM: EOM intact bilaterally Neck Neck: normal visual inspection and no JVD Rodriguez (more content not included)... Normal [facility] Pacemaker Checkon 02-12-2024 Pacemaker Check [facility] [address] [place] [address] [address] [place] [address] Pacemaker Check Date of Service: 02/12/241702 MR#: [id number] Acct: [id number] Name: DELFINO ROSALES Rep #: [id number] : 1950 From: Carloa Art Age/Sex: 73/M [place] [facility] Status[place] Signed Billing Codes PM Device Codes: 72477 PM Dev Prog Eval, Dual Assessment and Plan Assessment and Plan (1) History of permanent cardiac pacemaker placement: Status: Chronic Comment: 1996,Gen changed (2) Sick sinus syndrome: Status: Chronic (3) Paroxysmal atrial fibrillation: Status: Chronic 10/01/24 1704 Date Carola Gardner Signature: Date (if applicable) CC: Normal [facility] CBC W Auto Differential pane l (Bld)on 12-03-2023 Basophils (Bld) [#/Vol] 0.07 10*3/uL [facility] Basophils/100 WBC (Bld) 0.9 % [facility] Differential cell count method Nom (Bld) Auto [facility] Eosinophils (Bld) [#/Vol] 0.20 10*3/uL [facility] Eosinophils/100 WBC (Bld) 2.5 % [facility] Erythrocyte distribution width (RBC) [Ratio] 12.4 % 11.5 - 15.0 % [facility] Hematocrit (Bld) [Volume fraction] 46.6 % 39.0 - 51.0 % [facility] Hemoglobin (Bld) [Mass/Vol] 15.9 g/dL 13.0 - 17.0 g/dL [facility] Immature granulocytes (Bld) [#/Vol] 0.08 10*3/uL [facility] Immature granulocytes/100 WBC (Bld) 1.0 % [facility] Lymphocytes (Bld) [#/Vol] 1.17 10*3/uL [facility] Lymphocytes/100 WBC (Bld) 14.8 % [facility] MCH (RBC) [Entitic mass] 31.4 pg 26.0 - 34.0 pg [facility] MCHC (RBC) [Mass/Vol] 34.1 g/dL 30.5 - 36.0 g/dL [facility] MCV (RBC) [Entitic vol] 92.1 fL 80.0 - 100.0 fL [facility] Monocytes (Bld) [#/Vol] 0.61 10*3/uL [facility] Monocytes/100 WBC (Bld) 7.7 % [facility] Neutrophils (Bld) [#/Vol] 5.76 10*3/uL [facility] Neutrophils/100 WBC (Bld) 73.1 % [facility] Nucleated RBC (Bld) [#/Vol] NINF [facility] Nucleated RBC/100 WBC (Bld) [Ratio] 0.0 % /100 WBC [facility] Platelet mean volume (Bld) [Entitic vol] 10.5 fL 9.0 - 12.7 fL [facility] Platelets (Bld) [#/Vol] 202 10*3/uL [facility] RBC (Bld) [#/Vol] 5.06 10*6/uL 4.20 - 6.0 0 m/uL [facility] WBC (Bld) [#/Vol] 7.89 10*3/uL [facility] Urinalysis complete panel (U )on 12-03-2023 Bacteria LM.HPF (Urine sed) [#/Area] Negative Negative /HPF [facility] Bilirubin Ql (U) Negative Negative [facility] Clarity (Unsp spec) Clear Clear [facility] Color (U) Yellow Yellow [facility] Epithelial cells LM.HPF (Urine sed) [#/Area] None Seen /HPF [facility] Glucose Test strip (U) [Mass/Vol] Negative Negative [facility] Hemoglobin Ql (U) Trace Abnormal Negative [facility] Hyaline casts (Urine sed) [#/Area] 0 /[LPF] 0 /LPF [facility] Interpretation and review of laboratory results Abnormal [facility] Ketones Ql (U) Negative Negative [facility] Leukocyte esterase Test strip Ql (U) 3+ Abnormal Negative [facility] Nitrite Ql (U) Negative Negative [facility] pH (U) 6.0 [pH] NINF - 8.5 [facility] Protein (U) [Mass/Vol] Negative Negative [facility] RBC LM.HPF (Urine sed) [#/Area] 0-2 /HPF 0-2 /HPF [facility] Specific gravity (U) [Rel density] 1.008 1.005 - 1.030 [facility] Urobilinogen Ql (U) 0.2 EU/dL 0.2-1.0 EU/dL [facility] WBC LM.HPF (Urine sed) [#/Area] /[HPF] Abnormal 0-5 /HPF [facility] This test was developed and its performance characteristics determined by [facility] [place] ([facility]). It has not been cleared or approved by the FDA. [facility] is regulated under CLIA as qualified to perform high-complexity testing. This test is used for clinical purposes. It should not be regarded as investigational or for research. [facility] Denise 10-10-2023 CNPN Telephone (NESLBA) DELFINO ROSALES ([id number]) 1950 M NFR Date Time Provider Department 10/10/23 RALEIGH APPIAH JR During your visit today, we recorded the following information about you: Joan Matson LPN 10/10/2023 10:13 AM Signed Spoke with Xander and requested 90 day pap download. Waiting for report to be faxed Joan Matson LPN Allergies As of Date: 10/10/2023 Noted Allergy Reaction ADVIL (IBUPROFEN) 07/24/2006 16 - Unknown AMLODIPINE 05/06/2020 14 - Other: See Comments Comments: Lower extremity swelling ASA (SALICYLATES) 03/31/2005 16 - Unknown LISINOPRIL 03/01/2020 3 - Cough LOSARTAN 05/02/2021 17 - Myalgia ZETIA (EZETIMIBE) 07/24/2006 14 - Other: See Comments Comments: weakness Date Reviewed: 05/10/2023 Reviewed by: Pam Conley MA - Fully Assessed Reason for Visit: cpap compliance [Other] Prescriptions as of 10/10/2023 - doxazosin (CARDURA) 2 mg tablet Take 1 tablet by mouth once daily. Along with 4 mg dose for a total of 6 mg a day - doxazosin (CARDURA) 4 mg tablet Take 1 tablet by mouth once daily. - cloNIDine HCl (CATAPRES) 0.2 mg tablet Take 1 tablet by mouth two times a day. - spironolactone (ALDACTONE) 100 mg tablet Take 1 tablet by mouth once daily. - multivit-min/FA/lyco pen/lutein (CENTRUM SILVER MEN ORAL) Take 1 capsule by mouth once daily. - CPAP Please change AutoPAP setting range to 10-18 cmH2O. Please provide download in 30 days. - albuterol HFA (PROVENTIL HFA, VENTOLIN HFA) 90 mcg/actuation inhaler Inhale 2 Puffs as instructed as needed. 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] 08/03/2016 Tubular adenoma of rectum [D12.8] 08/03/2016 Oropharyngeal dysphagia [R13.12] 08/20/2018 Elevated PSA [R97.20] 12/02/2019 Medicare annual wellness visit, subsequent [Z00*11/01/2020 TEMO (obstructive sleep apnea) [G47.33] 11/01/2020 Pacemaker [Z95.0] 11/01/2020 Paroxysmal atrial fibrillation (HCC) [I48.0] 11/01/2020 History of COVID-19 [Z86.16] 02/09/2021 Nocturnal hypoxia [G47.34] 02/28/2021 Debility [R53.81] 03/09/2021 Hypertension, essential [I10] 05/02/[address] [Z78.9] 10/26/2021 Advance directive discussed with patient [Z71.8*10/26/2021 Gall bladder stones [K80.20] 10/26/2021 Medication management [Z79.899] 04/28/2022 Screening for colon cancer [Z12.11] 06/30/2022 History of colonic polyps [Z86.010] 10/23/2022 Encounter Status:Closed by JOAN MATSON on 10/10/23 Normal [facility] SURGICAL PATHOLOGYon 023 Case Report Surgical Pathology Report Case: [id number] Authorizing Provider: Keli Gregg MD Collected: 10/23/2022 11:46 AM Ordering Location: Ambulatory Surgery Received: 10/23/2022 01:11 PM Pathologist: Patrice Gonzales MD Specimen: CECUM POLYP [facility] FINAL DIAGNOSIS A. Colon, cecum, polyp, biopsy: - Tubular adenoma. [facility] Gross Description A. CECUM POLYP Received in formalin is a boudreaux polypoid segment of tissue measuring 0.5 x 0.4 x 0.4 cm. No stalk is present. The line of resection is noted. The specimen is bisected. Also received in the same container are multiple pieces of boudreaux, soft tissue aggregating to 0.8 x 0.2 x 0.2 cm. Totally submitted in one cassette. October 24, 2022 8:32 AM Gross examination performed at [facility], [facility] Performing Lab Diagnostic interpretation performed at [facility], [address] [place] [address] CLIA# [id number] Security Inspector: Kurtis Carcamo M.D. [facility] COLONOSCOPY SCREENINGon 10-12 [facility] Absolute lymphocyte counton 04-11-2022 Lymphocytes Auto (Unsp spec) [#/Vol] 0.75 10*3/uL 0.83-4.51 [facility] Work Phone: Basophil percentageon 2021 Basophil percentage 10-25 SEEN /hpf 0-5 [facility] Work Phone: Basophils/100 WBC (Bld) 0.4 % 0-1 [facility] Work Phone: Bilirubin [Mass/Vol] 0.80 mg/dL 0.20-1.00 [facility] Work Phone: Comment on above: For patients on eltr ombopag therapy, use of Dimension [place] TBIL is not recommended. Chloride [Moles/Vol] 101 mmol/L 98-107 [facility] Work Phone: Eosinophils/100 WBC (Bld) 0.5 % 0-5 [facility] Work Phone: Glucose [Mass/Vol] 111 mg/dL 74-106 [facility] Work Phone: Comment on above: Fasting Glucose resu lt from 100 to 125 mg/dL suggests IMPAIRED HOMEOSTASIS per A.D.A. criteria. Neutrophils (Bld) [#/Vol] 10.4 10*3/uL 2.0-7.7 [facility] Work Phone: Neutrophils/100 WBC (Bld) 81.8 % 47-70 [facility] Work Phone: Potassium [Moles/Vol] 4.0 mmol/L 3.5-5.1 [facility] Work Phone: Protein [Mass/Vol] 7.9 g/dL 6.4-8.2 [facility] Work Phone: Sodium [Moles/Vol] 134 mmol/L 136-145 [facility] Work Phone: WBC (Bld) [#/Vol] 12.8 10*3/uL 4.4-11.0 [facility] Work Phone: Bilirubin Test strip Ql (U)o n 04-11-2022 Bilirubin Ql (U) Negative Negative [facility] Work Phone: Blood erythrocytes count (nu mber/volume)on 04-11-2022 RBC (Bld) [#/Vol] 5.08 10*6/uL 4.6-6.2 [facility] Work Phone: Blood hemoglobin measurement (mass/volume)on 04-11-2022 Hemoglobin (Bld) [Mass/Vol] 15.7 g/dL 13.0-16.5 [facility] Work Phone: Blood lymphocytes/100 leukoc yteson 04-11-2022 Lymphocytes/100 WBC (Bld) 5.9 % 19-41 [facility] Work Phone: Blood monocytes/100 leukocyt eson 04-11-2022 Monocytes/100 WBC (Bld) 10.6 % 0-10 [facility] Work Phone: Blood platelet mean volumeon 04-11-2022 Platelet mean volume (Bld) [Entitic vol] 9.7 fL 6.2-12.0 [facility] Work Phone: Determination of erythrocyte mean corpuscular volume (MCV)on 04-11-2022 MCV (RBC) [Entitic vol] 91.1 fL 80-94 [facility] Work Phone: Hematocrit Auto (Bld) [Volum e fraction]on 04-11-2022 Hematocrit (Bld) [Volume fraction] 46.3 % 40-54 [facility] Work Phone: Ketones Test strip Ql (U)on 04-11-2022 Ketones Ql (U) 5 mg/dl Negative [facility] Work Phone: Laboratory - Chemistry and C hemistry - challengeon 04-11-2022 ALP [Catalytic activity/Vol] 62 U/L 45-117 [facility] Work Phone: ALT [Catalytic activity/Vol] 53 U/L 16-61 [facility] Work Phone: CO2 [Moles/Vol] 27.0 mmol/L 21.0-32.0 [facility] Work Phone: Globulin (S) [Mass/Vol] 4.4 g/dL 2.2-4.2 [facility] Work Phone: Urea nitrogen/Creatinine [Mass ratio] 21.7 mg/mg 10-20 [facility] Work Phone: Laboratory - Hematology and Cell countson 04-11-2022 Erythrocyte distribution width (RBC) [Entitic vol] 41.7 fL 35.1-43.9 [facility] Work Phone: Erythrocyte distribution width (RBC) [Ratio] 12.5 % 11.6-14.6 [facility] Work Phone: Immature granulocytes/100 WBC (Bld) 0.800 % 0.0-0.9 [facility] Work Phone: Comment on above: IG% - Immature Granu locytes (promyelocytes, myelocytes and metamyelocytes) > 1% indicates that a LEFT SHIFT is Present. MCH (RBC) [Entitic mass] 30.9 pg 27.0-32.0 [facility] Work Phone: Nucleated RBC/100 WBC (Bld) [Ratio] 0 % 0-5 [facility] Work Phone: MCHC Auto (RBC) [Mass/Vol]on 04-11-2022 MCHC (RBC) [Mass/Vol] 33.9 g/dL 32-36 [facility] Work Phone: Mucus LM Ql (Urine sed)on Mucus Ql (Urine sed) 0 SEEN /hpf [facility] Work Phone: Nitrite Test strip Ql (U)on 04-11-2022 Nitrite Ql (U) Negative Negative [facility] Work Phone: No Panel Informationon 04-11 Estimated Creatinine Clearance Calc 82.00 ml/min [facility] Work Phone: Estimated GFR (MDRD) Amer 110 mL/min >60 [facility] Work Phone: Comment on above: GFR Calc Estimated GFR (MDRD) Non-Af Amer 91 mL/min >60 [facility] Work Phone: Comment on above: Non- GFR Calc Platelets bldon 04-11-2022 Platelets (Bld) [#/Vol] 192 10*3/uL 150-450 [facility] Work Phone: Protein Test strip Ql (U)on 04-11-2022 Protein Ql (U) 30 mg/dl Negative [facility] Work Phone: Serum or plasma albumin parish urement (mass/volume)on 04-11-2022 Albumin [Mass/Vol] 3.5 g/dL 3.2-5.0 [facility] Work Phone: Serum or plasma albumin/glob ulin mass ratioon 04-11-2022 Albumin/Globulin [Mass ratio] 0.8 {ratio} 0.9-2.4 [facility] Work Phone: Serum or plasma calcium parish urement (mass/volume)on 04-11-2022 Calcium [Mass/Vol] 9.2 mg/dL 8.5-10.1 [facility] Work Phone: Serum or plasma creatinine m easurement (mass/volume)on 04-11-2022 Creatinine [Mass/Vol] 0.88 mg/dL 0.70-1.30 [facility] Work Phone: Comment on above: The validity of the calculated GFR & GFRAA in patients over 70 years has not been determined. Clinical correlation is essential. Serum or plasma urea nitroge n measurement (mass/volume)on 04-11-2022 Urea nitrogen [Mass/Vol] 19 mg/dL 7-18 [facility] Work Phone: Squamous epithelial cells de tection in urine sediment by light microscopyon 04-11-2022 Epithelial cells.squamous LM Ql (Urine sed) 0 SEEN /hpf 0-5 [facility] Work Phone: Thin prep Papanicolaou smear with manual screeningon 04-11-2022 Thin prep Papanicolaou smear with manual screening 40 U/L 15-37 [facility] Work Phone: Thin prep Papanicolaou smear with manual screening 6 5-15 [facility] Work Phone: Urine blood detectionon 03-15 RBC Ql (U) 250 /ul Negative [facility] Work Phone: RBC Ql (U) 25-50 SEEN /hpf 0-5 [facility] Work Phone: Urine clarityon 04-11-2022 Clarity (U) Clear Clear [facility] Work Phone: Urine color determinationon 04-11-2022 Color (U) Yellow Yellow [facility] Work Phone: Urine glucose detectionon Glucose Ql (U) Normal mg/dl Normal [facility] Work Phone: Urine leukocyte esterase det ection by dipstickon 04-11-2022 Leukocyte esterase Test strip Ql (U) 100 /ul Negative [facility] Work Phone: Urine pHon 04-11-2022 pH (U) 7.0 [pH] 5.0 - 8.0 [facility] Work Phone: Urine sediment bacteria coun t by microscopy (number/high power field)on 04-11-2022 Bacteria LM.HPF (Urine sed) [#/Area] RARE /hpf None Seen [facility] Work Phone: Urine specific gravity measu rementon 04-11-2022 Specific gravity (U) [Rel density] 1.010 1.002-1.030 [facility] Work Phone: Urobilinogen Auto test strip Ql (U)on 04-11-2022 Urobilinogen Ql (U) Normal mg/dl Normal [facility] Work Phone: EDITA DIAGNOSTIC BILATon 11-30 [facility] US BREAST LTD RTon 2 [facility] POTASSIUM BLDon 10-27-2021 Potassium [Moles/Vol] 3.2 mmol/L Low 3.7 - 5.1 mmol/L [facility] Office Visiton 03-27-2017 Documentation of current medications (procedure) Done Invalid Interpretation Code [facility] Work Phone: Fall risk assessment No Invalid Interpretation Code [facility] [address] Work Phone: Office Visiton 03-23-2016 Documentation of current medications (procedure) Done Invalid Interpretation Code [facility] Work Phone: Tobacco use [facility] Never smoker Invalid Interpretation Code [facility] Work Phone: [phone] Clinical Lists Updateon 10-2 Left ventricular Ejection fraction 55 % Invalid Interpretation Code [facility] Work Phone: [phone] Clinical Lists Updateon 02-0 Alanine aminotransferase (ALT) 53 U/L Invalid Interpretation Code [facility] Work Phone: [phone] Alkaline phosphatase (ALP) 61 U/L Invalid Interpretation Code [facility] Work Phone: [phone] Aspartate aminotransferase (AST) 45 U/L High [facility] Work Phone: [phone] Bilirubin (total) 0.60 mg/dL Invalid Interpretation Code [facility] Work Phone: [phone] Chloride 107 mmol/L Invalid Interpretation Code [facility] Work Phone: [phone] Cholesterol 206 mg/dL High [facility] Work Phone: [phone] CO2 28.0 mmol/L Invalid Interpretation Code [facility] Work Phone: [phone] Creatinine 0.64 mg/dL Invalid Interpretation Code [facility] Work Phone: [phone] HDL Cholesterol 40 mg/dL Invalid Interpretation Code [facility] Work Phone: [phone] Hematocrit (HCT) 47.3 % Invalid Interpretation Code [facility] Work Phone: [phone] Hemoglobin mass conc (Bld) 16.0 g/dL Invalid Interpretation Code [facility] Work Phone: [phone] LDL Cholesterol 149 mg/dL High [facility] Work Phone: [phone] Platelets 217 10*3/mm3 Invalid Interpretation Code [facility] Work Phone: [phone] Potassium molar conc 4.4 mmol/L Invalid Interpretation Code [facility] Work Phone: [phone] Sodium 141 mmol/L Invalid Interpretation Code [facility] Work Phone: [phone] Triglyceride 86 mg/dL Invalid Interpretation Code [facility] Work Phone: [phone] Urea nitrogen 15 mg/dL Invalid Interpretation Code [facility] Work Phone: [phone] very low density lipoproteins 17 mg/dL Invalid Interpretation Code [facility] [address] Work Phone: [phone] WBC (Leukocytes) 5.4 10*3/uL Invalid Interpretation Code [facility] Work Phone: [phone] Office Visit: [facility] 07-31-19 15 Tobacco smoking status NHIS Never Invalid Interpretation Code [facility] Work Phone: [phone] Office Visit: [facility] 07-07-19 15 cardiac risk group B Invalid Interpretation Code [email or web address] Work Phone: [phone] General cardiovascular disease 10Y risk [#] Clayton.D'Agostдмитрий Not enough information Invalid Interpretation Code [email or web address] Work Phone: [phone] Replaced Document: Romaine Cron 07-07-2014 EKG QRS axis 13 deg Invalid Interpretation Code [facility] [address] Work Phone: [phone] Interpretation Sinus Rhythm WITHIN NORMAL LIMITS Invalid Interpretation Code [facility] [address] Work Phone: [phone] P [place] 63 deg Invalid Interpretation Code [facility] [address] Work Phone: [phone] CA Interval 176 ms Invalid Interpretation Code [facility] [address] Work Phone: [phone] Pulse (Heart Rate) 63 /min Invalid Interpretation Code [facility] [address] Work Phone: [phone] QRS Duration 113 ms Invalid Interpretation Code [facility] [address] Work Phone: [phone] QT Interval new path ms Invalid Interpretation Code [facility] [address] Work Phone: [phone] QTc Jensen 405 ms Invalid Interpretation Code [facility] [address] Work Phone: [phone] T [place] 56 deg Invalid Interpretation Code [facility] [address] Work Phone: [phone] Culture, urine Bacteria identified Cx Nom (U) Burkholderia gladioli [facility] Work Phone: Influenza virus A and B and SARS-CoV-2 (COVID-19) Ag panel - Upper respiratory specim SARS-CoV-2 (COVID-19) RNA JORDAN+probe Ql (Resp) [facility] Work Phone: Vital Signs Date Time Vital Sign Value Performing Clinician Facility 01-05-2025 14:52-0400 Diastolic blood pressure 64 mm[Hg] Tomasz Fabian MD Work Phone: [facility] 01-05-2025 14:52-0400 Systolic blood pressure 131 mm[Hg] Tomasz Fabian MD Work Phone: [facility] 01-05-2025 14:13-0400 Body mass index (BMI) [Ratio] 28.59 kg/m2 Tomasz Fabian MD Work Phone: [facility] 01-05-2025 14:13-0400 Body weight 92.99 kg Tomasz Fabian MD Work Phone: [facility] Comment on above: Home weight reported 01-05-2025 14:13-0400 Heart rate 60 /min Tomasz Fabian MD Work Phone: [facility] 01-05-2025 14:13-0400 Respiratory rate 16 /min Tomasz Fabian MD Work Phone: [facility] 12-08-2024 14:10-0400 Diastolic blood pressure 68 mm[Hg] Tomasz Fabian MD Work Phone: [facility] 12-08-2024 14:10-0400 Systolic blood pressure 135 mm[Hg] Tomasz Fabian MD Work Phone: [facility] 12-08-2024 13:36-0400 Heart rate 68 /min Tomasz Fabian MD Work Phone: [facility] 12-08-2024 13:36-0400 Respiratory rate 18 /min Tomasz Fabian MD Work Phone: [facility] 12-03-2023 14:07-0400 Diastolic blood pressure 91 mm[Hg] Dar Moreland APRN.MAINTENANCE PORTER Work Phone: [facility] 12-03-2023 14:07-0400 Systolic blood pressure 181 mm[Hg] Dar Moreland APRN.MAINTENANCE PORTER Work Phone: [facility] 12-03-2023 13:32-0400 Body mass index (BMI) [Ratio] 29.57 kg/m2 Dar Moreland APRN.MAINTENANCE PORTER Work Phone: [facility] 12-03-2023 13:32-0400 Body weight 96.16 kg Dar Moreland CERTIFIED WELDER.MAINTENANCE PORTER Work Phone: [facility] 12-03-2023 13:32-0400 Heart rate 71 /min Dar Moreland APRN.MAINTENANCE PORTER Work Phone: [facility] 12-03-2023 13:32-0400 Respiratory rate 14 /min Dar Moreland APRN.MAINTENANCE PORTER Work Phone: [facility] 11-08-2022 15:39-0400 Diastolic blood pressure 71 mm[Hg] Tomasz Fabian MD Work Phone: [facility] 11-08-2022 15:39-0400 Systolic blood pressure 132 mm[Hg] Tomasz Fabian MD Work Phone: [facility] 11-08-2022 15:04-0400 Body height 180.3 cm Tomasz Fabian MD Work Phone: [facility] 11-08-2022 15:04-0400 Body weight 92.99 kg Tomasz Fabian MD Work Phone: [facility] 11-08-2022 15:04-0400 Heart rate 68 /min Tomasz Fabian MD Work Phone: [facility] 11-08-2022 15:04-0400 Respiratory rate 16 /min Tomasz Fabian MD Work Phone: [facility] 10-31-2022 10:50-0400 Body temperature 97 [degF] Joan Jadon PA-C Work Phone: [facility] 10-31-2022 10:50-0400 Diastolic blood pressure 88 mm[Hg] Joan Whitetail PA-C Work Phone: [facility] 10-31-2022 10:50-0400 Heart rate 60 /min Joan Whitetail PA-C Work Phone: [facility] 10-31-2022 10:50-0400 SaO2% (BldA) [Mass fraction] 100 % Joan Jadon PA-C Work Phone: [facility] 10-31-2022 10:50-0400 Systolic blood pressure 140 mm[Hg] Joan Diop PA-C Work Phone: [facility] 10-23-2022 12:29-0400 Diastolic blood pressure 89 mm[Hg] Keli Gregg MD Work Phone: [facility] 10-23-2022 12:29-0400 Heart rate 61 /min Keli Gregg MD Work Phone: [facility] 10-23-2022 12:29-0400 Respiratory rate 16 /min Keli Gregg MD Work Phone: [facility] 10-23-2022 12:29-0400 SaO2% (BldA) [Mass fraction] 94 % Keli Gregg MD Work Phone: [facility] 10-23-2022 12:29-0400 Systolic blood pressure 152 mm[Hg] Keli Gregg MD Work Phone: [facility] 10-23-2022 10:52-0400 Body temperature 96.91 [degF] Keli Gregg MD Work Phone: [facility] 10-23-2022 10:52-0400 Body weight 93.7 kg Keli Gregg MD Work Phone: [facility] 09-20-2022 14:39-0400 Body height 180.3 cm Keli Gregg MD Work Phone: [facility] 09-20-2022 14:39-0400 Body temperature 97.59 [degF] Keli Gregg MD Work Phone: [facility] 09-20-2022 14:39-0400 Body weight 93.71 kg Keli Gregg MD Work Phone: [facility] 09-20-2022 14:39-0400 Diastolic blood pressure 84 mm[Hg] Keli Gregg MD Work Phone: [facility] 09-20-2022 14:39-0400 Heart rate 71 /min Keli Gregg MD Work Phone: [facility] 09-20-2022 14:39-0400 SaO2% (BldA) [Mass fraction] 96 % Keli Gregg MD Work Phone: [facility] 09-20-2022 14:39-0400 Systolic blood pressure 132 mm[Hg] Keli Gregg MD Work Phone: [facility] 06-12-2022 14:49-0500 Diastolic blood pressure 81 mm[Hg] Mi Nurse Work Phone: [facility] 06-12-2022 14:49-0500 Heart rate 67 /min Mi Nurse Work Phone: [facility] 06-12-2022 14:49-0500 Systolic blood pressure 166 mm[Hg] Mi Nurse Work Phone: [facility] 05-19-2022 13:29-0500 Diastolic blood pressure 79 mm[Hg] Mi Nurse Work Phone: [facility] 05-19-2022 13:29-0500 Heart rate 63 /min Mi Nurse Work Phone: [facility] 05-19-2022 13:29-0500 Systolic blood pressure 158 mm[Hg] Mi Nurse Work Phone: [facility] 05-04-2022 09:26-0500 Body temperature 98 [degF] Dr. Tomasz Fabian Work Phone: [facility] Work Phone: 05-04-2022 09:26-0500 Diastolic blood pressure 75 mm[Hg] Dr. Tomasz Fabian Work Phone: [facility] Work Phone: 05-04-2022 09:26-0500 Heart rate 79 /min Dr. Tomasz Fabian Work Phone: [facility] Work Phone: 05-04-2022 09:26-0500 Respiratory rate 18 /min Dr. Tomasz Fabian Work Phone: [facility] Work Phone: 05-04-2022 09:26-0500 SaO2% (BldA) [Mass fraction] 94 % Dr. Tomasz Fabian Work Phone: [facility] Work Phone: 05-04-2022 09:26-0500 Systolic blood pressure 126 mm[Hg] Dr. Tomasz Fabian Work Phone: [facility] Work Phone: 05-04-2022 07:44-0500 Inhaled oxygen flow rate 2 L/min Dr. Tomasz Fabian Work Phone: [facility] Work Phone: 05-03-2022 15:46-0500 Body height 180.[address] Tomasz Fabian Work Phone: [facility] Work Phone: 05-03-2022 15:46-0500 Body mass index (BMI) [Ratio] 28 kg/m2 Dr. Tomasz Fabian Work Phone: [facility] Work Phone: 05-03-2022 15:46-0500 Body weight 91.[address] Tomasz Fabian Work Phone: [facility] Work Phone: 04-28-2022 13:49-0500 Diastolic blood pressure 67 mm[Hg] Tomasz Fabian MD Work Phone: [facility] 04-28-2022 13:49-0500 Systolic blood pressure 127 mm[Hg] Tomasz Fabian MD Work Phone: [facility] 04-28-2022 13:27-0500 Body weight 86.18 kg Tomasz Fabian MD Work Phone: [facility] 04-28-2022 13:27-0500 Heart rate 62 /min Tomasz Fabian MD Work Phone: [facility] 04-28-2022 13:27-0500 Respiratory rate 16 /min Tomasz Fabian MD Work Phone: [facility] 04-11-2022 16:31-0500 Diastolic blood pressure 78 mm[Hg] Dr. Tomasz Fabian Work Phone: [facility] Work Phone: 04-11-2022 16:31-0500 Heart rate 77 /min Dr. Tomasz Fabian Work Phone: [facility] Work Phone: 04-11-2022 16:31-0500 Respiratory rate 18 /min Dr. Tomasz Fabian Work Phone: [facility] Work Phone: 04-11-2022 16:31-0500 SaO2% (BldA) [Mass fraction] 95 % Dr. Tomasz Fabian Work Phone: [facility] Work Phone: 04-11-2022 16:31-0500 Systolic blood pressure 146 mm[Hg] Dr. Tomasz Fabian Work Phone: [facility] Work Phone: 04-11-2022 13:45-0500 Body height 180.[address] Tomasz Fabian Work Phone: [facility] Work Phone: 04-11-2022 13:45-0500 Body mass index (BMI) [Ratio] 27.1 kg/m2 Dr. Tomasz Fbaian Work Phone: [facility] Work Phone: 04-11-2022 13:45-0500 Body temperature 97.8 [degF] Dr. Tomasz Fabian Work Phone: [facility] Work Phone: 04-11-2022 13:45-0500 Body weight 88.[address] Tomasz Fabian Work Phone: [facility] Work Phone: 01-13-2022 14:18-0400 Diastolic blood pressure 87 mm[Hg] Wa Nurse Work Phone: [facility] 01-13-2022 14:18-0400 Heart rate 61 /min Mi Nurse Work Phone: [facility] 01-13-2022 14:18-0400 Systolic blood pressure 171 mm[Hg] Mi Nurse Work Phone: [facility] 12-15-2021 14:03-0400 Diastolic blood pressure 89 mm[Hg] Mi Nurse Work Phone: [facility] 12-15-2021 14:03-0400 Heart rate 60 /min Mi Nurse Work Phone: [facility] 12-15-2021 14:03-0400 Systolic blood pressure 168 mm[Hg] Mi Nurse Work Phone: [facility] 11-29-2021 15:23-0400 Diastolic blood pressure 93 mm[Hg] Mi Nurse Work Phone: [facility] 11-29-2021 15:23-0400 Heart rate 60 /min Mi Nurse Work Phone: [facility] 11-29-2021 15:23-0400 Systolic blood pressure 187 mm[Hg] Mi Nurse Work Phone: [facility] 10-26-2021 14:17-0400 Diastolic blood pressure 92 mm[Hg] Tomazs Fabian MD Work Phone: [facility] 10-26-2021 14:17-0400 Systolic blood pressure 156 mm[Hg] Tomasz Fabian MD Work Phone: [facility] 10-26-2021 13:21-0400 Heart rate 74 /min Tomasz Fabian MD Work Phone: [facility] 10-26-2021 13:21-0400 Respiratory rate 14 /min Tomasz Fabian MD Work Phone: [facility] 03-27-2017 12:59-0500 BMI (Body Mass Index) 29.22 kg/m2 [facility] Work Phone: 03-27-2017 12:59-0500 BP Diastolic 70 mm[Hg] [facility] Work Phone: 03-27-2017 12:59-0500 BP Systolic 122 mm[Hg] [facility] Work Phone: 03-27-2017 12:59-0500 Height 177.8 cm [facility] Work Phone: 03-27-2017 12:59-0500 Pulse (Heart Rate) 70 /min [facility] Work Phone: 03-27-2017 12:59-0500 Respiratory Rate 20 /min [facility] Work Phone: 03-27-2017 12:59-0500 Weight 92.4 kg [address] Work Phone: 03-23-2016 12:56-0500 BMI (Body Mass Index) 28.55 kg/m2 [facility] Work Phone: 03-23-2016 12:56-0500 BP Diastolic 78 mm[Hg] [facility] Work Phone: 03-23-2016 12:56-0500 BP Systolic 142 mm[Hg] [facility] Work Phone: 03-23-2016 12:56-0500 BSA (Body Surface Area) 2.08 m2 [facility] Work Phone: 03-23-2016 12:56-0500 Height 177.8 cm [facility] Work Phone: 03-23-2016 12:56-0500 Pulse (Heart Rate) 66 /min [facility] Work Phone: 03-23-2016 12:56-0500 Respiratory Rate 20 /min [facility] Work Phone: 03-23-2016 12:56-0500 Weight 90.27 kg [facility] Work Phone: Encounters Encounter Date Encounter Type Care Provider Facility Start: 01-05-2025 End: 01-05-2025 Patient encounter procedure Tomasz Fabian MD Work Phone: [facility] Comment on above: Hypertension, essent ial (Primary Dx); Spinal muscle atrophy (HCC) Start: 01-05-2025 End: 01-05-2025 ambulatory TOMASZ FABIAN Facility:[facility] Start: 01-02-2025 End: 01-02-[address] Tomasz [facility]ian MD Work Phone: -[facility] Start: 01-02-2025 End: 01-02-[address] Vimal Whitaker MD -[facility] Work Phone: Start: 12-12-2024 End: 12-12-2024 Chart abstracting [facility] Comment on above: Abstract (Allergy/Im munology OV ) Start: 12-11-2024 End: 12-12-2024 Follow-up encounter Tomasz Fabian MD Work Phone: [facility] Comment on above: Results Start: 12-10-2024 End: 12-12-2024 ambulatory [facility] Comment on above: Blood Pressure (Andr aman Rosales / ) Start: 12-09-2024 End: 12-09-2024 Follow-up encounter Tomasz Fabian MD Work Phone: [facility] Comment on above: Results, Lab Start: 12-08-2024 End: 12-08-2024 ambulatory TOMASZ FABIAN Facility:[facility] Start: 12-08-2024 End: 12-08-2024 Patient encounter procedure Tomasz Fabian MD Work Phone: [facility] [place] Comment on above: Medicare annual well ness visit, subsequent (Primary Dx); Hyperlipidemia, mixed; Hypertension, essential; Mild intermittent extrinsic asthma without complication (HCC); Paroxysmal atrial fibrillation (HCC); Sinoatrial node dysfunction (HCC); TEMO (obstructive sleep apnea); Nocturnal hypoxia; Elevated PSA; Gall bladder stones; Advance directive discussed with patient; Skin cancer screening; Medication management; Encounter for screening examination for other mental health and behavioral disorders; Screening for depression Start: 12-08-2024 End: 12-08-2024 ambulatory TOMASZ FABIAN Facility:[facility] Start: 10-27-2024 End: 10-27-2024 Telemedicine consultation with patient Wilmer Tapia ROHAN.MAINTENANCE PORTER Work Phone: Neurology Start: 10-27-2024 End: 10-27-2024 ambulatory Wilmer Tapia MAINTENANCE PORTER Work Phone: Neurology Comment on above: TEMO on CPAP (Primary Dx); Hypertension, essential Start: 10-03-2024 End: 10-03-[address] Tomasz Fabian MD Work Phone: [facility] Work Phone: Start: 10-03-2024 End: 10-03-[address] Vimal Whitaker MD -[facility] Work Phone: Start: 09-26-2024 End: 09-26-2024 Chart abstracting Tomasz Fabian MD Work Phone: [facility] Comment on above: Outside Urology Start: 09-25-2024 End: 09-25-2024 Chart abstracting Tomasz Fabian MD Work Phone: [facility] Comment on above: Outside [id number]-[id number]-ZAG Ordered Start: 09-24-2024 End: 09-24-2024 Refill Tomasz Fabian MD Work Phone: [facility] Comment on above: Refill Request Start: 09-23-2024 End: 09-23-[address] Tomasz Fabian MD Work Phone: [facility] Work Phone: Start: 09-23-2024 End: 09-23-2024 Patient encounter procedure Mckayla Terry -Laboratory Work Phone: Start: 09-23-2024 End: 09-23-2024 ambulatory Mckayla Terry Facility:[facility] Start: 07-04-2024 End: 07-04-20[facility] Start: 07-04-2024 End: 07-04-[address] Vimal Whitaker MD -[facility] Work Phone: Start: 06-26-2024 End: 06-26-2024 Refill Tomasz Fabian MD Work Phone: [facility] Comment on above: Refill Request Start: 04-04-2024 End: 04-04-2024 ambulatory Tomasz Fabian Facility:[facility] Start: 03-29-2024 End: 03-31-2024 Refill Dar Moreland APRN.MAINTENANCE PORTER Work Phone: [facility] Comment on above: Refill Request Start: 03-14-2024 End: 03-14-2024 Telephone encounter Tomasz Fabian MD Work Phone: [facility] Comment on above: Handicap Placards Start: 02-27-2024 End: 02-27-2024 Chart abstracting Kiki Murdock MA [facility] Comment on above: Consult (Cardiology /) Start: 02-12-2024 End: 02-12-2024 [facility] Start: 12-04-2023 Telephone encounter Dar jalloh APRN.MAINTENANCE PORTER Work Phone: [facility] Comment on above: Results Start: 12-03-2023 End: 12-03-2023 Patient encounter procedure Dar Moreland APRN.MAINTENANCE PORTER Work Phone: [facility] Comment on above: Hyperlipidemia, mixe d (Primary Dx); Paroxysmal atrial fibrillation (HCC); Hypertension, essential; Medication management; Elevated PSA; Medicare annual wellness visit, subsequent; TEMO (obstructive sleep apnea); Mild intermittent extrinsic asthma without complication; Advance directive discussed with patient Start: 11-22-2023 Chart abstracting Tomasz duke MD Work Phone: [facility] Comment on above: Outside Allergy Start: 11-12-2023 End: 11-12-2023 ambulatory Raleigh Appiah MD Work Phone: Neurology Comment on above: TEMO on CPAP (Primary Dx); Spinal muscle atrophy (HCC) Start: 11-12-2023 End: 11-12-2023 Telemedicine consultation with patient Raleigh Appiah Jr., MD Work Phone: Neurology Start: 11-12-2023 Telephone encounter Tomasz Fabian MD Work Phone: [facility] [place] Comment on above: OV notes Start: 10-10-2023 Telephone encounter Raleigh Appiah MD Work Phone: Sleep Comment on above: cpap compliance Start: 10-01-2023 Refill Tomasz barnhart MD Work Phone: [facility] Comment on above: Refill Request Start: 09-06-2023 Refill Dar nunes APRN.CNP Work Phone: [facility] Comment on above: Refill Request Start: 07-02-2023 Refill Tomasz barnhart MD Work Phone: [facility] [place] Comment on above: Refill Request Start: 04-17-2023 Telephone encounter Tomsaz Fabian MD Work Phone: [facility] Comment on above: Patient Update; Malka ent Question Start: 04-01-2023 Refill Tomasz barnhart MD Work Phone: [facility] [place] Comment on above: Refill Request Start: 01-04-2023 Refill Mary Anne Montelongo on PA-C Work Phone: [facility] Comment on above: Refill Request Start: 11-17-2022 Chart abstracting Tomasz duke MD Work Phone: [facility] Start: 11-08-2022 End: 11-08-2022 Patient encounter procedure Tomasz Fabian MD Work Phone: [facility] [place] Comment on above: Medicare annual well ness visit, subsequent (Primary Dx); Hypertension, essential; Hyperlipidemia, mixed; Mild intermittent extrinsic asthma without complication; Sinoatrial node dysfunction (HCC); Paroxysmal atrial fibrillation (HCC); TEMO (obstructive sleep apnea); Benign non-nodular prostatic hyperplasia with lower urinary tract symptoms; Elevated PSA; Spinal muscle atrophy (HCC); Advance directive discussed with patient; Encounter for immunization; Impacted cerumen of left ear Start: 10-31-2022 End: 10-31-2022 Patient encounter procedure Joan Diop PA-C Work Phone: General Surgery Comment on above: Tubular adenoma (Rita corinne Dx) Start: 10-23-2022 End: 10-23-2022 Subsequent hospital visit by physician Keli Gregg MD Work Phone: Ambulatory Surgery Comment on above: History of colonic p olyps [Z86.010] Start: 10-17-2022 End: 10-17-2022 ambulatory Raleigh Appiah MD Work Phone: Sleep Comment on above: TEMO on CPAP (Primary Dx); SMA (spinal muscular atrophy) (HCC) Start: 10-17-2022 End: 10-17-2022 Telemedicine consultation with patient Raleigh Appiah Jr., MD Work Phone[facility] Start: 09-20-2022 End: 09-20-2022 Patient encounter procedure Keli Gregg MD Work Phone: General Surgery Comment on above: History of colonic p olyps (Primary Dx) Start: 06-30-2022 Refill Tomasz barnhart MD Work Phone: [facility] Comment on above: Refill Request Start: 06-12-2022 End: 06-12-2022 Nursing evaluation of patient and report Mi Nurse Work Phone: [facility] Comment on above: Hypertension, essent ial (Primary Dx) Start: 06-12-2022 Telephone encounter Tomasz Fabian MD Work Phone: [facility] [place] Comment on above: Blood Pressure Check Start: 06-02-2022 Telephone encounter Raleigh Appiah MD Work Phone: Neurology Comment on above: Orders Start: 05-19-2022 Telephone encounter Tomasz Fabian MD Work Phone: [facility] Comment on above: Blood Pressure Check (/) Start: 05-19-2022 End: 05-19-2022 Nursing evaluation of patient and report Mi Nurse Work Phone: [facility] Comment on above: Hypertension, essent ial (Primary Dx) Start: 05-03-2022 End: 05-04-2022 Evaluation and management of inpatient Dr. Tomasz Fabian Work Phone: [facility] 3 Start: 05-03-2022 End: 05-04-[address] Tomasz Fabian Work Phone: [facility] Work Phone: Start: 04-28-2022 End: 04-28-2022 Patient encounter procedure Tomasz Fabian MD Work Phone: [facility] Comment on above: Hypertension, essent ial (Primary Dx); Hyperlipidemia, mixed; Mild intermittent extrinsic asthma without complication; Paroxysmal atrial fibrillation (HCC); Sinoatrial node dysfunction (HCC); TEMO (obstructive sleep apnea); Benign non-nodular prostatic hyperplasia with lower urinary tract symptoms; Excessive ear wax, left; Encounter for immunization; Medication management Start: 04-12-2022 Telephone encounter Tomasz Fabian MD Work Phone: [facility] Comment on above: Patient Update Start: 04-11-2022 Telephone encounter Tomasz Fabian MD Work Phone: [facility] Comment on above: Patient Question Start: 04-11-2022 End: 04-11-2022 Emergency department patient visit Dr. Tomasz Fabian Work Phone: [facility] Start: 03-15-2022 End: 03-15-[address] Tomasz Fabian Work Phone: [facility] Start: 03-14-2022 Telephone encounter Tomasz Fabian MD Work Phone: [facility] Comment on above: Blood Pressure Check (/) Start: 02-14-2022 Telephone encounter Mary Anne matthews PA-C Work Phone: [facility] Comment on above: Blood Pressure Check Start: 02-07-2022 Telephone encounter Tomasz Fabian MD Work Phone: [facility] Comment on above: Medication Problem; Patient Question Start: 02-03-2022 Telephone encounter Tomasz Fabian MD Work Phone: [facility] [place] Comment on above: Results Start: 01-17-2022 ambulatory [facility] Provider [facility] [place] Comment on above: Update Start: 01-17-2022 E-mail encounter fro m caregiver [facility] Provider [facility] [place] Start: 01-16-2022 Telephone encounter Tomasz Fabian MD Work Phone: [facility] Comment on above: Results Start: 01-13-2022 End: 01-13-2022 Nursing evaluation of patient and report Mi Nurse Work Phone: [facility] [place] Comment on above: Hypertension, essent ial (Primary Dx) Start: 01-13-2022 Telephone encounter Tomasz Fabian MD Work Phone: [facility] Comment on above: Blood Pressure Check Start: 01-05-2022 Refill Tomasz barnhart MD Work Phone: [facility] Comment on above: Refill Request Start: 01-01-2022 Telephone encounter Tomasz Fabian MD Work Phone: [facility] Comment on above: Results Start: 12-15-2021 End: 12-15-2021 Nursing evaluation of patient and report Mi Nurse Work Phone: [facility] [place] Comment on above: Hypertension, essent ial (Primary Dx) Start: 12-15-2021 Telephone encounter Tomasz Fabian MD Work Phone: [facility] [place] Comment on above: Blood Pressure Check Start: 11-30-2021 Telephone encounter Tomasz Fabian MD Work Phone: [facility] Comment on above: Results Start: 11-30-2021 End: 11-30-2021 Subsequent hospital visit by physician Diagnostic Mammo [facility] Comment on above: Breast tenderness in male [N64.4] Start: 11-29-2021 End: 11-29-2021 Nursing evaluation of patient and report Mi Nurse Work Phone: [facility] [place] Comment on above: Hypertension, essent ial (Primary Dx) Start: 11-29-2021 Telephone encounter Mary Anne matthews PA-C Work Phone: [facility] [place] Comment on above: Blood Pressure Check Start: 11-18-2021 Telephone encounter Tomasz Fabian MD Work Phone: [facility] Comment on above: Results Start: 11-02-2021 Telephone encounter Cb Lawler MD Work Phone: Neurology Comment on above: Appointment Start: 10-28-2021 Telephone encounter Kiki Murdock MA [facility] Comment on above: Patient Update Results Start: 10-26-2021 End: 10-26-2021 Patient encounter procedure Tomasz Fabian MD Work Phone: [facility] [place] Comment on above: Medicare annual well ness visit, subsequent (Primary Dx); Hyperlipidemia, mixed; Sinoatrial node dysfunction (HCC); Paroxysmal atrial fibrillation (HCC); Mild intermittent extrinsic asthma without complication; TEMO (obstructive sleep apnea); Nocturnal hypoxia; Elevated PSA; Spinal muscle atrophy (HCC); Living will in place; Advance directive discussed with patient; Gall bladder stones; Breast tenderness in male; Breast mass in male; Hypokalemia; Hypertension, essential Start: 10-12-2021 ambulatory Tomasz barnhart MD Work Phone: [facility] [place] Comment on above: Blood Chemistry Prof ile Start: 09-08-2021 Telephone encounter Raleigh Appiah MD Work Phone: [facility] Comment on above: Referral Information Start: 08-26-2021 End: 08-26-2021 ambulatory Raleigh Appiah MD Work Phone: Neurology Comment on above: TEMO on CPAP (Primary Dx); SMA (spinal muscular atrophy) (HCC) Start: 08-26-2021 End: 08-26-2021 Telemedicine consultation with patient Raleigh Appiah Jr., MD Work Phone: [facility] [place] Start: 08-09-2021 ambulatory Raleigh jefferson MD Work Phone: Neurology Comment on above: Blood Pressure Medic ation Start: 02-16-2021 Patient encounter procedure Raleigh Appiah Jr., MD Work Phone: [facility] Work Phone: Procedures Date Procedure Procedure Detail Performing Clinician Start: 12-08-2024 Adult depression scr eening assessment Tomasz Fabian MD Work Phone: Start: 12-08-2024 Lipid 1995 panel - S remberto or Plasma Tomasz Fabian MD Work Phone: Start: 09-23-2024 Prostate specific an tigen measurement Dr. Tomasz Fabian MD Work Phone: Comment on above: This test was perfor med using the [employer] tPSA method. Measured values of a patient sample can vary depending on the testing procedure used. PSA values determined on patient samples by different testing procedures cannot be used interchangeably. If there is a change in PSA assays while monitoring therapy, sequential testing should be performed to confirm baseline values. Start: 09-23-2024 PSA screening [facility] Pro[facility] juaquin Start: 12-03-2023 Adult depression scr eening assessment Kiki Murdock MA Start: 12-03-2023 Lipid 1996 panel - S remberto or Plasma Dar Moreland APRN.CNP Work Phone: Start: 10-23-2022 Level iv surg pathol ogy gross&microscopic exam Keli Gregg MD Work Phone: Start: 10-23-2022 Colonoscopy flx dx w /collj spec when pfrmd Keli Gregg MD Work Phone: Start: 10-23-2022 Colonoscopy Joan Gra f PA-C Work Phone: Start: 10-23-2022 Lipid 1996 panel - S remberto or Plasma Keli Gregg MD Work Phone: Start: 12-21-2022 Cysto,TUR,Prostate,O lympus (Not Applicable) Dr. Tomasz Fabian Work Phone: Start: 04-28-2022 INFLUENZA SEASONAL QUADRIVALENT HIGH DOSE AGE 65+ Tomasz Fabian MD Work Phone: Start: 04-11-2022 Plain chest X-ray Dr. Alex Fabian Work Phone: Start: 11-30-2021 Us breast uni real t veronica with image limited Tomasz Fabian MD Work Phone: Start: 11-30-2021 Diagnostic mammograp hy computer-aided detcj bi Tomasz Fabian MD Work Phone: Start: 10-26-2021 Adult depression scr eening assessment Tomasz Fabian MD Work Phone: Start: 08-23-2020 Adult depression scr eening assessment Raleigh Appiah Jr., MD Work Phone: Start: 09-12-2017 Colonoscopy Raleigh corrigan Jr., MD Work Phone: Start: 03-27-2017 End: 03-27-2017 INTERMEDIATE PROJECT MANAGER Vimal Whitaker MD Start: 03-27-2017 End: 03-27-2017 Follow Up Appt 1 year Vimal Whitaker MD Start: 03-02-2017 End: 03-03-2017 Program eval implantable in persn dual ld pacer Vy Gamez PA-C Work Phone: Start: 11-24-2016 End: 11-24-2016 Program eval implantable in persn dual ld pacer Vy Gamez PA-C Work Phone: Start: 08-16-2016 End: 08-16-2016 Program eval implantable in persn dual ld pacer Vimal Whitaker MD Start: 05-17-2016 End: 05-17-2016 Program eval implantable in persn dual ld pacer Vimal Whitaker MD Start: 03-23-2016 End: 03-23-2016 RAYMOND Whitaker MD Start: 03-23-2016 End: 03-23-2016 Follow Up Appt 1 year Vimal Whitaker MD Start: 02-09-2016 End: 02-09-2016 Program eval implantable in persn dual ld pacer Vimal Whitaker MD Start: 11-05-2015 End: 11-05-2015 Program eval implantable in persn dual ld pacer Vy Gamez PA-C Work Phone: Start: 07-29-2015 End: 07-29-2015 Program eval implantable in persn dual ld pacer Vimal Whitaker MD Start: 04-22-2015 End: 04-22-2015 Program eval implantable in persn dual ld pacer Vy Gamez PA-C Work Phone: Start: 03-23-2015 End: 03-23-2015 RAYMOND Whitaker MD Start: 03-23-2015 End: 03-24-2015 Documentation of current medications Vimal Whitaker MD Start: 03-23-2015 End: 03-23-2015 Follow Up Appt 1 year Vimal Whitaker MD Start: 01-20-2015 End: 01-20-2015 Program eval implantable in persn dual ld pacer Vy Gamez PA-C Work Phone: Start: 10-14-2014 End: 10-14-2014 Program eval implantable in persn dual ld pacer Vimal Whitaker MD Start: 07-30-2014 End: 07-30-2014 RAYMOND Gamez PA-C Work Phone: Start: 07-30-2014 End: 07-31-2014 Documentation of current medications Vy Gamez PA-C Work Phone: Start: 07-30-2014 End: 07-30-2014 Follow Up Appt 6 months Vy espinal PA-C Work Phone: Start: 07-07-2014 End: 07-08-2014 Documentation of current medications Vy Gamez PA-C Work Phone: Start: 07-07-2014 End: 07-07-2014 Ecg routine ecg w/least 12 lds w/i&r Vy Gamez PA-C Work Phone: Start: 07-07-2014 End: 07-07-2014 Follow up Appt 3 weeks Vy hall PA-C Work Phone: Start: 07-07-2014 End: 07-07-2014 MMM Vy Gamez PA-C Work Phone: Start: 07-07-2014 End: 07-17-2014 Nuclear stress test -Lexiscan Vy Gamez PA-C Work Phone: Start: 07-06-2014 End: 07-07-2014 Follow Up Appt 3 months Vy espinal PA-C Work Phone: Start: 07-06-2014 End: 07-07-2014 Pacer Clinic Vy Gamez PA-C Work Phone: Start: 07-06-2014 End: 07-06-2014 Program eval implantable in persn dual ld pacer Vy Gamez PA-C Work Phone: Start: 04-01-2014 End: 07-07-2014 Follow Up Appt 3 months Yves Stewart Start: 04-01-2014 End: 07-07-2014 Pacer Clinic Vimal Whitaker MD Start: 04-01-2014 End: 04-03-2014 Program eval implantable in persn dual ld pacer Vimal Whitaker MD Start: 03-24-2014 End: 03-24-2014 RAYMOND Whitaker MD Start: 03-24-2014 End: 03-24-2014 Follow Up Appt 1 year Vimal Whitaker MD Start: 12-25-2013 End: 07-07-2014 Follow Up Appt 3 months Vy espinal PA-C Work Phone: Start: 12-25-2013 End: 07-07-2014 Pacer Clinic Vy Gamez PA-C Work Phone: Start: 12-25-2013 End: 12-25-2013 Program eval implantable in persn dual ld pacer Vy Gamez PA-C Work Phone: Start: 09-19-2013 End: 07-07-2014 Follow Up Appt 3 months Vy espinal PA-C Work Phone: Start: 09-19-2013 End: 07-07-2014 Pacer Clinic Vy Gamez PA-C Work Phone: Start: 09-19-2013 End: 09-19-2013 Program eval implantable in persn dual ld pacer Vy Gamez PA-C Work Phone: Start: 06-20-2013 End: 07-07-2014 Follow Up Appt 3 months Yves Stewart Start: 06-20-2013 End: 07-07-2014 Pacer Clinic Vimal Whitaker MD Start: 06-20-2013 End: 06-20-2013 Program eval implantable in persn dual ld pacer Vimal Whitaker MD Start: 03-21-2013 End: 03-21-2013 RAYMOND Whitaker MD Start: 03-21-2013 End: 03-21-2013 Follow Up Appt 1 year Vimal Whitaker MD Start: 03-21-2013 End: 07-07-2014 Follow Up Appt 3 months Yves Stewart Start: 03-21-2013 End: 07-07-2014 Pacer Clinic Vimal Whitaker MD Start: 03-21-2013 End: 03-21-2013 Program eval implantable in persn dual ld pacer Vimal Whitaker MD Start: 11-27-2012 End: 07-07-2014 Follow Up Appt 3 months Yves Stewart Start: 11-27-2012 End: 07-07-2014 Pacer Clinic Vimal Whitaker MD Start: 11-27-2012 End: 11-27-2012 Program eval implantable in persn dual ld pacer Vimal Whitaker MD Start: 08-20-2012 End: 07-07-2014 Follow Up Appt 3 months Yves Stewart Start: 08-20-2012 End: 07-07-2014 Pacer Clinic Vimal Whitaker MD Start: 08-20-2012 End: 08-20-2012 Program eval implantable in persn dual ld pacer Vimal Whitaker MD Start: 03-29-2012 End: 03-29-2012 Follow Up Appt 1 year Vimal Whitaker MD SARS-CoV-2 & FLU Ant igen (Rapid) Dr. Tomasz Fabian Work Phone: Urine culture Dr. Tomasz duke Work Phone: Plan of Treatment Date Care Activity Detail Author Start: 12-08-2029 Lipid panel Lipid Screening [facility] Start: 12-02-2028 Lipid panel Lipid Screening [facility] Start: 12-09-2027 Diabetes Screening Diabetes Screenin g [facility] Start: 10-24-2027 Colonoscopy COLONOSCOPY [facility] Start: 10-24-2027 COLORECTAL CANCER SCREENING COLORECTAL CANCER SCREENING [facility] Start: 10-24-2027 Lipid 1996 panel - S remberto or Plasma Lipid Screening [facility] Start: 10-24-2027 Lipid panel Lipid Screening [facility] Start: 10-24-2027 LIPID SCREEN LIPID SCREEN [facility] Start: 10-24-2027 Screening for malign ant neoplasm of colon [facility] Start: 12-02-2026 Diabetes Screening Diabetes Screenin g [facility] Start: 10-14-2026 LIPID SCREEN LIPID SCREEN [facility] Start: 01-05-2026 Annual PCP Team Protective Signal Operator michell Disease Visit Annual PCP Team Chronic Disease Visit [facility] Start: 12-08-2025 Annual PCP Team Protective Signal Operator michell Disease Visit Annual PCP Team Chronic Disease Visit [facility] Start: 12-08-2025 Anxiety Screening Anxiety Screening [facility] Start: 12-08-2025 Depression Screening Depression Scre ening [facility] Start: 12-08-2025 Medicare Annual Well ness Visit Medicare Annual Wellness Visit [facility] Start: 11-01-2025 LIPID SCREEN LIPID SCREEN [facility] Start: 10-23-2025 DIABETES SCREEN DIABETES SCREEN [facility] Start: 10-23-2025 Diabetes Screening Diabetes Screenin g [facility] Start: 06-11-2025 End: 06-11-2025 Patient encounter procedure 06/11/2025 1:40 PM EST Office Visit Family [facility] [address] [place] [id number] Mary Anne Naik PA-C [address] [place] [id number] 6 mo f/u Family [facility] Comment on above: 6 mo f/u Start: 02-02-2025 DIABET[facility]CREEN [facility] Start: 01-12-2025 Influenza vaccination Influenza Vacc ine (#1) [facility] Start: 01-05-2025 End: 01-05-2025 Patient encounter procedure 01/05/2025 2:20 PM EDT Office Visit Family [facility] [address] [place] [id number] Dar Moreland APRN.MAINTENANCE PORTER [address] [facility] [place] [id number] HTN f/u 4 weeks. [facility] [place] Comment on above: HTN f/u 4 weeks. Start: 12-09-2024 End: 12-09-2024 Follow-up encounter 12/09/2024 2:30 PM EDT [facility] [address] [place], [place] [address] [id number] Wilmer Tapia APRN.MAINTENANCE PORTER [address] [address] follow up Neurology Comment on above: follow up Start: 12-09-2024 End: 03-10-2025 Sodium [Moles/volume] in Serum or Plasma SODIUM/NA Lab Routine Hyponatremia Expected: 12/09/2024, Expires: 03/10/2025 [facility] Work Phone: Comment on above: Expected: 12/09/2024 , Expires: 03/10/2025 Start: 12-08-2024 End: 12-08-2024 Patient encounter procedure [facility] [place] Comment on above: Medicare Wellness Start: 12-02-2024 Annual PCP Team Protective Signal Operator michell Disease Visit Annual PCP Team Chronic Disease Visit [facility] Start: 12-02-2024 Anxiety Screening Anxiety Screening [facility] Start: 12-02-2024 Depression Screening Depression Scre ening [facility] Start: 12-02-2024 Medicare Annual Well ness Visit Medicare Annual Wellness Visit [facility] Start: 10-14-2024 DIABETES SCREEN DIABETES SCREEN [facility] Start: 06-04-2024 End: 06-04-2024 Patient encounter procedure 06/04/2024 2:40 PM EST Office Visit Family [facility] [place] [address] [facility] [place] [id number] Tomasz Fabian MD [address] [facility] [place] [id number] medicare wellness [facility] [place] Comment on above: medicare wellness Start: 05-14-2024 Advance Directive Discussion Advance Directive Discussion [facility] Start: 05-10-2024 Annual PCP Team Protective Signal Operator michell Disease Visit Annual PCP Team Chronic Disease Visit [facility] Start: 05-10-2024 BP Controlled (<130/80) BP Controlle d (<130/80) [facility] Start: 01-13-2024 Covid-19 Vaccine () Covid-19 Vaccine () [facility] Start: 01-13-2024 Influenza vaccination Influenza Vacc ine (#1) [facility] Start: 12-03-2023 End: 03-03-2024 Comprehensive metabolic 2000 panel - Serum or Plasma [facility] Comment on above: Expected: 12/03/2023 , Expires: 03/03/2024 Start: 12-03-2023 End: 03-03-2024 LIPID PANEL, NONFASTING [facility] Work Phone: Comment on above: Expected: 12/03/2023 , Expires: 03/03/2024 Start: 12-03-2023 End: 12-03-2023 Patient encounter procedure 12/03/2023 2:00 PM EDT Office [facility] [place] [address] [place] [address] Dar Moreland APRN.[facility] [address] [place] [address] medicare wellness [facility] [place] Comment on above: medicare wellness Start: 11-09-2023 ANNUAL PCP TEAM INSTITUTE DIRECTOR MICHELL DISEASE VISIT ANNUAL PCP TEAM CHRONIC DISEASE VISIT [facility] Start: 11-09-2023 SHINGRIX VACCINE (1 of 2) SHINGRIX VACCINE (1 of 2) [facility] Comment on above: Postponed from 03/16 (Insurance Coverage) Start: 11-09-2023 Urine microalbumin profile [facility] Comment on above: Postponed from 11/05 (Insurance Coverage) Start: 11-02-2023 DIABETES SCREEN DIABETES SCREEN [facility] Start: 10-23-2023 End: 10-23-2023 Follow-up encounter 10/23/2023 11:20 AM EDT [facility] Health Sleep [address] [place] [address] Raleigh Appiah Jr., MD [address] [facility] [address] [place] [id number] 1 year temo follow up Sleep Comment on above: 1 year temo follow up Start: 05-14-2023 Advance Directive Discussion Advance Directive Discussion [facility] Start: 05-14-2023 Behavioral Health Screening Behavioral Health Screening [facility] Start: 05-14-2023 Depression Assessment Depression Ass essment [facility] Start: 04-28-2023 ANNUAL PCP TEAM INSTITUTE DIRECTOR MICHELL DISEASE VISIT ANNUAL PCP TEAM CHRONIC DISEASE VISIT [facility] Start: 04-28-2023 BP CONTROLLED (<130/80) BP CONTROLLE D (<130/80) [facility] Start: 01-12-2023 Covid-19 Vaccine ( season) Covid-19 Vaccine () [facility] Start: 01-12-2023 Influenza vaccination INFLUENZA (#1) [facility] Start: 10-26-2022 Adult depression screening assessment DEPRESSION SCREENING [facility] Start: 10-26-2022 ANNUAL PCP TEAM INSTITUTE DIRECTOR MICHELL DISEASE VISIT ANNUAL PCP TEAM CHRONIC DISEASE VISIT [facility] Start: 10-26-2022 SHINGRIX VACCINE (1 of 2) SHINGRIX VACCINE (1 of 2) [facility] Comment on above: Postponed from 03/16 (Insurance Coverage) Start: 10-26-2022 Urine microalbumin profile DTAP,TDAP,TD (2 - Td or Tdap) [facility] Comment on above: Postponed from 11/05 (Insurance Coverage) Start: 10-13-2022 End: 12-13-2022 CBC W Auto Differential panel - Blood CBC + DIFF Lab Routine Paroxysmal atrial fibrillation (HCC) Medication management Expected: 10/13/2022, Expires: 12/13/2022 [facility] Work Phone: Comment on above: Expected: 10/13/2022 , Expires: 12/13/2022 Start: 10-13-2022 End: 12-13-2022 Comprehensive metabolic 2000 panel - Serum or Plasma COMP METABOLIC PANEL Lab Routine Hypertension, essential Hyperlipidemia, mixed Expected: 10/13/2022, Expires: 12/13/2022 [facility] Work Phone: Comment on above: Expected: 10/13/2022 , Expires: 12/13/2022 Start: 10-13-2022 End: 12-13-2022 LIPID PANEL, NONFASTING LIPID PANEL, NONFASTING Lab Routine Hypertension, essential Hyperlipidemia, mixed Expected: 10/13/2022, Expires: 12/13/2022 [facility] Work Phone: Comment on above: Expected: 10/13/2022 , Expires: 12/13/2022 Start: 10-13-2022 End: 12-13-2022 Urinalysis complete panel - Urine URINALYSIS, WITH MICROSCOPIC Lab Routine Hypertension, essential Hyperlipidemia, mixed Expected: 10/13/2022, Expires: 12/13/2022 [facility] Work Phone: Comment on above: Expected: 10/13/2022 , Expires: 12/13/2022 Start: 09-12-2022 Colonoscopy COLONOSCOPY [facility] Start: 09-12-2022 COLORECTAL CANCER SCREENING COLORECTAL CANCER SCREENING [facility] Start: 05-14-2022 ADVANCE DIRECTIVE DISCUSSION ADVANCE DIRECTIVE DISCUSSION [facility] Start: 05-14-2022 DEPRESSION ASSESSMENT DEPRESSION ASS ESSMENT [facility] Start: 05-04-2022 Patient discharge [facility] Work Phone: Start: 05-04-2022 Removal of urinary catheter [facility] Work Phone: Start: 05-04-2022 Oxygen therapy [facility] Work Phone: Start: 05-04-2022 Removal of urinary catheter [facility] Work Phone: Start: 05-03-2022 Application of intermittent pneumatic compression device [facility] Work Phone: Start: 05-03-2022 Following clinical pathway protocol [facility] Work Phone: Start: 05-03-2022 [facility] Start: 05-03-2022 Incentive spirometry [facility] Work Phone: Start: 05-03-2022 Irrigation of urinar y bladder [facility] Work Phone: Start: 05-03-2022 Measuring intake and output [facility] Work Phone: Start: 05-03-2022 Patient education [facility] Work Phone: Start: 05-03-2022 Taking patient vital signs [facility] Work Phone: Start: 05-03-2022 Vital signs measurements [facility] Work Phone: Start: 05-03-2022 [facility] Work Phone: Start: 05-02-2022 ANNUAL PCP TEAM INSTITUTE DIRECTOR MICHELL DISEASE VISIT ANNUAL PCP TEAM CHRONIC DISEASE VISIT [facility] Start: 04-11-2022 [facility] Work Phone: Start: 01-18-2022 End: 03-20-2022 Basic metabolic 2000 panel - Serum or Plasma BASIC METABOLIC PNL Lab Routine Hypokalemia Expected: 01/18/2022, Expires: 03/20/2022 [facility] Work Phone: Comment on above: Expected: 01/18/2022 , Expires: 03/20/2022 Start: 01-15-2022 End: 03-17-2022 POTASSIUM BLD POTASSIUM BLD Lab Routine Hypokalemia Expected: 01/15/2022, Expires: 03/17/2022 [facility] Work Phone: Comment on above: Expected: 01/15/2022 , Expires: 03/17/2022 Start: 01-12-2022 Influenza vaccination INFLUENZA (#1) [facility] Start: 12-16-2021 End: 02-15-2022 POTASSIUM BLD POTASSIUM BLD Lab Routine Hypokalemia Expected: 12/16/2021, Expires: 02/15/2022 [facility] Work Phone: Comment on above: Expected: 12/16/2021 , Expires: 02/15/2022 Start: 11-11-2021 End: 01-11-2022 POTASSIUM BLD POTASSIUM BLD Lab Routine Hypokalemia Expected: 11/11/2021, Expires: 01/11/2022 [facility] Work Phone: Comment on above: Expected: 11/11/2021 , Expires: 01/11/2022 Start: 08-23-2021 Adult depression screening assessment DEPRESSION SCREENING [facility] Start: 05-14-2021 ADVANCE DIRECTIVE DISCUSSION ADVANCE DIRECTIVE DISCUSSION [facility] Start: 05-14-2021 DEPRESSION ASSESSMENT DEPRESSION ASS ESSMENT [facility] Start: 2021 COVID-19 VACCINE (2 - Booster for Viviana series) COVID-19 VACCINE (2 - Booster for Viviana series) [facility] Start: 11-05-2018 Urine microalbumin profile [facility] Start: 03-28-2018 End: 03-28-2018 Appointment Appointment [facility] Work Phone: Start: 06-05-2017 End: 06-05-2017 Appointment Appointment [facility] Work Phone: Start: 03-27-2017 End: 03-27-2017 INTERMEDIATE PROJECT MANAGER INTERMEDIATE PROJECT MANAGER [facility] Work Phone: Start: 03-27-2017 End: 03-27-2017 Follow Up Appt 1 year Follow Up Appt 1 year [facility] Work Phone: Start: 03-27-2017 End: 03-27-2017 Appointment Appointment [facility] Work Phone: Start: 03-02-2017 End: 03-03-2017 Follow Up Appt 3 months Follow Up Appt 3 months [facility] Work Phone: Start: 03-02-2017 End: 03-03-2017 Pacer Clinic [facility] Work Phone: Start: 11-24-2016 End: 11-24-2016 Follow Up Appt 3 months Follow Up Appt 3 months [facility] Work Phone: Start: 11-24-2016 End: 11-24-2016 Pac[facility] Clinic [facility] Work Phone: Start: 08-16-2016 End: 08-16-2016 Follow Up Appt 3 months Follow Up Appt 3 months [facility] Work Phone: Start: 08-16-2016 End: 08-16-2016 Pacer Clinic [facility] Work Phone: Start: 05-17-2016 End: 05-17-2016 Follow Up Appt 3 months Follow Up Appt 3 months [facility] Work Phone: Start: 05-17-2016 End: 05-17-2016 [facility] Clinic [facility] [place] [facility] Work Phone: Start: 03-23-2016 End: 03-23-2016 [facility] INTERMEDIATE PROJECT MANAGER [facility] Work Phone: Start: 03-23-2016 End: 03-23-2016 Follow Up Appt 1 year Follow Up Appt 1 year [facility] Work Phone: Start: 02-09-2016 End: 02-09-2016 Follow Up Appt 3 months Follow Up Appt 3 months [facility] Work Phone: Start: 02-09-2016 End: 02-09-2016 [facility] Clinic [facility] Work Phone: Start: 11-05-2015 End: 11-05-2015 Follow Up Appt 3 months Follow Up Appt 3 months [facility] Work Phone: Start: 11-05-2015 End: 11-05-2015 Pacer Clinic [facility] Work Phone: Start: 07-29-2015 End: 07-29-2015 Follow Up Appt 3 months Follow Up Appt 3 months [facility] Work Phone: Start: 07-29-2015 End: 07-29-2015 Pacer Clinic Pac[facility] Work Phone: Start: 04-22-2015 End: 04-22-2015 Follow Up Appt 3 months Follow Up Appt 3 months [facility] Work Phone: Start: 04-22-2015 End: 04-22-2015 Pacer Clinic [facility] Work Phone: Start: 03-23-2015 End: 03-23-2015 INTERMEDIATE PROJECT MANAGER INTERMEDIATE PROJECT MANAGER [facility] Work Phone: Start: 03-23-2015 End: 03-23-2015 Follow Up Appt 1 year Follow Up Appt 1 year [facility] Work Phone: Start: 01-20-2015 End: 01-20-2015 Follow Up Appt 3 months Follow Up Appt 3 months [facility] Work Phone: Start: 01-20-2015 End: 01-20-2015 Pacer Clinic Pac[facility] Clinic [facility] Work Phone: Start: 10-14-2014 End: 10-14-2014 Follow Up Appt 3 months Follow Up Appt 3 months [facility] Work Phone: Start: 10-14-2014 End: 10-14-2014 Pacer Clinic [facility] Work Phone: Start: 07-30-2014 End: 07-30-2014 INTERMEDIATE PROJECT MANAGER INTERMEDIATE PROJECT MANAGER [facility] Work Phone: Start: 07-30-2014 End: 07-30-2014 Follow Up Appt 6 months Follow Up Appt 6 months [facility] Work Phone: Start: 07-07-2014 End: 07-07-2014 *BMP *BMP [facility] Work Phone: Start: 07-07-2014 End: 07-07-2014 *CBC with Differential *CBC with Differential [facility] Work Phone: Start: 07-07-2014 End: 07-07-2014 Ecg routine ecg w/least 12 lds w/i&r EKG (In office) [facility] Work Phone: Start: 07-07-2014 End: 07-07-2014 Follow up Appt 3 weeks Follow up Appt 3 weeks [facility] Work Phone: Start: 07-07-2014 End: 07-07-2014 MMM MMM [facility] Work Phone: Start: 07-07-2014 End: 07-07-2014 Nuclear stress test -Lexiscan Nuclear stress test -Lexiscan [facility] Work Phone: Start: 07-07-2014 End: 07-07-2014 Thyroid stimulating hormone (TSH) *TSH [facility] Work Phone: Start: 07-07-2014 End: 07-07-2014 Thyroxine (T4) *T4 (Total) [facility] Work Phone: Start: 07-06-2014 End: 07-07-2014 Follow Up Appt 3 months Follow Up Appt 3 months [facility] Work Phone: Start: 07-06-2014 End: 07-07-2014 Pacer Clinic Pacer Clinic [facility] Work Phone: Start: 04-01-2014 End: 07-07-2014 Follow Up Appt 3 months Follow Up Appt 3 months [facility] Work Phone: Start: 04-01-2014 End: 07-07-2014 Pacer Clinic Pac[facility] Clinic [facility] Work Phone: Start: 03-24-2014 End: 03-24-2014 INTERMEDIATE PROJECT MANAGER INTERMEDIATE PROJECT MANAGER [facility] Work Phone: Start: 03-24-2014 End: 03-24-2014 Follow Up Appt 1 year Follow Up Appt 1 year [facility] Work Phone: Start: 12-25-2013 End: 07-07-2014 Follow Up Appt 3 months Follow Up Appt 3 months [facility] Work Phone: Start: 12-25-2013 End: 07-07-2014 Pacer Clinic Pacer Clinic [facility] Work Phone: Start: 09-19-2013 End: 07-07-2014 Follow Up Appt 3 months Follow Up Appt 3 months [facility] Work Phone: Start: 09-19-2013 End: 07-07-2014 Pacer Clinic Pac[facility] Clinic [facility] Work Phone: Start: 06-20-2013 End: 07-07-2014 Follow Up Appt 3 months Follow Up Appt 3 months [facility] Work Phone: Start: 06-20-2013 End: 07-07-2014 Pacer Clinic [facility] Work Phone: Start: 03-21-2013 End: 03-21-2013 INTERMEDIATE PROJECT MANAGER INTERMEDIATE PROJECT MANAGER [facility] Work Phone: Start: 03-21-2013 End: 03-21-2013 Follow Up Appt 1 year Follow Up Appt 1 year [facility] Work Phone: Start: 03-21-2013 End: 07-07-2014 Follow Up Appt 3 months Follow Up Appt 3 months [facility] Work Phone: Start: 03-21-2013 End: 07-07-2014 Pacer Clinic Pac[facility] Work Phone: Start: 11-27-2012 End: 07-07-2014 Follow Up Appt 3 months Follow Up Appt 3 months [facility] Work Phone: Start: 11-27-2012 End: 07-07-2014 Pacer Clinic Pacer Clinic [facility] Work Phone: Start: 08-20-2012 End: 07-07-2014 Follow Up Appt 3 months Follow Up Appt 3 months [facility] Work Phone: Start: 08-20-2012 End: 07-07-2014 Pacer Clinic [facility] Work Phone: Start: 03-29-2012 End: 03-29-2012 Follow Up Appt 1 year Follow Up Appt 1 year [facility] Work Phone: Start: 2011 RSV Vaccine (1 - 1-d ose 60+ series) RSV Vaccine (1 - 1-dose 60+ series) [facility] Start: 2011 RSV Vaccine (1 - Ris k 60-74 years 1-dose series) RSV Vaccine (1 - Risk 60-74 years 1-dose series) [facility] Start: 2001 SHINGRIX VACCINE (1 of 2) SHINGRIX VACCINE (1 of 2) [facility] Start: 1996 COLOGUARD (FIT-DNA) COLOGUARD (FIT-D NA) [facility] Start: [address] COLONOGRAPHY [facility] Start: 1996 FECAL OCCULT BLOOD FECAL OCCULT BLOO D [facility] Start: 1996 Screening for malign ant neoplasm of colon [facility] Start: 1996 SIGMOIDOSCOPY SIGMOIDOSCOPY [facility] Start: 1969 BP CONTROLLED (<130/80) BP CONTROLLE D (<130/80) [facility] Start: 1957 PNEUMOCOCCAL: 65+ (1 - PCV) PNEUMOCOCCAL: 65+ (1 - PCV) [facility] Bacteria identified in Urine by Culture Urine Culture [facility] Work Phone: End: 11-25-2022 [facility] Rad[facility] Routine Breast tenderness in male Breast mass in male 1 Occurrences starting 10/26/2021 until 11/25/2022 [facility] Work Phone: Comment on above: 1 Occurrences starti ng 10/26/2021 until 11/25/2022 Patient Education [facility] Work Phone: Patient referral [facility] Work Phone: Removal impacted cer umen irrigation/lvg unilat AMBULATORY EAR LAVAGE/IRRIGATION Procedures Routine Excessive ear wax, left Ordered: 04/28/2022 [facility] Work Phone: Comment on above: Ordered: 04/28/2022 End: 09-21-2023 Screening colonoscopy COLONOSCOPY SCREENING Endoscopy Routine History of colonic polyps 1 Occurrences starting 09/20/2022 until 09/21/2023 [facility] Work Phone: Comment on above: 1 Occurrences starti ng 09/20/2022 until 09/21/2023 End: 11-25-2022 Us breast uni real time with image limited [facility] Work Phone: Comment on above: 1 Occurrences starti ng 10/26/2021 until 11/25/2022 Us breast uni real t veronica with image limited US BREAST LTD Radiology Routine Breast tenderness in male Breast mass in male 11/30/2021 1:48 PM EDT [facility] Work Phone: [facility] Immunizations Immunization Date Immunization Notes Care Provider Dre stone 02-04-2024 influenza (HD-IIV4) vaccine, age 65+ yr, high dose, quadrivalent, PF (FLUZONE HIGH-DOSE) Kiki Murdock MA [facility] 02-04-2024 influenza virus vaccine, unspecified formulation Tomasz Fabian MD Work Phone: [facility] 01-26-2023 influenza, high dose seasonal, preservative-free Tomasz Fabian MD Work Phone: [facility] 01-26-2023 influenza virus vaccine, unspecified formulation Tomasz Fabian MD Work Phone: [facility] 11-08-2022 pneumococcal Conjuga te, unspecified formulation Tomasz Fabian MD Work Phone: [facility] Work Phone: 11-08-2022 pneumococcal (PCV20) vaccine, 20 valent (PREVNAR 20) Tomasz Fabian MD Work Phone: [facility] 04-28-2022 influenza, high-dose , quadrivalent vaccine (FLUZONE HIGH DOSE QUADRIVALENT) Tomasz Fabian MD Work Phone: [facility] 04-19-2021 pneumococcal conjuga te vaccine, 13 venancio Gregg MD Work Phone: [facility] 01-19-2021 COVID-19 vaccine (VIVIANA) Raleigh Appiah Jr., MD Work Phone: [facility] 11-05-2008 tetanus toxoid, redu hermelindo diphtheria toxoid, and acellular pertussis vaccine, adsorbed Raleigh Appiah Jr., MD Work Phone: [facility] Payers Date Payer Category Payer Self-pay [id number] 2016 Medicare MEDICARE MEDICAR E A AND B [id number] 2016-Present [phone] [address] [address] [place] [address] Medicare [id number] 2016 Medicare [id number] 2016 Private Health Insurance MMO MED ICARE SUPPLEMENT [id number] 2016 Unknown MMO MMO MEDICARE SUPPLEMENT [id number] 2016-Present [phone] [address] [place] [address] Indemnity [id number] 2016 Unknown MMO MMO MEDICARE SUPPLEMENT [id number] 2016-Present [phone] [address] [place] [address] Indemnity [id number] 2016 Medicare [id number] 2014 Unknown [id number] Unknown [id number] Unknown [id number] Unknown [id number] Unknown [id number] Unknown [id number] Unknown [id number] Unknown [id number] Unknown [id number] Unknown [id number] Social History Date Type Detail Facility Start: 12-26-2011 End: 12-07-2022 Tobacco smoking status NHIS Never smoked tobacco [facility] Start: 04-18-2021 End: 01-05-2025 Alcohol intake Current non-drinker of alcohol (finding) [facility] Start: 04-23-2021 End: 11-07-2022 History SDOH Alcohol Frequency 1 [facility] Start: 04-23-2021 End: 11-07-2022 History SDOH Social Connections Restoration 2 [facility] Start: 04-23-2021 End: 11-07-2022 History SDOH Social Connections Living 3 [facility] Start: 04-23-2021 End: 11-07-2022 History SDOH Physical Activity DPW 6 [facility] Start: 04-23-2021 End: 11-07-2022 History SDOH Financial 5 [facility] Start: 1950 Sex Assigned At Male [facility] Start: 09-10-2021 End: 02-14-2022 Exposure to SARS-CoV-2 (event) Not sure [facility] Work Phone: Start: 12-26-2011 Tobacco use and exposure Smokeless tobacco non-user [facility] Start: 04-11-2022 End: 04-14-2022 Tobacco smoking status NHIS Unknown if ever smoked [facility] Work Phone: Start: 10-30-2022 End: 11-07-2022 History SDOH Alcohol Std Drinks 0 [facility] Start: 11-07-2022 End: 06-03-2024 History of Social function [facility] Start: 11-07-2022 End: 06-03-2024 Social connection and isolation panel [facility] Do you belong to any clubs or organizations such as sabianism groups, unions, fraternal or athletic groups, or school groups? Yes [facility] Are you now , , , , never or living with a partner? [facility] How often to you hav e a drink containing alcohol? Never [facility] Start: 04-14-2012 How many standard drinks containing alcohol do you have on a typical day? Patient does not drink [facility] Do you feel stress - tense, restless, nervous, or anxious, or unable to sleep at night because your mind is troubled all the time - these days [OSQ] Not at all [facility] (I/We) worried shorty er (my/our) food would run out before (I/we) got money to buy more. Never true [facility] In the past 12 month s, was there a time when you were not able to pay the mortgage or rent on time? No [facility] Start: 08-15-2018 Gender identity Identifies as male gender (finding) [facility] Start: 08-15-2018 Sexual orientation Heterosexual (finding) [facility] Do you feel stress - tense, restless, nervous, or anxious, or unable to sleep at night because your mind is troubled all the time - these days [OSQ] Only a little [facility] Goals Date Patient Goal Desired Activity /State Functional Status Date Assessment Result Facility 05-04-2022 Functional status Ambulates [facility] Work Phone: 08-13-2014 Are you deaf, or do you have serious difficulty hearing No 08/13/2014 1:12 PM EDT Jeanna Roman LPN No [facility] 08-13-2014 Are you blind, or do you have serious difficulty seeing, even when wearing glasses No 08/13/2014 1:12 PM EDT Jeanna Roman LPN No [facility] 08-13-2014 Do you have serious difficulty walking or climbing stairs Yes 08/13/2014 1:12 PM EDT Jeanna Roman LPN Yes [facility] 08-13-2014 Do you have difficul ty dressing or bathing No 08/13/2014 1:12 PM EDT Jeanna Roman LPN No [facility] 08-13-2014 Because of a physica l, mental, or emotional condition, do you have difficulty doing errands alone such as visiting a physician's office or shopping No 08/13/2014 1:12 PM EDT Jeanna Roman LPN No [facility] Mental Status Date Assessment Result Facility 05-04-2022 Cognitive function Level Of Cons ciousness Awake;Alert;Appropriate;Fol lows Commands [facility] Work Phone: 05-03-2022 Cognitive function Voice/Name [facility] Work Phone: 04-11-2022 Cognitive function Level Of Cons ciousness Awake;Alert;Appropriate [facility] Work Phone: 08-13-2014 Because of a physica l, mental, or emotional condition, do you have serious difficulty concentrating, remembering, or making decisions No 08/13/2014 1:12 PM EDT Jeanna Roman LPN No [facility] Clinical Notes 06-28-2020 to 01-05-2025 Patient InstructionsTomasz Fabian MD - 01/05/2025 2:20 PM EDTTelephone Encounter - Yves Baumann RN - 12/12/2024 10:17 AM EDTTelephone Encounter - Yves Baumann RN - 12/12/2024 10:17 AM EDT Note Date & Type Note Facility 01-05-2025 Instructions Tomasz Fabian MD - 01/05/2025 2:56 PM EDT We discussed your blood pressure: - Your blood pressure readings have improved, now averaging in the 130s/60s-70s, though occasionally higher in the afternoon. We will continue with your current management plan and not make any changes to your medication at this time to avoid lowering your blood pressure too much. - Continue taking your 0.3 mg medication twice daily as prescribed. You mentioned you still have a full bottle, so no refill is needed at this time. - You reported no side effects such as lightheadedness, dizziness, chest pain, unusual heartbeats, or leg swelling since the dosing adjustment. Please let me know if any of these symptoms develop. We discussed your morning routine and coffee consumption: - Drinking coffee in the morning before your workout is not expected to interfere with your blood pressure or medication. Regular coffee consumption, in moderation, may even have some heart benefits. - Avoid nicotine products, as they can raise blood pressure consistently. No additional follow-up or changes are needed at this time. Please continue monitoring your blood pressure and let me know if you experience any new or concerning symptoms. documented in this encounter [facility] 01-05-2025 History of Present illness Narrative Chief Complaint Patient presents with: F/U 1 month: BP HPI Delfino Rosales is a 74 year old male who presents here today for a 1 month follow up. Patient here today for a BP follow up. At previous visit, pt was advised to check bp's from home and bring log in with home readings as well as BP cuff. Patient sent a [employer] message on 12/10/24 with at home BP readings, at that time his Clonidine was increased to 0.3 mg twice daily. Pt brought home BP cuff today. BP readings at home have varied through out the day with readings ranging from 120-150's/60's. Generally readings are in the 130/60's, feel medication increase has helped. Pt's home BP cuff readin/89, Pulse 61 Delfino Rosales is a 74-year-old male presenting for follow-up on blood pressure management. Delfino reports that his blood pressure readings have improved since his last message to the clinician on 11/13, when his readings were consistently in the 140s-150s/70s throughout the day. Currently, his blood pressure readings are more in the 130s/60s-70s, although he notes that they can be higher in the afternoon. He believes that his blood pressure readings are influenced by his dietary intake. He is currently taking 0.3 mg of an catapress BID as prescribed and has not required a refill yet. He denies experiencing any side effects from the medication, including lightheadedness, dizziness, presyncope, chest pain, palpitations, or leg edema. He inquires whether his morning coffee consumption could affect his blood pressure. Past medical history, appointments, medications, allergies reviewed. Previous Medical History PAST MEDICAL HISTORY Diagnosis Date Advance directive discussed with patient 10/26/2021 Discussed 10/2021 Asthma (HCC) Benign non-nodular prostatic hyperplasia with lower urinary tract symptoms 07/20/2015 Elevated PSA 12/02/2019 Dr. Becerril- Feels that the elevation is from BPH and will treat and monitor his level. Considering surgery/bx later Extrinsic asthma (HCC) 07/24/2006 Dr. Borges History of COVID-19 02/09/2021 02/09/2021 Hyperlipidemia, mixed 07/24/2006 Hypertension, essential 05/02/[address] 10/26/2021 DPA: Hortencia () Medicare annual wellness visit, subsequent 11/01/2020 Medical B eligibility date 03/14/16 Date of last exam 11/01/20 Nocturnal hypoxia 02/28/2021 Night pulse Ox test dropped below 89% and as low as 80%. TEMO (obstructive sleep apnea) 11/01/2020 Dr. Appiah. On CPAP Pacemaker 11/01/2020 Dr. whitaker Paroxysmal atrial fibrillation (HCC) 11/01/2020 Pacemaker Pneumonia due to COVID-19 virus 03/09/2021 Psoriasis 08/03/2016 since at least 2008 SINOATRIAL NODE DYSFUNCT 1996 pacemaker Skin cancer screening 12/08/2024 Sees [facility] Spinal muscle atrophy (HCC) 1998 Tubular adenoma of rectum 08/03/20162014--polypectomy 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, 2014--polypectomy Vitiligo 1970 Previous Surgical History PAST SURGICAL HISTORY Procedure Laterality Date COLONOSCOPY 10/23/2022 COLONOSCOPY FLX DX W/COLLJ SPEC WHEN PFRMD 01/05/2004 Per mod repeat in -2013 COLONOSCOPY FLX DX W/COLLJ SPEC WHEN PFRMD 09/03/2014 Colonoscopy COLONOSCOPY FLX DX W/COLLJ SPEC WHEN [facility]2022[facility] PACEMAKER 06/28/2020 redone PACEMAKER (PM) 1996 redone - 2008 TRANSURETHRAL ELEC-SURG PROSTATECTOM 05/04/2022 Family History FAMILY HISTORY Problem Relation Age of Onset Diabetes Mother from diabetes Patient Allergies ALLERGIES Allergen Reactions Advil [Ibuprofen] Unknown Amlodipine Other: See Comments Lower extremity swelling Asa [Salicylates] Unknown Lisinopril Cough Losartan Myalgia Zetia [Ezetimibe] Other: See Comments weakness Current Medications Current Outpatient Medications on File Prior to Visit Medication Sig cloNIDine HCl (CATAPRES) 0.3 mg tablet Take 1 tablet by mouth two times a day. spironolactone (ALDACTONE) 100 mg tablet Take 1 tablet by mouth once daily. doxazosin (CARDURA) 4 mg tablet Take 1 tablet by mouth once daily. doxazosin (CARDURA) 2 mg tablet Take 1 tablet by mouth once daily. Along with 4 mg dose for a total of 6 mg a day multivit-min/FA/lycopen/lutein (CENTRUM SILVER MEN ORAL) Take 1 capsule by mouth once daily. CPAP Please change AutoPAP setting range to 10-18 cmH2O. Please provide download in 30 days. albuterol HFA (PROVENTIL HFA, VENTOLIN HFA) 90 mcg/actuation inhaler Inhale 2 Puffs as instructed as needed. No current facility-administered medications on file prior to visit. Social History SOCIAL HISTORY[1] Review of Symptoms REVIEW OF SYSTEMS SEE HPI EXAM: BP 131/64 Pulse 60 Resp 16 Wt 93 kg (205 lb) BMI 28.59 kg/m BP 131/64 Pulse 60 Resp 16 Wt 93 kg (205 lb) BMI 28.59 kg/m General Appearance: Well appearing, alert, in no acute distress, well-hydrated, well nourished.. Lungs: Lungs clear to auscultation. No wheezing, rhonchi, rales.. Heart: RRR without murmur, gallop, or rubs. No ectopy. Abdomen: Normal abdominal exam, Abdomen soft, non-tender. Bowel sounds normal. No masses, organomegaly. Extremities: No deformities, skin discoloration, Good capillary refill. Chronic stable swelling on the left. . Health Maintenance List Influenza Vaccine(1) due on 01/12/2025 Annual PCP Team Chronic Disease Visit due on 12/08/2025 Depression Screening due on 12/08/2025 Anxiety Screening due on 12/08/2025 Medicare Annual Wellness Visit due on 12/08/2025 Colorectal Cancer Screening due on 10/24/2027 Diabetes Screening due on 12/09/2027 Lipid Screening due on 12/08/2029 Advance Directive Discussion Completed Hepatitis C Screening Completed Pneumococcal Vaccine: 50+ Completed DTaP,Tdap,Td Vaccine Discontinued RSV Vaccine Discontinued Shingrix Vaccine Discontinued Data reviewed Assessment and Plan 1. Hypertension, essential (I10) Blood pressure readings have improved from consistent 140s-150s/70s to 130s/60s-70s, with occasional higher readings in the afternoon. No reported side effects from current medication regimen. - Continue current antihypertensive regimen: 0.3 mg BID. - Discussed that routine coffee consumption does not typically raise blood pressure significantly in regular coffee drinkers. - Advised that nicotine use (smoking or chewing tobacco) would raise blood pressure consistently and should be avoided. 2. Spinal muscle atrophy (HCC) (G12.9) - queation if this condition may potentially affect autonomic nervous system function. - pt to cont f/u with neuro for management. - Maintain current blood pressure management to avoid risk of hypotension. Tomasz Fabian MD Recording using [employer] software for draft documentation of the visit was discussed with the patient/authorized food service sales representatives; all questions welcomed and answered. Patient/authorized food service sales representatives agreed to proceed [1] Social History Tobacco Use Smoking status: Never Smokeless tobacco: Never Vaping Use Vaping status: Never Used Substance Use Topics Alcohol use: No Drug use: No documented in this encounter [facility] 01-05-2025 Note HNO ID: [id number] Author: TOMASZ FABIAN MD Service: ? Author Type: Physician Type: Progress Notes Filed: 01/05/2025 15:01 Note Text: Chief Complaint Patient presents with: F/U 1 month: BP HPI Delfino Rosales is a 74 year old male who presents here today for a 1 month follow up. Patient here today for a BP follow up. At previous visit, pt was advised to check bp's from home and bring log in with home readings as well as BP cuff. Patient sent a [employer] message on 12/10/24 with at home BP readings, at that time his Clonidine was increased to 0.3 mg twice daily. Pt brought home BP cuff today. BP readings at home have varied through out the day with readings ranging from 120-150's/60's. Generally readings are in the 130/60's, feel medication increase has helped. Pt's home BP cuff readin/89, Pulse 61 Delfino Rosales is a 74-year-old male presenting for follow-up on blood pressure management. Delfino reports that his blood pressure readings have improved since his last message to the clinician on 11/13, when his readings were consistently in the 140s-150s/70s throughout the day. Currently, his blood pressure readings are more in the 130s/60s-70s, although he notes that they can be higher in the afternoon. He believes that his blood pressure readings are influenced by his dietary intake. He is currently taking 0.3 mg of an catapress BID as prescribed and has not required a refill yet. He denies experiencing any side effects from the medication, including lightheadedness, dizziness, presyncope, chest pain, palpitations, or leg edema. He inquires whether his morning coffee consumption could affect his blood pressure. Past medical history, appointments, medications, allergies reviewed. Previous Medical History PAST MEDICAL HISTORY Diagnosis Date Advance directive discussed with patient 10/26/2021 Discussed 10/2021 Asthma (HCC) Benign non-nodular prostatic hyperplasia with lower urinary tract symptoms 07/20/2015 Elevated PSA 12/02/2019 Dr. Becerril- Feels that the elevation is from BPH and will treat and monitor his level. Considering surgery/bx later Extrinsic asthma (HCC) 07/24/2006 Dr. Borges History of COVID-19 02/09/2021 02/09/2021 Hyperlipidemia, mixed 07/24/2006 Hypertension, essential 05/02/[address] 10/26/2021 DPA: Hortencia () Medicare annual wellness visit, subsequent 11/01/2020 Medical B eligibility date 03/14/16 Date of last exam 11/01/20 Nocturnal hypoxia 02/28/2021 Night pulse Ox test dropped below 89% and as low as 80%. TEMO (obstructive sleep apnea) 11/01/2020 Dr. Appiah. On CPAP Pacemaker 11/01/2020 Dr. whitaker Paroxysmal atrial fibrillation (HCC) 11/01/2020 Pacemaker Pneumonia due to COVID-19 virus 03/09/2021 Psoriasis 08/03/2016 since at least 2008 SINOATRIAL NODE DYSFUNCT 1996 pacemaker Skin cancer screening 12/08/2024 Sees [facility] Spinal muscle atrophy (HCC) 1998 Tubular adenoma of rectum 08/03/2016 2015--polypectomy 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, 2014--polypectomy Vitiligo 1970 Previous Surgical History PAST SURGICAL HISTORY Procedure Laterality Date COLONOSCOPY 10/23/2022 COLONOSCOPY FLX DX W/COLLJ SPEC WHEN PFRMD 01/05/2004 Per mod repeat in -2013 COLONOSCOPY FLX DX W/COLLJ SPEC WHEN PFRMD 09/03/2014 Colonoscopy COLONOSCOPY FLX DX W/COLLJ SPEC WHEN PFRMD 09/12/2017 [email or web address]--Repeat 5 years (09/2022) PACEMAKER 06/28/2020 redone PACEMAKER (PM) 1996 redone - 2008 TRANSURETHRAL ELEC-SURG PROSTATECTOM 05/04/2022 Family History FAMILY HISTORY Problem Relation Age of Onset Diabetes Mother from diabetes Patient Allergies ALLERGIES Allergen Reactions Advil [Ibuprofen] Unknown Amlodipine Other: See Comments Lower extremity swelling Asa [Salicylates] Unknown Lisinopril Cough Losartan Myalgia Zetia [Ezetimibe] Other: See Comments weakness Current Medications Current Outpatient Medications on File Prior to Visit Medication Sig cloNIDine HCl (CATAPRES) 0.3 mg tablet Take 1 tablet by mouth two times a day. spironolactone (ALDACTONE) 100 mg tablet Take 1 tablet by mouth once daily. doxazosin (CARDURA) 4 mg tablet Take 1 tablet by mouth once daily. doxazosin (CARDURA) 2 mg tablet Take 1 tablet by mouth once daily. Along with 4 mg dose for a total of 6 mg a day multivit-min/FA/lycopen/lutein (CENTRUM SILVER MEN ORAL) Take 1 capsule by mouth once daily. CPAP Please change AutoPAP setting range to 10-18 cmH2O. Please provide download in 30 days. albuterol HFA (PROVENTIL HFA, VENTOLIN HFA) 90 mcg/actuation inhaler Inhale 2 Puffs as instructed as needed. No current facility-administered medications on file prior to visit. Social History SOCIAL HISTORY[1] Review of Symptoms REVIEW OF SYSTEMS SEE HPI EXAM: BP 131/64 Pulse 60 Resp 16 Wt 93 kg (205 lb) BMI 28.59 kg/m? BP 131/64 Pulse 60 (more content not included)... [facility] 12-12-2024 Telephone encounter Note Pt called back and scheduled BP check. [facility] 12-12-2024 Miscellaneous Notes Pt called back and scheduled BP check. Asked pt what day/time works for him so I can schedule him 1 mo BP check with SANDY. Wait pt response. Sierra Luo MA Patient needs HTN f/u with SANDY in 4 weeks. The following approved medication requests have been transmitted electronically. Requested Prescriptions Signed Prescriptions Disp Refills cloNIDine HCl (CATAPRES) 0.3 mg tablet 180 tablet 1 Sig: Take 1 tablet by mouth two times a day. Tomasz Fabian MD Please see update from pt on BP readings. Sierra Luo MA documented in this encounter [facility] 12-12-2024 Telephone encounter Note Pt returned call and given provider's message below with verbalized understanding. [facility] 12-12-2024 Miscellaneous Notes Pt returned call and given provider's message below with verbalized understanding. Attempted to contact pt on cell. No answer and vm not set up. Called home number.Left message with female who answered to have pt call for results. Heber Young LPN Let patient know sodium level was better. documented in this encounter [facility] 12-12-2024 Note HNO ID: [id number] Author: SIERRA LUO MA Service: ? Author Type: Facs Teacher Type: Progress Notes Filed: 12/12/2024 09:46 Note Text: Scan on 12/11/2024 4:09 PM by ProviderAg PA-C: Dr. Selby [facility] 12-12-2024 History of Present illness Narrative Scan on 12/11/2024 4:09 PM by Provider, MARLENE Luong: Dr. Selby documented in this encounter [facility] 12-12-2024 Telephone encounter Note Attempted to contact pt on cell. No answer and vm not set up. Called home number.Left message with female who answered to have pt call for results. Heber Young LPN [facility] 12-12-2024 Telephone encounter Note Asked pt what day/time works for him so I can schedule him 1 mo BP check with SANDY. Wait pt response. Sierra Luo MA [facility] 12-11-2024 Telephone encounter Note Let patient know sodium level was better. [facility] 12-11-2024 Telephone encounter Note Patient needs HTN f/u with SANDY in 4 weeks. The following approved medication requests have been transmitted electronically. Requested Prescriptions Signed Prescriptions Disp Refills cloNIDine HCl (CATAPRES) 0.3 mg tablet 180 tablet 1 Sig: Take 1 tablet by mouth two times a day. Tomasz Fabian MD [facility] 12-10-2024 Telephone encounter Note Please see update from pt on BP readings. Sierra Luo MA [facility] 12-09-2024 Telephone encounter Note Patient returned call and went over results, notes from Dr Fabian with understanding. [facility] 12-09-2024 Miscellaneous Notes Patient returned call and went over results, notes from Dr Fabian with understanding. Left message for pt to contact office. Heber Young LPN Let patient know his complete metabolic panel was ok except his sodium is slightly low. Placed order to have this rechecked this week. His other labs and UA were ok. documented in this encounter [facility] 12-09-2024 Telephone encounter Note Left message for pt to contact office. Heber Young LPN [facility] 12-09-2024 Telephone encounter Note Let patient know his complete metabolic panel was ok except his sodium is slightly low. Placed order to have this rechecked this week. His other labs and UA were ok. [facility] 12-08-2024 Instructions Tomasz Fabian MD - 12/08/2024 2:02 PM EDT Please bring in copies of your power of senior systems analyst for health care and living will. Consider getting the shingrix vaccine for the prevention of shingles from a local pharmacy along with a Tdap for tetanus update and the RSV vaccine. We discussed your overall health and care plan: - Blood Pressure Management: - Please check your blood pressure once daily for the next few days, at different times of the day (e.g., morning, afternoon, evening). Write down the readings and send them to me via [employer]. - Bring your home blood pressure cuff to your next visit so we can validate its accuracy. - Continue your current blood pressure medication and lifestyle measures, including regular exercise and adequate water intake. - Routine Labs: - Routine labs, including a urine sample, were ordered today. You do not need to fast for these tests. If you cannot complete them today, you may return at a later time without an appointment. - Follow-Up: - Schedule a follow-up visit with me in 6 months. Please bring your blood pressure cuff and a record of your home blood pressure readings to this appointment. - Memory and Wellness: - We discussed the optional Bach test, which is part of a research study to assess memory and related factors such as sleep and mood. This test is voluntary. If you are interested in participating, let me know. Please let me know if you have any questions or concerns before your next visit. documented in this encounter [facility] 12-08-2024 Note HNO ID: [id number] Author: TOMASZ FABIAN MD Service: ? Author Type: Physician Type: Progress Notes Filed: 12/08/2024 23:36 Note Text: Delfino Rosales is a 74 year old male here for a Medicare wellness visit. Medicare Health Risk Assessment General Health Very good Exercise: Minutes/Day 50 min Exercise: Days/Week 6 days Alcohol: Daily Use Never Alcohol: Drinks/Day Patient does not drink Alcohol: 6 or more drinks Never Feel off balance Yes Concerns: Teeth/Dentures No Concerns: Sexual function No Troubled by feelings None of the above Frequency: Eating healthy diet Nearly every day ADLs requiring help None of the above Safety precautions in home/vehicle Yes Smoke, vape, chews tobacco No Difficulty hearing No Difficulty seeing No Current Providers Specialists: I have reviewed specialist-related care of the patient in the medical record. Medical/Family history review Reviewed and updated problem list, medical/surgical/family/social history, medications, and allergies. Opioid use review Opioid Medications (last 90 days) No data to display Anxiety/Depression screening PHQ-2 Score: 0 (Lower risk for depression) MICA-7 Score: 0. Recommendation: no further intervention at this time Cognitive screening Mini Cog Score: 5 Cognitive screening reviewed and No further action needed (score 3-5). Mini-Cog Patient asked to remember the following three words: Banana, [place] and Chair Visuospatial/Executive Functioning: Clock drawin/2 (Normal clock with all number in correct sequence and position, hands are correct = 2 points, inability or refusal to draw a clock = 0) Three word recall: 3/3 Total score: 5/5 (Total score = word recall score + clock draw score) Functional Observation Was the patient's Timed Up AND Go test unsteady or >= 12 seconds? Yes, couple falls in the past year due to trips. Used walker into exam today. Advance Care Planning Surrogate decision maker and/or advance care plan documented Measurements BP 135/68 Pulse 68 Resp 18 Vision Screening: Follows with optometry/ophthalmology Assessment/Plan Medicare annual wellness visit, subsequent (Z00.00) - Counseled on healthy diet and regular exercise - Fall avoidance information provided - Personalized prevention plan provided See below Chief Complaint Patient presents with: Medicare Wellness Exam HPI Delfino Rosales is a 74 year old male who presents here today for Chronic Medical Conditions. and Medicare Annual Visit. Patient with hx of HLP, a. Fib, elevated blood pressures, TEMO, BPH, psoriasis, and those as below. Patient has been doing well no new issues or concerns. Delfino reports feeling well overall and continues to see multiple specialists, including Dr. Escalona, Dr. Whitaker, Dr. Appiah, Dr. Kaplan, and Dr. Tomas. He also sees Dr. Freitas at [facility] for dermatological care and Dr. Gregg for colonoscopy. He denies any surgeries in the past year. He denies recent fevers, frequent cephalalgia, sudden changes in hearing or vision, or issues with his nose or throat. He has not noticed any lumps or swelling in his neck. He denies wheezing, dyspnea, hemoptysis, or excessive sputum production. He also denies chest pain or palpitations. He reports chronic stable ankle edema, worse on the left, which he attributes to spinal muscular atrophy. He performs a legs up stretch to reduce the edema, but it returns upon standing. He denies frequent nausea, emesis, diarrhea, or heartburn. He has not seen blood in his stool or urine and denies dysuria or increased urinary frequency. He reports no new or different aches and pains, skin lesions, rashes, or sores. He denies easy bruising or bleeding, changes in heat or cold tolerance, increased thirst, syncope, seizures, or tremors. Delfino uses a walker for ambulation and reports a recent episode where he felt he might pass out due to heat and exertion. He monitors his blood pressure at home, with the last reading taken 2 weeks ago, showing systolic readings around 135 mmHg and diastolic readings in the 60s. He notes that his blood pressure can vary depending on his activities and diet but is usually around 130 mmHg. He believes his current medication, exercise, and high water intake help keep his blood pressure under control. He uses a CPAP machine for sleep apnea. Past medical history, appointments, medications, allergies reviewed. Previous Medical History PAST MEDICAL HISTORY Diagnosis Date Advance directive discussed with patient 10/26/2021 Discussed 10/2021 Asthma (HCC) Benign non-nodular prostatic hyperplasia with lower urinary tract symptoms 07/20/2015 Elevated PSA 12/02/2019 Dr. Becerril- Feels that the elevation is from BPH and will treat and monitor his level. Considering surgery/bx later Extrinsic asthma (HCC) 07/24/2006 Dr. Borges History of COVID-19 02/09/2021 02/09/2021 Hyperlip (more content not included)... [facility] 12-08-2024 History of Present illness Narrative Images from the original note were not included. Delfino Rosales is a 74 year old male here for a Medicare wellness visit. Medicare Health Risk Assessment General Health Very good Exercise: Minutes/Day 50 min Exercise: Days/Week 6 days Alcohol: Daily Use Never Alcohol: Drinks/Day Patient does not drink Alcohol: 6 or more drinks Never Feel off balance Yes Concerns: Teeth/Dentures No Concerns: Sexual function No Troubled by feelings None of the above Frequency: Eating healthy diet Nearly every day ADLs requiring help None of the above Safety precautions in home/vehicle Yes Smoke, vape, chews tobacco No Difficulty hearing No Difficulty seeing No Current Providers Specialists: I have reviewed specialist-related care of the patient in the medical record. Medical/Family history review Reviewed and updated problem list, medical/surgical/family/social history, medications, and allergies. Opioid use review Opioid Medications (last 90 days) No data to display Anxiety/Depression screening PHQ-2 Score: 0 (Lower risk for depression) MICA-7 Score: 0. Recommendation: no further intervention at this time Cognitive screening Mini Cog Score: 5 Cognitive screening reviewed and No further action needed (score 3-5). Mini-Cog Patient asked to remember the following three words: Banana, [place] and Chair Visuospatial/Executive Functioning: Clock drawin/2 (Normal clock with all number in correct sequence and position, hands are correct = 2 points, inability or refusal to draw a clock = 0) Three word recall: 3/3 Total score: 5/5 (Total score = word recall score + clock draw score) Functional Observation Was the patient's Timed Up & Go test unsteady or >= 12 seconds? Yes, couple falls in the past year due to trips. Used walker into exam today. Advance Care Planning Surrogate decision maker and/or advance care plan documented Measurements BP 135/68 Pulse 68 Resp 18 Vision Screening: Follows with optometry/ophthalmology Assessment/Plan Medicare annual wellness visit, subsequent (Z00.00) - Counseled on healthy diet and regular exercise - Fall avoidance information provided - Personalized prevention plan provided See below Chief Complaint Patient presents with: Medicare Wellness Exam HPI Delfino Rosales is a 74 year old male who presents here today for Chronic Medical Conditions. and Medicare Annual Visit. Patient with hx of HLP, a. Fib, elevated blood pressures, TEMO, BPH, psoriasis, and those as below. Patient has been doing well no new issues or concerns. Delfino reports feeling well overall and continues to see multiple specialists, including Dr. Escalona, Dr. Whitaker, Dr. Appiah, Dr. Kaplan, and Dr. Tomas. He also sees Dr. Freitas at [facility] for dermatological care and Dr. Gregg for colonoscopy. He denies any surgeries in the past year. He denies recent fevers, frequent cephalalgia, sudden changes in hearing or vision, or issues with his nose or throat. He has not noticed any lumps or swelling in his neck. He denies wheezing, dyspnea, hemoptysis, or excessive sputum production. He also denies chest pain or palpitations. He reports chronic stable ankle edema, worse on the left, which he attributes to spinal muscular atrophy. He performs a legs up stretch to reduce the edema, but it returns upon standing. He denies frequent nausea, emesis, diarrhea, or heartburn. He has not seen blood in his stool or urine and denies dysuria or increased urinary frequency. He reports no new or different aches and pains, skin lesions, rashes, or sores. He denies easy bruising or bleeding, changes in heat or cold tolerance, increased thirst, syncope, seizures, or tremors. Delfino uses a walker for ambulation and reports a recent episode where he felt he might pass out due to heat and exertion. He monitors his blood pressure at home, with the last reading taken 2 weeks ago, showing systolic readings around 135 mmHg and diastolic readings in the 60s. He notes that his blood pressure can vary depending on his activities and diet but is usually around 130 mmHg. He believes his current medication, exercise, and high water intake help keep his blood pressure under control. He uses a CPAP machine for sleep apnea. Past medical history, appointments, medications, allergies reviewed. Previous Medical History PAST MEDICAL HISTORY Diagnosis Date Advance directive discussed with patient 10/26/2021 Discussed 10/2021 Asthma (HCC) Benign non-nodular prostatic hyperplasia with lower urinary tract symptoms 07/20/2015 Elevated PSA 12/02/2019 Dr. Becerril- Feels that the elevation is from BPH and will treat and monitor his level. Considering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 tablet 1 Sig: Take 1 tablet by mouth two times a day. doxazosin (CARDURA) 4 mg tablet 90 tablet 1 Sig: Take 1 tablet by mouth once daily. spironolactone (ALDACTONE) 100 mg tablet 90 tablet 1 Sig: Take 1 tablet by mouth once daily. Irma Pike RN June 26, 2024 8:06 AM documented in this encounter [facility] 03-31-2024 Telephone encounter Note The following approved medication requests have been transmitted electronically. Requested Prescriptions Signed Prescriptions Disp Refills doxazosin (CARDURA) 2 mg tablet 90 tablet 1 Sig: Take 1 tablet by mouth once daily. Along with 4 mg dose for a total of 6 mg a day Authorizing Provider: TOMASZ FABIAN MD [facility] 03-31-2024 Miscellaneous Notes The following approved medication requests have been transmitted electronically. Requested Prescriptions Signed Prescriptions Disp Refills doxazosin (CARDURA) 2 mg tablet 90 tablet 1 Sig: Take 1 tablet by mouth once daily. Along with 4 mg dose for a total of 6 mg a day Authorizing Provider: TOMASZ FABIAN MD Pt needs today. Thought he had refills at the pharmacy. The patient has been identified by name and date of : Yes Caregiver verified no other encounters exist for this prescription request: Yes Caregiver confirmed with patient/requestor that no other refills are due, in the near future, with this provider at this time: Yes The last office visit in the department: 12/03/2023 Does the patient have a future office visit with this provider/department: Yes 06/04/2024 Requested Prescriptions Pending Prescriptions Disp Refills doxazosin (CARDURA) 2 mg tablet 90 tablet 1 Sig: Take 1 tablet by mouth once daily. Along with 4 mg dose for a total of 6 mg a day Hyun William RN March 31, 2024 8:12 AM documented in this encounter [facility] 03-31-2024 Telephone encounter Note Pt needs today. Thought he had refills at the pharmacy. The patient has been identified by name and date of : Yes Caregiver verified no other encounters exist for this prescription request: Yes Caregiver confirmed with patient/requestor that no other refills are due, in the near future, with this provider at this time: Yes The last office visit in the department: 12/03/2023 Does the patient have a future office visit with this provider/department: Yes 06/04/2024 Requested Prescriptions Pending Prescriptions Disp Refills doxazosin (CARDURA) 2 mg tablet 90 tablet 1 Sig: Take 1 tablet by mouth once daily. Along with 4 mg dose for a total of 6 mg a day Hyun William RN March 31, 2024 8:12 AM [facility] 03-14-2024 Telephone encounter Note Pt notified- taken to medical records for warehouse picker Pam Conley MA [facility] 03-14-2024 Miscellaneous Notes Pt notified- taken to medical records for warehouse picker Pam Conley MA Please let patient know letters are completed and he may pick them up at his convenience. Patient phoned to let pcp know, it is time to renew his handicap placard prescriptions. States he needs 2 of them, 1 for each car. Asking office to phone him for warehouse picker at front end assistant. documented in this encounter [facility] 03-14-2024 Telephone encounter Note Please let patient know letters are completed and he may pick them up at his convenience. [facility] 03-14-2024 Telephone encounter Note Patient phoned to let pcp know, it is time to renew his handicap placard prescriptions. States he needs 2 of them, 1 for each car. Asking office to phone him for warehouse picker at front end assistant. [facility] 02-27-2024 History of Present illness Narrative Scan on 02/12/2024 4:31 PM by Provider, MARLENE Luong: Consultation - Cardiology Kiki Murdock MA documented in this encounter [facility] 12-04-2023 Telephone encounter Note Pt notified and verbalized understanding Pam Conley MA [facility] 12-04-2023 Miscellaneous Notes Pt notified and verbalized understanding Pam Conley MA It is likely a contaminated sample and as long as patient is not symptomatic does not need follow up. Pt notified of results and provider message. Pt reports no sx of uti. Pt reports he sees Dr. Becerril and wondered if results should be faxed to him. Pt reports he had an appt with Dr. Becerril about four weeks ago and everything was fine. Aide Ricketts LPN Left message for patient to return call to office Pam Conley MA Please let patient know his labs are stable. Is patient having any urinary symptoms? His urine has some leukocytes and bacteria in it. documented in this encounter [facility] 12-04-2023 Telephone encounter Note It is likely a contaminated sample and as long as patient is not symptomatic does not need follow up. [facility] 12-04-2023 Telephone encounter Note Pt notified of results and provider message. Pt reports no sx of uti. Pt reports he sees Dr. Becerril and wondered if results should be faxed to him. Pt reports he had an appt with Dr. Becerril about four weeks ago and everything was fine. Aide Ricketts LPN [facility] 12-04-2023 Telephone encounter Note Left message for patient to return call to office Pam Conley MA [facility] 12-04-2023 Telephone encounter Note Please let patient know his labs are stable. Is patient having any urinary symptoms? His urine has some leukocytes and bacteria in it. [facility] 12-03-2023 History of Present illness Narrative Images from the original note were not included. Delfino Rosales is a 73 year old male here for a Medicare wellness visit. Medicare Health Risk Assessment General Health Good Exercise: Minutes/Day 30-45 min Exercise: Days/Week 6, row, airdyne, total gym Alcohol: Daily Use No Alcohol: Drinks/Day No Alcohol: 6 or more drinks No Feel off balance Yes Concerns: Teeth/Dentures No Concerns: Sexual function Troubled by feelings No Frequency: Eating healthy diet Balanced most days ADLs requiring help No Safety precautions in home/vehicle No grab bars in bathroom otherwise, yes Smoke, vape, chews tobacco No Difficulty hearing No Difficulty seeing No Current Providers Specialists: I have reviewed specialist-related care of the patient in the medical record. Current care team: Patient Care Team: Tomasz Fabian MD as PCP - General (Family Medicine) Medical/Family history review Reviewed and updated problem list, medical/surgical/family/social history, medications, and allergies. Opioid use review Opioid Medications (last 90 days) No data to display Anxiety/Depression screening Recommendation: no further intervention at this time Cognitive screening Cognitive screening reviewed and No further action needed (score 3-5). Functional Observation Was the patient's Timed Up & Go test unsteady or ? 12 seconds? No Advance Care Planning Surrogate decision maker and/or advance care plan documented Measurements BP 197/82 Pulse 71 Resp 14 Wt 212 lb (96.2kg) Vision Screening: Follows with optometry/ophthalmology Assessment/Plan Medicare annual wellness visit, subsequent (Z00.00) - Counseled on healthy diet and regular exercise - Fall avoidance information provided - Personalized prevention plan provided - Discussed need for and benefit of weight loss. BMI 29.57 kg/(m^2) Chief Complaint Patient presents with: Medicare Wellness Exam HPI Delfino Rosales is a 73 year old male who presents here today for Above Complaints.. Patient presents for annual exam. Patient reports he is doing well and has no concerns regarding his health. Patient reports he has excessive cerumen and would like his ears checked for this. Past medical history, appointments, medications, allergies reviewed. Previous Medical History PAST MEDICAL HISTORY Diagnosis Date Advance directive discussed with patient 10/26/2021 Discussed 10/2021 Asthma Benign non-nodular prostatic hyperplasia with lower urinary tract symptoms 07/20/2015 Elevated PSA 12/02/2019 Dr. Becerril- Feels that the elevation is from BPH and will treat and monitor his level. Considering surgery/bx later Extrinsic asthma 07/24/2006 Dr. Borges History of COVID-19 02/09/2021 02/09/2021 Hyperlipidemia, mixed 07/24/2006 Hypertension, essential 05/02/[address] 10/26/2021 DPA: Hortencia () Medicare annual wellness visit, subsequent 11/01/2020 Medical B eligibility date 03/14/16 Date of last exam 11/01/20 Nocturnal hypoxia 02/28/2021 Night pulse Ox test dropped below 89% and as low as 80%. TEMO (obstructive sleep apnea) 11/01/2020 Dr. Appiah. On CPAP Pacemaker 11/01/2020 Dr. 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, 2015--polypectomy Vitiligo 1970 Previous Surgical History PAST SURGICAL HISTORY Procedure Laterality Date COLONOSCOPY 10/23/2022 COLONOSCOPY FLX DX W/COLLJ SPEC WHEN PFRMD 01/05/2004 Per mod repeat in COLONOSCOPY FLX DX W/COLLJ SPEC WHEN PFRMD 09/03/2014 Colonoscopy COLONOSCOPY FLX DX W/COLLJ SPEC WHEN PFRMD 09/12/2017 Fabiola--Repeat 5 years (09/2022) PACEMAKER 06/28/2020 redone PACEMAKER (PM) 1996 redone - 2008 TRANSURETHRAL ELEC-SURG PROSTATECTOM 05/04/2022 Family History FAMILY HISTORY Problem Relation Age of Onset Diabetes Mother from diabetes Patient Allergies ALLERGIES Allergen Reactions Advil [Ibuprofen] Unknown Amlodipine Other: See Comments Lower extremity swelling Asa [Salicylates] Unknown Lisinopril Cough Losartan Myalgia Zetia [Ezetimibe] Other: See Comments weakness Current Medications Current Outpatient Medications on File Prior to Visit Medication Sig doxazosin (CARDURA) 2 mg tablet Take 1 tablet by mouth once daily. Along with 4 mg dose for a total of 6 mg a day doxazosin (CARDURA) 4 mg tablet Take 1 tablet by mouth once daily. cloNIDine HCl (CATAPRES) 0.2 mg tablet Take 1 tablet by mouth two times a day. spironolactone (ALDACTONE) 100 mg tablet Take 1 tablet by mouth once daily. multivit-min/FA/lycopen/lutein (CENTRUM SILVER MEN ORAL) Take 1 capsule by mouth once daily. CPAP Please change AutoPAP setting range to 10-18 cmH2O. Please provide download in 30 days. albuterol HFA (PROVENTIL HFA, VENTOLIN HFA) 90 mcg/actuation inhaler Inhale 2 Puffs as instructed as needed. No current facility-administered medications on file prior to visit. Social History Social History Tobacco Use Smoking status: Never Smokeless tobacco: Never Vaping Use Vaping Use: Never used Substance Use Topics Alcohol use: No Drug use: No Review of Symptoms REVIEW OF SYSTEMS SEE HPI EXAM: BP 197/82 Pulse 71 Resp 14 Wt 96.2 kg (212 lb) BMI 29.57 kg/m General Appearance: Well appearing, alert, in no acute distress, well-hydrated, well nourished.. Skin: Skin color, texture, turgor normal, no suspicious rashes or lesions. Ears: Positive findings: cerumen bilaterally, amount Moderate. Lungs: Lungs clear to auscultation. No wheezing, rhonchi, rales.. Heart: RRR without murmur, gallop, or rubs. No ectopy. Abdomen: Normal abdominal exam, Abdomen soft, non-tender. Bowel sounds normal. No masses, organomegaly. Musculoskeletal: No joint swelling, deformity, or tenderness. Peripheral Pulses: Pulses palpable. Neurologic: Positive findings: muscular weakness bilateral lower extremities left worse than right. Bilateral upper extremity weakness right worse than left. Health Maintenance List Shingrix Vaccine(1 of 2) Never done RSV Vaccine(1 - 1-dose 60+ series) Never done DTaP,Tdap,Td Vaccine(2 - Td or Tdap) due on 11/05/2018 Covid-19 Vaccine(2 - season) due on 01/12/2023 Advance Directive Discussion due on 05/14/2023 Behavioral Health Screening Never done Influenza Vaccine(1) due on 01/13/2024 Annual PCP Team Chronic Disease Visit due on 05/10/2024 BP Controlled (<130/80) due on 05/10/2024 Diabetes Screening due on 10/23/2025 Lipid Screening due on 10/24/2027 Colorectal Cancer Screening due on 10/24/2027 Hepatitis C Screening Completed Pneumococcal Vaccine: 65+ Completed Spirometry Discontinued ASSESSMENT/PLAN: 1. Hyperlipidemia, mixed - ICD9: 272.2, ICD10: E78.2 (primary diagnosis) - Control undetermined, due for labs - Continue current medications - Counseled on healthy diet and regular exercise - LIPID PANEL, NONFASTING 2. Paroxysmal atrial fibrillation (HCC) - ICD9: 427.31, ICD10: I48.0 -Follows with [facility] 3. Hypertension, essential - ICD9: 401.9, ICD10: I10 - Home blood pressure readings controlled-White coat syndrome - Continue current medications - Recommend home blood pressure monitoring, to bring results to next visit - Encouraged sodium restriction, DASH or Mediterranean diet - Recommend regular aerobic exercise - Discussed need for and benefit of weight loss. BMI 29.57 kg/(m^2) - COMPLETE BLOOD COUNT AND DIFFERENTIAL - URINALYSIS, WITH MICROSCOPIC - COMPREHENSIVE METABOLIC PANEL - CLONIDINE HCL 0.2 MG TABLET - SPIRONOLACTONE 100 MG TABLET - DOXAZOSIN 4 MG TABLET 4. Medication management - ICD9: V58.69, ICD10: Z79.899 - COMPLETE BLOOD COUNT AND DIFFERENTIAL 5. Elevated PSA - ICD9: 790.93, ICD10: R97.20 -Stable 6. Medicare annual wellness visit, subsequent - ICD9: V70.0, ICD10: Z00.00 - Counseled on healthy diet and regular exercise - Discussed need for and benefit of weight loss. BMI 29.57 kg/(m^2) 7. TEMO (obstructive sleep apnea) - ICD9: 327.23, ICD10: G47.33 -CPAP nightly 8. Mild intermittent extrinsic asthma without complication - ICD9: 493.00, ICD10: J45.20 - Mild intermittent asthma stable - Continue current medications - Avoidance of triggers recommended 9. Advance directive discussed with patient - ICD9: V65.49, ICD10: Z71.89 -Reviewed Dar Moreland APRN.MAINTENANCE PORTER documented in this encounter [facility] 12-03-2023 Instructions Dar Moreland APRN.ALYCE - 12/03/2023 1:46 PM EDT Screening schedule The following prevention plan is recommended: Shingrix Vaccine(1 of 2) Never done RSV Vaccine(1 - 1-dose 60+ series) Never done DTaP,Tdap,Td Vaccine(2 - Td or Tdap) due on 11/05/2018 Covid-19 Vaccine(2 - 2022- season) due on 01/12/2023 Advance Directive Discussion due on 05/14/2023 Behavioral Health Screening Never done WHAT YOU CAN DO TO PREVENT FALLS Many falls can be prevented. By making some changes, you can lower your chances of falling. Four things YOU can do to prevent falls for you* and your caregiver 1. Begin a regular exercise program Exercise is one of the most important ways to lower your chances of falling. It makes you stronger and helps you feel better. Exercises that improve balance and coordination (like Isai Chi) are the most helpful. Lack of exercise leads to weakness and increases your chances of falling. Ask your doctor or health care provider about the best type of exercise program for you. 2. Have your health care provider review your medicines Have your doctor or pharmacist review all the medicines you take, even ceid-dgj-keaiwvs medicines. As you get older, the way medicines work in your body can change. Some medicines, or combinations of medicines, can make you sleepy or dizzy and can cause you to fall. 3. Have your vision checked Have your eyes checked by an eye doctor at least once a year. You may be wearing the wrong glasses or have a condition like glaucoma or cataracts that limits your vision. Poor vision can increase your chances of falling. 4. Make your home safer About half of all falls happen at home. To make your home safer: Remove things you can trip over (like papers, books, clothes, and shoes) from stairs and places where you walk. Remove small throw rugs or use double-sided tape to keep the rugs from slipping. Keep items you use often in cabinets you can reach easily without using a step stool. Have grab bars put in next to your toilet and in the tub or shower. Use non-slip mats in the bathtub and on shower floors. Improve the lighting in your home. As you get older, you need brighter lights to see well. Hang light-weight curtains or shades to reduce glare. Have handrails and lights put in on all staircases. Wear shoes both inside and outside the house. Avoid going barefoot or wearing slippers. For more information, contact: Centers for Disease Control and Prevention www.cdc.gov/injury * This information may not apply if you have certain medical conditions. documented in this encounter [facility] 11-22-2023 History of Present illness Narrative Scan on 11/22/2023 2:26 PM by Provider, MARLENE Luong: Consultation - Allergy documented in this encounter [facility] 11-12-2023 History of Present illness Narrative ESTABLISHED PATIENT VISIT (Virtual Visit with Video) For this virtual visit, the patient has been identified by name and (MRN and photo identification as well if available). Those taking part in visit: Patient and physician via [employer]. Consent for this visit received from patient. I have communicated my name and active licensure. The patient's identity and physical location ([place]) were verified at the time of this visit. The patient has been informed of the risks and benefits of -- and alternatives to -- treatment through a remote evaluation and consents to proceed with the evaluation remotely. HISTORY OF PRESENT ILLNESS: Delfino Rosales is a 73 year old male, with a PMH significant for and per last office visit note of 10/17/22: 1. TEMO on CPAP - ICD9: 327.23, V46.8, ICD10: G47.33, Z99.89 (primary diagnosis) Patient doing well on PAP - perceived benefit. Compliant by both subjective history and objective measures. No other complaints at this time. Reminded to clean and replace equipment regularly. Advised not to drive or operate heavy machinery if sleepy. Encouraged weight loss. Follow up 1 year or sooner prn. 2. SMA (spinal muscular atrophy) ([facility]) - ICD9: 335.10, ICD10: G12.9 Stable per subjective history. No additional recs at this time. PAP data download reviewed. Used 90 of past 90 days for avg of 7 hours and 25 minutes. Set at 10-18 cmH2O. 95% P is 11.6 cmH2O. AHI is 0.6. 95% leak is 2.3 LPM. Pt down about 10 pounds since last visit. Patient reports no issues with PAP. Getting replacement equipment regularly. Cleaning regularly. Not using ozone metal cleaner. No pressure issues. No complaints with pressure or mask. If was to miss PAP he is uncertain if would feel different. Regarding SMA, states he exercises to keep ahead of it. Still needs a walker to ambulate and uses a transport chair for long distance. Pt feels no change since I saw him last. REVIEW OF SYSTEMS GENERAL:No weight loss, malaise or fevers. HEENT:Negative for frequent or significant headaches, No changes in hearing or vision, no nose bleeds or other nasal problems RESPIRATORY: Negative for cough, wheezing or shortness of breath. CARDIOVASCULAR: Negative for chest pain, leg swelling or palpitations. GASTROINTESTINAL: Negative for abdominal discomfort, blood in stools or black stools or change in bowel habits GENITOURINARY: No history of dysuria, frequency or incontinence MUSCULOSKELETAL: Negative for joint pain or swelling, back pain or muscle pain. NEUROLOGIC:See HPI. LAB/IMAGING: Those performed since patient's last visit have been reviewed. WBC (k/uL) Date Value 10/23/2022 7.15 RBC (m/uL) Date Value 10/23/2022 5.06 Hemoglobin (g/dL) Date Value 10/23/2022 15.7 Hematocrit (%) Date Value 10/23/2022 45.4 MCV (fL) Date Value 10/23/2022 89.7 MCH (pg) Date Value 10/23/2022 31.0 MCHC (g/dL) Date Value 10/23/2022 34.6 RDW-CV (%) Date Value 10/23/2022 12.7 Platelet Count (k/uL) Date Value 10/23/2022 197 MPV (fL) Date Value 10/23/2022 9.7 Glucose (mg/dL) Date Value 10/23/2022 90 BUN (mg/dL) Date Value 10/23/2022 12 Creatinine (mg/dL) Date Value 10/23/2022 0.71 (L) Sodium (mmol/L) Date Value 10/23/2022 135 (L) Potassium (mmol/L) Date Value 10/23/2022 4.2 Chloride (mmol/L) Date Value 10/23/2022 99 CO2 (mmol/L) Date Value 10/23/2022 25 Protein, Total (g/dL) Date Value 10/23/2022 7.0 Albumin (g/dL) Date Value 10/23/2022 4.0 Calcium, Total (mg/dL) Date Value 10/23/2022 9.2 Alkaline Phosphatase (U/L) Date Value 10/23/2022 57 Bilirubin, Total (mg/dL) Date Value 10/23/2022 0.6 AST (U/L) Date Value 10/23/2022 39 ALT (U/L) Date Value 10/23/2022 36 Hep C Antibody IA (no units) Date Value 11/01/2020 Negative MEDICATIONS: doxazosin (CARDURA) 2 mg tablet Take 1 tablet by mouth once daily. Along with 4 mg dose for a total of 6 mg a day doxazosin (CARDURA) 4 mg tablet Take 1 tablet by mouth once daily. cloNIDine HCl (CATAPRES) 0.2 mg tablet Take 1 tablet by mouth two times a day. spironolactone (ALDACTONE) 100 mg tablet Take 1 tablet by mouth once daily. multivit-min/FA/lycopen/lutein (CENTRUM SILVER MEN ORAL) Take 1 capsule by mouth once daily. CPAP Please change AutoPAP setting range to 10-18 cmH2O. Please provide download in 30 days. albuterol HFA (PROVENTIL HFA, VENTOLIN HFA) 90 mcg/actuation inhaler Inhale 2 Puffs as instructed as needed. HISTORIES PAST MEDICAL HISTORY Diagnosis Date Advance directive discussed with patient 10/26/2021 Discussed 10/2021 Asthma Benign non-nodular prostatic hyperplasia with lower urinary tract symptoms 07/20/2015 Elevated PSA 12/02/2019 Dr. Becerril- Feels that the elevation is from BPH and will treat and monitor his level. Considering surgery/bx later Extrinsic asthma 07/24/2006 Dr. Borges History of COVID-19 02/09/2021 02/09/2021 Hyperlipidemia, mixed 07/24/2006 Hypertension, essential 05/02/[address] 10/26/2021 DPA: Hortencia () Medicare annual wellness visit, subsequent 11/01/2020 Medical B eligibility date 03/14/16 Date of last exam 11/01/20 Nocturnal hypoxia 02/28/2021 Night pulse Ox test dropped below 89% and as low as 80%. TEMO (obstructive sleep apnea) 11/01/2020 Dr. Appiah. On CPAP Pacemaker 11/01/2020 Dr. 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 GENERAL EXAM: General appearance: NAD, pleasant. HEENT: NC/AT NECK: ROM nml. Lungs: NO audible cough, wheeze, sob. NEUROLOGICAL EXAM: General: Awake, alert, oriented x3 (person,place,time), speech fluent, no dysarthria; comprehension, naming, repetition intact. Fund of knowledge grossly normal. CN: EOMI, face symmetric, hearing is intact, palate and tongue movements are intact and symmetric. SCM and trapezius strength symmetric. Motor: Moves upper ext equal and symmetric. Limited exam due to video lag. PHQ 9 Data More data exists 11/08/2022 10/16/2022 10/26/2021 PHQ-9 All Questions Little interest or pleasure in doing things 0 0 1 Feeling down, depressed, or hopeless 0 0 1 Trouble falling or staying asleep, or sleeping too much - 0 - Feeling tired or having little energy - 0 - Poor appetite or overeating - 0 - Feeling bad about yourself - or that you are a failure or have let yourself or your family down - 0 - Trouble concentrating on things, such as reading the newspaper or watching television - 0 - Moving or speaking so slowly that other people could have noticed. Or the opposite - being so fidgety or restless that you have been moving around a lot more than usual - 0 - Thoughts that you would be better off , or of hurting yourself in some way - 0 - PHQ-9 Score - 0 - MICA 7 Data important suggestion No data to display PROMIS-10 More data exists PROMIS Global Health - (T-Scores - the mean of general population = 50. Five points is a clinically meaningful difference.) Physical T-Score Mental T-Score 11/12/2023 57.7 62.5 10/16/2022 57.7 62.5 03/05/2021 39.8 53.3 Industry Sleepiness Scale Scores 10/16/2022 08/23/2020 Industry Sleepiness Scale Score 5 11 Abnormal ASSESSMENT/PLAN: 1. TEMO on CPAP - ICD9: 327.23, ICD10: G47.33 (primary diagnosis) Overall stable with no complaints. Question if could use a lower PAP setting range as max pressure used is 12.4 and most of the time between pressure of 10 and 11 cmH2O. Set at 10-18 cmH2O. Will request from Mika (YUE) that pressure be adjusted to 8-14 cmH2O. Reminded pt to clean and replace equipment regularly. Advised pt not to drive or operate heavy machinery if sleepy. 2. Spinal muscle atrophy (HCC) - ICD9: 335.10, ICD10: G12.9 No new symptoms per patient. Difficult to evaluate by virtual visit. Pt will schedule in person visit if he feels needed. Raleigh Appiah MD I spent a total of 20+ minutes on the date of the service which included preparing to see the patient, [id number] patient care, completing clinical documentation, obtaining and/or reviewing separately obtained history, performing a medically appropriate examination, counseling and educating the patient/family/caregiver, ordering medications, tests, or procedures, independently interpreting results (not separately reported), and communicating results to the patient/family/caregiver. documented in this encounter [facility] 11-12-2023 Telephone encounter Note Ray with [employer] calls to request last OV notes for Cpap. OV notes from 05/10/23 faxed to: [phone]. Aide Ricketts LPN [facility] 11-12-2023 Miscellaneous Notes Ray with [facility] [employer] calls to request last OV notes for Cpap. OV notes from 05/10/23 faxed to: [phone]. Aide Ricketts LPN documented in this encounter [facility] 10-10-2023 Telephone encounter Note Spoke with Xander and requested 90 day pap download. Waiting for report to be faxed Joan Matson LPN [facility] 10-10-2023 Miscellaneous Notes Spoke with Xander and requested 90 day pap download. Waiting for report to be faxed Joan Matson LPN documented in this encounter [facility] 10-01-2023 Telephone encounter Note Patient has been identified by name and date of : Yes,Nadiya Bond RN Date 10/01/2023 Time 8:17 am Patient phones for refill(s): Requested Prescriptions Pending Prescriptions Disp Refills doxazosin (CARDURA) 2 mg tablet 30 tablet 5 Sig: Take 1 tablet by mouth once daily. Along with 4 mg dose for a total of 6 mg a day Date of last office visit in primary care: 05/10/2023 Date of next office visit in primary care: 12/03/2023 Requests a 90 day refill. Please advise. Thank you. Nadiya Bond RN. [facility] 10-01-2023 Miscellaneous Notes Patient has been identified by name and date of : Yes,Nadiya Bond RN Date 10/01/2023 Time 8:17 am Patient phones for refill(s): Requested Prescriptions Pending Prescriptions Disp Refills doxazosin (CARDURA) 2 mg tablet 30 tablet 5 Sig: Take 1 tablet by mouth once daily. Along with 4 mg dose for a total of 6 mg a day Date of last office visit in primary care: 05/10/2023 Date of next office visit in primary care: 12/03/2023 Requests a 90 day refill. Please advise. Thank you. Nadiya Bond RN. documented in this encounter [facility] 09-06-2023 Note Addended by: DAR MORELAND on: 09/06/2023 02:16 PM Modules accepted: Orders [facility] 09-06-2023 Miscellaneous Notes Addended by: DAR MORELAND on: 09/06/2023 02:16 PM Modules accepted: Orders documented in this encounter [facility] 07-02-2023 Miscellaneous Notes Please forward to patient's PCP. Sharon Mason APRN.ALYCE Patient has been identified by name and date of : Patient phones for refill(s): Requested Prescriptions Pending Prescriptions Disp Refills cloNIDine HCl (CATAPRES) 0.2 mg tablet 60 tablet 5 Sig: Take 1 tablet by mouth two times a day. spironolactone (ALDACTONE) 100 mg tablet 30 tablet 5 Sig: Take 1 tablet by mouth once daily. Date of last office visit in primary care: 05/10/2023 Date of next office visit in primary care: 12/03/2023 Please advise. Thank you. Farrah Tomlin LPN. documented in this encounter [facility] 04-17-2023 Miscellaneous Notes Pt called and is notified of providers mesage. Pt voices understanding. Joan Laws RN The following approved medication requests have been transmitted electronically. Requested Prescriptions Signed Prescriptions Disp Refills doxazosin (CARDURA) 2 mg tablet 30 tablet 5 Sig: Take 1 tablet by mouth once daily. Along with 4 mg dose for a total of 6 mg a day Authorizing Provider: TOMASZ FABIAN MD Pt called and is notified of providers message and instructions. Pt voices understanding. He states he will have provider call in the 2 mg dose of the doxazosin. When he comes in for his appointment he is going to bring in his BP cuff and list of trending Bps. Patient has been identified by name and date of : Yes, Provider Dr Fabian Date 04/17/23 Time 1635. Patient phones for refill(s): Requested Prescriptions Pending Prescriptions Disp Refills doxazosin (CARDURA) 2 mg tablet 30 tablet Sig: Take 1 tablet by mouth once daily. Date of last office visit in primary care: 11/08/2022 Date of next office visit in primary care: 05/10/2023 Last 2 Encounter Wt Readings: Date: Wt: 11/08/2022 93 kg (205 lb) 10/23/2022 93.7 kg (206 lb 9.1 oz) Previous labs/tests for medication: Blood Pressure: BUN (mg/dL) Date Value 10/23/2022 12 05/19/2021 16 Sodium Date Value 10/23/2022 135 mmol/L 05/19/2021 138 MEQ/L 11/01/2020 139 mmol/L Last 1 Encounter BP Readings: Date: BP: 11/08/2022 132/71 Please advise. Thank you. Joan Laws RN. Let patient know I can add a 2 mg dose of doxazosin to take with the 4 mg tab for a total of 6 mg a day and then we can see how his BP is at his appt on 05/10/2023? Pt called in and reports he is on 3 BP medications and has been consistently taking them. He state over the last 2 week his BP has been creeping up. Pt denies doing anything differently. Pt reports a slight headache but nothing else. He states his has a list of changes like him sneezing and coughing, I told him he could possibly have caught her cold because those aren't typical signs of high BP. Pt has an appointment with Dar Moreland NP on 05/10/23, and he was told to bring his BP cuff with him. BP HR 04/17 149/80 62 04/16 138/73 61 04/15 140/75 61 04/14 135/74 63 04/13 136/75 61 04/12 139/75 61 04/11 141/79 61 04/10 138/76 61 04/09 144/76 64 Please call and advise Pt if you would like him to make any changes or wait until his appointment with Dar Moreland FILTER OPERATOR. documented in this encounter [facility] 04-02-2023 Miscellaneous Notes Patient last visit with PCP 11/08/22 Follow up appointment scheduled 05/10/23 Lauren Love Ma documented in this encounter [facility] 01-04-2023 Miscellaneous Notes Patient has been identified by name and date of : Patient phones for refill(s): Requested Prescriptions Pending Prescriptions Disp Refills cloNIDine HCl (CATAPRES) 0.2 mg tablet 60 tablet 5 Sig: Take 1 tablet by mouth twice daily. spironolactone (ALDACTONE) 100 mg tablet 30 tablet 5 Sig: Take 1 tablet by mouth once daily. Date of last office visit in primary care: 11/08/2022, has appt 05/10/2023 Last 2 Encounter Wt Readings: Date: Wt: 11/08/2022 93 kg (205 lb) 10/23/2022 93.7 kg (206 lb 9.1 oz) Previous labs/tests for medication: Blood Pressure: BUN (mg/dL) Date Value 10/23/2022 12 05/19/2021 16 Sodium Date Value 10/23/2022 135 mmol/L 05/19/2021 138 MEQ/L 11/01/2020 139 mmol/L Last 1 Encounter BP Readings: Date: BP: 11/08/2022 132/71 Please advise. Thank you. Abigail Reardon LPN documented in this encounter [facility] 11-17-2022 History of Present illness Narrative Scan on 11/16/2022 2:52 PM by External Provider, MARLENE: Consultation - Allergy documented in this encounter [facility] 11-08-2022 Instructions Tomasz Fabian MD - 11/08/2022 3:35 PM EDT Consider getting the shingrix vaccine for the prevention of shingles from a local pharmacy Also consider getting a Tdap for tetanus update at the health dept. 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 Spinal muscle atrophy (HCC) 1998 Tubular adenoma of colon 08/2014 Tubular adenoma of rectum 08/03/2016 2015--polypectomy 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, 2014--polypectomy Vitiligo 1970 PAST SURGICAL HISTORY PAST SURGICAL HISTORY Procedure Laterality Date COLONOSCOP W/ OR W/O BRS SPEC 01-05-04 Per mod repeat in -2013 COLONOSCOP W/ OR W/O BRSH SPEC 09/03/2014 Colonoscopy COLONOSCOP W/ OR W/O BRS SPEC 09/12/2017 RAJAbdiel--Repeat 5 years (09/2022) PACEMAKER (PM) 1996 redone - 2008 Advil [Ibuprofen], Amlodipine, Asa [Salicylates], Lisinopril, and Zetia [Ezetimibe] Medications reviewed: Yes FAMILY HISTORY FAMILY HISTORY Problem Relation Age of Onset Diabetes Mother from diabetes SOCIAL HISTORY: SOCIAL HISTORY Social History Tobacco Use Smoking status: Never Smoker Smokeless tobacco: Never Used Substance Use Topics Alcohol use: No Drug use: No Delfino works out regularly 6 times per week with crosstraining. He watches his diet for sodium, low fat and low cholesterol some of the time. List of current specialists seen: Dr. Td Miller for skin cancer check End of Live Planning discussed including patients advanced directive wishes: Yes I am willing to follow Delfino's advanced directives. PHQ-2 / Depression screen Depression Screening 08/23/2020 10/26/2021 10/16/2022 11/08/2022 PHQ-2 Score 0 2 0 0 PHQ-9 Score 0 - 0 - Depression screening tool completed and reviewed. Based on score and interview, patient is not at risk for depression. Screening tool discussed with patient, and I recommended no further intervention at this time. Functional Ability/Safety Screen 1. Was the patient's timed Up and Go test unsteady or longer than 30 seconds? Yes 2. Does the patient need help with the phone, transportation, shopping,preparing meals, housework, laundry, medications or managing money? Yes - some 3. Does your home have rugs in the hallway, lack of grab bars in the bathroom (Y), lack of handrails on the stairs or have poor lighting? No Hearing Evaluation: normal BP 170/84 (BP Site: Left Arm, BP Position: Sitting, BP Cuff Size: Regular Adult) Pulse 68 Resp 16 Ht 180.3 cm (5' 11) Wt 93 kg (205 lb) BMI 28.59 kg/m Alert and oriented X 3: YES Body mass index is: Patient in wheel chair Visual acuity: sees Ophthalmology ASSESSMENT/PLAN: 72 year old male The following prevention plan was discussed during the office visit and provided to the patient: See below Chief Complaint Patient presents with: Medicare Wellness Exam HPI Delfino Rosales is a 72 year old male who presents here today for Chronic Medical Conditions. and Medicare Annual Visit. Office visit - medicare wellness Patient with hx of HLP, a. Fib, elevated blood pressures, TEMO, BPH, psoriasis, and those as below. Patient has been doing well no new issues or concerns. Office visit - 6 month follow up 04/2022 Patient with hx of HLP, a. Fib, elevated blood pressures, TEMO, BPH, psoriasis, and those as below. Has been doing ok. Will be getting a Turp 05/03/2022. Past medical history, appointments, medications, allergies reviewed. Previous Medical History PAST MEDICAL HISTORY Diagnosis Date Advance directive discussed with patient 10/26/2021 Discussed 10/2021 Asthma Benign non-nodular prostatic hyperplasia with lower urinary tract symptoms 07/20/2015 Elevated PSA 12/02/2019 Dr. Becerril- Feels that the elevation is from BPH and will treat and monitor his level. Considering surgery/bx later Extrinsic asthma 07/24/2006 Dr. Borges History of COVID-19 02/09/2021 02/09/2021 Hyperlipidemia, mixed 07/24/2006 Hypertension, essential 05/02/[address] 10/26/2021 DPA: Hortencia () Medicare annual wellness visit, subsequent 11/01/2020 Medical B eligibility date 03/14/16 Date of last exam 11/01/20 Nocturnal hypoxia 02/28/2021 Night pulse Ox test dropped below 89% and as low as 80%. TEMO (obstructive sleep apnea) 11/01/2020 Dr. Appiah. On CPAP Pacemaker 11/01/2020 Dr. 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 Tubular adenoma of rectum 08/03/2016 2015--polypectomy 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, 2014--polypectomy Vitiligo 1970 Previous Surgical History PAST SURGICAL HISTORY Procedure Laterality Date COLONOSCOPY 10/23/2022 COLONOSCOPY FLX DX W/COLLJ SPEC WHEN PFRMD 01/05/2004 Per mod repeat in -2013 COLONOSCOPY FLX DX W/COLLJ SPEC WHEN PFRMD 09/03/2014 Colonoscopy COLONOSCOPY FLX DX W/COLLJ SPEC WHEN PFRMD 09/12/2017 RAJAbdiel--Repeat 5 years (09/2022) PACEMAKER 06/28/2020 redone PACEMAKER (PM) 1996 redone - 2008 TRANSURETHRAL ELEC-SURG PROSTATECTOM 05/04/2022 Family History FAMILY HISTORY Problem Relation Age of Onset Diabetes Mother from diabetes Patient Allergies ALLERGIES Allergen Reactions Advil [Ibuprofen] Unknown Amlodipine Other: See Comments Lower extremity swelling Asa [Salicylates] Unknown Lisinopril Cough Losartan Myalgia Zetia [Ezetimibe] Other: See Comments weakness Current Medications Current Outpatient Medications on File Prior to Visit Medication Sig doxazosin (CARDURA) 4 mg tablet Take 1 tablet by mouth once daily. multivit-min/FA/lycopen/lutein (CENTRUM SILVER MEN ORAL) Take 1 capsule by mouth once daily. spironolactone (ALDACTONE) 100 mg tablet Take 1 tablet by mouth once daily. cloNIDine HCl (CATAPRES) 0.2 mg tablet Take 1 tablet by mouth twice daily. MEDICAL SUPPLY Lift chair, #1 device Dx: G12 and R53.81 MEDICAL SUPPLY Transport chair, #1 device Dx: G12 and R53.81 MEDICAL SUPPLY Extremity: Pair, Compression: 15-20 mmHg, Style: Closed Toe, Length: Knee-high, #2 pair with 1 refill, Dx: R60.0 CPAP Please change AutoPAP setting range to 10-18 cmH2O. Please provide download in 30 days. albuterol HFA (PROVENTIL HFA, VENTOLIN HFA) 90 mcg/actuation inhaler Inhale 2 Puffs as instructed as needed. No current facility-administered medications on file prior to visit. Social History Social History Tobacco Use Smoking status: Never Smokeless tobacco: Never Vaping Use Vaping Use: Never used Substance Use Topics Alcohol use: No Drug use: No Review of Symptoms REVIEW OF SYSTEMS GENERAL: No weight loss, malaise or fevers HEENT: Negative for frequent or significant headaches, No changes in hearing or vision, no nose bleeds or other nasal problems NECK: Negative for lumps, goiter, pain and significant neck swelling RESPIRATORY: Negative for cough, hemoptysis, wheezing, COPD, dyspnea or shortness of breath CARDIOVASCULAR: Negative for chest pain, increased leg swelling, hypertension, CHF or palpitations GI: No nausea, vomiting, or diarrhea, No heartburn or reflux symptoms, and blood : No history of dysuria, frequency or blood MUSCULOSKELETAL: Negative for joint pain or swelling, back pain or muscle pain SKIN: Negative for lesions, rash, and itching PSYCH: Negative for sleep disturbance, mood disorder and recent psychosocial stressors HEMATOLOGY/LYMPHOLOGY: Negative for prolonged bleeding, bruising easily or swollen nodes ENDOCRINE: Negative for cold or heat intolerance, polyuria, polydipsia and goiter NEURO: No history of headaches, syncope, paralysis, seizures or tremors EXAM: BP 170/84 (BP Site: Left Arm, BP Position: Sitting, BP Cuff Size: Regular Adult) Pulse 68 Resp 16 Ht 180.3 cm (5' 11) Wt 93 kg (205 lb) BMI 28.59 kg/m BP 172/84 Pulse 68 Resp 16 Ht 180.3 cm (5' 11) Wt 93 kg (205 lb) BMI 28.59 kg/m BP 132/71 Pulse 68 Resp 16 Ht 180.3 cm (5' 11) Wt 93 kg (205 lb) BMI 28.59 kg/m Last 4 Encounter Wt Readings: Date: Wt: 11/08/2022 93 kg (205 lb) 10/23/2022 93.7 kg (206 lb 9.1 oz) 09/20/2022 93.7 kg (206 lb 9.6 oz) 04/28/2022 86.2 kg (190 lb) General Appearance: Well appearing, alert, in no acute distress, well-hydrated, well nourished.. Head: Normocephalic, no masses, lesions, tenderness or abnormalities. Eyes: Anicteric sclera. Pupils are equally round and reactive to light. Extraocular movements are intact. . Ears: External ears normal, right TM normal and canal normal. Left TM blocked with wax. Removed with ear pick and on re-exam TM and canal normal. Nose/Sinuses: Nares normal, septum midline, mucosa normal, no drainage or sinus tenderness. Oropharynx: Lips, mucosa, and tongue normal, teeth and gums normal, oropharynx normal. Neck: Supple, no adenopathy; thyroid symmetric, normal size, no bruits. Lungs: Lungs clear to auscultation. No wheezing, rhonchi, rales.. Heart: RRR without murmur, gallop, or rubs. No ectopy. Abdomen: Normal abdominal exam, Abdomen soft, non-tender. Bowel sounds normal. No masses, organomegaly. Extremities: No deformities,skin discoloration, Good capillary refill. Mild non-pitting edema on the right and 1-2+ pitting on the left (chronic) Musculoskeletal:Muscular strength intact in the upper extremity and very weak in the lower extremities (chronic). Peripheral Pulses: Normal. Neurologic: in wheel chair. Sensation to light touch and crainal nerves 2-12 intact.. Health Maintenance List PNEUMOCOCCAL: 65+(1 - PCV) Never done BP CONTROLLED (<130/80) Never done SHINGRIX VACCINE(1 of 2) Never done DTAP,TDAP,TD(2 - Td or Tdap) due on 11/05/2018 COVID-19 VACCINE(2 - Booster for Viviana series) due on 2021 ADVANCE DIRECTIVE DISCUSSION due on 05/14/2022 DEPRESSION ASSESSMENT Never done ANNUAL PCP TEAM CHRONIC DISEASE VISIT due on 04/28/2023 DIABETES SCREEN due on 10/23/2025 LIPID SCREEN due on 10/24/2027 COLORECTAL CANCER SCREENING due on 10/24/2027 INFLUENZA Completed HEPATITIS C SCREENING Completed SPIROMETRY Discontinued Data reviewed Component Latest Ref Rng & Units 10/14/2021 10/23/2022 WBC 3.70 - 11.00 k/uL 5.96 7.15 RBC 4.20 - 6.00 m/uL 5.03 5.06 Hemoglobin 13.0 - 17.0 g/dL 15.4 15.7 Hematocrit 39.0 - 51.0 % 45.0 45.4 MCV 80.0 - 100.0 fL 89.5 89.7 MCH 26.0 - 34.0 pg 30.6 31.0 MCHC 30.5 - 36.0 g/dL 34.2 34.6 RDW-CV 11.5 - 15.0 % 12.6 12.7 Platelet Count 150 - 400 k/uL 228 197 MPV 9.0 - 12.7 fL 10.5 9.7 Neut% % 58.3 70.4 Abs Neut (ANC) 1.45 - 7.50 k/uL 3.48 5.03 Lymph% % 25.7 15.8 Abs Lymph 1.00 - 4.00 k/uL 1.53 1.13 Mcmullen% % 8.6 9.9 Abs Mcmullen <0.87 k/uL 0.51 0.71 Eosin% % 5.4 2.5 Abs Eosin <0.46 k/uL 0.32 0.18 Baso% % 1.3 0.6 Abs Baso <0.11 k/uL 0.08 0.04 Immature Gran % % 0.7 0.8 IMMATURE GRANS (ABS) <0.10 k/uL 0.04 0.06 NRBC /100 WBC 0.0 0.0 Absolute nRBC <0.01 k/uL <0.01 <0.01 DTYPE Auto Auto Protein, Total 6.3 - 8.0 g/dL 6.8 7.0 Albumin 3.9 - 4.9 g/dL 4.4 4.0 Calcium 8.5 - 10.2 mg/dL 9.4 9.2 Bilirubin, Total 0.2 - 1.3 mg/dL 0.5 0.6 Alkaline Phosphatase 38 - 113 U/L 55 57 AST 14 - 40 U/L 43 (H) 39 ALT 10 - 54 U/L 37 36 Glucose 74 - 99 mg/dL 100 (H) 90 BUN 9 - 24 mg/dL 16 12 Creatinine 0.73 - 1.22 mg/dL 0.68 (L) 0.71 (L) Sodium 136 - 144 mmol/L 137 135 (L) Potassium 3.7 - 5.1 mmol/L 3.3 (L) 4.2 Chloride 97 - 105 mmol/L 98 99 CO2 22 - 30 mmol/L 24 25 Anion Gap 9 - 18 mmol/L 15 11 eGFR >=60 mL/min/1.73m 100 98 Color Yellow Light Yellow Yellow Clarity Clear Clear Cloudy (A) Glucose, Urine Trace, Negative Negative Negative Bilirubin, Urine Negative Negative Negative Ketones, Urine Trace, Negative Negative 1+ (A) Specific [place]xton, Ur 1.005 - 1.030 1.009 1.011 Hemoglobin/Blood,Ur Negative, Trace Negative Trace pH, Urine 5.0 - 8.0 7.0 7.0 Protein, Urine Trace, Negative Negative 1+ (A) Urobilinogen Negative Negative Negative Nitrites Negative Negative Negative Leukest Negative, 25 Cristina/uL Negative 500 Cristina/uL (A) WBC, Urine 0-5 /HPF 0-5 /HPF >25 /HPF (A) RBC, Urine 0-3 /HPF 0-3 /HPF 0-3 /HPF Sperm None Seen /HPF Present (A) Total Cholesterol, Nonfasting <200 mg/dL 203 (H) 201 (H) Triglycerides, Nonfasting <150 mg/dL 97 95 HDL Cholesterol, Nonfasting >39 mg/dL 48 35 (L) LDL Cholesterol, Nonfasting <100 mg/dL 136 (H) 147 (H) Non HDL Cholesterol, Nonfasting <130 mg/dL 155 (H) 166 (H) VLDL Cholesterol, Nonfasting <30 mg/dL 19 19 Total Chol/HDL Ratio, Nonfasting <5.10 mg/dL 4.23 5.74 (H) LDL/HDL Ratio, Nonfasting <2.54 mg/dL 2.83 (H) 4.20 (H) A/P ASSESSMENT/PLAN: 1. Medicare annual wellness visit, subsequent - ICD9: V70.0, ICD10: Z00.00 (primary diagnosis) - Counseled on healthy diet and regular exercise - Follow up for annual exam in one year 2. Hypertension, essential - ICD9: 401.9, ICD10: I10 - Controlled - Continue current medications - Recommend home blood pressure monitoring, to bring results to next visit - Encouraged sodium restriction, DASH or Mediterranean diet - Recommend regular aerobic exercise 3. Hyperlipidemia, mixed - ICD9: 272.2, ICD10: E78.2 - Uncontrolled - Worsening control - Counseled on healthy diet and regular exercise 4. Mild intermittent extrinsic asthma without complication - ICD9: 493.00, ICD10: J45.20 - Mild intermittent asthma stable - Avoidance of triggers recommended - management per ceramic restorer. 5. Sinoatrial node dysfunction (HCC) - ICD9: 427.81, ICD10: I49.5 - management per cardio 6. Paroxysmal atrial fibrillation (HCC) - ICD9: 427.31, ICD10: I48.0 - as per #5 7. TEMO (obstructive sleep apnea) - ICD9: 327.23, ICD10: G47.33 - seeing Sleep Med 8. Benign non-nodular prostatic hyperplasia with lower urinary tract symptoms - ICD9: 600.91, ICD10: N40.1 - management per Urology 9. Elevated PSA - ICD9: 790.93, ICD10: R97.20 - as per #8 10. Spinal muscle atrophy (HCC) - ICD9: 335.10, ICD10: G12.9 - management per Neuro 11. Advance directive discussed with patient - ICD9: V65.49, ICD10: Z71.89 - needs to bring in copies. 12. Encounter for immunization - ICD9: V03.89, ICD10: Z23 - PNEUMOCOCCAL VACCINE (PREVNAR 20): given 13. Impacted cerumen of left ear - ICD9: 380.4, ICD10: H61.22 - discussed removal with ear pick and verbal consent given. Physician used ear pick for removal of wax. Patient tolerated well. F/u 6 months routine I spent a total of 40 minutes on the date of the service which included preparing to see the patient, [id number] patient care, completing clinical documentation, performing a medically appropriate examination, counseling and educating the patient/family/caregiver and ordering medications, tests, or procedures. Tomasz Fabian MD documented in this encounter [facility] 10-31-2022 Instructions Joan Diop PA-C - 10/31/2022 11:09 AM EDT The following instructions are important for you related to your office visit today with the [facility] General Surgeons. INSTRUCTIONS FOLLOWING A POLYP FOUND AT COLONOSCOPY You were found to have an adenomatous colon polyp. I recommend you undergo repeat endoscopy in 5 years. If you note bleeding, change in bowel habits, or other suspicious colon related symptoms before that time, those symptoms should be evaluated as necessary. If you have any difficulties or concerns, you should contact our office immediately. If you note any additional difficulties, questions, or concerns, you should contact our office immediately @ [phone] and ask to be transferred to the General Surgery department. documented in this encounter [facility] 10-31-2022 History of Present illness Narrative FOLLOW UP VISIT - ENDOSCOPY NAME: Delfino Rosales [facility] NO.: [id number] DATE OF SERVICE: 10/31/2022 : 1950 REFERRING PHYSICIAN: Tomasz Fabian MD Delfino is a patient I am following with Dr. Gregg for history of colon polyps and need for surveillance colonoscopy. Dr. Gregg performed lower endoscopy on 10/23/22. The patient was found to have non-bleeding internal hemorrhoids, and a small cecal polyp which was removed. Pathology demonstrated: FINAL DIAGNOSIS A. Colon, cecum, polyp, biopsy: - Tubular adenoma. The patient notes no complaints since the procedure. VITALS: Blood pressure 140/88, pulse 60, temperature 36.1 C (97 F), SpO2 100 %. General: patient is alert, cooperative, pleasant and in no acute distress On examination, the abdomen is benign. Assessment IMPRESSION: small tubular adenoma PLAN: The operative findings and pathology report were reviewed with the patient, and the patient has had the opportunity to ask questions and have questions answered. If the patient notes any problems or changes in bowel function, the patient should contact me immediately. Otherwise I recommend follow up endoscopy in 5 years Patient verbalized understanding of all above and agreed with the plan Diagnoses: (D36.9) Tubular adenoma (primary encounter diagnosis) I spent a total of 23 minutes on the date of the service which included preparing to see the patient, [id number] patient care, completing clinical documentation, obtaining and/or reviewing separately obtained history, counseling and educating the patient/family/caregiver, independently interpreting results (not separately reported), and communicating results to the patient/family/caregiver. Joan Diop PA-C documented in this encounter [facility] 10-23-2022 Nurse Note Snack and juice sent with patient, will go for labs immediately upon discharge from [facility] via W/C, taken to lab by Shani Richard RN. will pick him up at lab area. Patient received in phase II via cart left lateral position, eyes closed but open to verbal stimuli, skin warm and dry, respirations regular and unlabored, denies pain or nausea, abdomen soft and non distended. Resting comfortably on left side. documented in this encounter [facility] 10-23-2022 History and physical note UPDATED PROCEDURAL SEDATION HISTORY AND PHYSICAL EXAMINATION SERVICE DATE: 10/23/2022 SERVICE TIME: 10:42 PHYSICAL EXAM MUST BE COMPLETED ON ADMISSION PROCEDURE: colonoscopy, possible biopsies Procedure Indications: history of colon polyps The History and Physical (completed in the past 30 days) has been reviewed and the patient has been examined. The contents accurately reflect the patient's condition with the following additions or revisions since the H&P was completed. ASA Class: ASA Class:: Patient with mild systemic disease Examination indicates no changes. AIRWAY: Airway Visualization of Uvula: Yes Mouth opening greater than 2 fingerbreadths: Yes Neck Full Range of Motion: Yes LUNGS: Lungs clear to auscultation CARDIAC: Regular rhythm,Regular rate Provisional Diagnosis/Treatment Plan: colonoscopy, possible biopsies SEDATION GOAL: Moderate This H&P can be found in the Electronic Medical Record . SIGNATURE: Keli Gregg MD PATIENT NAME: Delfino Rosales DATE: October 23, 2022 TIME: 10:42 AM Source Note - Keli Gregg MD - 10/23/2022 11:15 AM EDT HISTORY AND PHYSICAL Delfino Rosales 1950 REFERRING PHYSICIAN: Tomasz Fabian MD CHIEF COMPLAINT: Consult (Colonoscopy consult.) HPI: The patient is a 72 year old male referred for endoscopy. Delfino notes history of colon polyps and require surveillance colonoscopy. The patient denies blood in stools, denies abdominal pain, and denies changes in bowel habits. The patient notes no colon cancer in immediate family. The patient had previous colonoscopy in 2013 with findings of colon polyps and follow up surveillance colonoscopy in 2018 revealed no polyps. He has decreased mobility due to spinal muscle atrophy, which sounds like a type of muscular dystrophy and balance and easily fatigued; it sounds like myasthenia gravis. He also has sick sinus syndrome with a permanent pacemaker. He also has sleep apnea. This makes him an ASA III PAST MEDICAL HISTORY PAST MEDICAL HISTORY Diagnosis Date Advance directive discussed with patient 10/26/2021 Discussed 10/2021 Benign non-nodular prostatic hyperplasia with lower urinary tract symptoms 07/20/2015 Elevated PSA 12/02/2019 Dr. Becerril- Feels that the elevation is from BPH and will treat and monitor his level. Considering surgery/bx later Extrinsic asthma 07/24/2006 Dr. Borges History of COVID-19 02/09/2021 02/09/2021 Hyperlipidemia, mixed 07/24/2006 Hypertension, essential 05/02/[address] 10/26/2021 DPA: Hortencia () Medicare annual wellness visit, subsequent 11/01/2020 Medical B eligibility date 03/14/16 Date of last exam 11/01/20 Nocturnal hypoxia 02/28/2021 Night pulse Ox test dropped below 89% and as low as 80%. TEMO (obstructive sleep apnea) 11/01/2020 Dr. Appiah. On CPAP Pacemaker 11/01/2020 Dr. 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 Spinal muscle atrophy (HCC) 1997 Tubular adenoma of rectum 08/03/20162014--polypectomy 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, 2014--polypectomy Vitiligo 1970 PAST SURGICAL HISTORY PAST SURGICAL HISTORY Procedure Laterality Date COLONOSCOPY FLX DX W/COLLJ SPEC WHEN PFRMD 01/05/2004 Per mod repeat in -2013 COLONOSCOPY FLX DX W/COLLJ SPEC WHEN PFRMD 09/03/2014 Colonoscopy COLONOSCOPY FLX DX W/COLLJ SPEC WHEN PFRMD 09/12/2017 RAJAbdiel--Repeat 5 years (09/2022) PACEMAKER 06/28/2020 redone PACEMAKER (PM) 1996 redone - 2008 TRANSURETHRAL ELEC-SURG PROSTATECTOM 05/04/2022 Current Outpatient Medications Medication Sig multivit-min/FA/lycopen/lutein (CENTRUM SILVER MEN ORAL) Take 1 capsule by mouth once daily. spironolactone (ALDACTONE) 100 mg tablet Take 1 tablet by mouth once daily. cloNIDine HCl (CATAPRES) 0.2 mg tablet Take 1 tablet by mouth twice daily. doxazosin (CARDURA) 4 mg tablet Take 1 tablet by mouth once daily. CPAP Please change AutoPAP setting range to 10-18 cmH2O. Please provide download in 30 days. albuterol HFA (PROVENTIL HFA, VENTOLIN HFA) 90 mcg/actuation inhaler Inhale 2 Puffs as instructed as needed. MEDICAL SUPPLY Lift chair, #1 device Dx: G12 and R53.81 MEDICAL SUPPLY Transport chair, #1 device Dx: G12 and R53.81 MEDICAL SUPPLY Extremity: Pair, Compression: 15-20 mmHg, Style: Closed Toe, Length: Knee-high, #2 pair with 1 refill, Dx: R60.0 doxazosin (CARDURA) 2 mg tablet Take 1 tablet by mouth once daily. (Patient not taking: Reported on 05/19/2022) cholecalciferol, vitamin D3, (VITAMIN D3 ORAL) Take by mouth. ALLERGIES: Advil [Ibuprofen], Amlodipine, Asa [Salicylates], Lisinopril, Losartan, and Zetia [Ezetimibe] PERSONAL HISTORY: SOCIAL HISTORY Social History Tobacco Use Smoking status: Never Smokeless tobacco: Never Vaping Use Vaping Use: Never used Substance Use Topics Alcohol use: No Drug use: No FAMILY HISTORY FAMILY HISTORY Problem Relation Age of Onset Diabetes Mother from diabetes The review of systems data was entered by the nurse and reviewed by nh Nursing Notes: Silvana Boyer RN 09/20/2022 2:49 PM Signed REVIEW OF SYSTEMS: General: The patient denies fatigue, denies weight loss, denies weight gain, denies feeling hot, and denies feelings of cold. Eyes: The patient denies glaucoma, denies eye injury/surgery, wears glasses or contacts. Ear/Nose/Throat: The patient denies allergies, denies hayfever, denies ear infections, and denies bloody noses. Cardiovascular: The patient denies chest pain, denies heart disease, NOTES high blood pressure,denies cardiac stent, denies prior heart attack, NOTES irregular heart beat, NOTES high cholesterol, denies poor circulation, NOTES heart failure, other cardiac issues, denies claudication, denies cold feet, peripheral arterial stent and NOTES pacemaker. Respiratory: The patient denies tuberculosis, denies pneumonia, denies frequent cough, denies pulmonary embolism, denies shortness of breath, denies coughing up blood, NOTES asthma and NOTES TEMO. Gastrointestinal: The patient denies difficulty swallowing, denies acid reflux, denies ulcers, denies vomiting, denies jaundice/hepatitis, denies gallbladder problems, denies black or tarry stools, denies hemorrhoids, denies bleeding from rectum, denies diverticulitis, denies constipation, denies diarrhea, denies loss of stool control, and denies hernias. Kidney/Bladder: The patient denies kidney stones, denies urine infections, and denies bloody urine. Skin: The patient denies a history of skin cancer, denies bleeding/changing moles, and NOTES a history of skin rash-psoriasis. Neurologic: The patient denies a history of epilepsy/convulsions, denies headaches, denies head/spinal injuries, and denies stroke/TIA. Psychiatric: The patient denies psychiatric medications, denies depression, and denies voices, denies substance abuse. Endocrine: The patient denies thyroid disorders, denies diabetes, and denies hormonal problems. Hematologic: The patient denies a history of bruising, denies bleeding, and denies anemia, denies blood clots. Infections: The patient denies a history of measles and mumps, denies rheumatic fever, and denies sexually transmitted diseases. Musculoskeletal: The patient denies back pain/injury, denies back problems, denies sciatica, denies knee/foot trouble, denies arthritis, or denies gout. When was patient's last Mammogram screening? N/A Last Colonoscopy: 2017 Silvana Boyer RN PHYSICAL EXAMINATION: General: The patient is 72 year old male, well nourished, well hydrated in no acute distress. The patient is oriented to time, place, and person. VITALS: Blood pressure 132/84, pulse 71, temperature 36.4 C (97.6 F), height 180.3 cm (5' 11), weight 93.7 kg (206 lb 9.6 oz), SpO2 96 %. Body mass index is 28.81 kg/m . Head: Normal cephalic, atraumatic Eyes: pupils are equally round, sclera are clear/anicteric Neck is supple with no tracheal deviation Respiratory: Normal respiratory excursion and pattern. Abdominal exam: benign Extremities: no clubbing, cyanosis or edema. Neuro: non focal Psych: normal mood IMPRESSION: history of colon polyps PLAN: I have discussed the above with the patient. I have offered colonoscopy, possible biopsies I have explained the procedure to the patient. I have counseled the patient as to the risks of the procedure, including but not limited to: infection, bleeding, injury to any intrabdominal organs such as liver/spleen, perforation of the GI tract, inability to complete the procedure, complications of anesthesia, etc. - the patient understands. The patient wishes to proceed. I have answered all questions to the patient s satisfaction and the patient has no further questions. Keli Gregg MD HISTORY AND PHYSICAL Delfino Rosales 1950 REFERRING PHYSICIAN: Tomasz Fabian MD CHIEF COMPLAINT: Consult (Colonoscopy consult.) HPI: The patient is a 72 year old male referred for endoscopy. Delfino notes history of colon polyps and require surveillance colonoscopy. The patient denies blood in stools, denies abdominal pain, and denies changes in bowel habits. The patient notes no colon cancer in immediate family. The patient had previous colonoscopy in 2012 with findings of colon polyps and follow up surveillance colonoscopy in 2018 revealed no polyps. He has decreased mobility due to spinal muscle atrophy, which sounds like a type of muscular dystrophy and balance and easily fatigued; it sounds like myasthenia gravis. He also has sick sinus syndrome with a permanent pacemaker. He also has sleep apnea. This makes him an ASA III PAST MEDICAL HISTORY PAST MEDICAL HISTORY Diagnosis Date Advance directive discussed with patient 10/26/2021 Discussed 10/2021 Benign non-nodular prostatic hyperplasia with lower urinary tract symptoms 07/20/2015 Elevated PSA 12/02/2019 Dr. Becerril- Feels that the elevation is from BPH and will treat and monitor his level. Considering surgery/bx later Extrinsic asthma 07/24/2006 Dr. Borges History of COVID-19 02/09/2021 02/09/2021 Hyperlipidemia, mixed 07/24/2006 Hypertension, essential 05/02/[address] 10/26/2021 DPA: Hortencia () Medicare annual wellness visit, subsequent 11/01/2020 Medical B eligibility date 03/14/16 Date of last exam 11/01/20 Nocturnal hypoxia 02/28/2021 Night pulse Ox test dropped below 89% and as low as 80%. TEMO (obstructive sleep apnea) 11/01/2020 Dr. Appiah. On CPAP Pacemaker 11/01/2020 Dr. 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 Spinal muscle atrophy (HCC) 1997 Tubular adenoma of rectum 08/03/20162014--polypectomy 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, 2014--polypectomy Vitiligo 1970 PAST SURGICAL HISTORY PAST SURGICAL HISTORY Procedure Laterality Date COLONOSCOPY FLX DX W/COLLJ SPEC WHEN PFRMD 01/05/2004 Per mod repeat in COLONOSCOPY FLX DX W/COLLJ SPEC WHEN PFRMD 09/03/2014 Colonoscopy COLONOSCOPY FLX DX W/COLLJ SPEC WHEN [facility]FRMD [facility]/2022) PACEMAKER 06/28/2020 redone PACEMAKER (PM) 1996 redone - 2008 TRANSURETHRAL ELEC-SURG PROSTATECTOM 05/04/2022 Current Outpatient Medications Medication Sig multivit-min/FA/lycopen/lutein (CENTRUM SILVER MEN ORAL) Take 1 capsule by mouth once daily. spironolactone (ALDACTONE) 100 mg tablet Take 1 tablet by mouth once daily. cloNIDine HCl (CATAPRES) 0.2 mg tablet Take 1 tablet by mouth twice daily. doxazosin (CARDURA) 4 mg tablet Take 1 tablet by mouth once daily. CPAP Please change AutoPAP setting range to 10-18 cmH2O. Please provide download in 30 days. albuterol HFA (PROVENTIL HFA, VENTOLIN HFA) 90 mcg/actuation inhaler Inhale 2 Puffs as instructed as needed. MEDICAL SUPPLY Lift chair, #1 device Dx: G12 and R53.81 MEDICAL SUPPLY Transport chair, #1 device Dx: G12 and R53.81 MEDICAL SUPPLY Extremity: Pair, Compression: 15-20 mmHg, Style: Closed Toe, Length: Knee-high, #2 pair with 1 refill, Dx: R60.0 doxazosin (CARDURA) 2 mg tablet Take 1 tablet by mouth once daily. (Patient not taking: Reported on 05/19/2022) cholecalciferol, vitamin D3, (VITAMIN D3 ORAL) Take by mouth. ALLERGIES: Advil [Ibuprofen], Amlodipine, Asa [Salicylates], Lisinopril, Losartan, and Zetia [Ezetimibe] PERSONAL HISTORY: SOCIAL HISTORY Social History Tobacco Use Smoking status: Never Smokeless tobacco: Never Vaping Use Vaping Use: Never used Substance Use Topics Alcohol use: No Drug use: No FAMILY HISTORY FAMILY HISTORY Problem Relation Age of Onset Diabetes Mother from diabetes The review of systems data was entered by the nurse and reviewed by nh Nursing Notes: Silvana Boyer RN 09/20/2022 2:49 PM Signed REVIEW OF SYSTEMS: General: The patient denies fatigue, denies weight loss, denies weight gain, denies feeling hot, and denies feelings of cold. Eyes: The patient denies glaucoma, denies eye injury/surgery, wears glasses or contacts. Ear/Nose/Throat: The patient denies allergies, denies hayfever, denies ear infections, and denies bloody noses. Cardiovascular: The patient denies chest pain, denies heart disease, NOTES high blood pressure,denies cardiac stent, denies prior heart attack, NOTES irregular heart beat, NOTES high cholesterol, denies poor circulation, NOTES heart failure, other cardiac issues, denies claudication, denies cold feet, peripheral arterial stent and NOTES pacemaker. Respiratory: The patient denies tuberculosis, denies pneumonia, denies frequent cough, denies pulmonary embolism, denies shortness of breath, denies coughing up blood, NOTES asthma and NOTES TEMO. Gastrointestinal: The patient denies difficulty swallowing, denies acid reflux, denies ulcers, denies vomiting, denies jaundice/hepatitis, denies gallbladder problems, denies black or tarry stools, denies hemorrhoids, denies bleeding from rectum, denies diverticulitis, denies constipation, denies diarrhea, denies loss of stool control, and denies hernias. Kidney/Bladder: The patient denies kidney stones, denies urine infections, and denies bloody urine. Skin: The patient denies a history of skin cancer, denies bleeding/changing moles, and NOTES a history of skin rash-psoriasis. Neurologic: The patient denies a history of epilepsy/convulsions, denies headaches, denies head/spinal injuries, and denies stroke/TIA. Psychiatric: The patient denies psychiatric medications, denies depression, and denies voices, denies substance abuse. Endocrine: The patient denies thyroid disorders, denies diabetes, and denies hormonal problems. Hematologic: The patient denies a history of bruising, denies bleeding, and denies anemia, denies blood clots. Infections: The patient denies a history of measles and mumps, denies rheumatic fever, and denies sexually transmitted diseases. Musculoskeletal: The patient denies back pain/injury, denies back problems, denies sciatica, denies knee/foot trouble, denies arthritis, or denies gout. When was patient's last Mammogram screening? N/A Last Colonoscopy: 2017 Silvana Boyer RN PHYSICAL EXAMINATION: General: The patient is 72 year old male, well nourished, well hydrated in no acute distress. The patient is oriented to time, place, and person. VITALS: Blood pressure 132/84, pulse 71, temperature 36.4 C (97.6 F), height 180.3 cm (5' 11), weight 93.7 kg (206 lb 9.6 oz), SpO2 96 %. Body mass index is 28.81 kg/m . Head: Normal cephalic, atraumatic Eyes: pupils are equally round, sclera are clear/anicteric Neck is supple with no tracheal deviation Respiratory: Normal respiratory excursion and pattern. Abdominal exam: benign Extremities: no clubbing, cyanosis or edema. Neuro: non focal Psych: normal mood IMPRESSION: history of colon polyps PLAN: I have discussed the above with the patient. I have offered colonoscopy, possible biopsies I have explained the procedure to the patient. I have counseled the patient as to the risks of the procedure, including but not limited to: infection, bleeding, injury to any intrabdominal organs such as liver/spleen, perforation of the GI tract, inability to complete the procedure, complications of anesthesia, etc. - the patient understands. The patient wishes to proceed. I have answered all questions to the patient s satisfaction and the patient has no further questions. Keli Gregg MD documented in this encounter [facility] 10-17-2022 Note HNO ID: [id number] Author: Raleigh Appiah Jr., MD Service: ? Author Type: Physician Type: Progress Notes Filed: 10/17/2022 11:28 AM Note Text: ESTABLISHED PATIENT VISIT (Virtual Visit with Video) For this virtual visit, the patient has been identified by name and (MRN and photo identification as well if available). Those taking part in visit: Patient and physican via Consent for this visit received from patient. I have communicated my name and active licensure. The patient's identity and physical location were verified at the time of this visit. Either the patient or their legal food service sales representatives has been informed of the risks and benefits of -- and alternatives to -- treatment through a remote evaluation and consents to proceed with the evaluation remotely. HISTORY OF PRESENT ILLNESS: Delfino Rosales is a 72 year old male, with past med history significant for and per last office visit note (virtual visit) of 08/26/21: 1. TEMO on CPAP - ICD9: 327.23, V46.8, ICD10: G47.33, Z99.89 (primary diagnosis) Doing well on PAP therapy both subjectively and objectively. No changes in therapy today. Encouraged compliance. Reminded to clean and replace equipment regularly. Currently without daytime sleepiness. although ESS slightly elevated at 11. 2. SMA (spinal muscular atrophy) ([facility]) - ICD9: 335.10, ICD10: G12.9 Will request consult to Dr. Lawler for opinion re SMA and possible treatment options. PAP compliance report for the 90 days leading up to 10/01/22 showed pt to have used device 89/90 days for avg of 7 hours and 28 minutes. Set at 10-18 cmH2O. AHI is 0.6. 95% pressure is 11.2 cmH2O. 95% leak is 1.8 LPM. No CSB. Pt reports no issus with PAP. Patient thinks everything is going good. Washing regularly. [employer] providing supplies regularly. Feels PAP settings are perfect. States did attempt to reach Dr. Lawler but told nothing they can help him with per patient except for meds that would cost too much. States otherwise health is great. Feels SMA symptoms unchanged. REVIEW OF SYSTEMS GENERAL:No weight loss, malaise or fevers. HEENT:Negative for frequent or significant headaches, No changes in hearing or vision, no nose bleeds or other nasal problems RESPIRATORY: Negative for cough, wheezing or shortness of breath. CARDIOVASCULAR: Negative for chest pain, or palpitations. GASTROINTESTINAL: Negative for abdominal discomfort, blood in stools or black stools or change in bowel habits GENITOURINARY: No history of dysuria, frequency or incontinence NEUROLOGIC:See HPI. Feels SMA stable. Still needs walker for stability. LAB/IMAGING: Those performed since patient's last visit have been reviewed. WBC (k/uL) Date Value 10/14/2021 5.96 RBC (m/uL) Date Value 10/14/2021 5.03 Hemoglobin (g/dL) Date Value 10/14/2021 15.4 Hematocrit (%) Date Value 10/14/2021 45.0 MCV (fL) Date Value 10/14/2021 89.5 MCH (pg) Date Value 10/14/2021 30.6 MCHC (g/dL) Date Value 10/14/2021 34.2 RDW-CV (%) Date Value 10/14/2021 12.6 Platelet Count (k/uL) Date Value 10/14/2021 228 MPV (fL) Date Value 10/14/2021 10.5 Glucose (mg/dL) Date Value 02/02/2022 100 (H) BUN (mg/dL) Date Value 02/02/2022 22 Creatinine (mg/dL) Date Value 02/02/2022 0.69 (L) Sodium (mmol/L) Date Value 02/02/2022 137 Potassium (mmol/L) Date Value 02/02/2022 4.3 Chloride (mmol/L) Date Value 02/02/2022 101 CO2 (mmol/L) Date Value 02/02/2022 26 Protein, Total (g/dL) Date Value 10/14/2021 6.8 Albumin (g/dL) Date Value 10/14/2021 4.4 Calcium, Total (mg/dL) Date Value 02/02/2022 9.1 Alkaline Phosphatase (U/L) Date Value 10/14/2021 55 Bilirubin, Total (mg/dL) Date Value 10/14/2021 0.5 AST (U/L) Date Value 10/14/2021 43 (H) ALT (U/L) Date Value 10/14/2021 37 Hep C Antibody IA (no units) Date Value 11/01/2020 Negative MEDICATIONS: doxazosin (CARDURA) 4 mg tablet Take 1 tablet by mouth once daily. multivit-min/FA/lycopen/lutein (CENTRUM SILVER MEN ORAL) Take 1 capsule by mouth once daily. spironolactone (ALDACTONE) 100 mg tablet Take 1 tablet by mouth once daily. cloNIDine HCl (CATAPRES) 0.2 mg tablet Take 1 tablet by mouth twice daily. MEDICAL SUPPLY Lift chair, #1 device Dx: G12 and R53.81 MEDICAL SUPPLY Transport chair, #1 device Dx: G12 and R53.81 MEDICAL SUPPLY Extremity: Pair, Compression: 15-20 mmHg, Style: Closed Toe, Length: Knee-high, #2 pair with 1 refill, Dx: R60.0 doxazosin (CARDURA) 2 mg tablet Take 1 tablet by mouth once daily. (Patient not taking: Reported on 05/19/2022) cholecalciferol, vitamin D3, (VITAMIN D3 ORAL) Take by mouth. CPAP Please change AutoPAP setting range to 10-18 cmH2O. Please provide download in 30 days. albuterol HFA (PROVENTIL HFA, VENTOLIN HFA) 90 mcg/actuation inhaler Inhale 2 Puffs as instructed as needed. HISTORIES PAST MEDICAL HISTORY Diagnosis Date Advance di (more content not included)... [facility] 10-17-2022 Instructions Raleigh Appiah Jr., MD - 10/17/2022 11:28 AM EDT Your most recent body mass index (BMI) that we have on record is 28.81 kg/m2. Obstructive sleep apnea (TEMO) worsens with an increase in weight; reduction in weight may improve or resolve your TEMO. If you are not already seeking treatment, there are resources available at the [facility] such as a nutrition consultation or referral to weight management programs at our [facility]. Please let us know if we can assist with a referral. documented in this encounter [facility] 10-17-2022 History of Present illness Narrative ESTABLISHED PATIENT VISIT (Virtual Visit with Video) For this virtual visit, the patient has been identified by name and (MRN and photo identification as well if available). Those taking part in visit: Patient and physican via Consent for this visit received from patient. I have communicated my name and active licensure. The patient's identity and physical location were verified at the time of this visit. Either the patient or their legal food service sales representatives has been informed of the risks and benefits of -- and alternatives to -- treatment through a remote evaluation and consents to proceed with the evaluation remotely. HISTORY OF PRESENT ILLNESS: Delfino Rosales is a 72 year old male, with past med history significant for and per last office visit note (virtual visit) of 08/26/21: 1. TEMO on CPAP - ICD9: 327.23, V46.8, ICD10: G47.33, Z99.89 (primary diagnosis) Doing well on PAP therapy both subjectively and objectively. No changes in therapy today. Encouraged compliance. Reminded to clean and replace equipment regularly. Currently without daytime sleepiness. although ESS slightly elevated at 11. 2. SMA (spinal muscular atrophy) ([facility]) - ICD9: 335.10, ICD10: G12.9 Will request consult to Dr. Lawler for opinion re SMA and possible treatment options. PAP compliance report for the 90 days leading up to 10/01/22 showed pt to have used device 89/90 days for avg of 7 hours and 28 minutes. Set at 10-18 cmH2O. AHI is 0.6. 95% pressure is 11.2 cmH2O. 95% leak is 1.8 LPM. No CSB. Pt reports no issus with PAP. Patient thinks everything is going good. Washing regularly. [employer] providing supplies regularly. Feels PAP settings are perfect. States did attempt to reach Dr. Lawler but told nothing they can help him with per patient except for meds that would cost too much. States otherwise health is great. Feels SMA symptoms unchanged. REVIEW OF SYSTEMS GENERAL:No weight loss, malaise or fevers. HEENT:Negative for frequent or significant headaches, No changes in hearing or vision, no nose bleeds or other nasal problems RESPIRATORY: Negative for cough, wheezing or shortness of breath. CARDIOVASCULAR: Negative for chest pain, or palpitations. GASTROINTESTINAL: Negative for abdominal discomfort, blood in stools or black stools or change in bowel habits GENITOURINARY: No history of dysuria, frequency or incontinence NEUROLOGIC:See HPI. Feels SMA stable. Still needs walker for stability. LAB/IMAGING: Those performed since patient's last visit have been reviewed. WBC (k/uL) Date Value 10/14/2021 5.96 RBC (m/uL) Date Value 10/14/2021 5.03 Hemoglobin (g/dL) Date Value 10/14/2021 15.4 Hematocrit (%) Date Value 10/14/2021 45.0 MCV (fL) Date Value 10/14/2021 89.5 MCH (pg) Date Value 10/14/2021 30.6 MCHC (g/dL) Date Value 10/14/2021 34.2 RDW-CV (%) Date Value 10/14/2021 12.6 Platelet Count (k/uL) Date Value 10/14/2021 228 MPV (fL) Date Value 10/14/2021 10.5 Glucose (mg/dL) Date Value 02/02/2022 100 (H) BUN (mg/dL) Date Value 02/02/2022 22 Creatinine (mg/dL) Date Value 02/02/2022 0.69 (L) Sodium (mmol/L) Date Value 02/02/2022 137 Potassium (mmol/L) Date Value 02/02/2022 4.3 Chloride (mmol/L) Date Value 02/02/2022 101 CO2 (mmol/L) Date Value 02/02/2022 26 Protein, Total (g/dL) Date Value 10/14/2021 6.8 Albumin (g/dL) Date Value 10/14/2021 4.4 Calcium, Total (mg/dL) Date Value 02/02/2022 9.1 Alkaline Phosphatase (U/L) Date Value 10/14/2021 55 Bilirubin, Total (mg/dL) Date Value 10/14/2021 0.5 AST (U/L) Date Value 10/14/2021 43 (H) ALT (U/L) Date Value 10/14/2021 37 Hep C Antibody IA (no units) Date Value 11/01/2020 Negative MEDICATIONS: doxazosin (CARDURA) 4 mg tablet Take 1 tablet by mouth once daily. multivit-min/FA/lycopen/lutein (CENTRUM SILVER MEN ORAL) Take 1 capsule by mouth once daily. spironolactone (ALDACTONE) 100 mg tablet Take 1 tablet by mouth once daily. cloNIDine HCl (CATAPRES) 0.2 mg tablet Take 1 tablet by mouth twice daily. MEDICAL SUPPLY Lift chair, #1 device Dx: G12 and R53.81 MEDICAL SUPPLY Transport chair, #1 device Dx: G12 and R53.81 MEDICAL SUPPLY Extremity: Pair, Compression: 15-20 mmHg, Style: Closed Toe, Length: Knee-high, #2 pair with 1 refill, Dx: R60.0 doxazosin (CARDURA) 2 mg tablet Take 1 tablet by mouth once daily. (Patient not taking: Reported on 05/19/2022) cholecalciferol, vitamin D3, (VITAMIN D3 ORAL) Take by mouth. CPAP Please change AutoPAP setting range to 10-18 cmH2O. Please provide download in 30 days. albuterol HFA (PROVENTIL HFA, VENTOLIN HFA) 90 mcg/actuation inhaler Inhale 2 Puffs as instructed as needed. HISTORIES PAST MEDICAL HISTORY Diagnosis Date Advance directive discussed with patient 10/26/2021 Discussed 10/2021 Benign non-nodular prostatic hyperplasia with lower urinary tract symptoms 07/20/2015 Elevated PSA 12/02/2019 Dr. Becerril- Feels that the elevation is from BPH and will treat and monitor his level. Considering surgery/bx later Extrinsic asthma 07/24/2006 Dr. Borges History of COVID-19 02/09/2021 02/09/2021 Hyperlipidemia, mixed 07/24/2006 Hypertension, essential 05/02/[address] 10/26/2021 DPA: Hortencia () Medicare annual wellness visit, subsequent 11/01/2020 Medical B eligibility date 03/14/16 Date of last exam 11/01/20 Nocturnal hypoxia 02/28/2021 Night pulse Ox test dropped below 89% and as low as 80%. TMEO (obstructive sleep apnea) 11/01/2020 Dr. Appiah. On CPAP Pacemaker 11/01/2020 Dr. 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, 2014--polypectomy Vitiligo 1970 FAMILY HISTORY Problem Relation Age of Onset Diabetes Mother from diabetes SOCIAL HISTORY Social History Tobacco Use Smoking status: Never Smokeless tobacco: Never Vaping Use Vaping Use: Never used Substance Use Topics Alcohol use: No Drug use: No PHYSICAL EXAMINATION There were no vitals taken for this visit. GENERAL EXAM: General appearance: NAD, pleasant. HEENT: NC/AT, nasal congestion absent. NECK: No masses, supple. Lungs: No audible cough, wheeze, sob. NEUROLOGICAL EXAM: General: Awake, alert, oriented x3 (person,place,time), speech fluent, no dysarthria; comprehension, naming, repetition intact. CN: EOMI, face symmetric, hearing is intact, palate and tongue movements are intact and symmetric. SCM and trapezius strength symmetric. Limited exam due to connection. Assessment and Plan: ASSESSMENT/PLAN: 1. TEMO on CPAP - ICD9: 327.23, V46.8, ICD10: G47.33, Z99.89 (primary diagnosis) Patient doing well on PAP - perceived benefit. Compliant by both subjective history and objective measures. No other complaints at this time. Reminded to clean and replace equipment regularly. Advised not to drive or operate heavy machinery if sleepy. Encouraged weight loss. Follow up 1 year or sooner prn. 2. SMA (spinal muscular atrophy) (HCC) - ICD9: 335.10, ICD10: G12.9 Stable per subjective history. No additional recs at this time. Raleigh Appiah MD I spent a total of 15 minutes on the date of the service which included preparing to see the patient, [id number] patient care, completing clinical documentation, obtaining and/or reviewing separately obtained history, performing a medically appropriate examination, counseling and educating the patient/family/caregiver, independently interpreting results (not separately reported), and communicating results to the patient/family/caregiver. documented in this encounter [facility] 09-20-2022 Instructions Keli Gregg MD - 09/20/2022 2:50 PM EDT Images from the original note were not included. Bowel Preparation Instructions for: Golytely, Nulytely, Trilyte or Colyte (polyethylene glycol 3350 and electrolytes) IF YOU DO NOT FOLLOW THESE DIRECTIONS, YOUR COLONOSCOPY WILL BE CANCELLED. [place] Instructions: Your bowel must be empty so that your doctor can clearly view your colon. Follow all of the instructions in this handout EXACTLY as they are written. Do NOT eat any solid food the ENTIRE day before your colonoscopy. Drink only clear liquids. Buy your bowel preparation at least 5 days before your colonoscopy. TRANSPORTATION on the Day of Your Exam A responsible person MUST be present with you at Check In prior to your colonoscopy and REMAIN in the endoscopy area until you are discharged. You are NOT ALLOWED to drive, take a taxi or bus, or leave the Endoscopy Center ALONE. If you do not have a responsible driver engineer (family member or friend) with you to take you home, your exam cannot be done with sedation and will be cancelled. Please bring a list of all of your current medications, including any Over-the Counter medications with you. Medications If you take insulin, diabetic medications or blood thinners such as Coumadin (warfarin), Plavix (clopidogrel), Ticlid (ticlopidine hydrochloride), Agrylin (anagrelide), Xarelto (Rivaroxaban), Pradaxa (Dabigatran), Eliquis (Apixaban), and Effient (Prasugrel). You MUST call the doctors who orders those medicines for instructions on altering the dosage before your colonoscopy. All other medications should be taken the day of the exam with a sip of water including ASPIRIN. Five (5) Days Before Your Colonoscopy Do NOT take medicines that stop diarrhea - such as Imodium, Kaopectate, or Pepto Bismol. Do NOT take fiber supplements - such as Metamucil, Citrucel, or Perdiem. Do NOT take products that contain iron - such as multi-vitamins (the label lists what is in the products). Do NOT take Vitamin E. Buy the prescription bowel preparation solution at your local pharmacy or drugstore pharmacy. 04/2019 Bowel Preparation Instructions for: Golytely, Nulytely, Trilyte or Colyte (polyethylene glycol 3350 and electrolytes) Three (3) Days Before Your Colonoscopy Do NOT eat high-fiber foods - such as popcorn, beans, seeds (flax, sunflower, quinoa), multigrain bread, nuts, salad/vegetables, or fresh and dried fruit. One (1) Day Before Your Colonoscopy Only drink clear liquids the ENTIRE DAY before your colonoscopy. Do NOT eat any solid foods. Drink at least 8 ounces of clear liquids every hour after waking up. The clear liquids you can drink include: Clear Liquid (NO RED LIQUIDS) DO NOT DRINK Gatorade, Pedialyte or Powerade Clear broth or bouillon Coffee or tea (no milk or non-dairy creamer) Carbonated and non-carbonated soft drinks [employer] or other fruit flavored drinks Strained fruit juices (no pulp) Jell-O, popsicles, hard candy Water Alcohol Milk or non-dairy creamers Noodles or vegetables in soup Juice with pulp Liquid you cannot see through Do not use tobacco/vaping products The bowel preparation solution will be consumed in two parts. Mix the solution the evening before your colonoscopy and refrigerate before drinking. You may add the flavor pack that came with the bowel preparation. Do NOT add ice, sugar or any other flavorings to the solution. Part 1 At 6:00 PM - Evening before your colonoscopy Drink an 8-oz glass of bowel preparation every 10 minutes for a total of 8 glasses. You may continue to drink clear liquids until midnight. Part 2 On the day of your colonoscopy you may drink clear liquids up to (three) 3 hours before your procedure. 4 1/2 hours before your colonoscopy Drink an 8-oz glass of bowel preparation every 10 minutes for a total of 8 glasses. Fifteen (15) minutes later, drink an 8-oz glass of clear liquids every 15 minutes for a total of 2 glasses. You may continue to drink clear liquids up to (three) 3 hours before your exam. 2 04/2019 documented in this encounter [facility] 09-20-2022 Nurse Note REVIEW OF SYSTEMS: General: The patient denies fatigue, denies weight loss, denies weight gain, denies feeling hot, and denies feelings of cold. Eyes: The patient denies glaucoma, denies eye injury/surgery, wears glasses or contacts. Ear/Nose/Throat: The patient denies allergies, denies hayfever, denies ear infections, and denies bloody noses. Cardiovascular: The patient denies chest pain, denies heart disease, NOTES high blood pressure,denies cardiac stent, denies prior heart attack, NOTES irregular heart beat, NOTES high cholesterol, denies poor circulation, NOTES heart failure, other cardiac issues, denies claudication, denies cold feet, peripheral arterial stent and NOTES pacemaker. Respiratory: The patient denies tuberculosis, denies pneumonia, denies frequent cough, denies pulmonary embolism, denies shortness of breath, denies coughing up blood, NOTES asthma and NOTES TEMO. Gastrointestinal: The patient denies difficulty swallowing, denies acid reflux, denies ulcers, denies vomiting, denies jaundice/hepatitis, denies gallbladder problems, denies black or tarry stools, denies hemorrhoids, denies bleeding from rectum, denies diverticulitis, denies constipation, denies diarrhea, denies loss of stool control, and denies hernias. Kidney/Bladder: The patient denies kidney stones, denies urine infections, and denies bloody urine. Skin: The patient denies a history of skin cancer, denies bleeding/changing moles, and NOTES a history of skin rash-psoriasis. Neurologic: The patient denies a history of epilepsy/convulsions, denies headaches, denies head/spinal injuries, and denies stroke/TIA. Psychiatric: The patient denies psychiatric medications, denies depression, and denies voices, denies substance abuse. Endocrine: The patient denies thyroid disorders, denies diabetes, and denies hormonal problems. Hematologic: The patient denies a history of bruising, denies bleeding, and denies anemia, denies blood clots. Infections: The patient denies a history of measles and mumps, denies rheumatic fever, and denies sexually transmitted diseases. Musculoskeletal: The patient denies back pain/injury, denies back problems, denies sciatica, denies knee/foot trouble, denies arthritis, or denies gout. When was patient's last Mammogram screening? N/A Last Colonoscopy: 2018 Silvana Boyer RN documented in this encounter [facility] 09-20-2022 History of Present illness Narrative HISTORY AND PHYSICAL Delfino Jovan Rosales 1950 REFERRING PHYSICIAN: Tomasz Fabian MD CHIEF COMPLAINT: Consult (Colonoscopy consult.) HPI: The patient is a 72 year old male referred for endoscopy. Delfino notes history of colon polyps and require surveillance colonoscopy. The patient denies blood in stools, denies abdominal pain, and denies changes in bowel habits. The patient notes no colon cancer in immediate family. The patient had previous colonoscopy in 2013 with findings of colon polyps and follow up surveillance colonoscopy in 2018 revealed no polyps. He has decreased mobility due to spinal muscle atrophy, which sounds like a type of muscular dystrophy and balance and easily fatigued; it sounds like myasthenia gravis. He also has sick sinus syndrome with a permanent pacemaker. He also has sleep apnea. This makes him an ASA III PAST MEDICAL HISTORY Diagnosis Date Advance directive discussed with patient 10/26/2021 Discussed 10/2021 Benign non-nodular prostatic hyperplasia with lower urinary tract symptoms 07/20/2015 Elevated PSA 12/02/2019 Dr. Becerril- Feels that the elevation is from BPH and will treat and monitor his level. Considering surgery/bx later Extrinsic asthma 07/24/2006 Dr. Borges History of COVID-19 02/09/2021 02/09/2021 Hyperlipidemia, mixed 07/24/2006 Hypertension, essential 05/02/[address] 10/26/2021 DPA: Hortencia () Medicare annual wellness visit, subsequent 11/01/2020 Medical B eligibility date 03/14/16 Date of last exam 11/01/20 Nocturnal hypoxia 02/28/2021 Night pulse Ox test dropped below 89% and as low as 80%. TEMO (obstructive sleep apnea) 11/01/2020 Dr. Appiah. On CPAP Pacemaker 11/01/2020 Dr. 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, 2014--polypectomy Vitiligo 1970 PAST SURGICAL HISTORY Procedure Laterality Date COLONOSCOPY FLX DX W/COLLJ SPEC WHEN PFRMD 01/05/2004 Per mod repeat in 8-2013 COLONOSCOPY FLX DX W/COLLJ SPEC WHEN PFRMD 09/03/2014 Colonoscopy COLONOSCOPY FLX DX W/COLLJ SPEC WHEN PFRMD 09/12/2017 Fabiola--Repeat 5 years (09/2022) PACEMAKER 06/28/2020 redone PACEMAKER (PM) 1996 redone - 2009 TRANSURETHRAL ELEC-SURG PROSTATECTOM 05/04/2022 Current Outpatient Medications Medication Sig multivit-min/FA/lycopen/lutein (CENTRUM SILVER MEN ORAL) Take 1 capsule by mouth once daily. spironolactone (ALDACTONE) 100 mg tablet Take 1 tablet by mouth once daily. cloNIDine HCl (CATAPRES) 0.2 mg tablet Take 1 tablet by mouth twice daily. doxazosin (CARDURA) 4 mg tablet Take 1 tablet by mouth once daily. CPAP Please change AutoPAP setting range to 10-18 cmH2O. Please provide download in 30 days. albuterol HFA (PROVENTIL HFA, VENTOLIN HFA) 90 mcg/actuation inhaler Inhale 2 Puffs as instructed as needed. MEDICAL SUPPLY Lift chair, #1 device Dx: G12 and R53.81 MEDICAL SUPPLY Transport chair, #1 device Dx: G12 and R53.81 MEDICAL SUPPLY Extremity: Pair, Compression: 15-20 mmHg, Style: Closed Toe, Length: Knee-high, #2 pair with 1 refill, Dx: R60.0 doxazosin (CARDURA) 2 mg tablet Take 1 tablet by mouth once daily. (Patient not taking: Reported on 05/19/2022) cholecalciferol, vitamin D3, (VITAMIN D3 ORAL) Take by mouth. ALLERGIES: Advil [Ibuprofen], Amlodipine, Asa [Salicylates], Lisinopril, Losartan, and Zetia [Ezetimibe] PERSONAL HISTORY: Social History Tobacco Use Smoking status: Never Smokeless tobacco: Never Vaping Use Vaping Use: Never used Substance Use Topics Alcohol use: No Drug use: No FAMILY HISTORY Problem Relation Age of Onset Diabetes Mother from diabetes The review of systems data was entered by the nurse and reviewed by nh Nursing Notes: Silvana Boyer RN 09/20/2022 2:49 PM Signed REVIEW OF SYSTEMS: General: The patient denies fatigue, denies weight loss, denies weight gain, denies feeling hot, and denies feelings of cold. Eyes: The patient denies glaucoma, denies eye injury/surgery, wears glasses or contacts. Ear/Nose/Throat: The patient denies allergies, denies hayfever, denies ear infections, and denies bloody noses. Cardiovascular: The patient denies chest pain, denies heart disease, NOTES high blood pressure,denies cardiac stent, denies prior heart attack, NOTES irregular heart beat, NOTES high cholesterol, denies poor circulation, NOTES heart failure, other cardiac issues, denies claudication, denies cold feet, peripheral arterial stent and NOTES pacemaker. Respiratory: The patient denies tuberculosis, denies pneumonia, denies frequent cough, denies pulmonary embolism, denies shortness of breath, denies coughing up blood, NOTES asthma and NOTES TEMO. Gastrointestinal: The patient denies difficulty swallowing, denies acid reflux, denies ulcers, denies vomiting, denies jaundice/hepatitis, denies gallbladder problems, denies black or tarry stools, denies hemorrhoids, denies bleeding from rectum, denies diverticulitis, denies constipation, denies diarrhea, denies loss of stool control, and denies hernias. Kidney/Bladder: The patient denies kidney stones, denies urine infections, and denies bloody urine. Skin: The patient denies a history of skin cancer, denies bleeding/changing moles, and NOTES a history of skin rash-psoriasis. Neurologic: The patient denies a history of epilepsy/convulsions, denies headaches, denies head/spinal injuries, and denies stroke/TIA. Psychiatric: The patient denies psychiatric medications, denies depression, and denies voices, denies substance abuse. Endocrine: The patient denies thyroid disorders, denies diabetes, and denies hormonal problems. Hematologic: The patient denies a history of bruising, denies bleeding, and denies anemia, denies blood clots. Infections: The patient denies a history of measles and mumps, denies rheumatic fever, and denies sexually transmitted diseases. Musculoskeletal: The patient denies back pain/injury, denies back problems, denies sciatica, denies knee/foot trouble, denies arthritis, or denies gout. When was patient's last Mammogram screening? N/A Last Colonoscopy: 2017 Silvana Boyer RN PHYSICAL EXAMINATION: General: The patient is 72 year old male, well nourished, well hydrated in no acute distress. The patient is oriented to time, place, and person. VITALS: Blood pressure 132/84, pulse 71, temperature 36.4 C (97.6 F), height 180.3 cm (5' 11), weight 93.7 kg (206 lb 9.6 oz), SpO2 96 %. Body mass index is 28.81 kg/m . Head: Normal cephalic, atraumatic Eyes: pupils are equally round, sclera are clear/anicteric Neck is supple with no tracheal deviation Respiratory: Normal respiratory excursion and pattern. Abdominal exam: benign Extremities: no clubbing, cyanosis or edema. Neuro: non focal Psych: normal mood Assessment IMPRESSION: history of colon polyps PLAN: I have discussed the above with the patient. I have offered colonoscopy, possible biopsies I have explained the procedure to the patient. I have counseled the patient as to the risks of the procedure, including but not limited to: infection, bleeding, injury to any intrabdominal organs such as liver/spleen, perforation of the GI tract, inability to complete the procedure, complications of anesthesia, etc. - the patient understands. I have explained to the patient the difference between IV conscious sedation and MAC anesthesia - and I have offered either, according to the patient's wishes. I have explained that with IV conscious sedation there is no anesthesia provider available and therefore there is a limitation of the amount of IV medications , especially given the patient's medical morbidities. The patient may wake up in the middle of the procedure and/or be undersedated and/or experience pain/discomfort during the procedure. I told patient that he had MAC anesthesia previously. Further discussion was done and the patient was given the opportunity to ask questions and all questions were answered. The patient chooses IV conscious sedation Patient was counseled that if there are changes in his/her medical condition, to let the office know if surgery should proceed. If there are changes in patient's medical condition from time of this encounter to the day of the procedure that preclude anesthesia, patient may have procedure cancelled for patient's safety. The patient wishes to proceed. I have answered all questions to the patient s satisfaction and the patient has no further questions. My clinic staff has educated the patient as to the colon cleansing regimen and I have prescribed Golytely for the colon cleansing solution. The patient will be scheduled for the procedure at [facility]. I have confirmed and edited as necessary, the PFSH and ROS obtained by others. Consultation requested by Dr. Tomasz Fabian for an opinion regarding patient's history of colon polyps. My final recommendations will be communicated back to the requesting physician by way of shared Medical record or letter to requesting physician via US mail. Diagnoses: (Z86.010) History of colonic polyps (primary encounter diagnosis) Return to Clinic: The patient will be scheduled for colonoscopy. I spent a total of 31 minutes on the date of the service which included preparing to see the patient with review of any pertinent laboratory studies/radiological imaging/medical records, [id number] patient care, obtaining oral medical history from the patient in this encounter, performing a medically appropriate examination, counseling and educating the patient/family/caregiver, and ordering and/or scheduling of medications/tests/procedures, and completing appropriate medical documentation. Keli Gregg MD documented in this encounter [facility] 06-30-2022 Miscellaneous Notes Pt notified that prescriptions have been sent to the pharmacy & that a referral has been placed for him to see gen surg for a colonoscopy. Pt was transferred to repairer pump. Marjorie Montana LPN Consult to see Dr. Gregg placed. The following approved medication requests have been transmitted electronically. Requested Prescriptions Signed Prescriptions Disp Refills spironolactone (ALDACTONE) 100 mg tablet 30 tablet 5 Sig: Take 1 tablet by mouth once daily. Authorizing Provider: TOMASZ FABIAN cloNIDine HCl (CATAPRES) 0.2 mg tablet 60 tablet 5 Sig: Take 1 tablet by mouth twice daily. Authorizing Provider: TOMASZ FABIAN MD Patient phones requesting refills as follows: Requested Prescriptions Pending Prescriptions Disp Refills spironolactone (ALDACTONE) 100 mg tablet 30 tablet 5 Sig: Take 1 tablet by mouth once daily. cloNIDine HCl (CATAPRES) 0.2 mg tablet 60 tablet 5 Sig: Take 1 tablet by mouth twice daily. ROSALIA 12/16/22 NOV 10/27/22 Please review and advise. Paul Murillo LPN *Also, pt states he is due for colonoscopy after September 12. Pt asking for referral to Gen Surg (Dr. Gregg did previous colonoscopy). Consult pending. Paul Murillo LPN documented in this encounter [facility] 06-12-2022 Miscellaneous Notes Patient notified and voiced understanding. Kiki Murdock MA Advise patient to continue meds as is. It appears he has some white coat syndrome. His home cuff is comparable to our readings today and his Home BP's look good. Advise him when he has appt coming up with us or cardio to check his BP for a few days prior and record them to bring into the appt.. Manual Readin/82 Pulse: 67 Home Cuff: 159/86 P: 67 BP [place] average: 166/81 P: 67 Repeat BP Check: 170/80 P67 #1 168/82 P66 #2 170/81 P66 #3 161/79 P67 #4 162/81 P67 #5 167/81 P68 #6 Reason for blood pressure check - Last BP elevated Patient is: Taking medication as prescribed Yes Took medication today Yes If no, date medication last taken N/A Experiencing side effects No BP continued to be elevated at nurse visit 05/19/22. No BP medication changes were made at that time. Taking all medications as prescribed. States that he saw Dr Whitaker last week and had BP of 175/86. He did not make any changes to medications. Home readings have been 105-131/60-72. Denies any chest pain, shortness of breath, dizziness, or headaches. Daily caffeine use; none today. No personal history of tobacco use; no current exposure. Alert and oriented. Pt has been identified by name and birthdate: Yes Allergies reviewed: Yes Latex allergy: no. Medication - prescribed and OTC reviewed and updated: Yes Do you need any prescription refills prior to your next visit: No Health Maintenance: Reviewed and not up to date and provider notified Patient advised that he would be contacted after review by PCP. Aparna Ray LPN documented in this encounter [facility] 06-12-2022 History of Present illness Narrative Manual Readin/82 Pulse: 67 Home Cuff: 159/86 P: 67 BP [place] average: 166/81 P: 67 Repeat BP Check: 170/80 P67 #1 168/82 P66 #2 170/81 P66 #3 161/79 P67 #4 162/81 P67 #5 167/81 P68 #6 Reason for blood pressure check - Last BP elevated Patient is: Taking medication as prescribed Yes Took medication today Yes If no, date medication last taken N/A Experiencing side effects No BP continued to be elevated at nurse visit 05/19/22. No BP medication changes were made at that time. Taking all medications as prescribed. States that he saw Dr Whitaker last week and had BP of 175/86. He did not make any changes to medications. Home readings have been 105-131/60-72. Denies any chest pain, shortness of breath, dizziness, or headaches. Daily caffeine use; none today. No personal history of tobacco use; no current exposure. Alert and oriented. Pt has been identified by name and birthdate: Yes Allergies reviewed: Yes Latex allergy: no. Medication - prescribed and OTC reviewed and updated: Yes Do you need any prescription refills prior to your next visit: No Health Maintenance: Reviewed and not up to date and provider notified Patient advised that he would be contacted after review by PCP. Aparna Ray LPN documented in this encounter [facility] 06-02-2022 Miscellaneous Notes Signed CPAP orders faxed back to [facility]. EDWIGE Saba documented in this encounter [facility] 05-20-2022 Miscellaneous Notes Patient notified and voiced understanding. Patient scheduled for nurse visit. Kiki Murdock MA Have patient continues meds as is and get a repeat BP check in 3 weeks. Manual Readin/80 Pulse: 65 BP [place] average: 158/79 P: 63 Repeat BP Check: 163/84 P66 #1 164/81 P64 #2 156/79 P62 #3 156/77 P62 #4 154/78 P62 #5 155/77 P62 #6 Reason for blood pressure check - Other recheck after recent surgery Patient is: Taking medication as prescribed Yes Took medication today Yes If no, date medication last taken N/A Experiencing side effects No BP was good at last appt 04/28/22. He had recent TURP completed on 05/03/22. Taking all medications as prescribed. Denies any chest pain, shortness of breath, dizziness, or headaches. Daily caffeine use; none today. No personal history of tobacco use; no current exposure. Alert and oriented. Pt has been identified by name and birthdate: Yes Allergies reviewed: Yes Latex allergy: no. Medication - prescribed and OTC reviewed and updated: Yes Do you need any prescription refills prior to your next visit: No Health Maintenance: Reviewed and not up to date and provider notified Patient advised that he would be contacted after review by PCP. Aparna Ray LPN documented in this encounter [facility] 05-19-2022 History of Present illness Narrative Manual Readin/80 Pulse: 65 BP [place] average: 158/79 P: 63 Repeat BP Check: 163/84 P66 #1 164/81 P64 #2 156/79 P62 #3 156/77 P62 #4 154/78 P62 #5 155/77 P62 #6 Reason for blood pressure check - Other recheck after recent surgery Patient is: Taking medication as prescribed Yes Took medication today Yes If no, date medication last taken N/A Experiencing side effects No BP was good at last appt 04/28/22. He had recent TURP completed on 05/03/22. Taking all medications as prescribed. Denies any chest pain, shortness of breath, dizziness, or headaches. Daily caffeine use; none today. No personal history of tobacco use; no current exposure. Alert and oriented. Pt has been identified by name and birthdate: Yes Allergies reviewed: Yes Latex allergy: no. Medication - prescribed and OTC reviewed and updated: Yes Do you need any prescription refills prior to your next visit: No Health Maintenance: Reviewed and not up to date and provider notified Patient advised that he would be contacted after review by PCP. pAarna Ray LPN documented in this encounter [facility] 04-28-2022 Instructions Tomasz Fabian MD - 04/28/2022 1:59 PM EST Please get labs and urine test done on or after 10/13/2022 prior to your next visit. documented in this encounter [facility] 04-28-2022 History of Present illness Narrative Chief Complaint Patient presents with: F/U 6 months HPI Delfino Rosales is a 72 year old male who presents here today for 6 month follow up. Patient with hx of HLP, a. Fib, elevated blood pressures, TEMO, BPH, psoriasis, and those as below. Has been doing ok. Will be getting a Turp 05/03/2022. Past medical history, appointments, medications, allergies reviewed. Previous Medical History PAST MEDICAL HISTORY Diagnosis Date Advance directive discussed with patient 10/26/2021 Discussed 10/2021 Benign non-nodular prostatic hyperplasia with lower urinary tract symptoms 07/20/2015 Elevated PSA 12/02/2019 Dr. Becerril- Feels that the elevation is from BPH and will treat and monitor his level. Considering surgery/bx later Extrinsic asthma 07/24/2006 Dr. Borges History of COVID-19 02/09/2021 02/09/2021 Hyperlipidemia, mixed 07/24/2006 Hypertension, essential 05/02/[address] 10/26/2021 DPA: Hortencia () Medicare annual wellness visit, subsequent 11/01/2020 Medical B eligibility date 03/14/16 Date of last exam 11/01/20 Nocturnal hypoxia 02/28/2021 Night pulse Ox test dropped below 89% and as low as 80%. TEMO (obstructive sleep apnea) 11/01/2020 Dr. Appiah. On CPAP Pacemaker 11/01/2020 Dr. 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 Spinal muscle atrophy (HCC) 1997 Tubular adenoma of rectum 08/03/20162014--polypectomy 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, 2014--polypectomy Vitiligo 1970 Previous Surgical History PAST SURGICAL HISTORY Procedure Laterality Date COLONOSCOPY FLX DX W/COLLJ SPEC WHEN PFRMD 01/05/2004 Per mod repeat in -2013 COLONOSCOPY FLX DX W/COLLJ SPEC WHEN PFRMD 09/03/2014 Colonoscopy COLONOSCOPY FLX DX W/COLLJ SPEC WHEN [facility]FR[facility]Re[facility] PACEMAKER 06/28/2020 redone PACEMAKER (PM) 1996 redone - 2008 Family History FAMILY HISTORY Problem Relation Age of Onset Diabetes Mother from diabetes Patient Allergies ALLERGIES Allergen Reactions Advil [Ibuprofen] Unknown Amlodipine Other: See Comments Lower extremity swelling Asa [Salicylates] Unknown Lisinopril Cough Losartan Myalgia Zetia [Ezetimibe] Other: See Comments weakness Current Medications Current Outpatient Medications on File Prior to Visit Medication Sig doxazosin (CARDURA) 4 mg tablet Take 1 tablet by mouth once daily. spironolactone (ALDACTONE) 100 mg tablet Take 1 tablet by mouth once daily. cloNIDine HCl (CATAPRES) 0.2 mg tablet Take 1 tablet by mouth twice daily. MEDICAL SUPPLY Lift chair, #1 device Dx: G12 and R53.81 MEDICAL SUPPLY Transport chair, #1 device Dx: G12 and R53.81 MEDICAL SUPPLY Extremity: Pair, Compression: 15-20 mmHg, Style: Closed Toe, Length: Knee-high, #2 pair with 1 refill, Dx: R60.0 doxazosin (CARDURA) 2 mg tablet Take 1 tablet by mouth once daily. cholecalciferol, vitamin D3, (VITAMIN D3 ORAL) Take by mouth. CPAP Please change AutoPAP setting range to 10-18 cmH2O. Please provide download in 30 days. albuterol HFA (PROVENTIL HFA, VENTOLIN HFA) 90 mcg/actuation inhaler Inhale 2 Puffs as instructed as needed. No current facility-administered medications on file prior to visit. Social History Social History Tobacco Use Smoking status: Never Smokeless tobacco: Never Substance Use Topics Alcohol use: No Drug use: No Review of Symptoms REVIEW OF SYSTEMS GENERAL: No weight loss, malaise or fevers NECK: Negative for lumps, goiter, pain and significant neck swelling RESPIRATORY: Negative for cough, hemoptysis, wheezing, COPD, dyspnea or shortness of breath CARDIOVASCULAR: Negative for chest pain, leg swelling, hypertension, CHF or palpitations NEURO: No history of headaches, syncope, paralysis, seizures or tremors EXAM: BP 150/86 (BP Site: Right Arm, BP Position: Sitting, BP Cuff Size: Regular Adult) Pulse 62 Resp 16 Wt 86.2 kg (190 lb) BMI 26.50 kg/m BP 127/67 Pulse 62 Resp 16 Wt 86.2 kg (190 lb) BMI 26.50 kg/m General Appearance: Well appearing, alert, in no acute distress, well-hydrated, well nourished.. Neck: Supple, no adenopathy; thyroid symmetric, normal size, no bruits. Lungs: Lungs clear to auscultation. No wheezing, rhonchi, rales.. Heart: RRR without murmur, gallop, or rubs. No ectopy. Abdomen: Normal abdominal exam, Abdomen soft, non-tender. Bowel sounds normal. No masses, organomegaly. Extremities: No deformities, skin discoloration, Good capillary refill. Chronic edema left lower extremity stable. Peripheral Pulses: Normal. Ears: left ear canal blocked with wax. Health Maintenance List PNEUMOCOCCAL: 65+(1 - PCV) Never done BP CONTROLLED (<130/80) Never done COVID-19 VACCINE(2 - Booster for Viviana series) due on 2021 DEPRESSION ASSESSMENT Never done INFLUENZA(1) due on 01/12/2022 DTAP,TDAP,TD(2 - Td or Tdap) due on 10/26/2022 SHINGRIX VACCINE(1 of 2) due on 10/26/2022 COLORECTAL CANCER SCREENING due on 09/12/2022 ANNUAL PCP TEAM CHRONIC DISEASE VISIT due on 10/26/2022 DIABETES SCREEN due on 02/02/2025 LIPID SCREEN due on 10/14/2026 ADVANCE DIRECTIVE DISCUSSION Completed HEPATITIS C SCREENING Completed SPIROMETRY Discontinued Data reviewed Component Latest Ref Rng & Units 10/14/2021 WBC 3.70 - 11.00 k/uL 5.96 RBC 4.20 - 6.00 m/uL 5.03 Hemoglobin 13.0 - 17.0 g/dL 15.4 Hematocrit 39.0 - 51.0 % 45.0 MCV 80.0 - 100.0 fL 89.5 MCH 26.0 - 34.0 pg 30.6 MCHC 30.5 - 36.0 g/dL 34.2 RDW-CV 11.5 - 15.0 % 12.6 Platelet Count 150 - 400 k/uL 228 MPV 9.0 - 12.7 fL 10.5 Neut% % 58.3 Abs Neut (ANC) 1.45 - 7.50 k/uL 3.48 Lymph% % 25.7 Abs Lymph 1.00 - 4.00 k/uL 1.53 Mcmullen% % 8.6 Abs Mcmullen <0.87 k/uL 0.51 Eosin% % 5.4 Abs Eosin <0.46 k/uL 0.32 Baso% % 1.3 Abs Baso <0.11 k/uL 0.08 Immature Gran % % 0.7 IMMATURE GRANS (ABS) <0.10 k/uL 0.04 NRBC /100 WBC 0.0 Absolute nRBC <0.01 k/uL <0.01 DTYPE Auto Protein, Total 6.3 - 8.0 g/dL 6.8 Albumin 3.9 - 4.9 g/dL 4.4 Calcium 8.5 - 10.2 mg/dL 9.4 Bilirubin, Total 0.2 - 1.3 mg/dL 0.5 Alkaline Phosphatase 38 - 113 U/L 55 AST 14 - 40 U/L 43 (H) ALT 10 - 54 U/L 37 Glucose 74 - 99 mg/dL 100 (H) BUN 9 - 24 mg/dL 16 Creatinine 0.73 - 1.22 mg/dL 0.68 (L) Sodium 136 - 144 mmol/L 137 Potassium 3.7 - 5.1 mmol/L 3.3 (L) Chloride 97 - 105 mmol/L 98 CO2 22 - 30 mmol/L 24 Anion Gap 9 - 18 mmol/L 15 eGFR >=60 mL/min/1.73m 100 Total Cholesterol, Nonfasting <200 mg/dL 203 (H) Triglycerides, Nonfasting <150 mg/dL 97 HDL Cholesterol, Nonfasting >39 mg/dL 48 LDL Cholesterol, Nonfasting <100 mg/dL 136 (H) Non HDL Cholesterol, Nonfasting <130 mg/dL 155 (H) VLDL Cholesterol, Nonfasting <30 mg/dL 19 Total Chol/HDL Ratio, Nonfasting <5.10 mg/dL 4.23 LDL/HDL Ratio, Nonfasting <2.54 mg/dL 2.83 (H) A/P ASSESSMENT/PLAN: 1. Hypertension, essential - ICD9: 401.9, ICD10: I10 (primary diagnosis) - good control - Continue current medication(s) - Recommended regular aerobic exercise. - Recommend home blood pressure monitoring, to bring results in on next visit - Goal of BP <130/80 2. Hyperlipidemia, mixed - ICD9: 272.2, ICD10: E78.2 - good control - Encouraged following a low fat, low cholesterol diet. - Discussed the benefits of regular aerobic exercise and weight loss. - Encouraged following a low carbohydrate, healthy oil intake diet. 3. Mild intermittent extrinsic asthma without complication - ICD9: 493.00, ICD10: J45.20 Mild intermittent Asthma stable - management per Pulm. 4. Paroxysmal atrial fibrillation (HCC) - ICD9: 427.31, ICD10: I48.0 - clinically stable no changes and seeing Cardio 5. Sinoatrial node dysfunction (HCC) - ICD9: 427.81, ICD10: I49.5 - as per #4 6. TEMO (obstructive sleep apnea) - ICD9: 327.23, ICD10: G47.33 - using CPAP nightly, seeing Sleep Med. 7. Benign non-nodular prostatic hyperplasia with lower urinary tract symptoms - ICD9: 600.91, ICD10: N40.1 - to have TURP in the near future. 8. Excessive ear wax, left - ICD9: 380.4, ICD10: H61.22 Discussed irrigation with wam water. Verbal consent provided. left ears was irrigated with warm water for the removal of wax per nursing. Patient tolerated well. - AMBULATORY EAR LAVAGE/IRRIGATION 9. Encounter for immunization - ICD9: V03.89, ICD10: Z23 - INFLUENZA SEASONAL QUADRIVALENT HIGH DOSE AGE 65+: given F/u 6 months extensive check CMP, lipid, UA, CBC prior Tomasz Fabian MD documented in this encounter [facility] 04-17-2022 Miscellaneous Notes Pt notified of provider message. Aide Ricketts LPN Attempted to contact patient; no answer; no voicemail. Kiki Murdock MA Let patient know I was able to review his ER report and everything appears to be urology related and I agree with the treatment he received and f/u with Urology. Pt reports he was told by provider to go to the ER yesterday. He states they ran a bunch of tests, and placed a urinary catheter. He states [facility] is going to be dealing with that. The ER told him to touch base with PCP. He states they should be send report over to provider. documented in this encounter [facility] 04-11-2022 Miscellaneous Notes Spoke with pt and advised pt of Dr Fabian's message. Pt will go to [facility] ER. Heber Young LPN Patient needs to be seen. If not able to be seen in the office today then needs to go to the ER with this sudden onset of weakness. Patient calling having sudden muscle weakness today, usually can walk in his home unaided. Today he has to use his rollator. Patient also said his blood pressure has been going higher, 140/70 range. He is asking if could be side effect of his medications? He is about to refill rx and hesitates doing so. Offered appt with PA for 04/13 and patient did not wish to take, offered appt with FILTER OPERATOR appt today and did not want to take again. He said he just did not know what to do. Please advise documented in this encounter [facility] 03-15-2022 Miscellaneous Notes The following approved medication requests have been transmitted electronically. Requested Prescriptions Signed Prescriptions Disp Refills doxazosin (CARDURA) 4 mg tablet 30 tablet 5 Sig: Take 1 tablet by mouth once daily. Authorizing Provider: TOMASZ FABIAN MD Pt called and is notified of providers message and instructions. Pt voices understanding. Pt is ok with increasing the Cardura. 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 Pt was scheduled for BP check on 04/17/22. Patient has been identified by name and date of : Yes Patient phones for refill(s): Requested Prescriptions Pending Prescriptions Disp Refills doxazosin (CARDURA) 4 mg tablet Sig: Take 1 tablet by mouth once daily. Date of last office visit in primary care: 10/26/21 Future visit: 04/28/22 Last 2 Encounter Wt Readings: Date: Wt: 04/18/2021 92.1 kg (203 lb) 01/14/2021 92.1 kg (203 lb) Previous labs/tests for medication: Blood Pressure: BUN (mg/dL) Date Value 02/02/2022 22 05/19/2021 16 Sodium Date Value 02/02/2022 137 mmol/L 05/19/2021 138 MEQ/L 11/01/2020 139 mmol/L Last 1 Encounter BP Readings: Date: BP: 03/14/2022 157/79[BP Akua average[ Please advise. Thank you. Joan Laws RN Let patient know that with also being on the catapres now an increase in the Cardura maybe more affective. If ok with it I would like to bump the Cardura to 4 mg a day. If ok I will send in a new script and he will need a BP check in 4 weeks. Spoke with patient and he indicated that he takes 2 mg once daily that was prescribed by Dr. Kaplan. [facility] tried increasing to also help with BP. {Patient could not remember dose increase but It didn't help plus he was causing muscle issues. With the metoprolol - Dr. Hutson (2) 25 mg twice prescribed when Dr. Mccauley was out and the heart group that was too much. They reduced but it still didn't help and starting causing muscle problems. Please review and advise. Kiki Murdock MA Ask patient if he still takes the Doxazosin and if so what's the strength. Because, I may be able to increase this for further BP control. Spoke with patient and he states that he has seen a gradual improvement in his blood pressure home readings with the clonidine and the recent addition of spironolactone. He is reluctant to change medication and wishes to give it a little more time with current regimen. He is unsure why the metoprolol was discontinued. Left message for pt to contact office. You can route pt's reply to both Mary Anne and Dr Fabian. Heber Young LPN BP still elevated. He was previously on metoprolol. Does he recall why this was discontinued? Or would he be willing to restart this? Mary Anne Naik PA-C Manual Readin/84 Pulse: 60 BP Akua average: 157/79 P: 61 Repeat BP Check: 159/80 P60 #1 157/78 P66 #2 163/84 P62 #3 155/78 P60 #4 154/78 P60 #5 151/78 P60 #6 Reason for blood pressure check - Last BP elevated and Medication adjustment Patient is: Taking medication as prescribed Yes Took medication today Yes If no, date medication last taken N/A Experiencing side effects No BP continued to be elevated at nurse visit 02/14/22. Spironolactone was increased to 100mg daily. Tolerating medication well. Home readings have ranged 120-151/66-79. Denies any chest pain, shortness of breath, dizziness, or headaches. Daily caffeine use; none today. No personal history of tobacco use; no current exposure. Alert and oriented. Pt has been identified by name and birthdate: Yes Allergies reviewed: Yes Latex allergy: no. Medication - prescribed and OTC reviewed and updated: Yes Do you need any prescription refills prior to your next visit: No Health Maintenance: Reviewed and not up to date and provider notified Patient advised that he would be contacted after review by PCP. Aparna Ray LPN documented in this encounter [facility] 02-14-2022 Miscellaneous Notes Patient calls and notified of providers instructions. Patient verbalizes understanding. Follow up BP check scheduled for 03/14/2022 (first available). Nadiya Bond RN Left message for pt to contact office. Heber Young LPN I would like to increase spironolactone to 100mg. He can double what he has left and new prescription sent. Repeat BP check in 3 weeks. Mary Anne Naik PA-C Manual Readin/90 Pulse: 62 BP Akua average: 172/86 P: 61 Repeat BP Check: 175/86 P61 #1 173/87 P62 #2 169/85 P61 #3 170/86 P62 #4 168/86 P61 #5 174/86 P61 #6 Reason for blood pressure check - Last BP elevated and Medication adjustment Patient is: Taking medication as prescribed Yes Took medication today Yes If no, date medication last taken N/A Experiencing side effects No BP continued to be elevated at nurse visit 01/13/22. Chlorthalidone was increased to 50mg daily at that time. However, per TE on 01/17/22, he was changed to Spironolactone 50mg daily d/t labs. Home readings have ranged 123-161/69-88. Denies any chest pain, shortness of breath, dizziness, or headaches. Daily caffeine use; none today. No personal history of tobacco use; no current exposure. Alert and oriented. Pt has been identified by name and birthdate: Yes Allergies reviewed: Yes Latex allergy: no. Medication - prescribed and OTC reviewed and updated: Yes Do you need any prescription refills prior to your next visit: No Health Maintenance: Reviewed and not up to date and provider notified Patient advised that he would be contacted after review by PCP. Aparna Ray LPN documented in this encounter [facility] 02-07-2022 Miscellaneous Notes Patient notified and verbalized understanding Pam Conley Cma Let patient know I want to wait till he has his NV for BP check on 02/17/2022. Pt called in and reports provider had changed his medications. He was on the Chlorthalidone and is now on the Spirolactone. He is still also on the Clonidine for his BP. He reports his BP has been in the 140s in the morning, and and 140s to 130s in the evenings. Pt wanted to know if you wanted him to change doses or medications, because he is getting to where he needs to renew his medications. Please call and advise. documented in this encounter [facility] 02-04-2022 Miscellaneous Notes Pt called and is notified of providers results and instructions. Pt voices understanding. Joan Laws RN Let patient know potassium level is better. documented in this encounter [facility] 01-19-2022 Miscellaneous Notes Pt notified and verbalized understanding. Responded back via [employer]. Sierra Luo Ma Pt sent [employer] message notifying him of information below. Pt made aware to notify the office he received and understood the directions given to him. Sierra Luo Ma Let patient know I want to stop the chlorthalidone and potassium and start the Aldactone. New script sent. I also want a electrolyte panel two weeks after the new medication. Order placed. The following approved medication requests have been transmitted electronically. Requested Prescriptions Signed Prescriptions Disp Refills spironolactone (ALDACTONE) 50 mg tablet 30 tablet 5 Sig: Take 1 tablet by mouth once daily. Tomasz Fabian MD Pt called in and reports he has been taking the Clonidine 0.2 mg twice a day, and he just today found out about increasing the Chlorthalidone. BP check was scheduled for Feb 14. Pt reports to have provider do what he thinks is best with the medications and call him back with what he needs to do. I attempted to reach pt by phone and LM on that I was calling him to discuss. Pt requesting all information go to [employer]. Messages were sent. Sierra Luo Ma documented in this encounter [facility] 01-19-2022 Miscellaneous Notes Please review [employer] message from 01/17/22. Pt made aware of PCP's response with changes made to regimen. Sierra Luo Ma Sent [employer] message to pt notifying him we've attempted to reach him by phone (in another encounter as well), with no call back. Pt to call office and speak with Triage Nurse. Please see other TE as well and notify pt. Sierra Luo Ma Tried to contact patient no answer; no voicemail at home. Rang for a very long time and no answer. Will try again. Kiki Murdock MA Let patient know BP is too high still. We will increase the chlorthalidone to 50 mg a day. Verify he is still taking the clonidine 0.2 mg twice a day? Patient will need NV BP check in 4 weeks The following approved medication requests have been transmitted electronically. Requested Prescriptions Signed Prescriptions Disp Refills chlorthalidone (HYGROTON) 50 mg tablet 30 tablet 5 Sig: Take 1 tablet by mouth once daily. Authorizing Provider: TOMASZ FABIAN MD Manual Readin/90 Pulse: 64 BP Akua average: 171/87 P: 61 Repeat BP Check: 169/84 P62 #1 171/89 P61 #2 175/89 P61 #3 171/85 P60 #4 170/88 P61 #5 171/85 P62 #6 Reason for blood pressure check - Last BP elevated and Medication adjustment Patient is: Taking medication as prescribed Yes Took medication today Yes If no, date medication last taken N/A Experiencing side effects No BP continued to be elevated at nurse visit 12/15/21. His HCTZ was d/c and he was started on Chlorthalidone 25mg daily. Tolerating medication well. Home readings have ranged 117-152/64-80. Denies any chest pain, shortness of breath, or dizziness. Does note some headaches several times during the week. Daily caffeine use; none today. No personal history of tobacco use; no current exposure. Alert and oriented. Pt has been identified by name and birthdate: Yes Allergies reviewed: Yes Latex allergy: no. Medication - prescribed and OTC reviewed and updated: Yes Do you need any prescription refills prior to your next visit: No Health Maintenance: Reviewed and not up to date and provider notified Patient advised that he would be contacted after review by PCP. Aparna Ray LPN documented in this encounter [facility] 01-17-2022 Miscellaneous Notes Pt notified of results below via [employer]. Pt requested results via [employer]. Did try calling again with message left. Will close this encounter as current [employer] message has encounter information in them. Sierra Luo Ma Pt notified via [employer] we've attempted to reach him by phone. Asked pt to contact office and speak with Triage Nurse. Please relay other message to patient as well, regarding BP visit. Sierra Luo Ma Left message for pt to contact office. Heber Young LPN Let patient know the chlorthalidone is causing his potassium to be too low and lower then last time. I can change his to a liquid potassium at 40 eric per 15 ml but he would have to take 30 ml twice a day. This could cause an upset stomach. The other option would be to stop the chlorthalidone and place him on Aldactone at 50 mg a day. Since this on will not cause potassium loss we would be able to have him stop the chlorthalidone and the potassium pills. documented in this encounter [facility] 01-13-2022 History of Present illness Narrative Manual Readin/90 Pulse: 64 BP Ak[place] average: 171/87 P: 61 Repeat BP Check: 169/84 P62 #1 171/89 P61 #2 175/89 P61 #3 171/85 P60 #4 170/88 P61 #5 171/85 P62 #6 Reason for blood pressure check - Last BP elevated and Medication adjustment Patient is: Taking medication as prescribed Yes Took medication today Yes If no, date medication last taken N/A Experiencing side effects No BP continued to be elevated at nurse visit 12/15/21. His HCTZ was d/c and he was started on Chlorthalidone 25mg daily. Tolerating medication well. Home readings have ranged 117-152/64-80. Denies any chest pain, shortness of breath, or dizziness. Does note some headaches several times during the week. Daily caffeine use; none today. No personal history of tobacco use; no current exposure. Alert and oriented. Pt has been identified by name and birthdate: Yes Allergies reviewed: Yes Latex allergy: no. Medication - prescribed and OTC reviewed and updated: Yes Do you need any prescription refills prior to your next visit: No Health Maintenance: Reviewed and not up to date and provider notified Patient advised that he would be contacted after review by PCP. Aparna Ray LPN documented in this encounter [facility] 01-05-2022 Miscellaneous Notes Upon review of the chart. This prescription was sent on 12/16/2021 for 60 tablets and 5 refills. Kiki Murdock MA Contacted pharmacy and they have a current prescription available and medication will available today for the patient. Patient was notified. Kiki Murdock MA Patient has been identified by name and date of : Yes Requested Prescriptions Pending Prescriptions Disp Refills cloNIDine HCl (CATAPRES) 0.2 mg tablet 60 tablet 5 Sig: Take 1 tablet by mouth twice daily. RX INSTRUCTIONS: Patient aware RX will be sent to pharmacy. No need to notify patient. Kay Roman Pss documented in this encounter [facility] 01-02-2022 Miscellaneous Notes Patient returned call and went over results, notes from Dr Fabian with understanding. Aware rx to pharmacy. Left a message for patient to contact office. Kiki Murdock MA Patient know potassium is better but still too low. I would like to change his potassium to 20 eric two twice a day. New script send and lab order placed to get potassium in 2 weeks. The following approved medication requests have been transmitted electronically. Requested Prescriptions Signed Prescriptions Disp Refills potassium chloride 20 mEq TbER 360 tablet 3 Sig: Take 2 tablets by mouth twice daily. Authorizing Provider: TOMASZ FABIAN MD documented in this encounter [facility] 12-16-2021 Miscellaneous Notes Contacted patient and gave results and instruction. Sent instructions via [employer]. Kiki Murdock MA Let patient know I sent in a script to change from hydrochlorothiazide to chlorthalidone. I do want him to increase the potassium to either 2 a day or one twice a day. I put in a blood test to recheck the potassium but not to do it till he has been on the new water pill for at least a week. Needs [place] BP check in 4 weeks. The following approved medication requests have been transmitted electronically. Signed Prescriptions Disp Refills chlorthalidone (HYGROTON) 25 mg tablet 30 tablet 5 Sig: Take 1 tablet by mouth once daily. Authorizing Provider: TOMASZ FABIAN cloNIDine HCl (CATAPRES) 0.2 mg tablet 60 tablet 5 Sig: Take 1 tablet by mouth twice daily. GERARD: No Authorizing Provider: TOMASZ FABIAN potassium chloride 20 mEq TbER 180 tablet 3 Sig: Take 1 tablet by mouth twice daily. GERARD: No Authorizing Provider: TOMASZ FABIAN MD Pt called and is notified of providers message. Pt voices understanding, but says he will do whatever provider thinks is best. He said dry mouth is the least of his worries. Pt also reports that his K+ was low last times he was in and the provider had talked about doubling the amount, he didn't know if that was something that PCP still wanted to do. Please call and advise. Joan Laws RN Let patient know hi BP is still too high. If I increase the clonidine more it's going to make his dry mouth worse. The other option would be to change his hydrochlorothiazide to a similar but more potent water pill called Chlorthalidone. See if will to do this? If so he will need BP check in 4 weeks and I will send in the medication. Also if we do the change, the day he comes for BP check I will want to get a lab test to monitor his electrolytes. Manual Readin/93 Pulse: 60 BP Akua average: 168/89 P: 60 Repeat BP Check: 171/87 P60 #1 172/92 P60 #2 169/88 P60 #3 164/88 P60 #4 167/89 P59 #5 166/88 P60 #6 Reason for blood pressure check - Last BP elevated and Medication adjustment Patient is: Taking medication as prescribed Yes Took medication today Yes If no, date medication last taken N/A Experiencing side effects No BP continued to be elevated at nurse visit 11/29/21. Clonidine was increased to 0.2mg twice daily. Tolerating medication well. Does have increased dry mouth. Home readings have ranged 124-148/67-83. Denies any chest pain, shortness of breath, dizziness, or headaches. Daily caffeine use; none today. No personal history of tobacco use; no current exposure. Alert and oriented. Pt has been identified by name and birthdate: Yes Allergies reviewed: Yes Latex allergy: no. Medication - prescribed and OTC reviewed and updated: Yes Do you need any prescription refills prior to your next visit: No Health Maintenance: Reviewed and not up to date and provider notified Patient advise that he would be contacted after review by PCP. Aparna Ray LPN documented in this encounter [facility] 12-15-2021 History of Present illness Narrative Manual Readin/93 Pulse: 60 BP Akua average: 168/89 P: 60 Repeat BP Check: 171/87 P60 #1 172/92 P60 #2 169/88 P60 #3 164/88 P60 #4 167/89 P59 #5 166/88 P60 #6 Reason for blood pressure check - Last BP elevated and Medication adjustment Patient is: Taking medication as prescribed Yes Took medication today Yes If no, date medication last taken N/A Experiencing side effects No BP continued to be elevated at nurse visit 11/29/21. Clonidine was increased to 0.2mg twice daily. Tolerating medication well. Does have increased dry mouth. Home readings have ranged 124-148/67-83. Denies any chest pain, shortness of breath, dizziness, or headaches. Daily caffeine use; none today. No personal history of tobacco use; no current exposure. Alert and oriented. Pt has been identified by name and birthdate: Yes Allergies reviewed: Yes Latex allergy: no. Medication - prescribed and OTC reviewed and updated: Yes Do you need any prescription refills prior to your next visit: No Health Maintenance: Reviewed and not up to date and provider notified Patient advise that he would be contacted after review by PCP. Aparna Ray LPN documented in this encounter [facility] 12-01-2021 Miscellaneous Notes Spoke with pt and information listed below given. Pt verbalizes understanding. Pt will keep us updated if any problems. Declines seeing a surgeon at this time. Jeanna Roman LPN Left message for pt to contact office. Heber Young LPN Let patient know mammogram showed no concerning breast mass. He does have gynecomastia in the right breast. The left breast US is still pending. If not causing any pain we can just monitor. If causing pain I can refer him to a surgeon for removal. documented in this encounter [facility] 11-29-2021 Miscellaneous Notes Pt notified and voiced understanding. Heavenly Bruce Ma BP elevated Increase Clonidine to 0.2 mg bid; new Rx done Repeat BP check in 2 weeks Dudley Adams MD Manual Readin/94 Pulse: 73 Home Cuff: 179/104 P: 60 BP Akua average: 187/93 P: 60 Repeat BP Check: 197/83 P59 #1 194/96 P59 #2 183/92 P60 #3 181/96 P60 #4 190/98 P60 #5 176/90 P59 #6 Reason for blood pressure check - Last BP elevated and Medication adjustment Patient is: Taking medication as prescribed Yes Took medication today Yes If no, date medication last taken N/A Experiencing side effects No BP was elevated at last appt 10/26/21. Was started on Clonidine 0.1mg twice daily. Tolerating medication well. Does note that he has had some very intermittent increased back discomfort and some head pressure recently. Home readings have ranged 128-159/70-85. Denies any chest pain, shortness of breath, dizziness, or headaches. Daily caffeine use; none today. No personal history of tobacco use; no current exposure. Alert and oriented. Pt has been identified by name and birthdate: Yes Allergies reviewed: Yes Latex allergy: no. Medication - prescribed and OTC reviewed and updated: Yes Do you need any prescription refills prior to your next visit: No Health Maintenance: Reviewed and not up to date and provider notified Spoke with Dr Adams who recommends that pt increase Clonidine to 0.2mg twice daily and repeat BP in 2 weeks. Pt was notified and verbalized understanding. Appt scheduled. Aparna Ray LPN documented in this encounter [facility] 11-29-2021 History of Present illness Narrative Manual Readin/94 Pulse: 73 Home Cuff: 179/104 P: 60 BP Akua average: 187/93 P: 60 Repeat BP Check: 197/83 P59 #1 194/96 P59 #2 183/92 P60 #3 181/96 P60 #4 190/98 P60 #5 176/90 P59 #6 Reason for blood pressure check - Last BP elevated and Medication adjustment Patient is: Taking medication as prescribed Yes Took medication today Yes If no, date medication last taken N/A Experiencing side effects No BP was elevated at last appt 10/26/21. Was started on Clonidine 0.1mg twice daily. Tolerating medication well. Does note that he has had some very intermittent increased back discomfort and some head pressure recently. Home readings have ranged 128-159/70-85. Denies any chest pain, shortness of breath, dizziness, or headaches. Daily caffeine use; none today. No personal history of tobacco use; no current exposure. Alert and oriented. Pt has been identified by name and birthdate: Yes Allergies reviewed: Yes Latex allergy: no. Medication - prescribed and OTC reviewed and updated: Yes Do you need any prescription refills prior to your next visit: No Health Maintenance: Reviewed and not up to date and provider notified Spoke with Dr Adams who recommends that pt increase Clonidine to 0.2mg twice daily and repeat BP in 2 weeks. Pt was notified and verbalized understanding. Appt scheduled. Aparna Ray LPN documented in this encounter [facility] 11-18-2021 Miscellaneous Notes Patient notified and voiced understanding. Kiki Murdock MA Let patient know pacemakers are set to pace and keep the heart rate at 60 so that is ok. The HCTZ is what is most likely causing the low potasium. The two options are to increase the potassium or switch you to aldactone and then stop the HCTZ and the potassium pill. Before make any changes in the clonidine lets see what the BP is in the office at his [place] on 11/29/2021. Ask him to bring in his home cuff so it's calibration can be checked. Spoke with patient and he indicated that he has been taking every day except the day he got blood work. He thought that he was not suppose to take medications on the day of blood work. Also patient indicated that he has been taking the Clonidine and is noticing his BP is increasing to upper 140's to 150's. Bottom staying steady at 80 or lower. Pulse around 60 and has been noticing more muscle weakness. Patient question with this pacemaker if 60 was a good pulse. He said it seems low to him. Also patient is questioning could the HCTZ be causing some of these problems. Contact patient and see if he is taking the potassium pill once ad ay every day? His potassium is still low and slightly lower then last time. documented in this encounter [facility] 11-02-2021 Miscellaneous Notes He is certainly able to make his appointment virtual, but there is much less that can be determined without a physical exam, and I might need to bring him in to do an exam after the fact, but we could do virtual appt first to discuss things. patient has upcoming appt, wants to know if he can do virtual because he [place] far away, gas prices and he isn't sure that he will be able to be helped anyway, documented in this encounter [facility] 10-28-2021 Miscellaneous Notes Patient notified and voiced understanding. Kiki Murdock MA Let patient know his potassium is low. I sent in a script for a potassium pill to take once a day. Also placed lab to recheck potassium in 2 weeks. The following approved medication requests have been transmitted electronically. Signed Prescriptions Disp Refills potassium chloride 20 mEq TbER 90 tablet 3 Sig: Take 1 tablet by mouth once daily. Authorizing Provider: TOMASZ FABIAN MD documented in this encounter [facility] 10-28-2021 Miscellaneous Notes Patient notified of results. Pam De Jesus MA Correct. Continue other meds and add the clonidine. Patient notified and scheduled. Patient wanted to verify this is in addition to current BP medications. Kiki Murdock MA Let patient know I received input from Dr. Whitaker and will start him on Clonidine 0.1 mg twice a day for his HTN. Script was sent in. Needs [place] BP check in 4 weeks documented in this encounter [facility] 10-26-2021 Instructions Tomasz Fabian MD - 10/26/2021 1:56 PM EDT Please bring in copies of living will and power of senior systems analyst for health care. 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 Spinal muscle atrophy (HCC) 1998 Tubular adenoma of colon 08/2014 Tubular adenoma of rectum 08/03/20162014--polypectomy 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, 2014--polypectomy Vitiligo 1970 PAST SURGICAL HISTORY PAST SURGICAL HISTORY Procedure Laterality Date COLONOSCOP W/ OR W/O BRS SPEC 01-04- Per mod repeat in -2013 COLONOSCOP W/ OR W/O BRSH SPEC 09/03/2014 Colonoscopy COLONOSCOP W/ OR W/O BRSH SPE[facility] PACEMAKER (PM) 1996 redone - 2008 Advil [Ibuprofen], Amlodipine, Asa [Salicylates], Lisinopril, and Zetia [Ezetimibe] Medications reviewed: Yes FAMILY HISTORY FAMILY HISTORY Problem Relation Age of Onset Diabetes Mother from diabetes SOCIAL HISTORY: SOCIAL HISTORY Social History Tobacco Use Smoking status: Never Smoker Smokeless tobacco: Never Used Substance Use Topics Alcohol use: No Drug use: No Delfino works out regularly 6 times per week with crosstraining. He watches his diet for sodium, low fat and low cholesterol some of the time. List of current specialists seen: Dr. Td Miller for skin cancer check End of Live Planning discussed including patients advanced directive wishes: Yes I am willing to follow Delfino's advanced directives. PHQ-2 / Depression screen Depression Screening 08/16/2017 08/20/2018 08/23/2020 10/26/2021 PHQ-2 Score 0 0 0 2 PHQ-9 Score - - 0 - Depression screening tool completed and reviewed. Based on score and interview, patient is at risk for depression. Screening tool discussed with patient, and I recommended no further intervention at this time. Functional Ability/Safety Screen 1. Was the patient's timed Up and Go test unsteady or longer than 30 seconds? Yes 2. Does the patient need help with the phone, transportation, shopping,preparing meals, housework, laundry, medications or managing money? Yes - some 3. Does your home have rugs in the hallway, lack of grab bars in the bathroom (Y), lack of handrails on the stairs or have poor lighting? No Hearing Evaluation: normal PHYSICAL EXAM BP 142/90 Pulse 74 Resp 14 Alert and oriented X 3: YES Body mass index is: Patient in wheel chair Visual acuity: sees Ophthalmology ASSESSMENT/PLAN: 71 year old male The following prevention plan was discussed during the office visit and provided to the patient: See below Chief Complaint Patient presents with: Medicare Wellness Exam: 6 months HPI Delfino Rosales is a 71 year old male who presents here today for Medicare Annual Visit. Patient with hx of HLP, a. Fib, elevated blood pressures, TEMO, BPH, psoriasis, and those as below. Patient has been ok. Ever since having COVID the swelling in his legs has increased but his level of activity has lessoned due to worsening of the weakness in his lower extremities and being in a sitting most of the day either in a chair or wheel chair. Past medical history, appointments, medications, allergies reviewed. Previous Medical History PAST MEDICAL HISTORY Diagnosis Date Benign non-nodular prostatic hyperplasia with lower urinary tract symptoms 07/20/2015 COVID-19 virus infection 02/09/2021 02/09/2021 Elevated blood pressure reading without diagnosis of hypertension 11/01/2020 Elevated PSA 12/02/2019 Dr. Becerril- Feels that the elevation is from BPH and will treat and monitor his level. Considering surgery/bx later Extrinsic asthma 07/24/2006 Dr. Borges Hyperlipidemia, mixed 07/24/2006 Medicare annual wellness visit, subsequent 11/01/2020 Medical B eligibility date 03/14/16 Date of last exam 11/01/20 Nocturnal hypoxia 02/28/2021 Night pulse Ox test dropped below 89% and as low as 80%. TEMO (obstructive sleep apnea) 11/01/2020 Dr. Appiah. On CPAP Pacemaker 11/01/2020 Dr. 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, 2014--polypectomy Vitiligo 1970 Previous Surgical History PAST SURGICAL HISTORY Procedure Laterality Date COLONOSCOPY FLX DX W/COLLJ SPEC WHEN PFRMD 01/05/2004 Per mod repeat in -2013 COLONOSCOPY FLX DX W/COLLJ SPEC WHEN PFRMD 09/03/2014 Colonoscopy COLONOSCOPY FLX DX W/COLLJ SPEC WHEN PFRMD 09/12/[facility] (09/2022[facility] PACEMAKER 06/28/2020 redone PACEMAKER (PM) 1996 redone - 2008 Family History FAMILY HISTORY Problem Relation Age of Onset Diabetes Mother from diabetes Patient Allergies ALLERGIES Allergen Reactions Losartan Myalgia Advil [Ibuprofen] Unknown Amlodipine Other: See Comments Lower extremity swelling Asa [Salicylates] Unknown Lisinopril Cough Zetia [Ezetimibe] Other: See Comments weakness Current Medications Current Outpatient Medications on File Prior to Visit Medication Sig MEDICAL SUPPLY Lift chair, #1 device Dx: G12 and R53.81 MEDICAL SUPPLY Transport chair, #1 device Dx: G12 and R53.81 MEDICAL SUPPLY Extremity: Pair, Compression: 15-20 mmHg, Style: Closed Toe, Length: Knee-high, #2 pair with 1 refill, Dx: R60.0 doxazosin (CARDURA) 2 mg tablet Take 1 tablet by mouth once daily. MEDICAL SUPPLY Please discontinue patient's home O2. Testing shows he is no longer hypoxic and therefore no longer requires it. hydroCHLOROthiazide (HYDRODIURIL, ESIDRIX) 25 mg tablet TAKE 1 TABLET BY MOUTH ONCE DAILY IN THE MORNING cholecalciferol, vitamin D3, (VITAMIN D3 ORAL) Take by mouth. CPAP Please change AutoPAP setting range to 10-18 cmH2O. Please provide download in 30 days. albuterol HFA (PROAIR HFA) 90 mcg/actuation inhaler Inhale 2 Puffs as instructed as needed. No current facility-administered medications on file prior to visit. Social History Social History Tobacco Use Smoking status: Never Smoker Smokeless tobacco: Never Used Substance Use Topics Alcohol use: No Drug use: No Review of Symptoms REVIEW OF SYSTEMS GENERAL: No weight loss, malaise or fevers HEENT: Negative for frequent or significant headaches, No changes in hearing or vision, no nose bleeds or other nasal problems NECK: Negative for lumps, goiter, pain and significant neck swelling RESPIRATORY: Negative for cough, hemoptysis, wheezing, COPD, dyspnea or shortness of breath. No significant asthma exacerbation. CARDIOVASCULAR: Negative for chest pain, increased leg swelling, hypertension, CHF or palpitations GI: No nausea, vomiting, or diarrhea, No heartburn or reflux symptoms and no blood : No history of dysuria, blood MUSCULOSKELETAL: Negative for new or changes in his typical joint pain or swelling, back pain or muscle pain SKIN: Negative for lesions, rash, and itching PSYCH: Negative for sleep disturbance, mood disorder and recent psychosocial stressors HEMATOLOGY/LYMPHOLOGY: Negative for prolonged bleeding, bruising easily or swollen nodes ENDOCRINE: Negative for cold or heat intolerance, polyuria, polydipsia and goiter NEURO: No history of headaches, syncope, paralysis, seizures or tremors EXAM: BP 142/90 Pulse 74 Resp 14 BP 156/92 Pulse 74 Resp 14 Last 6 Encounter BP Readings: Date: BP: 10/26/2021 156/92 05/02/2021 147/87 04/18/2021 144/84 11/01/2020 134/90[bp akua average[ 10/15/2020 124/80 07/12/2020 132/82 At home getting 140-150's/70-80's Last 5 Encounter Wt Readings: Date: Wt: 04/18/2021 92.1 kg (203 lb) 01/14/2021 92.1 kg (203 lb) 11/01/2020 93.9 kg (207 lb) 10/15/2020 90.7 kg (200 lb) 07/12/2020 92.1 kg (203 lb) General Appearance: Well appearing, alert, in no acute distress, well-hydrated, well nourished.. Head: Normocephalic, no masses, lesions, tenderness or abnormalities. Eyes: Anicteric sclera. Pupils are equally round and reactive to light. Extraocular movements are intact. . Ears: External ears, TM's normal, canals clear. Neck: Supple, no adenopathy; thyroid symmetric, normal size, no bruits. Lungs: Lungs clear to auscultation. No wheezing, rhonchi, rales.. Heart: RRR without murmur, gallop, or rubs. No ectopy. Abdomen: Normal abdominal exam, Abdomen soft, non-tender. Bowel sounds normal. No masses, organomegaly. Extremities: No deformities, edema, skin discoloration. Chronic 2+ edema bilaterlly Musculoskeletal: . Muscular strength intact in upper extremities and significantly reduced in lower extremities which is chronic. , No joint swelling, deformity, or tenderness. Peripheral Pulses: Normal. Neurologic: Gait: in wheel chair. Sensation to light touch and crainal nerves 2-12 intact.. Health Maintenance List PNEUMOCOCCAL: 65+(1 - PCV) Never done BP CONTROLLED (<130/80) Never done SHINGRIX VACCINE(1 of 2) Never done DTAP,TDAP,TD(2 - Td or Tdap) due on 11/05/2018 COVID-19 VACCINE(2 - Booster for Viviana series) due on 2021 ADVANCE DIRECTIVE DISCUSSION Never done DEPRESSION SCREENING due on 08/23/2021 ANNUAL PCP TEAM CHRONIC DISEASE VISIT due on 05/02/2022 COLORECTAL CANCER SCREENING due on 09/12/2022 DIABETES SCREEN due on 10/14/2024 LIPID SCREEN due on 10/14/2026 INFLUENZA Completed HEPATITIS C SCREENING Completed SPIROMETRY Discontinued Data reviewed Component Latest Ref Rng & Units 11/01/2020 10/14/2021 WBC 3.70 - 11.00 k/uL 5.96 RBC 4.20 - 6.00 m/uL 5.03 Hemoglobin 13.0 - 17.0 g/dL 15.4 Hematocrit 39.0 - 51.0 % 45.0 MCV 80.0 - 100.0 fL 89.5 MCH 26.0 - 34.0 pg 30.6 MCHC 30.5 - 36.0 g/dL 34.2 RDW-CV 11.5 - 15.0 % 12.6 Platelet Count 150 - 400 k/uL 228 MPV 9.0 - 12.7 fL 10.5 Neut% % 58.3 Abs Neut (ANC) 1.45 - 7.50 k/uL 3.48 Lymph% % 25.7 Abs Lymph 1.00 - 4.00 k/uL 1.53 Mcmullen% % 8.6 Abs Mcmullen <0.87 k/uL 0.51 Eosin% % 5.4 Abs Eosin <0.46 k/uL 0.32 Baso% % 1.3 Abs Baso <0.11 k/uL 0.08 Immature Gran % % 0.7 IMMATURE GRANS (ABS) <0.10 k/uL 0.04 NRBC /100 WBC 0.0 Absolute nRBC <0.01 k/uL <0.01 DTYPE Auto Protein, Total 6.3 - 8.0 g/dL 7.5 6.8 Albumin 3.9 - 4.9 g/dL 4.3 4.4 Calcium 8.5 - 10.2 mg/dL 9.2 9.4 Bilirubin, Total 0.2 - 1.3 mg/dL 0.4 0.5 Alkaline Phosphatase 38 - 113 U/L 51 55 AST 14 - 40 U/L 41 (H) 43 (H) Glucose 74 - 99 mg/dL 95 100 (H) BUN 9 - 24 mg/dL 19 16 Creatinine 0.73 - 1.22 mg/dL 0.77 0.68 (L) Sodium 136 - 144 mmol/L 139 137 Potassium 3.7 - 5.1 mmol/L 4.3 3.3 (L) Chloride 97 - 105 mmol/L 102 98 CO2 22 - 30 mmol/L 25 24 Anion Gap 9 - 18 mmol/L 12 15 ALT 10 - 54 U/L 36 37 eGFR- >60 eGFR-All Other Races . >60 eGFR >=60 mL/min/1.73m 100 Color Yellow Light Yellow Clarity Clear Clear Glucose, Urine Negative Negative Bilirubin, Urine Negative Negative Ketones, Urine Negative Negative Specific [place], Ur 1.005 - 1.030 1.009 Hemoglobin/Blood,Ur Negative Negative pH, Urine 5.0 - 8.0 7.0 Protein, Urine Negative Negative Urobilinogen Negative Negative Nitrites Negative Negative Leukest Negative Negative WBC, Urine 0-5 /HPF 0-5 /HPF RBC, Urine 0-3 /HPF 0-3 /HPF Total Cholesterol, Nonfasting <200 mg/dL 196 203 (H) Triglycerides, Nonfasting <150 mg/dL 110 97 HDL Cholesterol, Nonfasting >39 mg/dL 44 48 LDL Cholesterol, Nonfasting <100 mg/dL 130 (H) 136 (H) Non HDL Cholesterol, Nonfasting <130 mg/dL 152 (H) 155 (H) VLDL Cholesterol, Nonfasting <30 mg/dL 22 19 Total Chol/HDL Ratio, Nonfasting <5.10 mg/dL 4.45 4.23 LDL/HDL Ratio, Nonfasting <2.54 mg/dL 2.95 (H) 2.83 (H) PSA 0.00 - 2.59 ng/mL 8.53 (H) PSA, Percent Free % 39 A/P ASSESSMENT/PLAN: 1. Medicare annual wellness visit, subsequent - ICD9: V70.0, ICD10: Z00.00 (primary diagnosis) - Counseled on healthy diet and regular exercise - Follow up for annual exam in one year 2. Hyperlipidemia, mixed - ICD9: 272.2, ICD10: E78.2 - good control - Encouraged following a low fat, low cholesterol diet. - Discussed the benefits of regular aerobic exercise and weight loss. - Encouraged following a low carbohydrate, healthy oil intake diet. 3. Sinoatrial node dysfunction (HCC) - ICD9: 427.81, ICD10: I49.5 - management per cardio_ Pace maker in place. 4. Paroxysmal atrial fibrillation (HCC) - ICD9: 427.31, ICD10: I48.0 - Management per cardio 5. Mild intermittent extrinsic asthma without complication - ICD9: 493.00, ICD10: J45.20 Mild intermittent Asthma stable - management per specialist. 6. TEMO (obstructive sleep apnea) - ICD9: 327.23, ICD10: G47.33 - Seeing sleep med, on CPAP 7. Nocturnal hypoxia - ICD9: 327.24, ICD10: G47.34 - Corrected with CPAP 8. Elevated PSA - ICD9: 790.93, ICD10: R97.20 - Management per Urology 9. Spinal muscle atrophy (HCC) - ICD9: 335.10, ICD10: G12.9 - Stable seeing Neuro 10. Living will in place - ICD9: V49.89, ICD10: Z78.9 - Asked to bring in copies 11. Advance directive discussed with patient - ICD9: V65.49, ICD10: Z71.89 - As per #10 12. Gall bladder stones - ICD9: 574.20, ICD10: K80.20 - No clinical issues. Will monitor 13. Breast tenderness in male - ICD9: 611.71, ICD10: N64.4 Check - EDITA DIAGNOSTIC BILAT - US BREAST LTD LT - US BREAST LTD RT 14. Breast mass in male - ICD9: 611.72, ICD10: N63.0 Check - EDITA DIAGNOSTIC BILAT - US BREAST LTD LT - US BREAST LTD RT 15. Hypokalemia - ICD9: 276.8, ICD10: E87.6 Check - POTASSIUM BLD 16. Hypertension, essential - ICD9: 401.9, ICD10: I10 - suboptimal control - Continue current medication(s) - Begin clonidine (Catapres) 0.1 mg twice a day. Will have NV F/u in 4 weeks. (in pit received from cardio as well) - Recommended regular aerobic exercise. - Recommend home blood pressure monitoring, to bring results in on next visit - Goal of BP <130/80 Signed Prescriptions Disp Refills cloNIDine HCl (CATAPRES) 0.1 mg tablet 60 tablet 5 Sig: Take 1 tablet by mouth twice daily. NV BP check in 4 weeks F/u 6 months routine I spent a total of 40 minutes on the date of the service which included preparing to see the patient, [id number]-[id number] patient care, completing clinical documentation, performing a medically appropriate examination, counseling and educating the patient/family/caregiver and ordering medications, tests, or procedures. Tomasz Fabian MD documented in this encounter [facility] 09-14-2021 Miscellaneous Notes Spoke with the patient and scheduled an appointment. Left the patient message to call [phone] Lawler. Consult order on file. Pt states at visit with neuro 08/26/21 he was to be referred to Dr Lawler. Pt states he hasn't heard anything about an appt yet & would like to get one scheduled. Please call pt to schedule. Marjorie Montana LPN documented in this encounter [facility] 08-26-2021 History of Present illness Narrative ESTABLISHED PATIENT VISIT (Virtrual Visit with Video) For this virtual visit, the patient has been identified by name and (MRN and photo identification as well if available). Those taking part in visit: Patient and physician via [employer]. Consent for this visit received from patient. HISTORY OF PRESENT ILLNESS: Delfino Rosales is a 71 year old male, with past medical history significant for and per last office visit note of 04/18/21: 1. TEMO on CPAP - ICD9: 327.23, V46.8, ICD10: G47.33, Z99.89 (primary diagnosis) Doing well on PAP. Encouraged PAP compliance. Reminded to clean and replace equipment regularly. Advised not to drive or operate heavy machinery if sleepy. 2. SMA (spinal muscular atrophy), adult onset (HCC) - ICD9: 335.19, ICD10: G12.1 Pt still feels strength recovering following COVID. Completed PT. Discussed possible neuromuscular eval as it has been some time since his last to determine if any new trials. Pt not wanting to travel to either [place] or [place]. Will d/w staff for any options. 3. Leg swelling - ICD9: 729.81, ICD10: M79.89 Significant LLE. Concern given recent COVID is hypercoag state and possible DVT. Doppler ordered. 4. History of COVID-19 - ICD9: V12.09, ICD10: Z86.16 Encouraged follow up with PCP. Provided pt with COVID vaccine education. Requested he contact his PCP to confirm no other contraindications we are not aware of before getting Booster. Tolerated first J and J. 5. Primary hypertension - ICD9: 401.9, ICD10: I10 BP elevated in office. Encouraged follow up with PCP. PAP data download for past 90 days shows nightly use for avg of 8 hours and 40 minutes. 95% PAP setting of 12.4 cmH2O with machine set to 10-18 cmH2O. AHI is 1.1. 95% leak is 2.3 LPM. Patient states symptoms of SMA unchanged. He would like to be evaluated by neuromuscular. Pt with no PAP issues. No mask leaks. No discomfort. No snoring. No witnessed apneas. Not waking gasping for air. No AM headaches. No dry mouth so long as he keeps humidifier on 5. BP slowly improving. States dancing in the 150s regarding systolic at this time. Wearing compression stockings regarding leg swelling - per caseworker intake. Cardiology controlling BP meds at this time. Sleep Questionnaire Data Depression Screening 08/16/2017 08/20/2018 08/23/2020 PHQ-2 Score 0 0 0 PHQ-9 Score - - 0 PED PHQ-9 08/16/2017 08/20/2018 08/23/2020 Little interest or pleasure in doing things - - Not at all Feeling down, depressed, or hopeless - - Not at all Trouble falling or staying asleep, or sleeping too much - - Not at all Feeling tired or having little energy - - Not at all Poor appetite or overeating - - Not at all Feeling bad about yourself - or that you are a failure or have let yourself or your family down - - Not at all Trouble concentrating on things, such as reading the newspaper or watching television - - Not at all Moving or speaking so slowly that other people could have noticed. Or the opposite - being so fidgety or restless that you have been moving around a lot more than usual - - Not at all Thoughts that you would be better off , or of hurting yourself in some way - - Not at all If you checked off any problems, how difficult have these problems made it for you to do your work, take care of things at home, or get along with other people? - - Not difficult at all PHQ-9 Score - - 0 (None-Minimal Depression) [employer] Sleepiness Scale 08/16/2017 08/20/2018 08/23/2020 Score - - 11 (present daytime sleepiness) Did see PT during interim but only did 4 sessions and then stopped. Weakness is worst in the legs - feels like cannot move around - went from slow gait, to cane to walker. Pt in the past indicated did not want to look into treatments. Makes comment today of not wanting to dump money into me when talking about possible SMA meds. REVIEW OF SYSTEMS GENERAL:No weight loss, malaise or fevers. HEENT:Negative for frequent or significant headaches, No changes in hearing or vision, no nose bleeds or other nasal problems NECK:ROM nml. RESPIRATORY: Negative for cough, wheezing or shortness of breath. CARDIOVASCULAR: Negative for chest pain, leg swelling or palpitations. GASTROINTESTINAL: Negative for abdominal discomfort, blood in stools or black stools or change in bowel habits GENITOURINARY: No history of dysuria, frequency or incontinence MUSCULOSKELETAL: See HPI. NEUROLOGIC:See HPI. LAB/IMAGING: Those performed since patient's last visit have been reviewed. WBC (k/uL) Date Value 05/25/2020 8.12 RBC (m/uL) Date Value 05/25/2020 4.89 Hemoglobin (g/dL) Date Value 05/25/2020 15.1 Hematocrit (%) Date Value 05/25/2020 46.3 MCV (fL) Date Value 05/25/2020 94.7 MCH (pG) Date Value 05/25/2020 30.9 MCHC (g/dL) Date Value 05/25/2020 32.6 RDW-CV (%) Date Value 05/25/2020 11.7 Platelet Count (k/uL) Date Value 05/25/2020 225 MPV (fL) Date Value 05/25/2020 10.8 Glucose (MG/DL) Date Value 05/19/2021 89 BUN (mg/dL) Date Value 05/19/2021 16 Creatinine (MG/DL) Date Value 05/19/2021 0.69 Sodium (MEQ/L) Date Value 05/19/2021 138 Potassium (MEQ/L) Date Value 05/19/2021 3.5 Chloride (MEQ/L) Date Value 05/19/2021 98 CO2 (mmol/L) Date Value 05/19/2021 31.0 Protein, Total (g/dL) Date Value 11/01/2020 7.5 Albumin (g/dL) Date Value 11/01/2020 4.3 Calcium (MG/DL) Date Value 05/19/2021 9.4 Alkaline Phosphatase (U/L) Date Value 11/01/2020 51 Bilirubin, Total (mg/dL) Date Value 11/01/2020 0.4 AST (U/L) Date Value 11/01/2020 41 (H) ALT (U/L) Date Value 11/01/2020 36 Hep C Antibody IA (no units) Date Value 11/01/2020 Negative MEDICATIONS: MEDICAL SUPPLY Lift chair, #1 device Dx: G12 and R53.81 MEDICAL SUPPLY Transport chair, #1 device Dx: G12 and R53.81 MEDICAL SUPPLY Extremity: Pair, Compression: 15-20 mmHg, Style: Closed Toe, Length: Knee-high, #2 pair with 1 refill, Dx: R60.0 doxazosin (CARDURA) 2 mg tablet Take 1 tablet by mouth once daily. MEDICAL SUPPLY Please discontinue patient's home O2. Testing shows he is no longer hypoxic and therefore no longer requires it. hydroCHLOROthiazide (HYDRODIURIL, ESIDRIX) 25 mg tablet TAKE 1 TABLET BY MOUTH ONCE DAILY IN THE MORNING cholecalciferol, vitamin D3, (VITAMIN D3 ORAL) Take by mouth. CPAP Please change AutoPAP setting range to 10-18 cmH2O. Please provide download in 30 days. albuterol HFA (PROAIR HFA) 90 mcg/actuation inhaler Inhale 2 Puffs as instructed as needed. HISTORIES PAST MEDICAL HISTORY Diagnosis Date Benign non-nodular prostatic hyperplasia with lower urinary tract symptoms 07/20/2015 COVID-19 virus infection 02/09/2021 02/09/2021 Elevated blood pressure reading without diagnosis of hypertension 11/01/2020 Elevated PSA 12/02/2019 Dr. Becerril- Feels that the elevation is from BPH and will treat and monitor his level. Considering surgery/bx later Extrinsic asthma 07/24/2006 Dr. Borges Hyperlipidemia, mixed 07/24/2006 Medicare annual wellness visit, subsequent 11/01/2020 Medical B eligibility date 03/14/16 Date of last exam 11/01/20 Nocturnal hypoxia 02/28/2021 Night pulse Ox test dropped below 89% and as low as 80%. TEMO (obstructive sleep apnea) 11/01/2020 Dr. Appiah. On CPAP Pacemaker 11/01/2020 Dr. 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 Spinal muscle atrophy (HCC) 1997 Tubular adenoma of rectum 08/03/20162014--polypectomy 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, 2014--polypectomy Vitiligo 1970 FAMILY HISTORY Problem Relation Age of Onset Diabetes Mother from diabetes SOCIAL HISTORY Social History Tobacco Use Smoking status: Never Smoker Smokeless tobacco: Never Used Substance Use Topics Alcohol use: No Drug use: No PHYSICAL EXAMINATION There were no vitals taken for this visit. GENERAL EXAM: General appearance: NAD, pleasant. HEENT: NC/AT, nasal congestion absent, no oral lesions, membranes moist. NECK: ROM nml. Lungs: No audible cough, wheeze, sob. NEUROLOGICAL EXAM: General: Awake, alert, oriented x3 (person,place,time), speech fluent, no dysarthria; comprehension, naming, repetition intact. CN: EOMI, face symmetric, hearing is intact to finger rub bilaterally, palate and tongue movements are intact and symmetric. SCM and trapezius strength normal. Motor: REHMAN equal and symmetric. Coordination: FNF, NAIDA intact. No tremors. Assessment and Plan: ASSESSMENT/PLAN: 1. TEMO on CPAP - ICD9: 327.23, V46.8, ICD10: G47.33, Z99.89 (primary diagnosis) Doing well on PAP therapy both subjectively and objectively. No changes in therapy today. Encouraged compliance. Reminded to clean and replace equipment regularly. Currently without daytime sleepiness. although ESS slightly elevated at 11. 2. SMA (spinal muscular atrophy) (HCC) - ICD9: 335.10, ICD10: G12.9 Will request consult to Dr. Lawler for opinion re SMA and possible treatment options. Raleigh Appiah MD I spent a total of 20 minutes on the date of the service which included preparing to see the patient, [id number] patient care, completing clinical documentation, obtaining and/or reviewing separately obtained history, performing a medically appropriate examination, counseling and educating the patient/family/caregiver, ordering medications, tests, or procedures, independently interpreting results (not separately reported) and communicating results to the patient/family/caregiver. documented in this encounter [facility] 08-10-2021 Miscellaneous Notes Recommend evaluation with neuromuscular. Perhaps Dr. Lawler would be near patient. Raleigh Appiah MD documented in this encounter [facility] 06-28-2020 Evaluation note Diagnosis Onset Date History of permanent cardiac pacemaker placement June 28, 2020 chronic Paroxysmal atrial fibrillation chronic Sick sinus syndrome [facility] Work Phone: Evaluation note* Diagnosis TEMO on CPAP- Primary Obstructive sleep apnea (adult) (pediatric) SMA (spinal muscular atrophy) (HCC) Spinal muscular atrophy, unspecified [facility] Diagnosis Medicare annual wellness visit, subsequent- Primary Routine general medical examination at a health care facility Hyperlipidemia, mixed Mixed hyperlipidemia Sinoatrial node dysfunction (HCC) Sinoatrial node dysfunction Paroxysmal atrial fibrillation (HCC) Atrial fibrillation Mild intermittent extrinsic asthma without complication TEMO (obstructive sleep apnea) Obstructive sleep apnea (adult) (pediatric) Nocturnal hypoxia Hypoxemia Elevated PSA Elevated prostate specific antigen (PSA) Spinal muscle atrophy (HCC) Spinal muscular atrophy, unspecified Living will in place Advance directive discussed with patient Other specified counseling Gall bladder stones Calculus of gallbladder without mention of cholecystitis or obstruction Breast tenderness in male Mastodynia Breast mass in male Lump or mass in breast Hypokalemia Hypopotassemia Hypertension, essential Unspecified essential hypertension [facility] Diagnosis Hypokalemia- Primary Hypopotassemia [facility] Diagnosis Hypertension, essential- Primary Unspecified essential hypertension [facility] Diagnosis Breast tenderness in male Mastodynia Breast mass in male Lump or mass in breast [facility] Diagnosis Breast tenderness in male Mastodynia Breast mass in male Lump or mass in breast [facility] Diagnosis Hypertension, essential- Primary Unspecified essential hypertension [facility] Diagnosis Hypokalemia- Primary Hypopotassemia [facility] Diagnosis Hypokalemia- Primary Hypopotassemia [facility] Diagnosis Hypokalemia- Primary Hypopotassemia [facility] Diagnosis Hypertension, essential- Primary Unspecified essential hypertension Hyperlipidemia, mixed Mixed hyperlipidemia Mild intermittent extrinsic asthma without complication Paroxysmal atrial fibrillation (HCC) Atrial fibrillation Sinoatrial node dysfunction (HCC) Sinoatrial node dysfunction TEMO (obstructive sleep apnea) Obstructive sleep apnea (adult) (pediatric) Benign non-nodular prostatic hyperplasia with lower urinary tract symptoms Excessive ear wax, left Encounter for immunization Need for other specified prophylactic vaccination against single bacterial disease Medication management Encounter for long-term (current) use of other medications [facility] Diagnosis Hypertension, essential- Primary Unspecified essential hypertension [facility] Diagnosis Tubulovillous adenoma of colon- Primary Benign neoplasm of colon Tubular adenoma of rectum Benign neoplasm of rectum and anal canal Screening for colon cancer Special screening for malignant neoplasms, colon [facility] Diagnosis History of colonic polyps- Primary Personal history of colonic polyps [facility] Diagnosis TEMO on CPAP- Primary Obstructive sleep apnea (adult) (pediatric) SMA (spinal muscular atrophy) (HCC) Spinal muscular atrophy, unspecified [facility] Diagnosis Tubular adenoma- Primary Benign neoplasm of unspecified site [facility] Diagnosis Medicare annual wellness visit, subsequent- Primary Routine general medical examination at a health care facility Hypertension, essential Unspecified essential hypertension Hyperlipidemia, mixed Mixed hyperlipidemia Mild intermittent extrinsic asthma without complication Sinoatrial node dysfunction (HCC) Sinoatrial node dysfunction Paroxysmal atrial fibrillation (HCC) Atrial fibrillation TEMO (obstructive sleep apnea) Obstructive sleep apnea (adult) (pediatric) Benign non-nodular prostatic hyperplasia with lower urinary tract symptoms Elevated PSA Elevated prostate specific antigen (PSA) Spinal muscle atrophy (HCC) Spinal muscular atrophy, unspecified Advance directive discussed with patient Other specified counseling Encounter for immunization Need for other specified prophylactic vaccination against single bacterial disease Impacted cerumen of left ear Impacted cerumen [facility] Diagnosis Screening for colon cancer- Primary Special screening for malignant neoplasms, colon History of colonic polyps Personal history of colonic polyps [facility] Diagnosis Hypertension, essential- Primary Unspecified essential hypertension [facility] Diagnosis TEMO on CPAP- Primary Obstructive sleep apnea (adult) (pediatric) Spinal muscle atrophy (HCC) Spinal muscular atrophy, unspecified [facility]* Diagnosis Hyperlipidemia, mixed- Primary Mixed hyperlipidemia Paroxysmal atrial fibrillation (HCC) Atrial fibrillation Hypertension, essential Unspecified essential hypertension Medication management Encounter for long-term (current) use of other medications Elevated PSA Elevated prostate specific antigen (PSA) Medicare annual wellness visit, subsequent Routine general medical examination at a health care facility TEMO (obstructive sleep apnea) Obstructive sleep apnea (adult) (pediatric) Mild intermittent extrinsic asthma without complication Advance directive discussed with patient Other specified counseling [facility]* Diagnosis Hypertension, essential Unspecified essential hypertension documented in this encounter [facility] noteNo assessment information availableWNorwalk [facility] Work Phone: Evaluation note* Diagnosis TEMO on CPAP- Primary Obstructive sleep apnea (adult) (pediatric) Hypertension, essential Unspecified essential hypertension documented in this encounter [facility] note* Diagnosis Medicare annual wellness visit, subsequent- Primary Routine general medical examination at a health care facility Hyperlipidemia, mixed Mixed hyperlipidemia Hypertension, essential Unspecified essential hypertension Mild intermittent extrinsic asthma without complication (HCC) Paroxysmal atrial fibrillation (HCC) Atrial fibrillation Sinoatrial node dysfunction (HCC) Sinoatrial node dysfunction TEMO (obstructive sleep apnea) Obstructive sleep apnea (adult) (pediatric) Nocturnal hypoxia Hypoxemia Elevated PSA Elevated prostate specific antigen (PSA) Gall bladder stones Calculus of gallbladder without mention of cholecystitis or obstruction Advance directive discussed with patient Other specified counseling Skin cancer screening Screening for malignant neoplasm of the skin Medication management Encounter for long-term (current) use of other medications Encounter for screening examination for other mental health and behavioral disorders Screening for depression documented in this encounter [facility] note* Diagnosis Hyponatremia- Primary Hyposmolality and/or hyponatremia [facility]* Diagnosis Hypertension, essential Unspecified essential hypertension [facility] Diagnosis Hypertension, essential- Primary Unspecified essential hypertension Spinal muscle atrophy (HCC) Spinal muscular atrophy, unspecified [facility] Diagnostic Procedure Only (Routine) - Authorized Specialty Diagnoses / Procedures Referred By Carl t Referred To Contact [facility] Diagnoses Breast tenderness in male Breast mass in male Procedures US BREAST LTD RT US BREAST UNI REAL TIME WITH IMAGE LIMITED Tomasz Fabian MD [facility] [place] [address] [facility] [address] [place] [address] Referral ID Status Reason Start Date Expiration Date Visits Requested Visits Authorized [id number] Authorized Auto-Generat ed Referral 10/26/2021 11/25/2022 1 1 * Diagnostic Procedure Only (Routine) - Authorized Specialty Diagnoses / Procedures Referred By Carl t Referred To Contact [facility] Diagnoses Breast tenderness in male Breast mass in male Procedures US BREAST LTD LT US BREAST UNI REAL TIME WITH IMAGE LIMITED Tomasz Fabian MD [address] [place] [address] [facility] [address] [place] [address] Referral ID Status Reason Start Date Expiration Date Visits Requested Visits Authorized [id number] Authorized Auto-Generat ed Referral 10/26/2021 11/25/2022 1 1 * Diagnostic Procedure Only (Routine) - Authorized Specialty Diagnoses / Procedures Referred By Contmonet t Referred To Contact [facility] Diagnoses Breast tenderness in male Breast mass in male Procedures EDITA DIAGNOSTIC BILAT DIAGNOSTIC MAMMOGRAPHY COMPUTER-AIDED DETCJ BI Tomasz Fabian MD [address] [place] [address] [facility] [address] [place] [address] Referral ID Status Reason Start Date Expiration Date Visits Requested Visits Authorized [id number] Authorized Auto-Generat ed Referral 10/26/2021 11/25/2022 1 1 [facility] for referral (narrative)* Diagnostic Procedure Only (Routine) - Closed Specialty Diagnoses / Procedures Referred By Carl castellanos Referred To Contact [facility] Diagnoses Breast tenderness in male Breast mass in male Procedures EDITA DIAGNOSTIC BILAT DIAGNOSTIC MAMMOGRAPHY COMPUTER-AIDED DETCJ BI Tomasz Fabian MD [address] [place] [address] [facility] [address] [place] [address] Referral ID Status Reason Start Date Expiration Date V isits Requested Visits Authorized [id number] Closed Auto-Generate d Referral 10/26/2021 11/25/2022 1 1 [facility] for referral (narrative)* Diagnostic Procedure Only (Routine) - Closed Specialty Diagnoses / Procedures Referred By Carl castellanos Referred To Contact [facility] Diagnoses Breast tenderness in male Breast mass in male Procedures US BREAST LTD RT US BREAST UNI REAL [place] [address] [place] [address] [facility] [address] [address] Referral ID Status Reason Start Date Expiration Date V isits Requested Visits Authorized [id number] Closed Auto-Generate d Referral 10/26/2021 11/25/2022 1 1 * Diagnostic Procedure Only (Routine) - Closed Specialty Diagnoses / Procedures Referred By Carl castellanos Referred To Contact [facility] Diagnoses Breast tenderness in male Breast mass in male Procedures US BREAST LTD LT US BREAST UNI REAL [place] [address] [place] [address] [facility] [address] [place] [address] Referral ID Status Reason Start Date Expiration Date V isits Requested Visits Authorized [id number] Closed Auto-Generate d Referral 10/26/2021 11/25/2022 1 1 [facility] for referral (narrative)* Outpatient Procedure (Routine) - Authorized Specialty Diagnoses / Procedures Referred By Carl t Referred To Contact [facility] [place] Diagnoses History of colonic polyps Procedures COLONOSCOPY SCREENING COLONOSCOPY SCREENING COLONOSCOPY FLX DX W/COLLJ SPEC WHEN Keli Escudero MD [address] [facility] [place] [address] [address] Referral ID Status Reason Start Date Expiration Date Visits Requested Visits Authorized [id number] Authorized Auto-Generat ed Referral 09/20/2022 09/21/2023 1 1 [facility] for referral (narrative)* Outpatient Procedure (Routine) - Closed Specialty Diagnoses / Procedures Referred By Carl castellanos Referred To Contact [facility] [place] Diagnoses History of colonic polyps Procedures COLONOSCOPY SCREENING COLONOSCOPY SCREENING COLONOSCOPY FLX DX W/COLLJ SPEC WHEN Keli Escudero MD [address] [facility] [place] [address] [address] Referral ID Status Reason Start Date Expiration Date V isits Requested Visits Authorized [id number] Closed Auto-Generate d Referral 09/20/2022 09/21/2023 1 1 [facility] for referral (narrative)No reason for referral information availableWNorwalk Memorial Hospital Work Phone: Reason for visit Narrative* Diagnostic Procedure Only (Routine) - Closed Specialty Diagnoses / Procedures Referred By Carl castellanos Referred To Contact [facility] Diagnoses Breast tenderness in male Breast mass in male Procedures EDITA DIAGNOSTIC BILAT DIAGNOSTIC MAMMOGRAPHY COMPUTER-AIDED DETCJ BI Tomasz Fabian MD [address] [place] [address] [facility] [address] [place] [address] Referral ID Status Reason Start Date Expiration Date V isits Requested Visits Authorized [id number] Closed Auto-Generate d Referral 10/26/2021 11/25/2022 1 1 [facility] for visit Narrative* Diagnostic Procedure Only (Routine) - Closed Specialty Diagnoses / Procedures Referred By Contac t Referred To Contact [facility] Diagnoses Breast tenderness in male Breast mass in male Procedures US BREAST LTD RT US BREAST UNI REAL TIME WITH IMAGE LIMITED Tomasz Fabian MD [address] [place] [address] [facility] [address] [place] [address] Referral ID Status Reason Start Date Expiration Date V isits Requested Visits Authorized [id number] Closed Auto-Generate d Referral 10/26/2021 11/25/2022 1 1 [facility] for visit Narrative* Outpatient Procedure (Routine) - Closed Specialty Diagnoses / Procedures Referred By Contac t Referred To Contact [facility] Diagnoses History of colonic polyps Procedures COLONOSCOPY SCREENING COLONOSCOPY SCREENING COLONOSCOPY FLX DX W/COLLJ SPEC WHEN PFKeli Oseguera MD [address] [place] [address] [facility] [address] [place] [address] Referral ID Status Reason Start Date Expiration Date V isits Requested Visits Authorized [id number] Closed Auto-Generate d Referral 09/20/2022 09/21/2023 1 1 [facility] Reason for Referral Specialty Diagnoses / Procedures Referred By Contac t Referred To Contact Neurology Diagnoses SMA (spinal muscular atrophy) (HCC) Procedures CONSULT TO NEUROLOGY OFFICE/OUTPATIENT NEW HIGH MDM 60-74 MINUTES Raleigh Appiah Jr., MD [address] [address] Referral ID Status Reason Start Date Expiration Date Visits Requested Visits Authorized [id number] Authorized PCP Requested Referral 08/26/2021 08/26/2022 1 1 Specialty Diagnoses / Procedures Referred By Contac t Referred To Contact General Surgery Diagnoses Tubulovillous adenoma of colon Tubular adenoma of rectum Screening for colon cancer Procedures CONSULT TO GENERAL SURGERY OFFICE/OUTPATIENT [facility] 60-74 MINUTES Tomasz Fabian MD [address] [place] [address] Referral ID Status Reason Start Date Expiration Date Visits Requested Visits Authorized [id number] Authorized PCP Requested Referral 06/30/2022 06/30/2023 1 1 Chief Complaint and Reason for Visit Chief Complaint 3 mos remote PPM f/u WEAKNESS Reason for Visit History of permanent cardiac pacemaker placement Paroxysmal atrial fibrillation Sick sinus syndrome Chief Complaint 3 mos remote PPM f/u WEAKNESS CYSTO, TURBT, OLYMPUS Reason for Visit History of permanent cardiac pacemaker placement Paroxysmal atrial fibrillation Sick sinus syndrome Chief Complaint Admit Date Pacer Check Remote July 04, 2024 4:00am Chief Complaint Admit Date Pacer Check Remote July 04, 2024 4:00am Pacer Check Remote October 03, 2024 2:00a m Chief Complaint Admit Date Pacer Check Remote October 03, 2024 2:00a m Pacer Check Remote January 02, 2025 2: 00am Advance Directives No Advanced Directives Records Found Advance Directive Response Recorded Date/ Time Name of Medical Power of Supply Room Clerk ayan April 11, 2022 1:58pm Advance Directives Yes June 11:52am Living Will Yes April 11, 2 022 1:58pm Power of Supply Room Clerk Yes April 11, 2022 1:58pm Advance Directive Response Recorded Date/ Time Name of Medical Power of Supply Room Clerk May 03, 2022 3:46pm Advance Directives Yes June 11:52am Living Will Yes May 03, 2 022 3:46pm Power of Supply Room Clerk Yes May 03, 2022 3:46pm Name of Medical Power of Supply Room Clerk ayan April 11, 2022 1:58pm Advance Directive Response Recorded Date/ Time Advance Directives Yes June 12:52pm Medications Administered Section Inactive Administered Medications - up to 3 most recent administrations Medication Order MAR Action Action Date Dose Rate Site diphenhydrAMINE 12.5-50 mg injection (BENADRYL) 12.5-50 mg, INTRAVENOUS, DIRECTED, Starting on Sun10/23/22 at 1130, Until Sun10/23/22 at 1529, DOSING DIRECTED BY PHYSICIAN FOR PROCEDURAL SEDATION ONLY, Intraprocedure Given 10/23/2022 11:32 AM EDT 50 mg fentaNYL 50 mcg/mL 25-100 mcg injection (SUBLIMAZE) 25-100 mcg, INTRAVENOUS, DIRECTED, Starting on Sun10/23/22 at 1130, Until Sun10/23/22 at 1529, DOSING DIRECTED BY PHYSICIAN FOR PROCEDURAL SEDATION ONLY, Intraprocedure Given 10/23/2022 11:40 AM EDT 25 mcg Given 10/23/2022 11:27 AM EDT 50 mcg lactated ringers iv infusion 75 mL/hr, INTRAVENOUS, CONTINUOUS, Starting on Sun10/23/22 at 1100, Until Sun10/23/22 at 1200, Preprocedure New Bag/Syringe/Bottle 10/23/2022 10:54 AM EDT 75 mL/hr 75 mL/hr midazolam 1-5 mg injection (VERSED) 1-5 mg, INTRAVENOUS, DIRECTED, Starting on Sun10/23/22 at 1130, Until Sun10/23/22 at 1529, DOSING DIRECTED BY PHYSICIAN FOR PROCEDURAL SEDATION ONLY, Intraprocedure Given 10/23/2022 11:27 AM EDT 3 mg Summary Purpose Family History No Family History Records Found Additional Source Comments Source Comments (unrecognize d section and content) In the event this informatio n is protected by the Federal Confidentiality of Alcohol and Drug Abuse Patient Records regulations: The Federal rules restrict any use of the information to criminally investigate or prosecute any alcohol or drug abuse patient.[facility] the event this information is protected by the Federal Confidentiality of Alcohol and Drug Abuse Patient Records regulations: The Federal rules restrict any use of the information to criminally investigate or prosecute any alcohol or drug abuse patient.[facility] the event this information is protected by the Federal Confidentiality of Alcohol and Drug Abuse Patient Records regulations: The Federal rules restrict any use of the information to criminally investigate or prosecute any alcohol or drug abuse patient.[facility] the event this information is protected by the Federal Confidentiality of Alcohol and Drug Abuse Patient Records regulations: The Federal rules restrict any use of the information to criminally investigate or prosecute any alcohol or drug abuse patient.[facility] the event this information is protected by the Federal Confidentiality of Alcohol and Drug Abuse Patient Records regulations: The Federal rules restrict any use of the information to criminally investigate or prosecute any alcohol or drug abuse patient.[facility] the event this information is protected by the Federal Confidentiality of Alcohol and Drug Abuse Patient Records regulations: The Federal rules restrict any use of the information to criminally investigate or prosecute any alcohol or drug abuse patient.[facility] Center[facility] the event this information is protected by the Federal Confidentiality of Alcohol and Drug Abuse Patient Records regulations: The Federal rules restrict any use of the information to criminally investigate or prosecute any alcohol or drug abuse patient.[facility] Center[facility] the event this information is protected by the Federal Confidentiality of Alcohol and Drug Abuse Patient Records regulations: The Federal rules restrict any use of the information to criminally investigate or prosecute any alcohol or drug abuse patient.[facility] the event this information is protected by the Federal Confidentiality of Alcohol and Drug Abuse Patient Records regulations: The Federal rules restrict any use of the information to criminally investigate or prosecute any alcohol or drug abuse patient.[facility] Center[facility] the event this information is protected by the Federal Confidentiality of Alcohol and Drug Abuse Patient Records regulations: The Federal rules restrict any use of the information to criminally investigate or prosecute any alcohol or drug abuse patient.[facility] the event this information is protected by the Federal Confidentiality of Alcohol and Drug Abuse Patient Records regulations: The Federal rules restrict any use of the information to criminally investigate or prosecute any alcohol or drug abuse patient.[facility] CenterIn the event this information is protected by the Federal Confidentiality of Alcohol and Drug Abuse Patient Records regulations: The Federal rules restrict any use of the information to criminally investigate or prosecute any alcohol or drug abuse patient.[facility] CenterIn the event this information is protected by the Federal Confidentiality of Alcohol and Drug Abuse Patient Records regulations: The Federal rules restrict any use of the information to criminally investigate or prosecute any alcohol or drug abuse patient.[facility] CenterIn the event this information is protected by the Federal Confidentiality of Alcohol and Drug Abuse Patient Records regulations: The Federal rules restrict any use of the information to criminally investigate or prosecute any alcohol or drug abuse patient.[facility] CenterIn the event this information is protected by the Federal Confidentiality of Alcohol and Drug Abuse Patient Records regulations: The Federal rules restrict any use of the information to criminally investigate or prosecute any alcohol or drug abuse patient.[facility]In the event this information is protected by the Federal Confidentiality of Alcohol and Drug Abuse Patient Records regulations: The Federal rules restrict any use of the information to criminally investigate or prosecute any alcohol or drug abuse patient.[facility] CenterIn the event this information is protected by the Federal Confidentiality of Alcohol and Drug Abuse Patient Records regulations: The Federal rules restrict any use of the information to criminally investigate or prosecute any alcohol or drug abuse patient.[facility] CenterIn the event this information is protected by the Federal Confidentiality of Alcohol and Drug Abuse Patient Records regulations: The Federal rules restrict any use of the information to criminally investigate or prosecute any alcohol or drug abuse patient.[facility] CenterIn the event this information is protected by the Federal Confidentiality of Alcohol and Drug Abuse Patient Records regulations: The Federal rules restrict any use of the information to criminally investigate or prosecute any alcohol or drug abuse patient.[facility] CenterIn the event this information is protected by the Federal Confidentiality of Alcohol and Drug Abuse Patient Records regulations: The Federal rules restrict any use of the information to criminally investigate or prosecute any alcohol or drug abuse patient.[facility] CenterIn the event this information is protected by the Federal Confidentiality of Alcohol and Drug Abuse Patient Records regulations: The Federal rules restrict any use of the information to criminally investigate or prosecute any alcohol or drug abuse patient.[facility] CenterIn the event this information is protected by the Federal Confidentiality of Alcohol and Drug Abuse Patient Records regulations: The Federal rules restrict any use of the information to criminally investigate or prosecute any alcohol or drug abuse patient.[facility] CenterIn the event this information is protected by the Federal Confidentiality of Alcohol and Drug Abuse Patient Records regulations: The Federal rules restrict any use of the information to criminally investigate or prosecute any alcohol or drug abuse patient.[facility] CenterIn the event this information is protected by the Federal Confidentiality of Alcohol and Drug Abuse Patient Records regulations: The Federal rules restrict any use of the information to criminally investigate or prosecute any alcohol or drug abuse patient.[facility] CenterIn the event this information is protected by the Federal Confidentiality of Alcohol and Drug Abuse Patient Records regulations: The Federal rules restrict any use of the information to criminally investigate or prosecute any alcohol or drug abuse patient.[facility] CenterIn the event this information is protected by the Federal Confidentiality of Alcohol and Drug Abuse Patient Records regulations: The Federal rules restrict any use of the information to criminally investigate or prosecute any alcohol or drug abuse patient.[facility] CenterIn the event this information is protected by the Federal Confidentiality of Alcohol and Drug Abuse Patient Records regulations: The Federal rules restrict any use of the information to criminally investigate or prosecute any alcohol or drug abuse patient.[facility] CenterIn the event this information is protected by the Federal Confidentiality of Alcohol and Drug Abuse Patient Records regulations: The Federal rules restrict any use of the information to criminally investigate or prosecute any alcohol or drug abuse patient.[facility] CenterIn the event this information is protected by the Federal Confidentiality of Alcohol and Drug Abuse Patient Records regulations: The Federal rules restrict any use of the information to criminally investigate or prosecute any alcohol or drug abuse patient.[facility] CenterIn the event this information is protected by the Federal Confidentiality of Alcohol and Drug Abuse Patient Records regulations: The Federal rules restrict any use of the information to criminally investigate or prosecute any alcohol or drug abuse patient.[facility] CenterIn the event this information is protected by the Federal Confidentiality of Alcohol and Drug Abuse Patient Records regulations: The Federal rules restrict any use of the information to criminally investigate or prosecute any alcohol or drug abuse patient.[facility] CenterIn the event this information is protected by the Federal Confidentiality of Alcohol and Drug Abuse Patient Records regulations: The Federal rules restrict any use of the information to criminally investigate or prosecute any alcohol or drug abuse patient.[facility] CenterIn the event this information is protected by the Federal Confidentiality of Alcohol and Drug Abuse Patient Records regulations: The Federal rules restrict any use of the information to criminally investigate or prosecute any alcohol or drug abuse patient.[facility] CenterIn the event this information is protected by the Federal Confidentiality of Alcohol and Drug Abuse Patient Records regulations: The Federal rules restrict any use of the information to criminally investigate or prosecute any alcohol or drug abuse patient.[facility] CenterIn the event this information is protected by the Federal Confidentiality of Alcohol and Drug Abuse Patient Records regulations: The Federal rules restrict any use of the information to criminally investigate or prosecute any alcohol or drug abuse patient.[facility] CenterIn the event this information is protected by the Federal Confidentiality of Alcohol and Drug Abuse Patient Records regulations: The Federal rules restrict any use of the information to criminally investigate or prosecute any alcohol or drug abuse patient.[facility] CenterIn the event this information is protected by the Federal Confidentiality of Alcohol and Drug Abuse Patient Records regulations: The Federal rules restrict any use of the information to criminally investigate or prosecute any alcohol or drug abuse patient.[facility] CenterIn the event this information is protected by the Federal Confidentiality of Alcohol and Drug Abuse Patient Records regulations: The Federal rules restrict any use of the information to criminally investigate or prosecute any alcohol or drug abuse patient.[facility] CenterIn the event this information is protected by the Federal Confidentiality of Alcohol and Drug Abuse Patient Records regulations: The Federal rules restrict any use of the information to criminally investigate or prosecute any alcohol or drug abuse patient.[facility] CenterIn the event this information is protected by the Federal Confidentiality of Alcohol and Drug Abuse Patient Records regulations: The Federal rules restrict any use of the information to criminally investigate or prosecute any alcohol or drug abuse patient.[facility] CenterIn the event this information is protected by the Federal Confidentiality of Alcohol and Drug Abuse Patient Records regulations: The Federal rules restrict any use of the information to criminally investigate or prosecute any alcohol or drug abuse patient.[facility] CenterIn the event this information is protected by the Federal Confidentiality of Alcohol and Drug Abuse Patient Records regulations: The Federal rules restrict any use of the information to criminally investigate or prosecute any alcohol or drug abuse patient.[facility] CenterIn the event this information is protected by the Federal Confidentiality of Alcohol and Drug Abuse Patient Records regulations: The Federal rules restrict any use of the information to criminally investigate or prosecute any alcohol or drug abuse patient.[facility] CenterIn the event this information is protected by the Federal Confidentiality of Alcohol and Drug Abuse Patient Records regulations: The Federal rules restrict any use of the information to criminally investigate or prosecute any alcohol or drug abuse patient.[facility] CenterIn the event this information is protected by the Federal Confidentiality of Alcohol and Drug Abuse Patient Records regulations: The Federal rules restrict any use of the information to criminally investigate or prosecute any alcohol or drug abuse patient.[facility] CenterIn the event this information is protected by the Federal Confidentiality of Alcohol and Drug Abuse Patient Records regulations: The Federal rules restrict any use of the information to criminally investigate or prosecute any alcohol or drug abuse patient.[facility] CenterIn the event this information is protected by the Federal Confidentiality of Alcohol and Drug Abuse Patient Records regulations: The Federal rules restrict any use of the information to criminally investigate or prosecute any alcohol or drug abuse patient.[facility] CenterIn the event this information is protected by the Federal Confidentiality of Alcohol and Drug Abuse Patient Records regulations: The Federal rules restrict any use of the information to criminally investigate or prosecute any alcohol or drug abuse patient.[facility] CenterIn the event this information is protected by the Federal Confidentiality of Alcohol and Drug Abuse Patient Records regulations: The Federal rules restrict any use of the information to criminally investigate or prosecute any alcohol or drug abuse patient.[facility] CenterIn the event this information is protected by the Federal Confidentiality of Alcohol and Drug Abuse Patient Records regulations: The Federal rules restrict any use of the information to criminally investigate or prosecute any alcohol or drug abuse patient.[facility] CenterIn the event this information is protected by the Federal Confidentiality of Alcohol and Drug Abuse Patient Records regulations: The Federal rules restrict any use of the information to criminally investigate or prosecute any alcohol or drug abuse patient.[facility] CenterIn the event this information is protected by the Federal Confidentiality of Alcohol and Drug Abuse Patient Records regulations: The Federal rules restrict any use of the information to criminally investigate or prosecute any alcohol or drug abuse patient.[facility] CenterIn the event this information is protected by the Federal Confidentiality of Alcohol and Drug Abuse Patient Records regulations: The Federal rules restrict any use of the information to criminally investigate or prosecute any alcohol or drug abuse patient.[facility] CenterIn the event this information is protected by the Federal Confidentiality of Alcohol and Drug Abuse Patient Records regulations: The Federal rules restrict any use of the information to criminally investigate or prosecute any alcohol or drug abuse patient.[facility] CenterIn the event this information is protected by the Federal Confidentiality of Alcohol and Drug Abuse Patient Records regulations: The Federal rules restrict any use of the information to criminally investigate or prosecute any alcohol or drug abuse patient.[facility] CenterIn the event this information is protected by the Federal Confidentiality of Alcohol and Drug Abuse Patient Records regulations: The Federal rules restrict any use of the information to criminally investigate or prosecute any alcohol or drug abuse patient.[facility] CenterIn the event this information is protected by the Federal Confidentiality of Alcohol and Drug Abuse Patient Records regulations: The Federal rules restrict any use of the information to criminally investigate or prosecute any alcohol or drug abuse patient.[facility] CenterIn the event this information is protected by the Federal Confidentiality of Alcohol and Drug Abuse Patient Records regulations: The Federal rules restrict any use of the information to criminally investigate or prosecute any alcohol or drug abuse patient.[facility] CenterIn the event this information is protected by the Federal Confidentiality of Alcohol and Drug Abuse Patient Records regulations: The Federal rules restrict any use of the information to criminally investigate or prosecute any alcohol or drug abuse patient.[facility] CenterIn the event this information is protected by the Federal Confidentiality of Alcohol and Drug Abuse Patient Records regulations: The Federal rules restrict any use of the information to criminally investigate or prosecute any alcohol or drug abuse patient.[facility] CenterIn the event this information is protected by the Federal Confidentiality of Alcohol and Drug Abuse Patient Records regulations: The Federal rules restrict any use of the information to criminally investigate or prosecute any alcohol or drug abuse patient.[facility] CenterIn the event this information is protected by the Federal Confidentiality of Alcohol and Drug Abuse Patient Records regulations: The Federal rules restrict any use of the information to criminally investigate or prosecute any alcohol or drug abuse patient.[facility] CenterIn the event this information is protected by the Federal Confidentiality of Alcohol and Drug Abuse Patient Records regulations: The Federal rules restrict any use of the information to criminally investigate or prosecute any alcohol or drug abuse patient.[facility] CenterIn the event this information is protected by the Federal Confidentiality of Alcohol and Drug Abuse Patient Records regulations: The Federal rules restrict any use of the information to criminally investigate or prosecute any alcohol or drug abuse patient.[facility] CenterIn the event this information is protected by the Federal Confidentiality of Alcohol and Drug Abuse Patient Records regulations: The Federal rules restrict any use of the information to criminally investigate or prosecute any alcohol or drug abuse patient.[facility] CenterIn the event this information is protected by the Federal Confidentiality of Alcohol and Drug Abuse Patient Records regulations: The Federal rules restrict any use of the information to criminally investigate or prosecute any alcohol or drug abuse patient.[facility] CenterIn the event this information is protected by the Federal Confidentiality of Alcohol and Drug Abuse Patient Records regulations: The Federal rules restrict any use of the information to criminally investigate or prosecute any alcohol or drug abuse patient.[facility] Care Teams (unrecognized sec tion and content) Chisel Trimmer Relationship Specialty Start Date End Date Tomasz Fabian MD [address] [place] [address] PCP - General Family Practice 11/01/20 Chisel Trimmer Relationship Specialty Start Date End Date Tomasz Fabian MD [facility] [place] [address] PCP - General Family Practice 11/01/20 Chisel Trimmer Relationship Specialty Start Date End Date Tomasz Fabian MD [facility]0 [place] [address] PCP - General Family Practice 11/01/20 Chisel Trimmer Relationship Specialty Start Date End Date Tomasz Fabian MD [address] [place] [address], [place] [address] PCP - General Family Practice 11/01/20 Chisel Trimmer Relationship Specialty Start Date End Date Tomasz Fabian MD [address] [place] [address], [place] [address] PCP - General Family Practice 11/01/20 Chisel Trimmer Relationship Specialty Start Date End Date Tomasz Fabian MD [address] [place] [address], [place] [address] PCP - General Family Practice 11/01/20 Chisel Trimmer Relationship Specialty Start Date End Date Tomasz Fabian MD [address] [place] [address], [place] [address] PCP - General Family Practice 11/01/20 Chisel Trimmer Relationship Specialty Start Date End Date Tomasz Fabian MD [address] [place] [address], [place] [address] PCP - General Family Practice 11/01/20 Chisel Trimmer Relationship Specialty Start Date End Date Tomasz Fabian MD [address] [place] [address], [place] [address] PCP - General Family Practice 11/01/20 Chisel Trimmer Relationship Specialty Start Date End Date Tomasz Fabian MD [address] [place] [address] PCP - General Family Practice 11/01/20 Chisel Trimmer Relationship Specialty Start Date End Date Tomasz Fabian MD [address] [place] [address], [place] [address] PCP - General Family Practice 11/01/20 Chisel Trimmer Relationship Specialty Start Date End Date Tomasz Fabian MD [address] [place] [address], [place] [address] PCP - General Family Practice 11/01/20 Chisel Trimmer Relationship Specialty Start Date End Date Tomasz Fabian MD [address] [place] [address], [place] [address] PCP - General Family Medicine 11/01/20 Chisel Trimmer Relationship Specialty Start Date End Date Tomasz Fabian MD [address] [place] [address], [place] [address] PCP - General Family Medicine 11/01/20 Chisel Trimmer Relationship Specialty Start Date End Date Tomasz Fabian MD [address] [place] [address], [place] [address] PCP - General Family Medicine 11/01/20 Chisel Trimmer Relationship Specialty Start Date End Date Tomasz Fabian MD [address] [place] [address], [place] [address] PCP - General Family Medicine 11/01/20 Chisel Trimmer Relationship Specialty Start Date End Date Tomasz Fabian MD [address] [place] [address], [place] [address] PCP - General Family Medicine 11/01/20 Chisel Trimmer Relationship Specialty Start Date End Date Tomasz Fabian MD [address] [place] [address], [place] [id number] PCP - General Family Medicine 11/01/20 Chisel Trimmer Relationship Specialty Start Date End Date Tomazs Fabian MD [address] [place] [address] PCP - General Family Medicine 11/01/20 Chisel Trimmer Relationship Specialty Start Date End Date Tomasz Fabian MD [address] [place] [address] PCP - General Family Medicine 11/01/20 Chisel Trimmer Relationship Specialty Start Date End Date Tomasz Fabian MD [address] [place] [address] PCP - General Family Medicine 11/01/20 Chisel Trimmer Relationship Specialty Start Date End Date Tomasz Fabian MD [address] [place] [address] PCP - General Family Medicine 11/01/20 Chisel Trimmer Relationship Specialty Start Date End Date Tomasz Fabian MD [address] [place] [address] PCP - General Family Medicine 11/01/20 Chisel Trimmer Relationship Specialty Start Date End Date Tomasz Fabian MD [address] [place] [address] PCP - General Family Medicine 11/01/20 Chisel Trimmer Relationship Specialty [place] [address] [place] [address] PCP - General Family Medicine 11/01/20 Chisel Trimmer Relationship Specialty Start Date End Date Tomasz Fabian MD [address] [place] [address] PCP - General Family Medicine 11/01/20 Chisel Trimmer Relationship Specialty Start Date End Date Tomasz Fabian MD [address] [place] [address] PCP - General Family Medicine 11/01/20 Chisel Trimmer Relationship Specialty Start Date End Date Tomasz Fabian MD [address] [place] [address] PCP - General Family Medicine 11/01/20 Chisel Trimmer Relationship Specialty Start Date End Date Tomasz Fabian MD [address] [place] [address] PCP - General Family Medicine 11/01/20 Chisel Trimmer Relationship Specialty Start Date End Date Tomasz Fabian MD [address] [place] [address] PCP - General Family Medicine 11/01/20 Chisel Trimmer Relationship Specialty Start Date End Date Tomasz Fabian MD [address] [place] [address] PCP - General Family Medicine 11/01/20 Chisel Trimmer Relationship Specialty Start Date End Date Tomasz Fabian MD [address] [place] [address] PCP - General Family Medicine 11/01/20 Chisel Trimmer Relationship Specialty Start Date End Date Tomasz Fabian MD [address] [place] [address] PCP - General Family Medicine 11/01/20 Chisel Trimmer Relationship Specialty Start Date End Date Tomasz Fabian MD [address] [place] [address] PCP - General Family Medicine 11/01/20 Chisel Trimmer Relationship Specialty Start Date End Date Tomasz Fabian MD [address] [place] [address] PCP - General Family Medicine 11/01/20 Dar Moreland, ROHAN.MAINTENANCE PORTER [address] [place] [address] Operations Support Representative Family Medicine 04/19/24 Mary Anne Naik PA-C [address] [place] [address] Operations Support Representative Family Medicine 04/19/24 Chisel Trimmer Relationship Specialty Start Date End Date Tomasz Fabian MD [address] [place] [address] PCP - General Family Medicine 11/01/20 Dar Moreland, ROHAN.MAINTENANCE PORTER [address] [place] [address] Operations Support Representative Family Medicine 04/19/24 Mary Anne Naik PA-C [address] [place] [address] Operations Support Representative Family Medicine 04/19/24 Chisel Trimmer Relationship Specialty Start Date End Date Tomasz Fabian MD [address] [place] [address] PCP - General Family Medicine 11/01/20 Dar Moreland, CERTIFIED WELDER.MAINTENANCE PORTER [address] [place] [address] Operations Support Representative Family Medicine 04/19/24 Mary Anne Naik PA-C [address] [place], [place] [id number] [facility] 04/19/24 Team Status: Active Member Role Status Dates Dr. Yusuf Mccauley III, MD Family Provider Active Dr. Tomasz Fabian MD Primary Care Provider Active Team Status: Inactive Member Role Status Dates Dr. Tomasz Fabian MD Primary Care Provider Active Start: July 04, 2024 End: July 04, 2024 Dr. Vimal Whitaker MD Attending Provider Active S tart: July 04, 2024 End: July 04, 2024 Dr. Vimal Whitaker MD Referring Provider Active S tart: July 04, 2024 End: July 04, 2024 Team Status: Inactive Member Role Status Dates Dr. Tomasz Fabian MD Primary Care Provider Active Start: September 23, 2024 End: September 23, 2024 Mckayla Genaoing Attending Provider Active Start : September 23, 2024 End: September 23, 2024 Mckayla Richmond Referring Provider Active Start : September 23, 2024 End: September 23, 2024 Chisel Trimmer Relationship Specialty Start Date End Date Tomasz Fabian MD [address] [place] [id number] PCP - General Family Medicine 11/01/20 Dar Moreland APRN.CNP [address] [place] [id number] [facility] 10/13/24 Mary Anne Naik PA-C [address] [place], [place] [id number] [facility] 10/13/24 Team Status: Inactive Member Role Status Dates Dr. Tomasz Fabian MD Primary Care Provider Active Start: October 03, 2024 End: October 03, 2024 Dr. Vimal Whitaker MD Attending Provider Active S tart: October 03, 2024 End: October 03, 2024 Chisel Trimmer Relationship Specialty Start Date End Date Tomasz Fabian MD [address] [place] [address] PCP - General Family Medicine 11/01/20 Dar Moreland APRN.MAINTENANCE PORTER [address] [place] [address] Operations Support Representative Family Medicine 10/13/24 Mary Anne Naik PA-C [address] [place] [address] Operations Support Representative Family Medicine 10/13/24 Chisel Trimmer Relationship Specialty Start Date End Date Tomasz Fabian MD [address] [place] [address] PCP - General Family Medicine 11/01/20 Dar Moreland, ROHAN.MAINTENANCE PORTER [address] [place] [address] Operations Support Representative Family Medicine 10/13/24 Mary Anne Naik PA-C [address] [place] [address] Operations Support Representative Family Medicine 10/13/24 Chisel Trimmer Relationship Specialty Start Date End Date Tomasz Fabian MD [address] [place] [address] PCP - General Family Medicine 11/01/20 Dar Moreland, ROHAN.MAINTENANCE PORTER [address] [place] [address] Operations Support Representative Family Medicine 10/13/24 Mary Anne Naik PA-C [address] [place] [address] Operations Support Representative Family Medicine 10/13/24 Chisel Trimmer Relationship Specialty Start Date End Date Tomasz Fabian MD [address] [place], [place] [id number] PCP - General Family Medicine 11/01/20 Dar Moreland APRN.MAINTENANCE PORTER [address] [place], [place] [address] Operations Support Representative Family Medicine 10/13/24 Mary Anne Naik PA-C [address] [place], [place] [id number] Operations Support Representative Family [facility] 10/13/24 Team Status: Active Member Role/Relationship Status Dates Dr. Yusuf Mccauley III, MD Family Provider Active Dr. Tomasz Fabian MD Primary Care Provider Active Team Status: Inactive Member Role/Relationship Status Dates Dr. Tomasz Fabian MD Primary Care Provider Active Start: September 23, 2024 End: September 23, 2024 Mckayla Terry Attending Provider Active Start : September 23, 2024 End: September 23, 2024 Mckayla Terry Referring Provider Active Start : September 23, 2024 End: September 23, 2024 Team Status: Inactive Member Role/Relationship Status Dates Dr. Toamsz Fabian MD Primary Care Provider Active Start: October 03, 2024 End: October 03, 2024 Dr. Vimal Whitaker MD Attending Provider Active S tart: October 03, 2024 End: October 03, 2024 Dr. Vimal Whitaker MD Referring Provider Active S tart: October 03, 2024 End: October 03, 2024 Team Status: Inactive Member Role/Relationship Status Dates Dr. Tomasz Fabian MD Primary Care Provider Active Start: January 02, 2025 End: January 02, 2025 Dr. Vimal Whitaker MD Attending Provider Active S tart: January 02, 2025 End: January 02, 2025 Reason for Visit (unrecogniz ed section and content) Reason Comments Sleep Apnea Established Patient Reason Comments Referral Information Reason Comments Medicare Wellness Exam 6 months Reason Comments Patient Update Reason Comments Results Reason Comments Appointment Reason Comments Blood Pressure Check Reason Comments Refill Request Reason Comments Medication Problem Patient Question Reason Comments Blood Pressure Check Reason Comments Patient Question Reason Comments F/U 6 months Reason Comments Orders Reason Onset Date Comments Refill Request 06/30/2022 Reason Comments Consult Colonoscopy consult. Reason Comments Established Patient Sleep Apnea Reason Comments Follow Up colonscopy Reason Comments Medicare Wellness Exam Reason Onset Date Comments Refill Request 01/04/2023 Reason Onset Date Comments Refill Request 04/01/2023 Reason Comments Patient Update Patient Question Reason Onset Date Comments Refill Request 07/02/2023 Reason Onset Date Comments Refill Request 10/01/2023 Reason Comments cpap compliance Reason Comments OV notes Reason Comments Established Patient Reason Comments Outside Allergy Reason Comments Consult Cardiology Reason Comments Handicap Placards Reason Onset Date Comments Refill Request 03/29/2024 Reason Onset Date Comments Refill Request 06/26/2024 Reason Onset Date Comments Refill Request 09/24/2024 Reason Comments Outside [id number]-[id number] Ordered Reason Comments Outside Urology Reason Comments Follow Up Reason Onset Date Comments Results, Lab 12/09/2024 Reason Comments Abstract Allergy/Immunology O V Reason Onset Date Comments Results 12/11/2024 Reason Comments F/U 1 month BP Goals (unrecognized section and content) Goals may be documented in a n alternate sectionGoals may be documented in an alternate sectionGoals may be documented in an alternate sectionGoals may be documented in an alternate sectionGoals may be documented in an alternate section (unrecognized sect ion and content) No Status Records FoundNo Status Records FoundNo Status Records Found INFORMATION SOURCE (unrecogn ized section and content) DATE CREATED AUTHOR 10/11/2023 [facility] DATE CREATED AUTHOR AUTHOR'S ORGANIZ ATION 01/08/2025 [facility] DATE CREATED AUTHOR AUTHOR'S ORGANIZ ATION 03/21/2025 [facility] FOR RECORDS PERTAINING TO PATIENTS WHO ARE OR HAVE BEEN ENROLLED IN A CHEMICAL DEPENDENCY/SUBSTANCEABUSE PROGRAM, SOME INFORMATION MAY BE OMITTED. This clinical summary was aggregated from multiple sources. Caution should be exercised in using it in the provision of clinical care. This summary normalizes information from multiple sources, and as a consequence, information in this document may materially change the coding, format and clinical context of patient data. In addition, data may be omitted in some cases. CLINICAL DECISIONS SHOULD BE BASED ON THE PRIMARY CLINICAL RECORDS. [facility]. provides no warranty or guarantee of the accuracy or completeness of information in this document.
[2025-04-02] VITALS: BP 132/66; PULSE 59; RESP 18; O2SAT 97
[2025-04-02 00:15] VITALS: BMI 27.1
[2025-04-02 00:30] VITALS: BP 160/87; PULSE 58; RESP 16; TEMP 35.9; O2SAT 100
[2025-04-02 00:49] VITALS: BMI 27.1
[2025-04-02 06:22] VITALS: BP 160/82; PULSE 60; RESP 16; TEMP 36.6; O2SAT 99
--- NOTE | 2025-04-02 09:08 | PCA ---
THIS US CALLED [facility] TO GET A BED UPDATE ( ) PER WALTER AT [facility] WE ARE WAITING ON A CARDIOLOGY SERVICE, THEY ARE CURRENTLY CAPPED OUT, WAITING ON DISCHARGES. WILL CALL BACK THIS AFTERNOON
[2025-04-02 11:02] VITALS: BP 140/87; PULSE 60; RESP 18; TEMP 36.3; O2SAT 99
--- NOTE | 2025-04-02 15:16 | CHAPLAIN ---
Type of Pastoral Visit _x__ Initial Visit ___ Follow-up Visit ___ On-call Visit ___ General Patient Visit ___ Spiritual Assessment ___ Family Conference ___ Bereavement ___ Rapid Response ___ Code Blue ___ Other (describe below) Pastoral Care Referral From _x__ Patient ___ Family ___ Nurse ___ Physician ___ Sheeter Helper ___ Stone Sandblaster ___ Other (describe below) Sacrament/Intervention _x__ Active listening ___ Anointing ___ Taoism ___ Bereavement ___ Communion _x__ Gia exploration ___ ___ Life review _x__ Prayer ___ Reconciliation ___ Sacrament of Sick _x__ Supportive presence ___ Wedding ___ Other (describe below) Pastoral Comments patient and are in the room; pt speaks of the need for him to be transferred due to this hospitals' limitations on the surgery he needs; pt admits to some frustration due to fact that the hospital is unable to accept him yet; pt identifies self as a Spiritism and acknowledges gia in God; pt is encouraged to use his gia and prayer which he agrees is the right thing to do; listening and exploring his feelings and needs; prayer is welcomed
[2025-04-02 15:17] VITALS: BP 143/78; PULSE 58; RESP 18; TEMP 36.4; O2SAT 98
--- NOTE | 2025-04-02 16:32 | PCA ---
THIS US CALLED [facility] TO CHECK ON BEDS, NO BEDS AT THIS TIME DISCHARGE DEPENDENT
--- NOTE | 2025-04-02 17:52 | PCM.PN.HOSP ---
Reason for Visit Chief Complaint: Fractured RV pacemaker lead Subjective Subjective Patient was seen and examined today, voices no complaints, we are waiting for a bed at [facility] for the patient to be transferred to regarding a dysfunctional pacer wire. Objective Data Objective Data Vital Signs: Vital Signs Temp Pulse Resp BP Pulse Ox O2 Del Method 97.5 F L 58 L 18 143/78 H 98 Room Air 04/02/25 15:17 04/02/25 15:17 04/02/25 15:17 04/02/25 15:17 04/02/25 15:17 04/02/25 15:17 Oxygen Delivery Method Room Air Weight: 88.3 kg Body Mass Index (BMI) 27.1 Intake & Output: Intake and Output for Last 24 Hours 03/31/25 04/01/25 04/02/25 23:59 23:59 23:59 Intake Total 1400 / 1400 Balance 1400 / 1400 Lab / Micro Data 04/01/25 16:20 04/01/25 16:20 Labs: Laboratory Results - last 24 hr 04/01/25 16:20: PT 13.8, INR 1.0, APTT 29.7 Radiography Diagnostic Testing: Radiology Impression Chest X-Ray 04/01/25 16:50 IMPRESSION: NO ACUTE FINDINGS. Reading Location: [address] Physical Exam Const alert, oriented x3, no apparent distress and average body habitus General Appearance: cooperative, well kempt and well developed Orientation / Consciousness: awake, oriented to person, oriented to place and oriented to time HEENT normocephalic, head/scalp atraumatic and moist oral mucous membranes Eyes PERRL, EOMs intact bilaterally and conjunctivae normal Neck supple, no JVD, thyroid normal and no carotid bruits General: trachea midline Resp normal respiratory effort, no retractions, no use of accessory muscles and clear to auscultation bilaterally Auscultation: Negative for rales, rhonchi or wheezes Cardio regular rate, regular rhythm, S1 normal heart sound, S2 normal heart sound, no murmurs, no rub and no gallops GI normal to inspection, nondistended, normoactive bowel sounds, soft to palpation, non-tender and non-distended Extremity no clubbing, cyanosis or edema Skin no rashes or lesions noted General Skin Exam: no breakdown Neuro oriented x3, CN's II-XII intact bilaterally, moves all extremities, no focal motor deficits and no sensory deficits noted Sensorium / Orientation: awake and alert Speech: speech normal Psych affect normal Assessment & Plan Assessment/Plan (1) Pacemaker lead malfunction: PLAN: Plan 1. Dysfunctional pacemaker wire-again patient will be transferred to [facility] when a bed becomes available, for now he will be monitored on telemetry #2 essential hypertension-patient will remain on his present medications, blood pressure will be monitored #3 BPH-patient is on Cardura presently Total clinical time spent by myself addressing the patient's medical issues, reviewing his present data, and collaborating with patient's care team: 25 minutes Charges/Coding Visit Charges Inpatient E&M: 40617 Subs Hosp L1
[2025-04-02 20:10] VITALS: BP 168/82; PULSE 65; RESP 18; TEMP 36.4; O2SAT 95
[2025-04-03 02:20] VITALS: BP 168/75; PULSE 66; RESP 18; TEMP 36.4; O2SAT 97
[2025-04-03 03:07] VITALS: BMI 27.2
[2025-04-03 06:21] VITALS: BP 158/72; PULSE 64; RESP 16; TEMP 36.1; O2SAT 97
[2025-04-03 09:23] VITALS: O2SAT 98
[2025-04-03 13:31] VITALS: BP 142/71; PULSE 62; RESP 16; TEMP 36; O2SAT 98
[2025-04-03 17:10] VITALS: BP 166/79; PULSE 70; RESP 18; TEMP 36.2; O2SAT 98
--- NOTE | 2025-04-03 18:11 | PCM.PN.HOSP ---
Reason for Visit Chief Complaint: Fractured RV pacemaker lead Subjective Subjective Patient was seen and examined today, he still awaiting confirmation of a bed at [facility]. Patient voices no complaints at this time. Objective Data Objective Data Vital Signs: Vital Signs Temp Pulse Resp BP Pulse Ox O2 Del Method 97.2 F L 70 18 166/79 H 98 Room Air 04/03/25 17:10 04/03/25 17:10 04/03/25 17:10 04/03/25 17:10 04/03/25 17:10 04/03/25 17:10 Oxygen Delivery Method Room Air Weight: 88.6 kg Body Mass Index (BMI) 27.2 Intake & Output: Intake and Output for Last 24 Hours 04/01/25 04/02/25 04/03/25 23:59 23:59 23:59 Intake Total 1400 / 1400 800 / 800 Output Total 2014 Balance 1400 / 1135 -1215 / -1215 Lab / Micro Data 04/01/25 16:20 04/01/25 16:20 Physical Exam Narrative alert, oriented x3, no apparent distress and average body habitus General Appearance: cooperative, well kempt and well developed Orientation / Consciousness: awake, oriented to person, oriented to place and oriented to time HEENT normocephalic, head/scalp atraumatic and moist oral mucous membranes Eyes PERRL, EOMs intact bilaterally and conjunctivae normal Neck supple, no JVD, thyroid normal and no carotid bruits General: trachea midline Resp normal respiratory effort, no retractions, no use of accessory muscles and clear to auscultation bilaterally Auscultation: Negative for rales, rhonchi or wheezes Cardio regular rate, regular rhythm, S1 normal heart sound, S2 normal heart sound, no murmurs, no rub and no gallops GI normal to inspection, nondistended, normoactive bowel sounds, soft to palpation, non-tender and non-distended Extremity no clubbing, cyanosis or edema Skin no rashes or lesions noted General Skin Exam: no breakdown Neuro oriented x3, CN's II-XII intact bilaterally, moves all extremities, no focal motor deficits and no sensory deficits noted Sensorium / Orientation: awake and alert Speech: speech normal Psych affect normal Assessment & Plan Assessment/Plan (1) Pacemaker lead malfunction: PLAN: Plan 1. Dysfunctional pacemaker wire-again patient will be transferred to [facility] when a bed becomes available, for now he will be monitored on telemetry, patient remains medically stable at this time #2 essential hypertension-patient will remain on his present medications, blood pressure will be monitored #3 BPH-patient is on Cardura presently Total clinical time spent by myself addressing the patient's medical issues, reviewing his present data, and collaborating with patient's care team: 25 minutes Charges/Coding Visit Charges Inpatient E&M: 91127 Subs Hosp L1
[2025-04-03 20:10] VITALS: BP 135/74; PULSE 60; RESP 16; TEMP 36.4; O2SAT 96
[2025-04-04 02:10] VITALS: BP 135/45; PULSE 60; RESP 16; TEMP 36.6; O2SAT 95
[2025-04-04 07:29] VITALS: BMI 27.5
[2025-04-04 09:03] VITALS: BP 178/81; PULSE 63; RESP 18; TEMP 36.6; O2SAT 98
--- NOTE | 2025-04-04 09:29 | NURSING ---
Call was placed to [facility] call center by Ania RICO. No bed is currently available this morning, but it is hopeful that one will be available this afternoon. Jen VAUGHN
--- NOTE | 2025-04-05 09:11 | PCM.DC.SUM ---
Providers Date of Admission: 04/01/25 Date of Discharge: 04/04/25 Primary Care Physician: Dr. Tomasz Sinha MD Reason For Visit: RV LEAD FRACTURE Diagnosis Discharge Diagnosis (1) Pacemaker lead malfunction: Status: Acute Code(s): T82.110A - Breakdown (mechanical) of cardiac electrode, initial encounter Plan 1. Dysfunctional pacemaker wire-again patient will be transferred to [facility] when a bed becomes available, for now he will be monitored on telemetry, patient remains medically stable at this time #2 essential hypertension-patient will remain on his present medications, blood pressure will be monitored #3 BPH-patient is on Cardura presently Total clinical time spent by myself addressing the patient's medical issues, reviewing his present data, and collaborating with patient's care team: 25 minutes Medications at Discharge Home Medications albuterol sulfate 90 mcg/actuation aerosol inhaler 1 inh inhalation ONCE 04/15/20 spironolactone 100 mg tablet 100 mg PO DAILY 04/11/22 bgnhohlzvlqu-cgyexnui-tjmbzs tablet 1 tab PO DAILY 12/07/22 clonidine HCl 0.3 mg tablet 0.3 mg PO BID 04/01/25 doxazosin 2 mg tablet 2 mg PO DAILY 04/01/25 doxazosin 4 mg tablet 4 mg PO DAILY 04/01/25 Hospital Course Operations None Procedures None Summary of Care Provided Minutes Spent on Discharge: 31 Hospital Course: This 75-year-old white male was seen in the emergency room at [facility] 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 The pacemaker had been interrogated and there was an apparent right ventricular lead malfunction. Patient's vitals in the emergency room were stable, [facility] was contacted by the emergency room and agreed to except the patient but there was no bed availability and so the patient was admitted to PCU. During the time that the patient was on PCU he remained asymptomatic although there were periods where it appeared his pacer fired but did not capture. On 04/04/2025, patient was seen and examined: On examination he appeared in good health and spirits. Vital signs as documented. Skin warm and dry and without overt rashes. Neck without JVD, neck was supple, trachea midline, thyroid was normal. Lungs clear bilaterally, normal air movement was noted. Heart exam notable for regular rhythm, normal sounds and absence of murmurs, rubs or gallops. Abdomen unremarkable and without evidence of organomegaly, masses, or abdominal aortic enlargement. Bowel sounds are present, abdomen is not distended. Extremities nonedematous, no cyanosis was noted, no clubbing was noted. Neuro: Cranial nerves II through XII are grossly intact, no focal motor deficits were noted, sensation to light touch and pinprick intact, motor exam 5/5 throughout. Psych: Patient is alert and oriented x3, he does not appear anxious or depressed, he does not appear agitated. On 04/04/2025, [facility] confirmed that there was a bed available for the patient and he was transferred by ambulance there for further care. Patient was in stable condition at the time of transfer. Weight / BMI Weight Weight: 89.6 kg Body Mass Index (BMI) 27.5 ABG / Lab / Microbiology Data 04/01/25 16:20 04/01/25 16:20 D/C Instructions DC O2, CPAP, BIPAP Needs Home O2 Discharge instructions: No Meaningful Use Info Meaningful Use Meaningful Use Diagnoses (Choose all that apply): None applicable Discharge Plan Admission Admit Date/Time: 04/01/25 22:50 Attending Provider: Dudley Ballard Primary Care Provider: Tomasz Sinha Consulting Providers: Heavenly Gaxiola Discharge Orders/Prescriptions Prescriptions: No Action albuterol sulfate 90 mcg/actuation HFA aerosol inhaler 1 inh INHALATION ONCE ibalubydhirx-vkydttot-idqvwh Tablet 1 tab PO DAILY spironolactone 100 mg tablet 100 mg PO DAILY Patient Comments: TAKE 1 TABLET BY MOUTH ONCE DAILY clonidine HCl 0.3 mg tablet 0.3 mg PO BID doxazosin 4 mg tablet 4 mg PO DAILY doxazosin 2 mg tablet 2 mg PO DAILY Referrals / Follow Up: Tomasz Sinha MD [Primary Care Provider, Family Practice] Disposition Disposition (needs filled in before D/C Order can be placed): Acute Care Hospital Charges/Coding Visit Charges Inpatient E&M: 02157 Disch Hosp >30min
== END 2025-04-04 17:25 | disposition short-term general hospital (02) | DRG 309 ==
LOC: ED 16:46 → PCU 23:11
PROVIDERS: Admitting Provider Internal Medicine; Emergency Provider Student in an Organized Health Care Education/Training Program; PCP Family Medicine; Visit Provider Internal Medicine
DX: T82.110A Breakdown (mechanical) of cardiac electrode, initial encounter (principal); N13.8 Other obstructive and reflux uropathy; G12.9 Spinal muscular atrophy, unspecified; I10 Essential (primary) hypertension; G47.33 Obstructive sleep apnea (adult) (pediatric); Z95.0 Presence of cardiac pacemaker; Z99.89 Dependence on other enabling machines and devices; N40.1 Benign prostatic hyperplasia with lower urinary tract symptoms; Y71.8 Miscellaneous cardiovascular devices associated with adverse incidents, not elsewhere classified
CPT/HCPCS: 71046; 80048; 85025; 85610; 85730; 93005; 94668; 99252; 99285; A4216; G0463